=== PATIENT | female | born 1955 | race Caucasian/White ===

== ENCOUNTER 2016-11-17 13:25 | Observation (INO) | payer MEDICAID ==
--- NOTE | 2016-11-17 13:33 | EDPHY ---
H & P Time Seen by Provider: 11/17/16 13:35 HPI/ROS: CHIEF COMPLAINT: Chest pain HISTORY OF PRESENT ILLNESS: The patient presents to the emergency department with complaints of chest pain. Her symptoms initially began yesterday. She describes a sensation of a safe on my chest. The patient does have a history of colorectal cancer initially treated with chemo and radiation. She does report she has had some microscopic recurrence of disease. The patient has a remote history of a possible upper extremity DVT which she had been on Coumadin for a period of 4 months. She is currently not anticoagulated. The patient is a daily smoker. The patient denies risk factors for cardiac disease aside from smoking. The patient reports that she did contact 911. She was given nitroglycerin in route which resulted in improvement of her symptoms. REVIEW OF SYSTEMS: A comprehensive 10 point review of systems is otherwise negative aside from elements mentioned in the history of present illness. 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, migraines, right inguinal hernia repair, peptic ulcer disease, RUE DVT, hypertension - Social History Smoking Status: Former smoker - Physical Exam Exam: General Appearance: Alert, no distress Eyes: Pupils equal and round no pallor or injection ENT, Mouth: Mucous membranes moist Respiratory: There are no retractions, lungs are clear to auscultation Cardiovascular: Regular rate and rhythm Gastrointestinal: Abdomen is soft and nontender, no masses, bowel sounds normal Neurological: A&O, normal motor function, normal sensory exam, normal cranial nerves Skin: Warm and dry, no rashes Musculoskeletal: Neck is supple nontender Extremities: symmetrical, full range of motion Constitutional: Initial Vital Signs Temperature (C) 36.7 C 11/17/16 13:25 Heart Rate 100 11/17/16 13:25 Respiratory Rate 12 11/17/16 13:25 Blood Pressure 124/88 H 11/17/16 13:25 O2 Sat (%) 97 11/17/16 13:25 O2 Delivery Mode Room Air Allergies/Adverse Reactions: Penicillins Allergy (Severe, Verified 11/17/16 13:30) aspirin Allergy (Verified 11/17/16 13:30) codeine Allergy (Verified 11/17/16 13:30) Other-Enter Comments ibuprofen Allergy (Verified 11/17/16 13:30) Home Medications: Medication Instructions Recorded Gabapentin [Neurontin 300 MG (*)] 300 mg PO BID 01/26/16 Prochlorperazine Maleate 10 mg PO DAILY06 01/26/16 [Compazine 10mg (*)] morphINE SR [Ms Contin/Oramorph 15 15 mg PO BID 01/26/16 mg (*)] Medical Decision Making - Diagnostics EKG Interpretation: EKG: Complete interpretation has been separately recorded in the [facility] archive. Summary impression: Sinus rhythm, abnormal P-wave morphology Imaging: CT pulmonary angiogram: Negative for dissection, aneurysm or other explanation for chest pain. Study results reported to me by Dr. Black ED Course/Re-evaluation: The patient presents to the ED for evaluation of an episode of chest pain that occurred earlier today which the patient characterized as the sensation of a safe being on her chest. The patient has no evidence of ST segment elevation on her EKG. She has nonspecific P wave changes noted. Her initial troponin is normal. Patient's D-dimer was elevated prompting a CT pulmonary angiogram to evaluate for thromboembolic disease. Fortunately this study demonstrated no evidence of PE or dissection. The patient did not have recurrence of severe chest pain throughout her stay in the emergency department. Given the character of her pain and the fact that it was improved with nitroglycerin I do feel that she should be admitted to the hospital for observation and serial cardiac enzymes this evening. Consultation was made with Dr. Hernandez from the hospitalist service who has agreed to admit the patient this evening. Differential Diagnosis: Differential diagnosis considered includes acute coronary syndrome, myocardial infarction, pericarditis, esophagitis spasm, pulmonary embolism, pneumonia, pneumothorax - Data Points Laboratory Results: Laboratory Results 11/17/16 13:22 11/17/16 13:22 11/17/16 11/17/16 13: 13:20 WBC 5.81 10^3/uL (3.80-9.50) RBC 3.65 L 10^6/uL (4.18-5.33) Hgb 13.0 g/dL (12.6-16.3) Hct 39.1 % (38.0-47.0) MCV 107.1 H fL (81.5-99.8) MCH 35.6 H pg (27.9-34.1) MCHC 33.2 g/dL (32.4-36.7) RDW 15.7 H % (11.5-15.2) Plt Count 58 L 10^3/uL (150-400) MPV 9.9 fL (8.7-11.7) Neut % (Auto) 58.2 % (39.3-74.2) Lymph % (Auto) 26.2 % (15.0-45.0) [place] % (Auto) 14.3 H % (4.5-13.0) Eos % (Auto) 0.5 L % (0.6-7.6) Baso % (Auto) 0.3 % (0.3-1.7) Nucleat RBC Rel Count 0.0 % (0.0-0.2) Absolute Neuts (auto) 3.38 10^3/uL (1.70-6.50) Absolute Lymphs (auto) 1.52 10^3/uL (1.00-3.00) Absolute Monos (auto) 0.83 H 10^3/uL (0.30-0.80) Absolute Eos (auto) 0.03 10^3/uL (0.03-0.40) Absolute Basos (auto) 0.02 10^3/uL (0.02-0.10) Absolute Nucleated RBC 0.00 10^3/uL (0-0.01) Immature Gran % 0.5 % (0.0-1.1) Immature Gran # 0.03 10^3/uL (0.00-0.10) PT 12.1 SEC (12.0-15.0) INR 0.91 (0.83-1.16) D-Dimer 4.08 H ug/mLFEU (0.00-0.50) Sodium 139 mEq/L (134-144) Potassium 4.0 mEq/L (3.5-5.2) Chloride 103 mEq/L (97-110) Carbon Dioxide 26 mEq/l (22-31) Anion Gap 10 mEq/L (8-16) BUN 22 mg/dL (7-23) Creatinine 1.0 mg/dL (0.6-1.0) Estimated GFR 56 Glucose 100 mg/dL (70-100) Calcium 8.7 mg/dL (8.5-10.4) Troponin I < 0.012 ng/mL (0-0.034) Departure - Departure Disposition: [facility] [place] Acute Clinical Impression: Chest pain, Anal squamous cell carcinoma Condition: Good
--- NOTE | 2016-11-17 13:34 | CPEKG ---
Heart Rate: 92 RR Interval: 652 P-R Interval: 164 QRSD Interval: 68 QT Interval: 356 QTC Interval: 441 P [place]: -78 QRS [place]: -17 T Wave [place]: 6 EKG Severity - ABNORMAL ECG - EKG Impression: ECTOPIC ATRIAL RHYTHM EKG Impression: CONSIDER LEFT VENTRICULAR HYPERTROPHY EKG Impression: ANTERIOR Q WAVES, POSSIBLY DUE TO LVH Electronically Signed By: Rosette Cunningham 17-Nov-2016 15:09:31
[2016-11-17 13:35] LABS: % IMMATURE GRANULYOCYTES 0.5 % (0.0-1.1); ABSOLUTE IMMATURE GRANULOCYTES 0.03 10^3/uL (0.00-0.10); ADD DIFF? NO; HEMATOCRIT 39.1 % (38.0-47.0); MEAN CELL HEMOGLOBIN 35.6 pg (27.9-34.1); MEAN CELL HEMOGLOBIN CONCENTR. 33.2 g/dL (32.4-36.7); MEAN CELL VOLUME 107.1 fL (81.5-99.8); MEAN PLATELET VOLUME 9.9 fL (8.7-11.7); PLATELET COUNT 58 10^3/uL (150-400); RED BLOOD CELL COUNT 3.65 10^6/uL (4.18-5.33); RED CELL DISTRIBUTION WIDTH 15.7 % (11.5-15.2)
[2016-11-17 13:36] LABS: ADD MORPH? NO; ADD SCAN? YES; FRAGMENT RBC FLAG 0 (0-99); LEFT SHIFT FLG 0 (0-99); LIPEMIA HEMOLYSIS FLAG 80 (0-99); PLATELET CLUMPS FLAG 10 (0-99)
[2016-11-17 13:37] LABS: ATYPICAL LYMPHOCYTE FLAG 110 (0-99)
[2016-11-17 13:49] LABS: INR 0.91 (0.83-1.16); PROTIME(PATIENT) 12.1 SEC (12.0-15.0)
[2016-11-17 13:54] LABS: ANION GAP 10 mEq/L (8-16); CALCIUM 8.7 mg/dL (8.5-10.4); CARBON DIOXIDE 26 mEq/l (22-31); CHLORIDE 103 mEq/L (97-110); GLOMERULAR FILTRATION RATE 56; GLUCOSE 100 mg/dL (70-100); SODIUM 139 mEq/L (134-144)
[2016-11-17 14:16] LABS: SCAN NEGATIVE
[2016-11-17] MEDS ORDERED: IOPAMIDOL (ISOVUE 370) 75 ML BTL IV ONE (14:52)
--- NOTE | 2016-11-17 16:10 | CT ---
CT Pulmonary Angiography Clinical Indications: Chest pain and shortness breath. Comparison: December 10, 2014. Technique: Thinly collimated multidetector helical CT imaging was performed through the chest while 9 0 mL Isovue-370 were injected intravenously without complication. The images were then transferred t o an independent workstation where multiplanar and three-dimensional reconstructions were performed b y the interpreting physician and reviewed at multiple windows. Dose reduction techniques were utilize d. Findings: Chest: No pneumonia, pneumothorax, or pleural effusions are present. Heart size is normal and there is no pericardial effusion. No adenopathy and no pulmonary masses are found. There is 24 months sta bility in the posterior pleural-based nodule measuring 8 x 5 mm in the superior right lower lobe. Mil d airways disease is present and some patchy atelectatic change is present. CT Pulmonary Angiogram: No intraluminal filling defects are seen in the pulmonary arterial system to suggest pulmonary embolus. The thoracic aorta has a normal contour without evidence of aneurysm or d issection. No evidence of significant coronary artery calcification. Impression: 1. 24-month stability in the pleural-based nodule. This is benign and needs no further follow up. 2. Mild airways disease and patchy atelectatic or interstitial changes. 3. No radiographic evidence to explain the patient's chest pain. Critical results relayed by Dr. Black to Dr. Dyson on November 17, 2016, at 1538 hours.
[2016-11-17] MEDS ORDERED: ONDANSETRON DISINTEGRATING 4 MG TAB PO PRN (16:18)
[2016-11-17] MEDS ORDERED: ONDANSETRON 4 MG/2 ML VIAL IVP PRN (16:18)
[2016-11-17] MEDS ORDERED: ACETAMINOPHEN 325 MG TAB PO PRN (16:18)
--- NOTE | 2016-11-17 16:28 | PDEACUHP ---
History and Physical - Chief Complaint chest pain - History of Present Illness 61 yo female with h/o colorectal cancer followed by Dr. Morin presents to ED with chest pain. Her CP onset was at rest. There was no associated nausea, vomiting, diaphoresis or SOB. She denies radiation of the pain. The pain was sub-sternal and she describes it as a "disc-like" area of pressure. No burning. She called EMS, who gave her SL NTB. Upon arrival to the ED, her pain had resolved from a 06/14 prior to NTG. She smokes tobacco, 1/2 ppd. She is homeless. She denies a h/o hypertension, hyperlipidemia, DM or family h/o heart disease. In the ED, a CTA was performed and was negative for PE. She reports a " possible h/o RUE DVT", for which she took coumadin for 4 months. She is not currently anti-coagulated. She is admitted to the hospital for further evaluation and management of her chest pain. History Information - Allergies/Home Medication List Allergies/Adverse Reactions: Penicillins Allergy (Severe, Verified 11/17/16 13:30) aspirin Allergy (Verified 11/17/16 16:53) codeine Allergy (Verified 11/17/16 16:53) Other-Enter Comments ibuprofen Allergy (Verified 11/17/16 16:53) Home Medications: Gabapentin [Neurontin 300 MG (*)] 300 mg PO HS 01/26/16 [Last Taken 11/16/16] Prochlorperazine Maleate [Compazine 10mg (*)] 10 mg PO DAILY06 01/26/16 [Last Taken 11/17/16] morphINE SR [Ms Contin/Oramorph 15 mg (*)] 15 mg PO BID 01/26/16 [Last Taken ] Acetaminophen [Tylenol ES 500 mg (*)] 1,000 mg PO DAILY 11/17/16 [Last Taken ] Caffeine [Stay Awake] 65 mg PO DAILY 11/17/16 [Last Taken 11/17/16] I have personally reviewed and updated: family history, medical history, social history, surgical history - Past Medical History cancer Additional medical history: colorectal cancer, last chemo tx 1 week ago. PUD, migraines, htn (though pt denies any tx at this time). - Surgical History Reports: hernia repair - Family History Additional family history: No family h/o PHD. - Social History Smoking Status: Current every day smoker (Homeless) Review of Systems ROS: 10pt was reviewed & negative except for what was stated in HPI & below Physical Exam Temp Pulse Resp BP Pulse Ox 36.7 C 72 20 137/78 H 94 11/17/16 16:22 11/17/16 16:22 11/17/16 16:22 11/17/16 16:22 11/17/16 16:22 Constitutional: no apparent distress Eyes: PERRL Ears, Nose, Mouth, Throat: moist mucous membranes, other (poor dentition) Cardiovascular: regular rate and rhythym, no murmur, rub, or gallop Respiratory: no respiratory distress, clear to auscultation Gastrointestinal: normoactive bowel sounds, soft, non-tender abdomen Skin: warm Musculoskeletal: full muscle strength Neurologic: AAOx3 Psychiatric: interacting appropriately Lab Data & Imaging Review 11/17/16 13:22 11/17/16 13:22 WBC 5.81 10^3/uL (3.80-9.50) 11/17/16 13:22 RBC 3.65 10^6/uL (4.18-5.33) L 11/17/16 13:22 Hgb 13.0 g/dL (12.6-16.3) 11/17/16 13:22 Hct 39.1 % (38.0-47.0) 11/17/16 13:22 MCV 107.1 fL (81.5-99.8) H 11/17/16 13:22 MCH 35.6 pg (27.9-34.1) H 11/17/16 13:22 MCHC 33.2 g/dL (32.4-36.7) 11/17/16 13:22 RDW 15.7 % (11.5-15.2) H 11/17/16 13:22 Plt Count 58 10^3/uL (150-400) L 11/17/16 13:22 MPV 9.9 fL (8.7-11.7) 11/17/16 13:22 Neut % (Auto) 58.2 % (39.3-74.2) 11/17/16 13:22 Lymph % (Auto) 26.2 % (15.0-45.0) 11/17/16 13:22 [place] % (Auto) 14.3 % (4.5-13.0) H 11/17/16 13:22 Eos % (Auto) 0.5 % (0.6-7.6) L 11/17/16 13:22 Baso % (Auto) 0.3 % (0.3-1.7) 11/17/16 13: Nucleat RBC Rel Count 0.0 % (0.0-0.2) 11/17/16 13: Absolute Neuts (auto) 3.38 10^3/uL (1.70-6.50) 11/17/16 13: Absolute Lymphs (auto) 1.52 10^3/uL (1.00-3.00) 11/17/16 13: Absolute Monos (auto) 0.83 10^3/uL (0.30-0.80) H 11/17/16 13: Absolute Eos (auto) 0.03 10^3/uL (0.03-0.40) 11/17/16 13:22 Absolute Basos (auto) 0.02 10^3/uL (0.02-0.10) 11/17/16 13: Absolute Nucleated RBC 0.00 10^3/uL (0-0.01) 11/17/16 13: Immature Gran % 0.5 % (0.0-1.1) 11/17/16: Immature Gran # 0.03 10^3/uL (0.00-0.10) 11/17/16 13: PT 12.1 SEC (12.0-15.0) 11/17/16 13:22 INR 0.91 (0.83-1.16) 11/17/16 13: D-Dimer 4.08 ug/mLFEU (0.00-0.50) H 11/17/16 13:22 Sodium 139 mEq/L (134-144) 11/17/16 13:22 Potassium 4.0 mEq/L (3.5-5.2) 11/17/16 13:22 Chloride 103 mEq/L (97-110) 11/17/16 13: Carbon Dioxide 26 mEq/l (22-31) 11/17/16 13:22 Anion Gap 10 mEq/L (8-16) 11/17/16 13:22 BUN 22 mg/dL (7-23) 11/17/16 13:22 Creatinine 1.0 mg/dL (0.6-1.0) 11/17/16 13:22 Estimated GFR 56 11/17/16 13:22 Glucose 100 mg/dL (70-100) 11/17/16 13:22 Calcium 8.7 mg/dL (8.5-10.4) 11/17/16 13:22 Troponin I < 0.012 ng/mL (0-0.034) 11/17/16 13:20 Assessment & Plan Assessment: Chest pain - CV risk factors include tobacco use and past h/o hypertension, not currently on anti-hypertensives. She feels the CP is starting to return. Initial troponin negative. CTA neg for PE. EKG shows Q waves in V1,V2, but no evidence of acute ischemia. Overall, suspicion for ACS is relatively low. -admit to EACU -trend troponin -repeat EKG now -echo to evaluate for WMA given Q waves on EKG, ?LVH -cardiology consult if abnormal echo or positive troponin -daily ASA, nitro-paste, prn morphine for pain -check lipid status, consider addition of statin -consider beta poncho if BP can tolerate with ntg -EST in am if above w/u negative Colorectal cancer - followed by Dr. Morin. Last chemo tx one week ago. She understands her cancer is uncurable, but is responding well to palliative treatment. No mention of sternal mets on CT. Outpt oncology f/u planned. Hypertension - this is by chart hx. Pt not currently on anti-hypertensives and is relatively normotensive here. Homeless - CM consult Code status - full code Dispo - obs
--- NOTE | 2016-11-17 16:53 | CPEKG ---
Heart Rate: 72 RR Interval: 833 P-R Interval: 156 QRSD Interval: 74 QT Interval: 388 QTC Interval: 425 P [place]: 45 QRS [place]: -19 T Wave [place]: 63 EKG Severity - ABNORMAL ECG - EKG Impression: SINUS RHYTHM EKG Impression: VENTRICULAR PREMATURE COMPLEX EKG Impression: CONSIDER LEFT VENTRICULAR HYPERTROPHY EKG Impression: ANTERIOR Q WAVES, POSSIBLY DUE TO LVH Electronically Signed By: Tian Jacobsen 17-Nov-2016 17:40:46
[2016-11-17] MEDS ORDERED: PROCHLORPERAZINE MALEATE 10 MG TAB PO PRN (17:57)
[2016-11-17] MEDS ORDERED: NITROGLYCERIN 2% 1 GM PACKET TP SCH (18:00)
[2016-11-17] MEDS: ASPIRIN 325 MG TAB PO SCH ×2 (18:05→18:36)
[2016-11-17] MEDS: NITROGLYCERIN 2% 1 GM PACKET TP SCH (18:12)
[2016-11-17] MEDS: ATORVASTATIN CALCIUM 40 MG TAB PO SCH (18:19)
[2016-11-17] MEDS: METOPROLOL TARTRATE 25 MG TAB PO SCH ×2 (18:19→20:03)
[2016-11-17] MEDS: morphINE SR 15 MG TAB PO SCH (20:03)
[2016-11-17] MEDS ORDERED: GABAPENTIN 300 MG CAP PO SCH (21:00)
--- NOTE | 2016-11-17 22:59 | CPEKG ---
Heart Rate: 88 RR Interval: 682 P-R Interval: 168 QRSD Interval: 68 QT Interval: 352 QTC Interval: 426 P [place]: 58 QRS [place]: -33 T Wave [place]: 54 EKG Severity - OTHERWISE NORMAL ECG - EKG Impression: SINUS RHYTHM EKG Impression: LEFT AXIS DEVIATION Electronically Signed By: Tian Jacobsen 19-Nov-2016 08:33:07
[2016-11-18] MEDS: NITROGLYCERIN 2% 1 GM PACKET TP SCH ×3 (00:12→12:40)
[2016-11-18 05:52] LABS: CHOLESTEROL 146 mg/dL (140-220); CHOLESTEROL/HDL RATIO 4.87 RATIO (1.00-4.44); HIGH DENSITY LIPOPROTEIN 30 mg/dL (40-85); LDL/HDL RATIO 3.03 RATIO (1.00-3.22); LOW DENSITY LIPOPROTEIN 91 mg/dL (80-100); NON-HIGH DENSITY LIPOPROTEIN 116 mg/dL (90-129); TRIGLYCERIDE 127 mg/dL (35-135); VERY LOW DENSITY LIPOPROTEINS 25 mg/dL (8-25)
[2016-11-18] MEDS: morphINE SR 15 MG TAB PO SCH (08:06)
--- NOTE | 2016-11-18 09:17 | ECHO ---
[id number] + + [address] : : [place] [address] : : [phone] + + Adult Echocardiographic Report + --------+ :Name: Cecille CHAN Date: 11/17/2016 04:43 PM : : Hospital Admission Number: [id number] Locat ion: 141: :: 1955 Gender: Female Height: 64 in : :Age: 61 yrs Race: WH Weight: 120 l b : :Reason For Study: cp : : BSA: 1.6 mete rs2 : :History: cp : + --------+ MMode/2D Measurements & Calculations IVSd: 1.0 cm RVDd: 2.5 cm FS: 29.2 % Ao root diam: LVPWd: 1.0 cm LVIDd: 3.8 cm EDV(Teich): 3.1 cm LVIDs: 2.7 cm 62.0 ml ESV(Teich): 26.8 ml EF(Teich): 56.8 % LVLd ap4: 7.5 cm SV(MOD-sp4): EDV(MOD-sp4): 57.0 ml 90.0 ml LVLs ap4: 6.6 cm ESV(MOD-sp4): 33.0 ml EF(MOD-sp4): 63.3 % Normal Measurement Values: + + :LVIDd (3.5-5.7cm) IVSd (0.6-1.1cm) LVPWd (0.6-1.1cm) Aortic Root (2.0-3.7cm)Left Atrium (1.5-4.0cm): :LV Vol(d) (76-115ml) LV Vol(s) (29-48ml) Ejec Fraction (50-65%)PV Ede (0.6- 1.2m/s) TV Ede (0.4-1.0m/s) : :MV E Ede (0.8-1.0m/s)MV A Ede (0.3-1.0m/s)LVOT Ede (0.7-1.2m/s) Asc Ao Ede ( 0.9-1.8m/s) : + + Doppler Measurements & Calculations MV E max ede: Ao V2 max: LV V1 max: PA V2 max: 50.8 cm/sec 132.0 cm/sec 108.0 cm/sec 67.3 cm/sec MV A max ede: Ao max P.0 mmHgLV V1 max PG: PA max P.5 cm/sec 4.7 mmHg 1.8 mmHg MV E/A: 0.69 MV dec time: 0.22 sec Left Ventricle The left ventricle is normal in size and function. There is normal left ventricular wall thickness. Ejection Fraction = 55-60%. There is Doppler evidence for diastolic dysfunction. No regional wall motion abnormalities noted. Right Ventricle The right ventricle is normal in size and function. Atria The left atrial size is normal. Right atrial size is normal. Mitral Valve The mitral valve is normal in structure and function. There is no mitral valve stenosis. There is trace to mild mitral regurgitation. Tricuspid Valve The tricuspid valve is normal in structure and function. There is no tricuspid stenosis. There is trace tricuspid regurgitation. Aortic Valve The aortic valve is trileaflet. There is no aortic stenosis. There is no aortic insufficiency. Pulmonic Valve The pulmonic valve is normal in structure and function. Great Vessels The aortic root is normal size. Conclusion A two-dimensional transthoracic echocardiogram with M-mode and Doppler was performed. The left ventricle is normal in size and function. Ejection Fraction = 55-60%. There is Doppler evidence for diastolic dysfunction. There is trace to mild mitral regurgitation. There is trace tricuspid regurgitation. Final Reading Physician: Sulema Trotter signed on 11/18/2016 09:15 AM Ordering Physician: Tiera Hernandez Performed By: Juany Abreu
--- NOTE | 2016-11-18 09:41 | CPEKG ---
Heart Rate: 70 RR Interval: 857 P-R Interval: 156 QRSD Interval: 74 QT Interval: 396 QTC Interval: 428 P [place]: 57 QRS [place]: -31 T Wave [place]: 37 EKG Severity - ABNORMAL ECG - EKG Impression: SINUS RHYTHM EKG Impression: LEFT AXIS DEVIATION EKG Impression: CONSIDER ANTEROSEPTAL INFARCT Electronically Signed By: Tian Jacobsen 19-Nov-2016 08:32:57
--- NOTE | 2016-11-18 11:52 | CPR ---
[f rep st] NONINVASIVE CARDIAC PROCEDURE REPORT PROCEDURE: Treadmill EKG. INDICATION: Chest pain. DESCRIPTION OF PROCEDURE: The patient was prepared, worked on the treadmill for 5 minutes, with hear t rate going up to 171 beats per minute, which was 98% of target. No ST changes noted. Appropriate increase in blood pressure. No arrhythmias noted. CONCLUSION: Negative stress test EKG. Sharpe treadmill score of 5. /[id number]/MODL
[2016-11-18] MEDS: METOPROLOL TARTRATE 25 MG TAB PO SCH (12:39)
[2016-11-18] MEDS: ATORVASTATIN CALCIUM 40 MG TAB PO SCH (12:39)
[2016-11-18] MEDS: ASPIRIN 325 MG TAB PO SCH (12:40)
[2016-11-18 13:15] VITALS: BP 110/85; PULSE 90; RESP 14; TEMP 97.2; O2SAT 96
--- NOTE | 2016-11-18 13:32 | GDS ---
[f rep st] DISCHARGE SUMMARY KNOWN ACUTE DIAGNOSES ON THIS ADMISSION: 1. Chest pain, probable chest wall pain or musculoskeletal pain, noncardiac in origin. 2. Known colorectal cancer, under treatment by Dr. Morin. 3. Tobacco abuse of 1/2 pack of cigarettes a day. 4. Hypertension, currently under treatment. 5. Homeless status. 6. Chronic pain syndrome, on chronic opioids. CONSULTATIONS: None. PROCEDURES: 1. CTA of the chest showing a 24-month stability of a pleural-based nodule which appears benign and no further followup is necessary, mild airway disease and patchy atelectatic and interstitial changes but no radiographic evidence of a pulmonary embolus, pneumothorax or pneumonia. 2. An echocardiogram showing an EF of 50% to 60%, Doppler evidence of diastolic dysfunction, trace t o mild MR, trace mitral regurgitation. No regional wall motion abnormalities were noted. HOSPITAL COURSE: A 61-year-old female presented with chest pain. Initial vital signs showed very mi ld hypertension which then declined during the hospitalization. Her vital signs were otherwise kelley l. Troponin series was not elevated. Cholesterol panel showed an LDL of 91. CBC was normal. An ex ercise treadmill test under 5 minutes and Sharpe class 5 showed no evidence of cardiac ischemia or ST-s egment changes. Chest pain was deemed to be of noncardiac origin. DISCHARGE MEDICATIONS: Tylenol ES 1000 mg p.o. q.i.d. p.r.n., caffeine 100 mg tablets that she takes reportedly to stay awake, morphine SR 15 mg p.o. b.i.d., Compazine 10 mg p.o. q.6 hours, gabapentin 300 mg at bedtime, Lipitor 40 mg daily. PLAN: The patient is discharged to a assisted. She will follow up with Dr. Morin as her previous p geoff for her treatment of her colorectal cancer. Note her primary care followup will be with Dr. Danni Rodriguez in 2 weeks to reassess the state of her chest pain. Copy requested to: Dr. Morin /[id number]/MODL
== END 2016-11-18 13:35 | disposition home or self-care (01) ==
LOC: EDUNIT# → F1N 16:26
PROVIDERS: ADMIT Hospitalist; ATTEND Internal Medicine Pulmonary Disease
DX: R07.9 Chest pain, unspecified (principal); C19 Malignant neoplasm of rectosigmoid junction; C77.4 Secondary and unspecified malignant neoplasm of inguinal and lower limb lymph nodes; I10 Essential (primary) hypertension; G89.4 Chronic pain syndrome; F17.210 Nicotine dependence, cigarettes, uncomplicated; Z59.0 Homelessness; F11.20 Opioid dependence, uncomplicated; Z86.718 Personal history of other venous thrombosis and embolism; Z88.0 Allergy status to penicillin
CPT/HCPCS: 71275; 93005; 93017; 93306; 99285; G0378

== ENCOUNTER 2017-09-03 11:45 | Inpatient (IN) | payer MEDICAID ==
[2017-09-03 12:35] LABS: PLATELET COUNT 7 10^3/uL (150-400)
--- NOTE | 2017-09-03 12:44 | EDPHY ---
H & P Time Seen by Provider: 09/03/17 12:32 HPI/ROS: CHIEF COMPLAINT: Dizzy lightheaded on standing HISTORY OF PRESENT ILLNESS: Patient is a history of anal carcinoma with metastases and had an rectal pain which is painless. She last saw her oncologist in January. She has been feeling for the last 3 or 4 days dizzy on standing and feeling like she has to hold on to something she gets lightheaded. Today she had nausea and vomiting but no melena and no bright red blood in the vomit and no hematemesis or coffee-ground emesis. Symptoms of dizziness are moderate. She really can't stand up at all. Not associated with vertigo or headache or actual syncope. REVIEW OF SYSTEMS: Eye: no change in vision ENT: no sore throat Cardiac: no chest pain or syncope Pulmonary: no cough or SOB Abdomen: HPI Musculoskeletal: no back pain Skin: no rash Neuro: no headache Constitutional: no fever : no urinary symptoms A comprehensive 10 point review of systems is otherwise negative aside from elements mentioned in the history of present illness. PAST MEDICAL HISTORY: Includes anal cancer, thrombocytopenia, migraines, right arm DVT, hypertension Social history: Currently homeless General Appearance: Alert and conversant, cooperative. Eyes: No scleral icterus. ENT, Mouth: Normal mucous membranes. Respiratory: Normal respiratory effort, breath sounds equal, lungs are clear to auscultation. Cardiovascular: Regular rate and rhythm. Gastrointestinal: Abdomen is soft and non tender. Neurological: Alert and oriented x3. Normally conversant. Face symmetric, normal movement and sensation in all extremities. Skin: Warm and dry, no rashes. Musculoskeletal: No peripheral edema and no joint swelling. Psychiatric: Not agitated. Emergency Department course/MDM: Hematocrit 15 and platelet count 7000. Admission for transfusion of packed red blood cells and platelets. Seen by admitting hospitalist Dr. Mayes in the ED. 1514: PRBC arrival in ED, started in ED. Smoking Status: Current every day smoker Constitutional: Initial Vital Signs Temperature (C) 37 C 09/03/17 11:53 Heart Rate 107 H 09/03/17 11:53 Respiratory Rate 16 09/03/17 11:53 Blood Pressure 109/87 H 09/03/17 11:53 O2 Sat (%) 100 09/03/17 11:53 O2 Delivery Mode Room Air Allergies/Adverse Reactions: Penicillins Allergy (Severe, Verified 09/03/17 13:31) Hives aspirin Allergy (Verified 11/17/16 16:53) codeine Allergy (Verified 11/17/16 16:53) Other-Enter Comments ibuprofen Allergy (Verified 11/17/16 16:53) Home Medications: Medication Instructions Recorded Acetaminophen [Tylenol ES 500 mg 1,000 mg PO TID PRN 11/17/16 (*)] Herbals/Supplements -Info Only 1 ea PO DAILY 09/03/17 Medical Decision Making Consult/Admit Bed Type: [facility] for Dr. Hernandez, [place] [id number] Critical Care Time: Critical care time spent by me, Dr. Zamarripa, exclusively with the care of this patient was 30 minutes, exclusive of PA or SCHOOL ATTENDANCE SECRETARY time and exclusive of separate procedures. The organ system at risk was hematologic and I ordered platelets and packed red blood cells, discussion with hospitalist and sales development executive to stabilize the patient and prevent worsening of the patient's condition. Transfusion started in ED. - Data Points Laboratory Results: Laboratory Results 09/03/17 11:48 09/03/17 11:48 09/03/17 09/03/17 11:48 11:48 WBC 7.73 10^3/uL 10^3/uL (3.80-9.50) RBC 1.30 10^6/uL L 10^6/uL (4.18-5.33) Hgb 5.0 g/dL L* g/dL (12.6-16.3) Hct 14.7 % L* % (38.0-47.0) MCV 113.1 fL H fL (81.5-99.8) MCH 38.5 pg H pg (27.9-34.1) MCHC 34.0 g/dL g/dL (32.4-36.7) RDW 19.0 % H % (11.5-15.2) Plt Count 7 10^3/uL L* 10^3/uL (150-400) MPV TNP Neut % (Auto) 68.0 % % (39.3-74.2) Lymph % (Auto) 25.1 % % (15.0-45.0) Carson % (Auto) 6.0 % % (4.5-13.0) Eos % (Auto) 0.3 % L % (0.6-7.6) Baso % (Auto) 0.0 % L % (0.3-1.7) Nucleat RBC Rel Count 0.4 % H % (0.0-0.2) Absolute Neuts (auto) 5.26 10^3/uL 10^3/uL (1.70-6.50) Absolute Lymphs (auto) 1.94 10^3/uL 10^3/uL (1.00-3.00) Absolute Monos (auto) 0.46 10^3/uL 10^3/uL (0.30-0.80) Absolute Eos (auto) 0.02 10^3/uL L 10^3/uL (0.03-0.40) Absolute Basos (auto) 0.00 10^3/uL L 10^3/uL (0.02-0.10) Absolute Nucleated RBC 0.03 10^3/uL H 10^3/uL (0-0.01) Immature Gran % 0.6 % % (0.0-1.1) Immature Gran # 0.05 10^3/uL 10^3/uL (0.00-0.10) Platelet Estimate DECREASED L (ADEQ) Polychromasia 1+ H Oval Macrocytes 2+ H Smear Review By Laure TAI MD Sodium 140 mEq/L mEq/L (134-144) Potassium 4.0 mEq/L mEq/L (3.5-5.2) Chloride 110 mEq/L mEq/L (97-110) Carbon Dioxide 18 mEq/l L mEq/l (22-31) Anion Gap 12 mEq/L mEq/L (8-16) BUN 52 mg/dL H mg/dL (7-23) Creatinine 1.0 mg/dL mg/dL (0.6-1.0) Estimated GFR 56 Glucose 117 mg/dL H mg/dL (70-100) Calcium 8.9 mg/dL mg/dL (8.5-10.4) Departure - Departure Disposition: [facility] Inpatient Acute Clinical Impression: Thrombocytopenia Anemia Qualifiers: Anemia type: unspecified type Qualified Code(s): D64.9 - Anemia, unspecified Condition: Fair
[2017-09-03] MEDS ORDERED: ACETAMINOPHEN 325 MG TAB PO PRN (14:54)
[2017-09-03] MEDS ORDERED: ONDANSETRON 4 MG/2 ML VIAL IVP PRN (14:54)
[2017-09-03] MEDS ORDERED: NS 1,000 ML IV SCH (15:00)
[2017-09-03] MEDS ORDERED: IOPAMIDOL (ISOVUE-300) 100 ML BTL ONE (15:02)
--- NOTE | 2017-09-03 16:01 | GHP ---
[f rep st] HISTORY AND PHYSICAL DATE OF ADMISSION: 09/03/2017 CHIEF COMPLAINT: Dizziness. HISTORY: The patient is a 62-year-old female with a history of squamous cell carcinoma of the anus. She initially presented with a right groin mass and had known extension into her right labia. She w as initially treated with chemo and radiation and went into remission, but subsequently had recurrenc e and was started on immunotherapy with Dr. Morin. Logistically, due to her homeless status, she w as having too hard time following up at the cancer center, so eventually just stopped therapy, and macdonald s not followed up since January. She now presents with 3 to 4 days of dizziness. She says this gets much worse when she is up. She i s not really lightheaded, she is feels tingly and numb all over. She has occasional rectal bleeding, but not a large quantity. She does wear a pad every day due to chronic small amounts of leakage fro m her anus. She does not have any pain. She occasionally gets chest pain and shortness of breath, b ut very minimal. PAST MEDICAL HISTORY: 1. 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 2. Hypertension. 3. Right upper extremity DVT. MEDICATIONS: Please see computer record for full detailed list. ALLERGY: Penicillin, aspirin, codeine, ibuprofen. SOCIAL HISTORY: She is homeless. Currently staying at a longterm. Smokes half a pack per day. No a lcohol or drugs. REVIEW OF SYSTEMS: Complete review of systems obtained. Review of systems negative regarding consti tutional, HEENT, GI, pulmonary, cardiovascular, , hematology, skin, muscular, endocrine, psych, exc ept for positives and negatives as in HPI. FAMILY HISTORY: Reviewed, noncontributory to presenting complaint. PHYSICAL EXAMINATION: GENERAL: Well-developed, well-nourished female, in no acute distress. VITAL SIGNS: Temperature 37.0, pulse 107, blood pressure 109/87, saturating 100% on room air. EYES: Norm al conjunctivae. Pupils react light. ENT: Normal ears and nose. Hearing intact. Normal teeth. O ropharynx moist. NECK: Trachea midline. No thyromegaly. CHEST: Normal respiratory effort. LUNGS : Clear to auscultation bilaterally. CARDIOVASCULAR: Regular rhythm. No murmur. No lower extremi ty edema. ABDOMEN: Soft, nontender. No hepatosplenomegaly. SKIN: Warm, dry, intact without rash. She does have a malignant ulceration on her right labia. No obvious other rectal mass. She does h ave some dried blood around her anus. MUSCULOSKELETAL: No cyanosis or clubbing. Strength 5/5, uppe r and lower extremities. NEUROLOGIC: Cranial nerves intact. Normal sensation to light touch. PSYC HIATRIC: Alert and oriented x3. Normal affect. Normal judgment. Normal memory. LABS: White count 7.73, hemoglobin is 5, hematocrit 14.7, platelets are 7. Sodium 140, potassium 4. 0, chloride 110, bicarb 18, BUN 52, creatinine 1.0, glucose 117. MEDICAL RECORD REVIEW: I reviewed her medical records. She has really had minimal hospitalizations recently. Last time she was admitted was in November for chest pain, with a negative workup. ASSESSMENT AND PLAN: 1. Severe anemia and thrombocytopenia. I think this is clearly related to her metastatic squamous c ell carcinoma of the anus, for which she was lost to followup due to her homeless status. Will trans fuse 3 units of red cells and 1 unit of platelet, and will check a CT scan of the abdomen and pelvis to evaluate status of her malignancy and evaluate whether there may be a source of blood loss, althou gh my suspicion is it is a slow chronic ooze from her rectal cancer. Will consult Oncology. I left a message for Dr. Bansal. Will also consult Palliative Care. The patient really does not seem all t hat interested in resuming treatment. She has spoken with hospice in the past and may be interested in resuming. She seems somewhat depressed regarding her social situation. 2. Metastatic squamous cell carcinoma of the anus. Most recently on immunotherapy, which she ceased in January. She complains of expenses regarding getting a bus pass, etc., as her reason for lack of t herapy. 3. Tobacco dependence. Will provide a nicotine patch. 4. Code status: She requests do not resuscitate. Will also consult Palliative Care, as she does no t seem to be interested in further aggressive therapies. ADMISSION STATUS: 1. Will admit to inpatient, as I anticipate greater than 2 midnights given complexity of presentatio n. 2. DVT prophylaxis. Will do SCDs only given concerns for acute bleeding. /[id number]/MODL
--- NOTE | 2017-09-03 16:13 | PDMN ---
Medical Necessity Medical necessity: Pt meets IP criteria per MD; est los >2 mn for eval/tx of severe anemia & thrombocytopenia r/t metastatic squamous cell carcinoma of the anus; hx htn & RUE DVT; per H&P 09/03/17
[2017-09-03 16:43] LABS: INR 1.03 (0.83-1.16); PROTIME(PATIENT) 13.4 SEC (12.0-15.0)
[2017-09-03] MEDS ORDERED: MELATONIN 3 MG TAB PO PRN (21:54)
--- NOTE | 2017-09-04 03:17 | GCON ---
[f rep st] CONSULTATION ONCOLOGY CONSULTATION REASON FOR CONSULTATION: History of locally advanced and recurrent anal carcinoma, admitted with hemoglobin of 5. HISTORY OF PRESENT ILLNESS: The patient is a 62-year-old female with a history of squamous cell carcinoma of the anus diagnosed in December 2014. The patient presented at that time, with a mass in her right groin. The biopsy was consistent with squamous cell carcinoma. She was initially staged as a T2 N3 M? . Initial imaging showed a RLL lung nodule and an adrenal lesion, both were felt to be indeterminate. She was treated with 4 cycles cisplatin and 5-FU with follow up CT scan in february 2015 showing a partial response with a decrease in the size of the right inguinal mass and left inguinal nodes. The lung nodule was unchanged. She then receiving a 6 week course of radiation to the inguinal and pelvic lymph nodes, as well as the anal primary. She received a dose of 5400 cGy which was completed in May 2015. She did well until she was diagnosed with a recurrence in her right labial area in September 2015. That was treated with radiation and weekly bolus 5-FU. The last imaging the patient had at [facility] was in December 2015. At that time, she continued to have an ulcerated right inguinal soft tissue mass that had not changed compared to her previous CT scan in August 2015. It measured 4 x 3.5 x 7 cm. There was no new intraabdominal mass. The patient presented with increasing left inguinal adenopathy in June 2016 along with a new superficial right labial lesion. and Dr. Rubi Egan excised an anal mass, right labial mass, and 2 left inguinal lymph nodes, all of which contain malignancy. The patient then received a trial of immunotherapy (nivolumab) from September 2016-January 2017. She quit treatment in the spring due to her homeless state and inability to come to the clinic. More recently, she has noted 3-4 days of dizziness. She feels like it is much worse when she stands up. She notes that she has had some rectal bleeding, but nothing that has been in large quantities. She does wear a pad every day. She denies any new pain. PAST MEDICAL HISTORY: Squamous cell carcinoma of the anus, locally advanced, possibly metastatic, hypertension, history of right upper extremity DVT. SOCIAL HISTORY: She is homeless. She is currently staying at a senior care. She does smoke cigarettes and does not do alcohol or drugs. REVIEW OF SYSTEMS: CONSTITUTIONAL: She denies any fever. RESPIRATORY: No shortness of breath or cough. ABDOMEN: No abdominal pain. EXTREMITIES: She has diffuse ecchymoses over her shins, which she attributes to climbing in and out of the bunk bed at the senior care. PHYSICAL EXAM: GENERAL: She is comfortable appearing. VITAL SIGNS: Stable. She is afebrile. HEENT: Pupils are equal. Sclerae anicteric. Oropharynx with extremely poor dentition. NECK: Supple. LUNGS: Clear to auscultation. HEART: Regular rate. No murmur. ABDOMEN: Soft, nontender. No hepatosplenomegaly. Inguinal and pelvic area is not examined as patient is currently having her blood drawn. LABORATORY DATA: White blood cell count 7.7, hemoglobin 5, hematocrit 14.7, platelets are 7, creatinine of 1.0. IMPRESSION: This is an unfortunate 62-year-old female, with no resources, who is homeless with locally advanced and recurrent squamous cell carcinoma of the anus. She does not have obvious distant metastasis. The patient has previously been treated with chemotherapy, radiation therapy, and had surgical resection of a local recurrence in June 2016. She received a course of immunotherapy but was lost to followup, due to not being able to come into the clinic. She is admitted with severe anemia and thrombocytopenia. She appears well compensated, suggesting that this was not an acute blood loss. Her smear was reviewed, and there is not extensive schistocytes, therefore, not suggestive of a microangiopathic hemolytic process. I suspect this is multifactorial with chronic blood oozing. She has a history of B12 deficiency and quit taking B12 at least 6 months ago. She has persistently had low platelet count for unclear reasons. This could be autoimmune in nature. PLAN: 1. Agree with red blood cell transfusion. 2. We will check LDH reticulocyte count, bilirubin, B12, and ferritin. 3. At this time, we do not have strong evidence for microangiopathic process, and I suspect this is more related to chronic blood loss, decreased marrow reserve, possibly a component of B12 deficiency. 4. The patient has voiced a desire to not receive any further treatment during this admission. Will likely need to address palliative care and how best to administer that given her homeless state. We will continue to follow along with you. /[id number]/MODL MTDD
[2017-09-04 04:49] LABS: PLATELET COUNT 23 10^3/uL (150-400)
[2017-09-04 04:59] LABS: INR 0.99 (0.83-1.16)
[2017-09-04] MEDS: NICOTINE 14 MG/24 HR PATCH TD SCH (07:45)
--- NOTE | 2017-09-04 09:58 | WOCRNPDOC ---
WOCRN Advanced Assessment Note - Skin Integrity Problem, Advanced Assess Right Lateral Labia Dressing Type: Open to Air Exudate Amount: Scant Exudate Color: Red Exudate Characteristic(s): Bloody Isidro Wound Tissue: Swollen, Scarred Isidro Wound Swelling: Mild Wound Bed Color: Red Wound Bed Constitution: Smooth Tissue (red, non-granular) Wound Edges: Well Defined Site Odor: None Site Measurement - Head-to-Toe Length X Width X Depth (cm): 0.9cmx0.2cmx0.1cm Skin Integrity Problem Comment: Small, linear wound on the very lateral, right edge of patient's labia, w/ scant bloody exudate. Extensive scar tissue isidro- wound r/t prior radiation to this site; skin overal is dry and friable. Patient reports that briefs and underwear rub against this spot, so etiology could be r/ t friction. Will have nursing apply a hydrocolloid dressing over this site, extending onto her groin, to see if this will help mitigate friction. No need for wound care to follow going forward; please reconsult PRN.
[2017-09-04] MEDS ORDERED: IOPAMIDOL (ISOVUE 370) 100 ML BTL IV ONE (10:10)
[2017-09-04] MEDS ORDERED: CYANO/VITAMIN B12 1000 MCG/ML VIAL IM ONE (11:29)
--- NOTE | 2017-09-04 11:36 | HOSPPROG ---
Hospitalist Progress Note Assessment/Plan: DIAGNOSES: -severe symptomatic anemia, macrocytic, uncertain etiology -she does have a past history of B12 deficiency for which she was receiving shots but has not had any for some time; will need to recheck B12 level at this time will give her some B12 supplements while waiting for that result- -metastatic squamous cell carcinoma -she had a recurrence couple years ago and has now not been on any therapy for a year to and wishes no further therapy at this time but would like palliative consult -severe thrombocytopenia with bruising -etiology of this is uncertain; she did have a modest response to transfusion yesterday -this will pose an ongoing problem for her in terms of bleeding risk; she is aware to avoid nonsteroidal anti-inflammatories PLANS: -B12 levels are ordered -B12 supplements were ordered; will prescribe high-dose oral supplements so that she can at least have that available to continue taking it since she has been having trouble getting shots for social reasons -repeat blood counts and platelet counts in the morning -palliative care evaluation SUBJECTIVE: She feels notably better after 3 units red blood cell transfusion, her presenting symptoms are currently resolved No aches or pains OBJECTIVE Vitals reviewed: Stable without fever Customer Specialist, my review: Sign Exam: alert oriented skin warm dry color ok resps not labored lungs clear BSs heart regular abd soft nondistended nontender, bowel sounds present limbs warm, no edema iv site ok Laboratory data: Hemoglobin 8.8 up from 5 yesterday Iron levels are high, but these were done after 3 units of red blood cell transfusion and there actual diagnostic value was unclear to me, Will review with Dr. Bansal Objective: Vital Signs Temp Pulse Resp BP Pulse Ox 36.8 C 61 18 112/70 94 09/04/17 07:32 09/04/17 07:32 09/04/17 07:32 09/04/17 07:32 09/04/17 07:32 Laboratory Results 09/04/17 04:12 09/04/17 04:12 09/03/17 09/04/17 09/05/17 06:59 06:59 06:59 Intake Total 2069 Balance 2069 PT 13.0 SEC (12.0-15.0) 09/04/17 04:12 INR 0.99 (0.83-1.16) 09/04/17 04:12 ICD10 Worksheet Patient Problems: Problems Problem Status Onset Anemia Acute Thrombocytopenia Acute Chest pain Acute Fever Acute Anal squamous cell carcinoma Chronic 12/10/14 Poor dentition Chronic
[2017-09-04] MEDS ORDERED: MULTIVITAMINS W-IRON (PEDS) 1 ML UDSYR PO SCH (11:45)
[2017-09-04] MEDS: MULTIVITAMINS W-MINERALS 1 EACH TAB PO SCH (12:56)
--- NOTE | 2017-09-04 14:32 | PDPCPN ---
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 Foudn to have HGb 5 s/p PRBC thought to be due to chronic anemia from her cancer. Palliative care consulted for complex medical decision making. Met with Judi at the bedside this morning. She shared her medical status. She understands she has a terminal illness but is unsure of her exact prognosis. She states she has met with [facility] hospice last year and was told when she needed hospice just to call. She does not feel she needs hospice care yet but is also unsure of her prognosis. She would like to speak with oncology about their thoughts. She does feel she will not be alive to see her 64th birthday. She feels if she had a better understand of her prognosis it would help with making plans (ie hospice care, housing, etc). We spoke about the role of hospice care and benefits. Right now her major concern is housing and transportation issues. She is living at the detention and tao handles for money. Therefore she does not have enough of an income to afford a bus pass to come to/ from her appointments. She states she "didn't divorce [facility]" she just could not afford the bus pass to come in for appointments. If she had, she would continue with treatment as long as it is working. She is clear she does not want CPR or intubation as "I don't want to awaken with broken ribs and still have cancer". She is independent again after her blood transfusion and feels pretty much at her baseline. Assessment: Physical: - Pain: some peripheral neuropathy -tylenol PRN - was on gabapentin in the past - weakness - improved after blood transfusions - support as needed Emotional/psychological: She has support from friends. Advanced Care Planning: Is patient decisional?: Yes Code Status: DNR POA: does NOT want Selena to be her MDPOA. She has 5 friends who she would want to act as decision makers but all are homeless and do not have a way to contact them. Plan: CM working on housing issues. She would like to speak with oncology regarding her prognosis. Subjective: I'm feeling ok Objective: Social History: Estranged from her sister in [place]. [place] and [place]. Grew up in [place] and moved to the [facility]. , no children. Medication list reviewed ROS: General: fatigue ENT: negative Resp: negative GI: negative : negative MS: negative Skin: bruises on legs Neuro: negative Psych: negative Functional assessment: PPS: 70% Functional status: independent ADLs, IADLs Vital Signs Temp Pulse Resp BP Pulse Ox 36.7 C 66 17 119/75 95 09/04/17 12:30 09/04/17 12:30 09/04/17 12:30 09/04/17 12:30 09/04/17 12:30 Laboratory Results 09/04/17 04:12 09/04/17 04:12 09/03/17 09/04/17 09/05/17 05:59 05:59 05:59 Intake Total 2069 Balance 2069 PT 13.0 SEC (12.0-15.0) 09/04/17 04:12 INR 0.99 (0.83-1.16) 09/04/17 04:12 Physical Exam - Physical Exam General Appearance: alert, no apparent distress Respiratory: No respiratory distress, No accessory muscle use Skin: normal color, warm/dry Extremities: No pedal edema Neuro/Psych: alert, oriented x 3 ICD10 Worksheet Patient Problems: Problems Problem Status Onset Anemia Acute Palliative care encounter Acute Thrombocytopenia Acute Chest pain Acute Fever Acute Anal squamous cell carcinoma Chronic 12/10/14 Poor dentition Chronic - ICD10 Problem Qualifiers (1) Palliative care encounter
--- NOTE | 2017-09-04 14:32 | PDPCPN ---
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 Foudn to have HGb 5 s/p PRBC thought to be due to chronic anemia from her cancer. Palliative care consulted for complex medical decision making. Met with Judi at the bedside this morning. She shared her medical status. She understands she has a terminal illness but is unsure of her exact prognosis. She states she has met with [facility] hospice last year and was told when she needed hospice just to call. She does not feel she needs hospice care yet but is also unsure of her prognosis. She would like to speak with oncology about their thoughts. She does feel she will not be alive to see her 64th birthday. She feels if she had a better understand of her prognosis it would help with making plans (ie hospice care, housing, etc). We spoke about the role of hospice care and benefits. Right now her major concern is housing and transportation issues. She is living at the custodial and [facility]ao handles for money. Therefore she does not have enough of an income to afford a bus pass to come to/ from her appointments. She states she "didn't divorce [facility]" she just could not afford the bus pass to come in for appointments. If she had, she would continue with treatment as long as it is working. She is clear she does not want CPR or intubation as "I don't want to awaken with broken ribs and still have cancer". She is independent again after her blood transfusion and feels pretty much at her baseline. Assessment: Physical: - Pain: some peripheral neuropathy -tylenol PRN - was on gabapentin in the past - weakness - improved after blood transfusions - support as needed Emotional/psychological: She has support from friends. Advanced Care Planning: Is patient decisional?: Yes Code Status: DNR POA: does NOT want Selena to be her MDPOA. She has 5 friends who she would want to act as decision makers but all are homeless and do not have a way to contact them. Plan: CM working on housing issues. She would like to speak with oncology regarding her prognosis. Subjective: I'm feeling ok Objective: Social History: Estranged from her sister in [place]. [place] and animals. Grew up in [place] and moved to the [facility] [place]. , no children. Medication list reviewed ROS: General: fatigue ENT: negative Resp: negative GI: negative : negative MS: negative Skin: bruises on legs Neuro: negative Psych: negative Functional assessment: PPS: 70% Functional status: independent ADLs, IADLs Vital Signs Temp Pulse Resp BP Pulse Ox 36.7 C 66 17 119/75 95 09/04/17 12:30 09/04/17 12:30 09/04/17 12:30 09/04/17 12:30 09/04/17 12:30 Laboratory Results 09/04/17 04:12 09/04/17 04:12 09/03/17 09/04/17 09/05/17 05:59 05:59 05:59 Intake Total 2069 Balance 2069 PT 13.0 SEC (12.0-15.0) 09/04/17 04:12 INR 0.99 (0.83-1.16) 09/04/17 04:12 Physical Exam - Physical Exam General Appearance: alert, no apparent distress Respiratory: No respiratory distress, No accessory muscle use Skin: normal color, warm/dry Extremities: No pedal edema Neuro/Psych: alert, oriented x 3 ICD10 Worksheet Patient Problems: Problems Problem Status Onset Anemia Acute Palliative care encounter Acute Thrombocytopenia Acute Chest pain Acute Fever Acute Anal squamous cell carcinoma Chronic 12/10/14 Poor dentition Chronic - ICD10 Problem Qualifiers (1) Palliative care encounter
--- NOTE | 2017-09-04 14:32 | PDPCPN ---
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 Foudn to have HGb 5 s/p PRBC thought to be due to chronic anemia from her cancer. Palliative care consulted for complex medical decision making. Met with Judi at the bedside this morning. She shared her medical status. She understands she has a terminal illness but is unsure of her exact prognosis. She states she has met with [facility] hospice last year and was told when she needed hospice just to call. She does not feel she needs hospice care yet but is also unsure of her prognosis. She would like to speak with oncology about their thoughts. She does feel she will not be alive to see her 64th birthday. She feels if she had a better understand of her prognosis it would help with making plans (ie hospice care, housing, etc). We spoke about the role of hospice care and benefits. Right now her major concern is housing and transportation issues. She is living at the [facility] and [facility] for money. Therefore she does not have enough of an income to afford a bus pass to come to/ from her appointments. She states she "didn't divorce [facility]" she just could not afford the bus pass to come in for appointments. If she had, she would continue with treatment as long as it is working. She is clear she does not want CPR or intubation as "I don't want to awaken with broken ribs and still have cancer". She is independent again after her blood transfusion and feels pretty much at her baseline. Assessment: Physical: - Pain: some peripheral neuropathy -tylenol PRN - was on gabapentin in the past - weakness - improved after blood transfusions - support as needed Emotional/psychological: She has support from friends. Advanced Care Planning: Is patient decisional?: Yes Code Status: DNR POA: does NOT want Selena to be her MDPOA. She has 5 friends who she would want to act as decision makers but all are homeless and do not have a way to contact them. Plan: CM working on housing issues. She would like to speak with oncology regarding her prognosis. Subjective: I'm feeling ok Objective: Social History: Estranged from her sister in [place]. [place] and animals. Grew up in [place] and moved to the [facility] in [place]. , no children. Medication list reviewed ROS: General: fatigue ENT: negative Resp: negative GI: negative : negative MS: negative Skin: bruises on legs Neuro: negative Psych: negative Functional assessment: PPS: 70% Functional status: independent ADLs, IADLs Vital Signs Temp Pulse Resp BP Pulse Ox 36.7 C 66 17 119/75 95 09/04/17 12:30 09/04/17 12:30 09/04/17 12:30 09/04/17 12:30 09/04/17 12:30 Laboratory Results 09/04/17 04:12 09/04/17 04:12 09/03/17 09/04/17 09/05/17 05:59 05:59 05:59 Intake Total 2069 Balance 2069 PT 13.0 SEC (12.0-15.0) 09/04/17 04:12 INR 0.99 (0.83-1.16) 09/04/17 04:12 Physical Exam - Physical Exam General Appearance: alert, no apparent distress Respiratory: No respiratory distress, No accessory muscle use Skin: normal color, warm/dry Extremities: No pedal edema Neuro/Psych: alert, oriented x 3 ICD10 Worksheet Patient Problems: Problems Problem Status Onset Anemia Acute Palliative care encounter Acute Thrombocytopenia Acute Chest pain Acute Fever Acute Anal squamous cell carcinoma Chronic 12/10/14 Poor dentition Chronic - ICD10 Problem Qualifiers (1) Palliative care encounter
--- NOTE | 2017-09-04 15:10 | ASMTCMCOM ---
CM Note CM Note Notes: 09/04/2017 Case Management Note At requested of Palliative team, met w/pt to discuss transportation options if pt wishes to pursue further immunotherapy treatments at [facility]. Gave pt info on [place] transport. Pt had prior knowledge of [place] transport program. Pt reports [facility] closes at 8 am and that she [facility] most of her days near the [facility]. Pt unwilling to commit to pickup location for transportation to [facility] for treatments. Called [facility] and spoke w/Divina Andujar, case management social worker. Divina is familiar w/pt and has in the past arranged transportation and financial assistance in order for pt to pursue cancer treatement. Attempted to leave VM at the [facility] with Chace. Pt reports "reserved" bed status at the [facility] and that she has gone through the new coordinated entry system. Pt is unable to identify her case fitter at the [facility]. Left for Enrike the case fitter for the transitions program at the [facility] requesting a return phone call. At Divina Andujar's suggestion, case management gave pt phone numbers for [facility] scheduling and [place] transport. In addition provided print out of [place] services and contact info and encouraged pt to make necessary appointments at [facility] and [place]. Case Management d/c poc: return to [facility] with follow up at [facility]. If pt chooses, [facility] will take pt to appointments at [facility] free of charge. Case management to follow. Date Signed: 09/04/2017 03:09 PM Electronically Signed By:Otilia Ruelas RN
--- NOTE | 2017-09-04 15:10 | ASMTCMCOM ---
CM Note CM Note Notes: 09/04/2017 Case Management Note At requested of Palliative team, met w/pt to discuss transportation options if pt wishes to pursue further immunotherapy treatments at [facility]. Gave pt info on [place] transport. Pt had prior knowledge of [place] [facility] program. Pt reports [facility] closes at 8 am and that she spends most of her days near the [facility]. Pt unwilling to commit to pickup location for transportation to [facility] for treatments. Called [facility] and spoke w/Divina Andujar, social sciences instructor. Divina is familiar w/pt and has in the past arranged transportation and financial assistance in order for pt to pursue cancer treatement. Attempted to leave VM at the [facility] with Chace. Pt reports "reserved" bed status at the [facility] and that she has gone through the new coordinated entry system. Pt is unable to identify her adult protective caseworker at the [facility]. Left for Enrike the adult protective caseworker for the transitions program at the [facility] requesting a return phone call. At Divina Andujar's suggestion, case management gave pt phone numbers for [facility] scheduling and [place] transport. In addition provided print out of [place] services and contact info and encouraged pt to make necessary appointments at [facility] and [place]. Case Management d/c poc: return to [facility] with follow up at [facility]. If pt chooses, [facility] [facility] will take pt to appointments at [facility] free of charge. Case management to follow. Date Signed: 09/04/2017 03:09 PM Electronically Signed By:Otilia Ruelas RN
--- NOTE | 2017-09-04 15:10 | ASMTCMCOM ---
CM Note CM Note Notes: 09/04/2017 Case Management Note At requested of Palliative team, met w/pt to discuss transportation options if pt wishes to pursue further immunotherapy treatments at [facility]. Gave pt info on [place] transport. Pt had prior knowledge of [place] program. Pt reports [facility] closes at 8 am and that she spends most of her days near the [facility]. Pt unwilling to commit to pickup location for transportation to [facility] for treatments. Called [facility] and spoke w/Divina Andujar, high school social science teacher. Divina is familiar w/pt and has in the past arranged transportation and financial assistance in order for pt to pursue cancer treatement. Attempted to leave VM at the [facility] with Chace. Pt reports "reserved" bed status at the [facility] and that she has gone through the new coordinated entry system. Pt is unable to identify her hospice case manager at the [facility]. Left for Enrike the hospice case manager for the transitions program at the [facility] requesting a return phone call. At Divina Andujar's suggestion, case management gave pt phone numbers for [facility] scheduling and [place] [facility]. In addition provided print out of [facility] services and contact info and encouraged pt to make necessary appointments at [facility] and [place]. Case Management d/c poc: return to [facility] with follow up at [facility]. If pt chooses, [facility] [facility] will take pt to appointments at [facility] free of charge. Case management to follow. Date Signed: 09/04/2017 03:09 PM Electronically Signed By:Otilia Ruelas RN
--- NOTE | 2017-09-04 18:36 | SOAPPROG ---
[facility] Progress Note Assessment/Plan: Assessment 1. 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 2. Anemia-likely multifactorial with chronic blood loss, low normal B12, possible component of marrow dysfunction secondary to prior treatment. No evidence of peripheral consumption. 3. Thrombocytopenia-chronically at a baseline level of 60K. ? autoimmune, possible component of underproduction given prior therapy. Plan: 1. Follow CBC 2. Palliative care eval-in the absence of known distant metastasis, may not be a candidate for hospice. 3. B12 supplementation. 4. wound care 09/04/17 18:31 Subjective: feels much better today Objective: Vital Signs Temp Pulse Resp BP Pulse Ox 37.1 C 76 13 109/68 96 09/04/17 15:36 09/04/17 15:36 09/04/17 15:36 09/04/17 15:36 09/04/17 15:36 Laboratory Results 09/04/17 04:12 09/04/17 04:12 09/03/17 09/04/17 09/05/17 05:59 05:59 05:59 Intake Total 2069 1939 Balance 2069 1939 PT 13.0 SEC (12.0-15.0) 09/04/17 04:12 INR 0.99 (0.83-1.16) 09/04/17 04:12 Physical Exam - Physical Exam General Appearance: alert, no apparent distress EENT: other (poor dentition) Respiratory: lungs clear Abdomen: non-tender, soft Pelvic Exam: other (extensive induration over both inguinal areas with an open lesion in the right inguinal fold) Rectal: other (no mass noted on rectal exam) Skin: other (ecchymosis over lower extremities) Neuro/Psych: alert, oriented x 3 ICD10 Worksheet Patient Problems: Problems Problem Status Onset Anemia Acute Palliative care encounter Acute Thrombocytopenia Acute Chest pain Acute Fever Acute Anal squamous cell carcinoma Chronic 12/10/14 Poor dentition Chronic
[2017-09-05 04:06] LABS: PLATELET COUNT 18 10^3/uL (150-400)
[2017-09-05] MEDS: MULTIVITAMINS W-MINERALS 1 EACH TAB PO SCH (09:48)
[2017-09-05] MEDS: CYANO/VITAMIN B12 1000 MCG TAB PO SCH (09:48)
[2017-09-05] MEDS: NICOTINE 14 MG/24 HR PATCH TD SCH (09:48)
--- NOTE | 2017-09-05 15:08 | SOAPPROG ---
SO[facility] Progress Note Assessment/Plan: A/P: * Anemia: likely multifactorial with chronic blood loss, low-normal B12 with h/ o B12 def, possible component of marrow dysfunction secondary to prior treatment (chemoRT). No evidence of hemolysis (normal LDH, bili). * Thrombocytopenia: chronically at a baseline level of 60K. Possible component of underproduction given prior therapy. Her prior chemo regimen would not be expected to cause MDS, secondary marrow disorders. * Locally advanced/recurrent squamous cell carcinoma of the anus: studies without convincing evidence of distant metastases or progressive disease. Preserved WBC argues against underling bone marrow disorder, but this remains on the differential. Added labs for further evaluation. Discussed with her that bmbx may be needed to r/o underlying pathology. No indication for further transfusions today. 09/05/17 15:04 Subjective: Feeling much better than on admission. O: VS reviewed. Gen: NAD, A&O. HEENT: poor dentition. Lungs: breathing comfortably. Abd: soft, NT. Lymph: thickening right groin with post-radiation skin changes. Perineum: Dressing applied to right labia. Laboratory Tests 09/05/17 03:19 WBC 5.90 Hgb 9.1 L Hct 25.5 L MCV 94.4 Plt Count 18 L* Neut % (Auto) 64.9 Lymph % (Auto) 23.6 Colbert % (Auto) 10.3 Eos % (Auto) 0.3 L Baso % (Auto) 0.2 L Objective: Vital Signs Temp Pulse Resp BP Pulse Ox 36.7 C 97 20 141/79 H 98 09/05/17 12:00 09/05/17 12:00 09/05/17 12:00 09/05/17 12:00 09/05/17 12:00 Laboratory Results 09/05/17 03:19 09/05/17 03:19 09/04/17 09/05/17 09/06/17 05:59 05:59 05:59 Intake Total 2069 2440 Balance 207 2440 PT 13.0 SEC (12.0-15.0) 09/04/17 04:12 INR 0.99 (0.83-1.16) 09/04/17 04:12 ICD10 Worksheet Patient Problems: Problems Problem Status Onset Anemia Acute Palliative care encounter Acute Thrombocytopenia Acute Chest pain Acute Fever Acute Anal squamous cell carcinoma Chronic 12/10/14 Poor dentition Chronic
--- NOTE | 2017-09-05 15:54 | ASMTCMCOM ---
CM Note CM Note Notes: Pt well known to this family caseworker from previous admissions to . Met with pt to talk about how social work can help. Pt's main concerns were her loss of OAP monthly check because it is only good for 2 years. Pt has been trying to get SSI but has had problems due to discrepancy betwen her maiden and name. Plan to help pt reach out to [facility] tomorrow. Pt is without a bus pass due to no income. [facility] will arrange for [employer] funds to pay for bus pass and also give pt some gift cards to use as needed. Padma Bass also met with pt to discuss moving forward with treatment. Pt knows she needs to call her oncologist, Dr Morin, to start the process. C/M will f/u with pt on this tomorrow. [facility]. C/M to follow. Date Signed: 09/05/2017 03:53 PM Electronically Signed By:Deann Mon LCSW
--- NOTE | 2017-09-05 15:54 | ASMTCMCOM ---
CM Note CM Note Notes: Pt well known to this community case manager from previous admissions to . Met with pt to talk about how social work can help. Pt's main concerns were her loss of OAP monthly check because it is only good for 2 years. Pt has been trying to get SSI but has had problems due to discrepancy betwen her maiden and name. Plan to help pt reach out to [facility] tomorrow. Pt is without a bus pass due to no income. Padma Bass Onc [facility] will arrange for [employer] funds to pay for bus pass and also give pt some gift cards to use as needed. Padma Bass also met with pt to discuss moving forward with treatment. Pt knows she needs to call her oncologist, Dr Morin, to start the process. C/M will f/u with pt on this tomorrow. [facility] and will DC there. C/M to follow. Date Signed: 09/05/2017 03:53 PM Electronically Signed By:Deann Mon LCSW
--- NOTE | 2017-09-05 15:54 | ASMTCMCOM ---
CM Note CM Note Notes: Pt well known to this community case manager from previous admissions to . Met with pt to talk about how social work can help. Pt's main concerns were her loss of OAP monthly check because it is only good for 2 years. Pt has been trying to get SSI but has had problems due to discrepancy betwen her maiden and name. Plan to help pt reach out to [facility] tomorrow. Pt is without a bus pass due to no income. Padma Bass On[facility] will arrange for [employer] funds to pay for bus pass and also give pt some gift cards to use as needed. Padma Bass also met with pt to discuss moving forward with treatment. Pt knows she needs to call her oncologist, Dr Morin, to start the process. C/M will f/u with pt on this tomorrow. [facility] C/M to follow. Date Signed: 09/05/2017 03:53 PM Electronically Signed By:Deann Mon LCSW
[2017-09-05 16:30] LABS: HEPATITIS B SURFACE ANTIGEN NEGATIVE (NEGATIVE)
[2017-09-05 16:47] LABS: HEPATITIS B CORE AB TOTAL NEGATIVE (NEGATIVE); HEPATITIS C ANTIBODY TOTAL NEGATIVE (NEGATIVE); HIV TYPE 1 AND 2 NEGATIVE (NEGATIVE)
[2017-09-05] MEDS: diphenhydrAMINE 25 MG CAP PO PRN (17:30)
--- NOTE | 2017-09-05 19:08 | HOSPPROG ---
Hospitalist Progress Note Assessment/Plan: DIAGNOSES: -severe symptomatic anemia, macrocytic, uncertain etiology -she does have a past history of B12 deficiency for which she was receiving shots but has not had any for some time; will need to recheck B12 level at this time will give her some B12 supplements while waiting for that result -agree with Dr. Winter that she may need at some point a bone marrow biopsy -metastatic squamous cell carcinoma -she had a recurrence couple years ago and has now not been on any therapy for a year to and wishes no further therapy at this time but would like palliative consult -severe thrombocytopenia with bruising -etiology of this is uncertain; she did have a modest response in platelet count to transfusion 09/02, platelet count already drifting down today -this will pose an ongoing problem for her in terms of bleeding risk; she is aware to avoid nonsteroidal anti-inflammatories -homelessness and lack of funds to get transferred to the hospital with the [facility] PLANS: -methylmalonic acid levels are ordered and pending -B12 supplements were ordered; will prescribe high-dose oral supplements so that she can at least have that available to continue taking it since she has been having trouble getting shots for social reasons -repeat platelet counts in the morning -continue social work efforts to try and make it easier for her to get to oncology visits, and hospital and clinic evaluations otherwise -palliative care evaluation -? Possible discharge September 06, there was some discussion as to whether a bone marrow biopsy may possibly be done September 06 but not clarified in the record at this time SUBJECTIVE: Still tired but better energy than before transfusion Some blood in her stool today which has chronically been the case for her OBJECTIVE Vitals reviewed: Stable without fever Business Systems Advisor, my review: Sign Exam: alert oriented skin warm dry color ok resps not labored lungs clear BSs heart regular abd soft nondistended nontender, bowel sounds present limbs warm, no edema iv site ok Objective: Vital Signs Temp Pulse Resp BP Pulse Ox 36.6 C 93 18 122/72 H 94 09/05/17 16:00 09/05/17 16:00 09/05/17 16:00 09/05/17 16:00 09/05/17 16:00 Laboratory Results 09/05/17 03:19 09/05/17 03:19 09/04/17 09/05/17 09/06/17 06:59 06:59 06:59 Intake Total 2069 2439 Balance 2069 2439 PT 13.0 SEC (12.0-15.0) 09/04/17 04:12 INR 0.99 (0.83-1.16) 09/04/17 04:12 ICD10 Worksheet Patient Problems: Problems Problem Status Onset Anemia Acute Palliative care encounter Acute Thrombocytopenia Acute Chest pain Acute Fever Acute Anal squamous cell carcinoma Chronic 12/10/14 Poor dentition Chronic
[2017-09-06 05:42] LABS: INR 0.93 (0.83-1.16); PROTIME(PATIENT) 12.4 SEC (12.0-15.0)
[2017-09-06 05:54] LABS: PLATELET COUNT 12 10^3/uL (150-400)
[2017-09-06 05:55] LABS: PLATELET COUNT 12 10^3/uL (150-400)
[2017-09-06] MEDS: CYANO/VITAMIN B12 1000 MCG TAB PO SCH (08:22)
[2017-09-06] MEDS: MULTIVITAMINS W-MINERALS 1 EACH TAB PO SCH (08:22)
[2017-09-06] MEDS: NICOTINE 14 MG/24 HR PATCH TD SCH (08:26)
[2017-09-06] MEDS: diphenhydrAMINE 25 MG CAP PO PRN (09:35)
--- NOTE | 2017-09-06 09:45 | SOAPPROG ---
SOP[facility] Progress Note Assessment/Plan: Assessment 1. 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 2. Anemia-likely multifactorial with chronic blood loss, low normal B12, possible component of marrow dysfunction secondary to prior treatment. May have component of iron deficiency. No evidence of peripheral consumption. 3. Thrombocytopenia-chronically at a baseline level of 60K. ? autoimmune, possible component of underproduction given prior therapy. 4. B12 deficiency-continue on oral B12 indefinitely. Discussed need for Bone marrow biopsy with patient. She is agreeable, but prefers to not do today due to concerns about getting back to retirement, etc. We agreed to arrange for tomorrow in the office. She has bone marrow biopsy appointment at [facility] tomorrow at 9:[address] Morin. I will discuss with him today. Will transfuse platelets today. 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 If marrow shows adequate megakaryocytes, then she will likely receive a course of steroids. Subjective: no new complaints, eager for discharge. Agreeable to biopsy Objective: Vital Signs Temp Pulse Resp BP Pulse Ox 36.8 C 79 13 99/65 L 98 09/06/17 08:00 09/06/17 08:00 09/06/17 08:00 09/06/17 08:00 09/06/17 08:00 Laboratory Results 09/06/17 03:46 09/05/17 03:19 09/05/17 09/06/17 09/07/17 05:59 05:59 05:59 Intake Total 2440 990 Balance 2440 990 PT 12.4 SEC (12.0-15.0) 09/06/17 03:46 INR 0.93 (0.83-1.16) 09/06/17 03:46 Physical Exam - Physical Exam General Appearance: alert, no apparent distress Neck: supple Respiratory: lungs clear Abdomen: non-tender, soft ICD10 Worksheet Patient Problems: Problems Problem Status Onset Anemia Acute Palliative care encounter Acute Thrombocytopenia Acute Chest pain Acute Fever Acute Anal squamous cell carcinoma Chronic 12/10/14 Poor dentition Chronic
--- NOTE | 2017-09-06 09:45 | SOAPPROG ---
SOP[facility] Progress Note Assessment/Plan: Assessment 1. 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 2. Anemia-likely multifactorial with chronic blood loss, low normal B12, possible component of marrow dysfunction secondary to prior treatment. May have component of iron deficiency. No evidence of peripheral consumption. 3. Thrombocytopenia-chronically at a baseline level of 60K. ? autoimmune, possible component of underproduction given prior therapy. 4. B12 deficiency-continue on oral B12 indefinitely. Discussed need for Bone marrow biopsy with patient. She is agreeable, but prefers to not do today due to concerns about getting back to long-term, etc. We agreed to arrange for tomorrow in the office. She has bone marrow biopsy appointment at [facility] tomorrow at 9:[address] Morin. I will discuss with him today. Will transfuse platelets today. 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 If marrow shows adequate megakaryocytes, then she will likely receive a course of steroids. Subjective: no new complaints, eager for discharge. Agreeable to biopsy Objective: Vital Signs Temp Pulse Resp BP Pulse Ox 36.8 C 79 13 99/65 L 98 09/06/17 08:00 09/06/17 08:00 09/06/17 08:00 09/06/17 08:00 09/06/17 08:00 Laboratory Results 09/06/17 03:46 09/05/17 03:19 09/05/17 09/06/17 09/07/17 05:59 05:59 05:59 Intake Total 2440 990 Balance 2440 990 PT 12.4 SEC (12.0-15.0) 09/06/17 03:46 INR 0.93 (0.83-1.16) 09/06/17 03:46 Physical Exam - Physical Exam General Appearance: alert, no apparent distress Neck: supple Respiratory: lungs clear Abdomen: non-tender, soft ICD10 Worksheet Patient Problems: Problems Problem Status Onset Anemia Acute Palliative care encounter Acute Thrombocytopenia Acute Chest pain Acute Fever Acute Anal squamous cell carcinoma Chronic 12/10/14 Poor dentition Chronic
--- NOTE | 2017-09-06 09:45 | SOAPPROG ---
SOP[facility] Progress Note Assessment/Plan: Assessment 1. 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 2. Anemia-likely multifactorial with chronic blood loss, low normal B12, possible component of marrow dysfunction secondary to prior treatment. May have component of iron deficiency. No evidence of peripheral consumption. 3. Thrombocytopenia-chronically at a baseline level of 60K. ? autoimmune, possible component of underproduction given prior therapy. 4. B12 deficiency-continue on oral B12 indefinitely. Discussed need for Bone marrow biopsy with patient. She is agreeable, but prefers to not do today due to concerns about getting back to [facility], etc. We agreed to arrange for tomorrow in the office. She has bone marrow biopsy appointment at [facility] tomorrow at 9:[address] Morin. I will discuss with him today. Will transfuse platelets today. 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 If marrow shows adequate megakaryocytes, then she will likely receive a course of steroids. Subjective: no new complaints, eager for discharge. Agreeable to biopsy Objective: Vital Signs Temp Pulse Resp BP Pulse Ox 36.8 C 79 13 99/65 L 98 09/06/17 08:00 09/06/17 08:00 09/06/17 08:00 09/06/17 08:00 09/06/17 08:00 Laboratory Results 09/06/17 03:46 09/05/17 03:19 09/05/17 09/06/17 09/07/17 05:59 05:59 05:59 Intake Total 2440 990 Balance 2440 990 PT 12.4 SEC (12.0-15.0) 09/06/17 03:46 INR 0.93 (0.83-1.16) 09/06/17 03:46 Physical Exam - Physical Exam General Appearance: alert, no apparent distress Neck: supple Respiratory: lungs clear Abdomen: non-tender, soft ICD10 Worksheet Patient Problems: Problems Problem Status Onset Anemia Acute Palliative care encounter Acute Thrombocytopenia Acute Chest pain Acute Fever Acute Anal squamous cell carcinoma Chronic 12/10/14 Poor dentition Chronic
[2017-09-06 16:20] VITALS: BP 131/77; PULSE 85; RESP 14; TEMP 98.1; O2SAT 93
--- NOTE | 2017-09-06 16:59 | ASMTCMCOM ---
CM Note CM Note Notes: Pt to DC today. She has no DC needs. Pt made an appt for biopsy tomorrow at [facility]. She was given bus passes to get there and back and plans to get a monthly bus pass to make transport easier. C/M called [facility] to try to find a copy of her name change from 1996. Septic Cleaner is requiring this for pt to move forward applying for SSI. Mickie at [facility] was able to find the document on an old hard drive. She is mailing this to Padma Bass at [facility]. Pt is hoping to find an advocate at homeless assisted to help her move forward with this. Date Signed: 09/06/2017 04:58 PM Electronically Signed By:Deann Mon LCSW
--- NOTE | 2017-09-06 16:59 | ASMTCMCOM ---
CM Note CM Note Notes: Pt to DC today. She has no DC needs. Pt made an appt for biopsy tomorrow at [facility]. She was given bus passes to get there and back and plans to get a monthly bus pass to make transport easier. C/M called [facility] to try to find a copy of her name change from 1996. Clothing Trades Workers is requiring this for pt to move forward applying for SSI. Mickie at [facility] was able to find the document on an old hard drive. She is mailing this to Padma Bass at [facility]. Pt is hoping to find an advocate at homeless [facility] to help her move forward with this. Date Signed: 09/06/2017 04:58 PM Electronically Signed By:Deann Mon LCSW
--- NOTE | 2017-09-06 16:59 | ASMTCMCOM ---
CM Note CM Note Notes: Pt to DC today. She has no DC needs. Pt made an appt for biopsy tomorrow at [facility]. She was given bus passes to get there and back and plans to get a monthly bus pass to make transport easier. C/M called [facility] to try to find a copy of her name change from 1996. Creative Services Producer is requiring this for pt to move forward applying for SSI. Mickie at [facility] was able to find the document on an old hard drive. She is mailing this to Padma Bass at [facility]. Pt is hoping to find an advocate at homeless senior living to help her move forward with this. Date Signed: 09/06/2017 04:58 PM Electronically Signed By:Deann Mon LCSW
--- NOTE | 2017-09-06 17:17 | ASDISCHSUM ---
Discharge Information Plan Status:Homeless/Prison Medically Cleared to Leave:09/06/2017 Discharge Date:09/06/2017 04:55 PM CM D/C Disposition:Home, Routine, Self-Care ADT D/C Disposition:Home, Routine, Self-Care Projected Discharge Date:09/06/2017 04:55 PM Transportation at D/C:Bus Ticket Discharge Delay Reason: Follow-Up Date:09/06/2017 04:55 PM Discharge Slot: Final Diagnosis: Placement Information Patient Contact Information Contact Name:ROLAJOSELYN Relationship:Friend Address: Work Phone: City: [facility] Phone: State/Zip Code: Email: Financial Information Financial Class: Primary Plan Desc:MEDICAID [place] IP Primary Plan Number:[id number] Secondary Plan Desc: Secondary Plan Number: Assessment Information [facility] CM Progress Note CM Note CM Note Notes: 09/04/2017 Case Management Note At requested of Palliative team, met w/pt to discuss transportation options if pt wishes to pursue further immunotherapy treatments at [facility]. Gave pt info on [place] transport. Pt [place] prior knowledge of [place] transport program. Pt reports correction closes at 8 am and that she [facility]. Pt unwilling to commit to pickup location for transportation to [facility] for treatments. Called [facility] and spoke w/Divina Andujar, social media developer. Divina is familiar w/pt and has in the past arranged transportation and financial assistance in order for pt to pursue cancer treatement. Attempted to leave at the [facility] with Chace. Pt reports "reserved" bed status at the correction and that she has gone through the new coordinated entry system. Pt is unable to identify her pillowcase cleaner at the correction. Left for Enrike the pillowcase cleaner for the transitions program at the correction requesting a return phone call. At Divina Andujar's suggestion, case management gave pt phone numbers for [facility] scheduling and [place] transport. In addition provided print out of [place] services and contact info and encouraged pt to make necessary appointments at [facility] and [place]. Case Management d/c poc: return to correction with follow up at [facility]. If pt chooses, [place] transport will take pt to appointments at [facility] free of charge. Case management to follow. Date Signed: 09/04/2017 03:09 PM Electronically Signed By:Otilia Ruelas RN [facility] CM Progress Note CM Note CM Note Notes: Pt well known to this lining caser from previous admissions to . Met with pt to talk about how social work can help. Pt's main concerns were her loss of OAP monthly check because it is only good for 2 years. Pt has been trying to get SSI but has had problems due to discrepancy betwen her maiden and name. Plan to help pt reach out to [place] Quarter Inspector tomorrow. Pt is without a bus pass due to no income. Padma Bass Onc Hans will arrange for [employer] funds to pay for bus pass and also give pt some gift cards to use as needed. Padma Bass also met with pt to discuss moving forward with treatment. Pt knows she needs to call her oncologist, Dr Morin, to start the process. C/M will f/u with pt on this tomorrow. Pt has a bed at the correction and will DC there. C/M to follow. Date Signed: 09/05/2017 03:53 PM Electronically Signed By:Deann Mon LCSW [facility] [place] Progress Note CM Note CM Note Notes: Pt to DC today. She has no DC needs. Pt made an appt for biopsy tomorrow at [facility]. She was given bus passes to get there and back and plans to get a monthly bus pass to make transport easier. C/M called [facility] to try to find a copy of her name change from 1996. Quarter Inspector is requiring this for pt to move forward applying for SSI. Mickie at [facility] was able to find the document on an old hard drive. She is mailing this to Padma Bass at [facility]. Pt is hoping to find an advocate at homeless correction to help her move forward with this. Date Signed: 09/06/2017 04:58 PM Electronically Signed By:Deann Mon LCSW Intervention Information
--- NOTE | 2017-09-06 17:17 | ASDISCHSUM ---
Discharge Information Plan Status:Homeless/Correction Medically Cleared to Leave:09/06/2017 Discharge Date:09/06/2017 04:55 PM CM D/C Disposition:Home, Routine, Self-Care ADT D/C Disposition:Home, Routine, Self-Care Projected Discharge Date:09/06/2017 04:55 PM Transportation at D/C:Bus Ticket Discharge Delay Reason: Follow-Up Date:09/06/2017 04:55 PM Discharge Slot: Final Diagnosis: Placement Information Patient Contact Information Contact Name:ROLAJOSELYN Relationship:Friend Address: Work Phone: City: [facility] Phone: State/Zip Code: Email: Financial Information Financial Class: Primary Plan Desc:MEDICAID [place] IP Primary Plan Number:[id number] Secondary Plan Desc: Secondary Plan Number: Assessment Information [facility] CM Progress Note CM Note CM Note Notes: 09/04/2017 Case Management Note At requested of Palliative team, met w/pt to discuss transportation options if pt wishes to pursue further immunotherapy treatments at [facility]. Gave pt info on [place] transport. Pt had prior knowledge of [place] program. Pt reports skilled nursing closes at 8 am and that she [place] [facility] [place] [facility] [place] [facility]. Pt unwilling to commit to pickup location for transportation to [facility] for treatments. Called [facility] and spoke w/Divina Andujar, social security benefits interviewer. Divina is familiar w/pt and has in the past arranged transportation and financial assistance in order for pt to pursue cancer treatement. Attempted to leave at the [facility] with Chace. Pt reports "reserved" bed status at the skilled nursing and that she has gone through the new coordinated entry system. Pt is unable to identify her rn case manager at the skilled nursing. Left for Enrike the rn case manager for the transitions program at the skilled nursing requesting a return phone call. At Divina Andujar's suggestion, case management gave pt phone numbers for [facility] scheduling and [place] transport. In addition provided print out of [place] services and contact info and encouraged pt to make necessary appointments at [facility] and [place]. Case Management d/c poc: return to skilled nursing with follow up at [facility]. If pt chooses, [place] take [place] to appointments at [facility] free of charge. Case management to follow. Date Signed: 09/04/2017 03:09 PM Electronically Signed By:Otilia Ruelas RN [facility] CM Progress Note CM Note CM Note Notes: Pt well known to this patient case manager from previous admissions to . Met with pt to talk about how social work can help. Pt's main concerns were her loss of OAP monthly check because it is only good for 2 years. Pt has been trying to get SSI but has had problems due to discrepancy betwen her maiden and name. Plan to help pt reach out to [place] Clinical Pharmacy Specialist tomorrow. Pt is without a bus pass due to no income. Padma Bass Onc Hans will arrange for [employer] funds to pay for bus pass and also give pt some gift cards to use as needed. Padma Bass also met with pt to discuss moving forward with treatment. Pt knows she needs to call her oncologist, Dr Morin, to start the process. C/M will f/u with pt on this tomorrow. Pt has a bed at the skilled nursing and will DC there. C/M to follow. Date Signed: 09/05/2017 03:53 PM Electronically Signed By:Deann Mon LCSW [facility] [place] Progress Note CM Note CM Note Notes: Pt to DC today. She has no DC needs. Pt made an appt for biopsy tomorrow at [facility]. She was given bus passes to get there and back and plans to get a monthly bus pass to make transport easier. C/M called [facility] to try to find a copy of her name change from 1996. Clinical Pharmacy Specialist is requiring this for pt to move forward applying for SSI. Mickie at [facility] was able to find the document on an old hard drive. She is mailing this to Padma Bass at [facility]. Pt is hoping to find an advocate at homeless skilled nursing to help her move forward with this. Date Signed: 09/06/2017 04:58 PM Electronically Signed By:Deann Mon LCSW Intervention Information
--- NOTE | 2017-09-06 17:17 | ASDISCHSUM ---
Discharge Information Plan Status:Homeless/Long Term Medically Cleared to Leave:09/06/2017 Discharge Date:09/06/2017 04:55 PM CM D/C Disposition:Home, Routine, Self-Care ADT D/C Disposition:Home, Routine, Self-Care Projected Discharge Date:09/06/2017 04:55 PM Transportation at D/C:Bus Ticket Discharge Delay Reason: Follow-Up Date:09/06/2017 04:55 PM Discharge Slot: Final Diagnosis: Placement Information Patient Contact Information Contact Name:ROLAJOSELYN Relationship:Friend Address: Work Phone: City: [facility] Phone: State/Zip Code: Email: Financial Information Financial Class: Primary Plan Desc:MEDICAID [place] IP Primary Plan Number:[id number] Secondary Plan Desc: Secondary Plan Number: Assessment Information [facility] CM Progress Note CM Note CM Note Notes: 09/04/2017 Case Management Note At requested of Palliative team, met w/pt to discuss transportation options if pt wishes to pursue further immunotherapy treatments at [facility]. Gave pt info on [place] transport. Pt had prior knowledge of [place] program. Pt reports fpc closes at 8 am and that she [place] [facility] [place] [facility]. Pt unwilling to commit to pickup location for transportation to [facility] for treatments. Called [facility] and spoke w/Divina Andujar, social insurance adviser. Divina is familiar w/pt and has in the past arranged transportation and financial assistance in order for pt to pursue cancer treatement. Attempted to leave at the [facility] with Chace. Pt reports "reserved" bed status at the fpc and that she has gone through the new coordinated entry system. Pt is unable to identify her corrections caseworker at the fpc. Left for Enrike the corrections caseworker for the transitions program at the fpc requesting a return phone call. At Divina Andujar's suggestion, case management gave pt phone numbers for [facility] scheduling and [place] transport. In addition provided print out of [place] services and contact info and encouraged pt to make necessary appointments at [facility] and [place]. Case Management d/c poc: return to fpc with follow up at [facility]. If pt chooses, [place] transport will take pt to appointments at [facility] free of charge. Case management to follow. Date Signed: 09/04/2017 03:09 PM Electronically Signed By:Otilia Ruelas RN [facility] CM Progress Note CM Note CM Note Notes: Pt well known to this case preparer and liner from previous admissions to . Met with pt to talk about how social work can help. Pt's main concerns were her loss of OAP monthly check because it is only good for 2 years. Pt has been trying to get SSI but has had problems due to discrepancy betwen her maiden and name. Plan to help pt reach out to [place] Manufacturing Mechanic tomorrow. Pt is without a bus pass due to no income. Padma Bass Onc Hans will arrange for [employer] funds to pay for bus pass and also give pt some gift cards to use as needed. Padma Bass also met with pt to discuss moving forward with treatment. Pt knows she needs to call her oncologist, Dr Morin, to start the process. C/M will f/u with pt on this tomorrow. Pt has a bed at the fpc and will DC there. C/M to follow. Date Signed: 09/05/2017 03:53 PM Electronically Signed By:Deann Mon LCSW [facility] [place] Progress Note CM Note CM Note Notes: Pt to DC today. She has no DC needs. Pt made an appt for biopsy tomorrow at [facility]. She was given bus passes to get there and back and plans to get a monthly bus pass to make transport easier. C/M called [facility] to try to find a copy of her name change from 1996. Manufacturing Mechanic is requiring this for pt to move forward applying for SSI. Mickie at [facility] was able to find the document on an old hard drive. She is mailing this to Padma Bass at [facility]. Pt is hoping to find an advocate at homeless fpc to help her move forward with this. Date Signed: 09/06/2017 04:58 PM Electronically Signed By:Deann Mon LCSW Intervention Information
--- NOTE | 2017-09-06 19:16 | GDS ---
[f rep st] DISCHARGE SUMMARY HOSPITAL CONSULTANTS: Include: Hematology/Oncology. DISCHARGE DIAGNOSIS: Thrombocytopenia. HISTORY OF PRESENT ILLNESS: The patient is a 62-year-old female with a past medical history of metas tatic squamous cell carcinoma of the anus who presented to the [facility] on 09/03/2017 with a complaint of feeling lightheaded. Her blood work was notable for a hemoglob in of 5 and platelets of 7000. She was transfused 3 units of red blood cells and 1 unit of platelets . Hematology made arrangements for her to have a bone marrow biopsy and this is scheduled for tomorr ow at 9:30 am. She will see Dr. Morin, who also has followed her for her squamous cell carcinoma. She was quite eager to be discharged today. She is homeless and [facility] 7 p.m[facility] We did discuss as well continuing with vitamin B12 supplementation at 1000 mcg daily. HOSPITAL COURSE BY PROBLEM: 1. Anemia, pending bone marrow biopsy for further evaluation. Her hemoglobin at presentation was at 5. This did improve appropriately to 9.0 with 3 units of packed red blood cells. 2. Thrombocytopenia of uncertain etiology, but clinical suspicion for idiopathic thrombocytopenic pu rpura. She did transiently get better with transfusion from 7,000 to 23,000, but this has subsequent ly fallen down to 12,000 on the day of discharge. She was given more platelets prior to discharge in anticipation of bone marrow biopsy tomorrow. 3. Vitamin B12 deficiency. Vitamin B12 level was checked during this hospitalization and measured a t 327. Methylmalonic acid level was sent and is currently pending. 4. Metastatic squamous cell carcinoma of the anus. The patient is not currently receiving treatment secondary to financial issues. She will be re-establishing with Dr. Morin tomorrow. PHYSICAL EXAMINATION: On day of discharge: VITAL SIGNS: Temperature 36.8, blood pressure 119/77, h eart rate is 73, respirations 16, saturating 98% on room air. GENERAL: Patient is resting comfortab ly, ambulating around the room without difficulty. No acute distress. LUNGS: Normal respiratory ef fort. ABDOMEN: Does not appear distended. GENITOURINARY: No Peña catheter in place. EXTREMITIES : No significant pitting edema. SKIN: She does have some ecchymoses of the lower extremities below the knee. NEUROLOGICALLY: She is intact. Alert and oriented. NOTABLE STUDIES: Abdominal CT: Moderately thickened in inguinal region bilaterally compatible with scarring versus residual or recurrent tumor or lymphadenopathy, hypodense irregular possible mass med ial to the right common femoral vessels relatively similar to prior study. Small liver cyst. Stable cyst of right kidney. Chest x-ray: Clear lungs. No evidence of metastatic disease. Chest CT: Stable lungs without evidence of metastatic carcinoma, suspect early resolving right basil ar pneumonia with tiny pleural effusion. White blood cell count 5.4. Hemoglobin on the day of discharge, 9.0, platelets 12,000. Fibrinogen 3 69. D-dimer 3.08. INR 0.9. PTT 28. Vitamin B12 327. Methylmalonic acid currently pending. Folat e was greater than 20. TSH 3.5. SHILPA screen was 11. Rheumatoid factor 74. HIV antibody negative. Hepatitis C antibody negative. DISCHARGE MEDICATIONS: Vitamin B12 1000 mcg daily. DISCHARGE INSTRUCTIONS: Patient will be seen at [facility] tomorrow at 9:30 am in the morning for bone marrow biopsy and follow up with Dr. Morin. The patient will be returning [facility] the [facility] in [place] where she currently resides. /[id number]/MODL
== END 2017-09-06 16:55 | disposition home or self-care (01) | DRG 813 ==
LOC: EDUNIT# → F2W 15:45
PROVIDERS: ADMIT Hospitalist; ATTEND Hospitalist
DX: D69.6 Thrombocytopenia, unspecified (principal); D64.9 Anemia, unspecified; C44.520 Squamous cell carcinoma of anal skin; Z59.0 Homelessness; E53.8 Deficiency of other specified B group vitamins; Z91.120 Patient's intentional underdosing of medication regimen due to financial hardship; I10 Essential (primary) hypertension; Z86.718 Personal history of other venous thrombosis and embolism; F17.200 Nicotine dependence, unspecified, uncomplicated; Z66 Do not resuscitate
CPT/HCPCS: 82607-90; 83921-90; 86334-90; 86704-90; G0472; P9016; P9035; Q9967; Q9988

== ENCOUNTER 2017-09-13 09:03 | Inpatient (IN) | payer MEDICAID ==
[2017-09-13] MEDS ORDERED: ONDANSETRON 4 MG/2 ML VIAL IVP ONE ×2 (09:10→11:09)
[2017-09-13] MEDS ORDERED: NS 1,000 ML IV ONE ×2 (09:10→11:24)
--- NOTE | 2017-09-13 09:13 | EDPHY ---
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 Morin. During her last admission she required platelet and blood transfusion and had a bone marrow biopsy which she reports was negative for metastasis into the bone marrow. She states that she had chemotherapy in the past but has not for the last couple of years and is planning to restart. She states that she is extremely fatigued in that she has had blood mixed in her stool for the last few days as well as vomiting that began last night. No abdominal pain. REVIEW OF SYSTEMS: Constitutional: denies: chills, fever, recent illness, recent injury EENTM: denies: blurred vision, double vision, nose congestion Respiratory: denies: cough, shortness of breath Cardiac: denies: chest pain, irregular heart rate, lightheadedness, palpitations Gastrointestinal/Abdominal: See HPI Genitourinary: denies: dysuria, frequency, hematuria, pain Musculoskeletal: denies: joint pain, muscle pain Skin: denies: lesions, rash, jaundice, bruising Neurological: denies: headache, numbness, paresthesia, tingling, dizziness, weakness Hematologic/Lymphatic: denies: blood clots, easy bleeding, easy bruising Immunologic/allergic: denies: HIV/AIDS, transplant EXAM: GENERAL: Well-appearing, thin, in no acute distress. HEAD: Atraumatic, normocephalic. EYES: Pupils equal round and reactive to light, extraocular movements intact, sclera anicteric, conjunctiva are normal. ENT: TMs normal, nares patent, oropharynx clear without exudates. Moist mucous membranes. NECK: Normal range of motion, supple without lymphadenopathy or JVD. LUNGS: Breath sounds clear to auscultation bilaterally and equal. No wheezes rales or rhonchi. HEART: Regular rate and rhythm without murmurs, rubs or gallops. ABDOMEN: Soft, nontender, normoactive bowel sounds. No guarding, no rebound. No masses appreciated. BACK: No CVA tenderness, no spinal tenderness, step-offs or deformities EXTREMITIES: Normal range of motion, no pitting or edema. No clubbing or cyanosis. NEUROLOGICAL: Cranial nerves II through XII grossly intact. Normal speech, normal gait. 5/5 strength, normal movement in all extremities, normal sensation PSYCH: Normal mood, normal affect. SKIN: Warm, dry, normal turgor, no visible rashes or lesions. 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, migraines, right inguinal hernia repair, peptic ulcer disease, RUE DVT, hypertension - Family History Significant Family History: No pertinent family hx - Social History Smoking Status: Current every day smoker Alcohol Use: Occasionally Drug Use: Marijuana Constitutional: Initial Vital Signs Temperature (C) 38.1 C 09/13/17 09:11 Heart Rate 98 09/13/17 09:11 Respiratory Rate 18 09/13/17 09:11 Blood Pressure 111/79 09/13/17 09:11 O2 Sat (%) 92 09/13/17 09:11 O2 Delivery Mode Room Air Allergies/Adverse Reactions: Penicillins Allergy (Severe, Verified 09/03/17 13:31) Hives aspirin Allergy (Verified 11/17/16 16:53) codeine Allergy (Verified 11/17/16 16:53) Other-Enter Comments ibuprofen Allergy (Verified 11/17/16 16:53) Home Medications: Medication Instructions Recorded Acetaminophen [Tylenol ES 500 mg 1,000 mg PO TID PRN 11/17/16 (*)] Herbals/Supplements -Info Only 1 ea PO DAILY 09/03/17 Cyanocobalamin [Vitamin B12 (*)] 1,000 mcg PO DAILY tab 09/06/17 Medical Decision Making ED Course/Re-evaluation: The patient is not yet provided a stool sample. I am hesitant to do a rectal exam because of her low platelets. I discussed her case with the hospitalist service who will admit. Her vital signs are stable. Differential Diagnosis: Partial list of the Differential diagnosis considered include but were not limited to; thrombocytopenia, anemia, GI bleed, obstruction and although unlikely based on the history and physical exam, I also considered ischemia, volvulus. - Data Points Laboratory Results: Laboratory Results 09/13/17 09:15 09/13/17 09:15 09/13/17 09:15 Patient ABO/Rh O NEGATIVE Antibody Screen NEGATIVE Crossmatch IS Only See Detail Medications Given: Acetaminophen (Tylenol) 1,000 mg PO TID PRN PRN Reason: Pain, Mild Stop: 03/12/18 12:07 Last Admin: 09/13/17 12:16 Dose: 1,000 mg Cefepime HCl 1 gm/ Dextrose 50 mls @ 100 mls/hr IV Q12HRS LAURO PRN Reason: Protocol Stop: 10/13/17 11:29 Last Admin: 09/14/17 10:11 Dose: 50 mls Sodium Chloride (Ns) 1,000 mls @ 200 mls/hr IV CONT LAURO Stop: 03/12/18 12:14 Last Admin: 09/14/17 10:11 Dose: 1,000 mls Vancomycin/Sodium Chloride (Vancomycin 1 Gm (Premix)) 250 mls @ 250 mls/hr IV Q12H LAURO PRN Reason: Protocol Stop: 10/14/17 00:29 Last Admin: 09/14/17 12:33 Dose: 250 mls Vitamin B Complex (Vitamin B12) 1,000 mcg PO DAILY LAURO Stop: 03/13/18 08:59 Last Admin: 09/14/17 09:46 Dose: 1,000 mcg Discontinued Medications Sodium Chloride (Ns) 1,000 mls @ 0 mls/hr IV EDNOW ONE; Wide Open PRN Reason: Protocol Stop: 09/13/17 09:11 Last Admin: 09/13/17 10:10 Dose: 1,000 mls Sodium Chloride (Ns) 1,000 mls @ 3,000 mls/hr IV ONCE ONE Stop: 09/13/17 11:43 Last Admin: 09/13/17 11:38 Dose: 1,000 mls Vancomycin/Sodium Chloride (Vancomycin 1 Gm (Premix)) 250 mls @ 250 mls/hr IV Q12H LAURO PRN Reason: Protocol Stop: 10/13/17 12:29 Last Admin: 09/13/17 12:39 Dose: 250 mls Ondansetron HCl (Zofran) 4 mg IVP EDNOW ONE Stop: 09/13/17 09:11 Last Admin: 09/13/17 10:10 Dose: 4 mg Ondansetron HCl (Zofran) 4 mg IVP EDNOW ONE Stop: 09/13/17 11:10 Last Admin: 09/13/17 11:11 Dose: 4 mg Departure - Departure Disposition: [facility] Acute Clinical Impression: Anal squamous cell carcinoma, Thrombocytopenia Vomiting Qualifiers: Vomiting type: unspecified Vomiting Intractability: non-intractable Nausea presence: with nausea Qualified Code(s): R11.2 - Nausea with vomiting, unspecified Condition: Fair
[2017-09-13 09:26] LABS: % IMMATURE GRANULYOCYTES 0.6 % (0.0-1.1); ABSOLUTE IMMATURE GRANULOCYTES 0.07 10^3/uL (0.00-0.10); ADD DIFF? NO; ADD MORPH? NO; ATYPICAL LYMPHOCYTE FLAG 10 (0-99); FRAGMENT RBC FLAG 0 (0-99); HEMATOCRIT 27.1 % (38.0-47.0); HEMOGLOBIN 8.9 g/dL (12.6-16.3); LEFT SHIFT FLG 10 (0-99); LIPEMIA HEMOLYSIS FLAG 80 (0-99); MEAN CELL HEMOGLOBIN 33.1 pg (27.9-34.1); MEAN CELL HEMOGLOBIN CONCENTR. 32.8 g/dL (32.4-36.7); MEAN CELL VOLUME 100.7 fL (81.5-99.8); MEAN PLATELET VOLUME 12.3 fL (8.7-11.7); PLATELET CLUMPS FLAG 0 (0-99); RED BLOOD CELL COUNT 2.69 10^6/uL (4.18-5.33); RED CELL DISTRIBUTION WIDTH 19.4 % (11.5-15.2)
[2017-09-13 09:30] LABS: PLATELET COUNT 9 10^3/uL (150-400)
[2017-09-13 09:31] LABS: ADD SCAN? YES
[2017-09-13 09:35] LABS: PROTIME(PATIENT) 13.1 SEC (12.0-15.0)
[2017-09-13 09:36] LABS: APTT 25.8 SEC (23.0-38.0)
[2017-09-13 09:47] LABS: ALANINE AMINOTRANSFERASE 25 IU/L (9-52); ALBUMIN 3.5 g/dL (3.5-5.0); ALKALINE PHOSPHATASE 74 IU/L (38-126); ANION GAP 9 mEq/L (8-16); ASPARTATE AMINOTRANSFERASE 20 IU/L (14-46); BILIRUBIN,TOTAL 0.3 mg/dL (0.1-1.4); BILIRUBIN-UNCONJUGATED 0.3 mg/dL (0.0-1.1); CALCIUM 8.6 mg/dL (8.5-10.4); CARBON DIOXIDE 24 mEq/l (22-31); CHLORIDE 104 mEq/L (97-110); GLOMERULAR FILTRATION RATE 56; GLUCOSE 107 mg/dL (70-100); POTASSIUM 3.9 mEq/L (3.5-5.2); SODIUM 137 mEq/L (134-144); TOTAL PROTEIN 6.4 g/dL (6.3-8.2)
[2017-09-13 09:59] LABS: PLATELET ESTIMATE DECREASED (ADEQ)
[2017-09-13 11:17] LABS: SCAN POSITIVE
[2017-09-13 11:23] LABS: MACROCYTES 1+; ROULEAUX PRESENT
[2017-09-13] MEDS ORDERED: PROMETHAZINE HCL 25 MG/ML INJ IVP PRN (12:06)
[2017-09-13] MEDS ORDERED: ONDANSETRON 4 MG/2 ML VIAL IVP PRN (12:06)
[2017-09-13] MEDS ORDERED: ACETAMINOPHEN 325 MG TAB PO PRN (12:06)
[2017-09-13] MEDS ORDERED: ONDANSETRON DISINTEGRATING 4 MG TAB PO PRN (12:06)
[2017-09-13] MEDS ORDERED: ACETAMINOPHEN 500 MG TAB PO PRN (12:08)
[2017-09-13] MEDS: CEFEPIME HCL 1 GM in D5W 50 ML IV SCH ×3 (12:10→21:40)
[2017-09-13] MEDS ORDERED: ACETAMINOPHEN 500 MG TAB ONE (12:15)
[2017-09-13] MEDS ORDERED: VANCOMYCIN HCL/NORMAL SALINE 250 ML IV SCH (12:30)
[2017-09-13] MEDS ORDERED: VANCOMYCIN 1 GM/NS 250 ML BAG IV ONE (12:34)
--- NOTE | 2017-09-13 13:35 | GHP ---
[f rep st] HISTORY AND PHYSICAL DATE OF ADMISSION: 09/13/2017 HISTORY OF PRESENT ILLNESS: The patient is a 62-year-old female with long-standing anal carcinoma. Was admitted about a week ago with rectal bleeding. At that point, she had been lost to followup sin january. Please see admission history and physical by Dr. Angelique Mayes for further details. Abou t a week ago with 3-4 days of dizziness with occasional rectal bleeding. At that time, she was found to have a hemoglobin of 5, hematocrit 14, as well as thrombocytopenia at 7. She was transfused plat elets and red cells. She was discharged a couple of days later with plans for outpatient followup. She underwent an outpatient bone marrow biopsy to evaluate for the thrombocytopenia, and as I underst and, the bone marrow biopsy was negative for cause of thrombocytopenia; however, I do not have the re sults in front of me. [facility] She is homel ess, and she reports today with ongoing rectal bleeding, as well as cough and vomiting. She says she has been eating and drinking okay. She has not been short of breath. She did not get a flu shot th is year. She denies sick contacts but is living [facility] the homeless [facility]. She is also fatigued. In the emergency department, she looked well initially but then became tachycardic and spiked a fever to 38.9. She denies blood in her vomit and rash on her skin. REVIEW OF SYSTEMS: Complete 10-point review of systems conducted and negative, except as noted in th e HPI. PAST MEDICAL HISTORY: 1. Squamous cell cancer of the anus. 2. Thrombocytopenia. 3. Hypertension. 4. History of right upper extremity DVT. 5. B12 deficiency. ALLERGIES: Penicillin, aspirin, codeine, and ibuprofen. HOME MEDICATIONS: B12 and Tylenol. SOCIAL HISTORY: Homeless, staying in a prison. Smokes a half pack per day. No alcohol. No drugs. FAMILY HISTORY: Reviewed and unremarkable. PHYSICAL EXAM: VITAL SIGNS: Presenting vitals today, temp 38.1, blood pressure 111/79, pulse 98, br eathing 18 times a minute, 92% on room air, pulse in the 130s when I see her. GENERAL: Uncomfortabl e, vomiting, cough productive of yellow sputum. Oropharynx is clear. Mucous membranes are dry. NEC K: Supple, without lymphadenopathy or JVD. LUNGS: Clear to auscultation bilaterally. HEART: S1, S2 and tachycardic. ABDOMEN: Soft, nontender, nondistended. LOWER EXTREMITIES: Without edema. Ca lves nontender. SKIN: Without rash. NEUROLOGIC: Nonfocal. LABS: White count 12.5. Hemoglobin and hematocrit were 8.9 and 27.1, which is about where they were previously. Platelets are low at 9. She does have a bandemia. Coags are normal. Venous lactate i nitially 2.3, now 1.1. Sodium 137, potassium 3.9, chloride 104, bicarb 24, BUN 22, creatinine 1.0, g lucose 107, LFTs normal. Lipase is 48. Influenza is pending. Chest x-ray interpreted by me, shows no acute cardiopulmonary disease. I have discussed the case with Dr. Malvin Phelan. ASSESSMENT/PLAN: A 62-year-old female with a recent admission, presents with nausea, vomiting, throm bocytopenia, and sepsis. 1. Sepsis. Source is unclear. I have drawn blood cultures, checked influenza. Chest x-ray does no t show evidence of pneumonia. She has a soft belly. I have ordered urine cultures. I will start he r on antibiotics for nosocomial infection with vancomycin and cefepime. Will admit her to step-down. Her lactate has normalized. 2. Rectal bleeding. I suspect this is secondary to her squamous cell carcinoma. Her hemoglobin and hematocrit are relatively stable. I think a GI evaluation is not indicated at this point in time. 3. Vomiting. It sounds from the history this may be post-tussive vomiting. She may just have a bro nchitis. Will follow. I have written her for some IV Phenergan. 4. Thrombocytopenia. Platelets have been ordered. I will have Oncology follow her while she is her e. 5. Squamous cell cancer of the anus. She is being arranged for outpatient chemotherapy. 6. Prophylaxis. Pharmacologic prophylaxis contraindicated. 7. Code status. Do not resuscitate. Disposition: Step-down inpatient status. /[id number]/MODL
[2017-09-13] MEDS: NS 1,000 ML IV SCH (13:56)
--- NOTE | 2017-09-13 15:40 | PDMN ---
Medical Necessity Medical necessity: Pt meets IP criteria per MD; est los >2 mn for eval/tx of sepsis, rectal bleeding secondary to squamous cell carcinoma of the anus, thrombocytopenia & N/V; hx htn & DVT; per H&P 09/13/17
[2017-09-14] MEDS: VANCOMYCIN HCL/NORMAL SALINE 250 ML IV SCH ×2 (00:30→12:33)
[2017-09-14] MEDS: NS 1,000 ML IV SCH ×2 (03:00→10:11)
[2017-09-14 05:20] LABS: % IMMATURE GRANULYOCYTES 1.6 % (0.0-1.1); ABSOLUTE IMMATURE GRANULOCYTES 0.18 10^3/uL (0.00-0.10); ADD DIFF? NO; ADD MORPH? YES; ADD SCAN? NO; ATYPICAL LYMPHOCYTE FLAG 0 (0-99); FRAGMENT RBC FLAG 0 (0-99); HEMATOCRIT 18.5 % (38.0-47.0); LEFT SHIFT FLG 60 (0-99); LIPEMIA HEMOLYSIS FLAG 80 (0-99); MEAN CELL HEMOGLOBIN 34.4 pg (27.9-34.1); MEAN CELL HEMOGLOBIN CONCENTR. 33.5 g/dL (32.4-36.7); MEAN CELL VOLUME 102.8 fL (81.5-99.8); MEAN PLATELET VOLUME 9.8 fL (8.7-11.7); PLATELET CLUMPS FLAG 10 (0-99); RED CELL DISTRIBUTION WIDTH 19.9 % (11.5-15.2)
[2017-09-14 05:24] LABS: HEMOGLOBIN 6.2 g/dL (12.6-16.3); PLATELET COUNT 39 10^3/uL (150-400)
[2017-09-14 06:06] LABS: MACROCYTES 1+; PLATELET ESTIMATE DECREASED (ADEQ)
[2017-09-14 06:37] LABS: ANION GAP 8 mEq/L (8-16); CALCIUM 7.6 mg/dL (8.5-10.4); CARBON DIOXIDE 20 mEq/l (22-31); CHLORIDE 108 mEq/L (97-110); CREATININE 0.9 mg/dL (0.6-1.0); GLOMERULAR FILTRATION RATE > 60; GLUCOSE 93 mg/dL (70-100); POTASSIUM 3.9 mEq/L (3.5-5.2); SODIUM 136 mEq/L (134-144)
--- NOTE | 2017-09-14 09:12 | HOSPPROG ---
Hospitalist Progress Note Assessment/Plan: 62 yo F w SCC of anus and thrombocytopenia a/w sepsis and thrombocytopenia, rectal bleeding thrombocytopenia: uncertain cause has had BM bx, results supposedly neg but not available to me good response to transfusion heme to see rectal bleeding: SCC + thrombocytopenia has resolved w increased latelets sepsis: lactate normalized septic physiology has resolved ID: elevated pct no clear source- cxr xclear (interp by me) has poor dentition but no pain on vanc cefepime ID to see SCC: needs to restart therapy once ID situation clarified proph: low platelets are a contraindication to VTE Proph dispo: inpatient Subjective: case d/w Drs. Vilchis and Maru. feels better. afebrile Objective: Vital Signs Temp Pulse Resp BP Pulse Ox 36.9 C 71 20 88/58 L 99 09/14/17 07:46 09/14/17 07:46 09/14/17 07:46 09/14/17 07:46 09/14/17 07:46 Laboratory Results 09/14/17 05:08 09/14/17 05:08 09/13/17 09/14/17 09/15/17 05:59 05:59 05:59 Intake Total 4600 Balance 4600 PT 13.1 SEC (12.0-15.0) 09/13/17 09:15 INR 1.00 (0.83-1.16) 09/13/17 09:15 - Physical Exam Constitutional: no apparent distress, appears nourished Eyes: PERRL, anicteric sclera Ears, Nose, Mouth, Throat: moist mucous membranes, hearing normal, other (poor dentition) Cardiovascular: regular rate and rhythym, no murmur, rub, or gallop, No tachycardia Respiratory: no respiratory distress, no rales or rhonchi, No inspiratory crackles Gastrointestinal: normoactive bowel sounds, soft, non-tender abdomen, No guarding, No rebound Genitourinary: no bladder fullness, No bran in urethra Skin: warm, normal color, No fluctuance, No rash Musculoskeletal: full muscle strength Neurologic: AAOx3, sensation intact bilaterally Psychiatric: interacting appropriately, not anxious ICD10 Worksheet Patient Problems: Problems Problem Status Onset Thrombocytopenia Acute Vomiting Acute 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
[2017-09-14] MEDS: CYANO/VITAMIN B12 1000 MCG TAB PO SCH (09:46)
[2017-09-14] MEDS: CEFEPIME HCL 1 GM in D5W 50 ML IV SCH ×3 (10:11→22:51)
[2017-09-14 10:43] LABS: COLOR YELLOW; LEUKOCYTE ESTERASE,URINE NEGATIVE (NEGATIVE); NITRITE,URINE NEGATIVE (NEGATIVE)
[2017-09-14 11:18] LABS: BACTERIA TRACE /hpf (NONE SEEN); MUCUS TRACE /lpf (NONE-1+)
--- NOTE | 2017-09-14 15:22 | GCON ---
[f rep st] CONSULTATION INPATIENT ONCOLOGY CONSULTATION DATE OF CONSULTATION: 09/14/2017 REFERRING PHYSICIAN: Sai Yeboah MD OUTPATIENT ONCOLOGIST: Dr. Nito Morin. REASON FOR CONSULTATION: History of anal canal cancer, severe anemia and thrombocytopenia. HISTORY OF PRESENT ILLNESS: The patient is a 62-year-old woman, well known to our clinic. She prese nted in December 2014 with anal canal cancer with regional adenopathy and also what appeared to be me tastasis to the lung. She received systemic chemotherapy with cisplatin and 5-FU and then pelvic nod al radiation with a good response. In June 2016, she unfortunately had a recurrence and she had an excision of an anal lesion, a right labial lesion, and 2 left inguinal nodes. She then received niv olumab immunotherapy for about 6 months, but had to discontinue it in November due to homelessness. S he was then lost to followup. She returned several weeks ago with severe anemia and thrombocytopenia . On presentation, her hemoglobin was 5 and her platelet count was 7 with normal white count and dif ferential. She received transfusions. Notable blood work showed a ferritin that was normal at 51, n ormal B12 and methylmalonic acid. She had an elevated SHILPA at 1:320 and a positive rheumatoid factor. Serum protein electrophoresis was negative. She had a bone marrow biopsy in our office last week. The specimen was suboptimal and therefore nondiagnostic, but no overt abnormalities were seen. She returned to the hospital last night complaining of some vomiting and fever. She was again severely t hrombocytopenic with a platelet count of 9, and hemoglobin 8.9. White count was elevated at 12.5, pr edominantly neutrophils. She received platelets and also broad-spectrum antibiotics based on the shonna picion that she had an infection. Her chest x-ray was normal. She is feeling better this morning. I should note that a CT chest, abdomen, and pelvis on her last admission did not reveal any evidence of recurrent cancer. PAST MEDICAL HISTORY: Otherwise unremarkable. CURRENT MEDICATIONS: Cefepime, vancomycin, B12. ALLERGIES: Penicillins. FAMILY HISTORY: Noncontributory. SOCIAL HISTORY: She is homeless. She smokes. REVIEW OF SYSTEMS: Aside from pertinent positives in the HPI, a 14-point review of systems is negati ve. PHYSICAL EXAMINATION: VITALS: T max is 38.3, T current 36.3, blood pressure 116/67, heart rate 71, oxygen saturation 97% on room air. GENERAL: She is chronically ill, though no acute distress, breat danita comfortably. Sclerae are anicteric. Oropharynx is clear. She has poor dentition. NECK: Supp le without lymphadenopathy. LUNGS: Clear to auscultation bilaterally. CARDIAC: Regular rate and r hythm. No murmurs, gallops, rubs. ABDOMEN: Normoactive bowel sounds. Nontender, nondistended. EX TREMITIES: Without edema. SKIN: There were some ecchymoses on her feet. NEUROLOGIC: She is alert and oriented x3. LABORATORY DATA: Obtained this morning: White cells 11.1, hemoglobin 6.2, platelets of 39. Compreh ensive metabolic panel was normal. IMPRESSION: This is a 62-year-old woman with a history of metastatic anal canal cancer. Remarkably, this disease appears to be in remission after having not received any type of therapy for the past 1 0 months. Her most recent therapy was nivolumab, which is an immunotherapy. Now she is dealing with severe anemia and thrombocytopenia. Bone marrow biopsy was essentially nondiagnostic. There are a variety of possibilities here. One is that she could have bone marrow insufficiency due to pelvic radiation, though it is interesting that her white count is well preserved. The 2nd is carlee t she could have underlying therapy-related myelodysplasia, though the onset of this problem is a bit earlier than one would tend to see for that problem based on the date of her chemotherapy. Another possibility is that she has an autoimmune disorder, either idiopathic thrombocytopenic purpura or idi opathic thrombocytopenic purpura and hemolytic anemia. It is also not clear to me if her anemia is d ue to lack of production of red cells or possibly due to chronic gastrointestinal losses due to ongoi ng bleeding, as she has complained of rectal bleeding. In that case, idiopathic thrombocytopenic pur ishmael would be the sole hematological abnormality which would result in recurrent bleeding. RECOMMENDATIONS: 1. I will send some additional blood work today including a flow cytometry to look for large granula r lymphocytic leukemia, an anti-CCP antibody which can go along with that, as well as iron stores and erythropoietin level. 2. I would consider GI evaluation on this admission to see if there is a source of bleeding. 3. Would transfuse red cells today as has been previously ordered. If her ferritin is below 100, we could also consider giving her intravenous iron while she is here as that may be part of the problem . 4. She may require repeating her bone marrow biopsy at some point if she continues to have these iss ues. Thank you for this consultation. It was pleasure to see the patient again, and I appreciate the oppo rtunity to be involved in her care. We will continue to follow patient with you while she is in the hospital. /[id number]/MODL
--- NOTE | 2017-09-14 16:14 | ASMTCASEMG ---
Living Arrangements What is your living Answers: Alone arrangement? Who do you live with? Type Of Residence What kind of residence do Answers: Homeless you live in? Discharge Plan Comments Coordination Status Comments Notes: Pt is a 62 y/o female admitted for nausea vomiting thrombocytopenia, and sepsis. Pt is homeless and recently here at [facility] on 09/03 for amenia. Anticipates that pt will d/c independent when medically stable. No therapies ordered at this time. CM available for d/c needs. Date Signed: 09/14/2017 04:13 PM Electronically Signed By:DAVID Velazco
[2017-09-14 18:12] LABS: HEMATOCRIT 27.4 % (38.0-47.0)
[2017-09-14 18:16] LABS: LACTATE DEHYDROGENASE 441 IU/L (313-618)
[2017-09-14 18:25] LABS: % SATURATION 8 % (20-55); TOTAL IRON BINDING CAPACITY 250 ug/dL (260-490)
[2017-09-14 18:43] LABS: FERRITIN - BCH 83.3 ng/mL (6.2-264.0)
--- NOTE | 2017-09-14 20:13 | GCON ---
[f rep st] CONSULTATION INFECTIOUS DISEASE CONSULTATION. DATE OF CONSULTATION: 09/14/2017 REASON FOR CONSULTATION: Sepsis of unclear etiology. HPI: 62-year-old woman with a past medical history of squamous cell carcinoma of the anus, who last received immunotherapy in November of 2016, who was recently admitted to the hospital from September 03 to September 06 for severe anemia with a hemoglobin of 5, and thrombocytopenia of 7000. She underwent a bone marrow biopsy after discharge, which was nondiagnostic for etiology of these findings. In [facility], patient underwent HIV and hep C testing, which were negative. Patient returned to the hospital on 09/13/2017 due to diffuse tingling and numbness and an episode of vomiting and feeling lightheaded. She still had some mild rectal bleeding, but not to the degree of prior hospitalization. She specifically denied any changes in her cough, dizziness, or syncope, abd ominal pain, shortness of breath, rash, joint pain, headaches outside of her baseline headaches. Her appetite is good. She has some limited availability of food, but has been doing fairly well with fo [employer] stamps and staying at the [facility]. When she came to the emergency room via ambulance, she subsequently was identified to have tachycardi a and a temperature to 38.9. Blood cultures were collected and patient was started on cefepime and v ancomycin empirically for sepsis physiology. ID is asked to see patient today to consult on potentia l source of fever. Today, patient's vital signs have normalized. She has normal O2 sats on room air and denies any foca l symptoms, generally feels better than admission. She does endorse having black diarrhea during her last hospitalization, but this has not recurred. PAST MEDICAL HISTORY: 1. Squamous cell carcinoma of the anus that is known to be metastatic. 2. Hypertension. 3. History of right upper extremity DVT. MEDICATIONS: Cefepime 1 g IV q.12, vancomycin 1 g IV q.12, Phenergan, Zofran, Tylenol and vitamin B1 2. ALLERGIES: Penicillin causes anaphylaxis. She also carries allergies to aspirin, codeine, ibuprofen . SOCIAL HISTORY: Patient immigrated from [facility] in [place] and has traveled all across the [facility]. She is currently homeless and uses tobacco. FAMILY HISTORY: Positive for arthritis. She denies history of cancer. REVIEW OF SYSTEMS: A complete 10-point review of systems was performed and is negative except as men tioned in the HPI. PHYSICAL EXAM: VITAL SIGNS: Blood pressure 116/67, HR 71, RR 15, saturation 99% on room air, T 36.3 , T-max since admission is 38.9. GENERAL: This is a very pleasant, conversational woman lying in bed, alert, oriented x4. HEENT: Poor dentition with multiple fractured teeth. No thrush or oral ulcerations. NECK: Supple. No lymphadenopathy. CARDIOVASCULAR: Regular rate, no murmurs. CHEST: Clear to auscultation bilaterally. ABDOMEN: Soft, nontender. Bowel sounds are present. EXTREMITIES: No clubbing, cyanosis, or edema. Patient had some scattered ecchymotic lesions. No evidence of erythema. SKIN: She had no rashes, erythema, or peripheral stigmata of endocarditis. NEUROLOGIC: She is alert and oriented x4. Moving all 4 extremities equally. LABORATORY: White count 11, hematocrit 18.5, platelets of 39, 86% neutrophils. Urinalysis was unrem arkable. Creatinine 0.9. LFTs were normal and her initial lactate was 2.3, is now normalized. She had a heme-positive stool. Blood and urine cultures were collected on admission. Chest x-ray was personally reviewed by me and showed no focal infiltrate. A 62-year-old woman with a history of metastatic squamous cell carcinoma, who presents to the emergen cy room for tingling and fatigue, but subsequently was found to be febrile and tachycardic. Current diagnostics do not show a clear source of infection nor does physical exam or history point to a pert inent area. CT scans of the chest, abdomen and pelvis were reviewed from last hospitalization and CT was unremark able. The inguinal region bilaterally showed some residual irregular masses likely consistent with c ancer and constipation, otherwise was unremarkable. Also noted influenza. PCR was negative on admiss ion. Patient had a pneumococcal vaccination 2 years ago and refuses influenza vaccination during thi s hospitalization. RECOMMENDATIONS: 1. Agree with empiric antibiotics while await blood cultures. No other focal symptoms suggest furth er workup at this point. 2. Would adjust cefepime to 1 g IV q.8. Would continue to monitor daily creatinine in light of vanc omycin therapy. I will continue to see patient on a daily basis. /[id number]/MODL
[2017-09-14] MEDS: MELATONIN 3 MG TAB PO PRN (22:51)
[2017-09-15] MEDS: VANCOMYCIN HCL/NORMAL SALINE 250 ML IV SCH ×2 (01:30→11:38)
[2017-09-15 05:24] LABS: % IMMATURE GRANULYOCYTES 0.9 % (0.0-1.1); ABSOLUTE IMMATURE GRANULOCYTES 0.09 10^3/uL (0.00-0.10); ADD DIFF? NO; ADD MORPH? NO; ADD SCAN? NO; ATYPICAL LYMPHOCYTE FLAG 0 (0-99); FRAGMENT RBC FLAG 0 (0-99); HEMATOCRIT 27.6 % (38.0-47.0); HEMOGLOBIN 9.3 g/dL (12.6-16.3); LEFT SHIFT FLG 10 (0-99); LIPEMIA HEMOLYSIS FLAG 80 (0-99); MEAN CELL HEMOGLOBIN 32.1 pg (27.9-34.1); MEAN CELL HEMOGLOBIN CONCENTR. 33.7 g/dL (32.4-36.7); MEAN CELL VOLUME 95.2 fL (81.5-99.8); MEAN PLATELET VOLUME 9.6 fL (8.7-11.7); PLATELET CLUMPS FLAG 20 (0-99)
[2017-09-15 05:35] LABS: PLATELET COUNT 23 10^3/uL (150-400)
[2017-09-15 05:40] LABS: ANION GAP 9 mEq/L (8-16); CARBON DIOXIDE 18 mEq/l (22-31); CHLORIDE 109 mEq/L (97-110); CREATININE 0.9 mg/dL (0.6-1.0); GLOMERULAR FILTRATION RATE > 60; GLUCOSE 88 mg/dL (70-100); SODIUM 136 mEq/L (134-144)
[2017-09-15 06:36] LABS: PLATELET ESTIMATE DECREASED (ADEQ)
[2017-09-15] MEDS: CEFEPIME HCL 1 GM in D5W 50 ML IV SCH (07:15)
[2017-09-15] MEDS: CYANO/VITAMIN B12 1000 MCG TAB PO SCH (08:08)
--- NOTE | 2017-09-15 09:32 | HOSPPROG ---
Hospitalist Progress Note Assessment/Plan: 62 yo F w SCC of anus and thrombocytopenia a/w sepsis and thrombocytopenia, rectal bleeding thrombocytopenia: uncertain cause has had BM bx, results neg d/w dieter, labs pending trending down, follow rectal bleeding: SCC + thrombocytopenia has resolved w increased latelets sepsis: lactate normalized septic physiology has resolved iron deficiency anemia: start IV iron will pursue inpatient GI eval given homelessness ID: elevated pct no clear source- cxr xclear (interp by me) has poor dentition but no pain- ? role of imaging of teeth on vanc cefepime ID to see SCC: needs to restart therapy once ID situation clarified proph: low platelets are a contraindication to VTE Proph dispo: inpatient Subjective: case d/w dr garcias. afebrile X 30 hours Objective: Vital Signs Temp Pulse Resp BP Pulse Ox 37.0 C 75 15 122/76 H 97 09/15/17 07:40 09/15/17 07:40 09/15/17 07:40 09/15/17 07:40 09/15/17 07:40 Laboratory Results 09/15/17 05:00 09/15/17 05:00 09/14/17 09/15/17 09/16/17 05:59 05:59 05:59 Intake Total 4600 633 Output Total 1 Balance 4600 632 PT 13.1 SEC (12.0-15.0) 09/13/17 09:15 INR 1.00 (0.83-1.16) 09/13/17 09:15 - Physical Exam Constitutional: no apparent distress, appears nourished Eyes: PERRL, anicteric sclera Ears, Nose, Mouth, Throat: moist mucous membranes, hearing normal, other (poor dentition) Cardiovascular: regular rate and rhythym, no murmur, rub, or gallop, No tachycardia Respiratory: no respiratory distress, no rales or rhonchi Gastrointestinal: normoactive bowel sounds, soft, non-tender abdomen Genitourinary: no bladder fullness, No bran in urethra Skin: warm, normal color Musculoskeletal: full muscle strength, no muscle tenderness Neurologic: AAOx3, sensation intact bilaterally Psychiatric: interacting appropriately, not anxious Lymph, Heme, Immunologic: no cervical LAD ICD10 Worksheet Patient Problems: Problems Problem Status Onset Thrombocytopenia Acute Vomiting Acute 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
[2017-09-15] MEDS: SODIUM FERRIC GLUCONAT/SUCROSE 125 MG in NS 100 ML IV SCH (09:51)
--- NOTE | 2017-09-15 09:53 | SOAPPROG ---
SOAP Progress Note Assessment/Plan: Assessment: 1. Recurrent anal cancer lost to f/u after having had nivo.She initally was treated with 5FU and Mitomycin. She is presents with anemia and low platelets. She has had a BM which was inadequate. She may have a radiated BM in the iliac crest rendering interpretation inadequate. Due to the hx of MMC i will check for TTP with PT/PTT, MENDEZ 13, and LDH. The peripheral smear doesn't reflect a MAHA. I ordered a PI ag. 2. Some Gi bleeding. eval for local recurrence. Plan: 09/15/17 09:53 09/15/17 10:07 09/15/17 10:08 09/15/17 10:10 Subjective: Judi is a 62 y woman [facility]. She has had recurrent anal cancer but is apparently in remission. She came in with low plts and anemia. Objective: Vital Signs Temp Pulse Resp BP Pulse Ox 37.0 C 75 15 122/76 H 97 09/15/17 07:40 09/15/17 07:40 09/15/17 07:40 09/15/17 07:40 09/15/17 07:40 Laboratory Results 09/15/17 05:00 09/15/17 05:00 09/14/17 09/15/17 09/16/17 05:59 05:59 05:59 Intake Total 4600 633 240 Output Total 1 Balance 4600 632 240 PT 13.1 SEC (12.0-15.0) 09/13/17 09:15 INR 1.00 (0.83-1.16) 09/13/17 09:15 ICD10 Worksheet Patient Problems: Problems Problem Status Onset Thrombocytopenia Acute Vomiting Acute 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
[2017-09-15] MEDS ORDERED: PEG 3350/NA SULF,BICARB,CL/KCL (GAVILYTE-G) 4000 ML BTL PO ONE ×2 (10:04→20:00)
[2017-09-15] MEDS ORDERED: IOPAMIDOL (ISOVUE-300) 100 ML BTL ONE (13:28)
--- NOTE | 2017-09-15 14:15 | PCMIDPN ---
Assessment/Plan: # Fever and sepsis physiology without focal signs or symptoms of infection, mild leukocytosis: CT scan of face today was negative for source. Blood cultures are negative at 48 hours. Last fever Low-grade fever early a.m. 09/14 --discontinue vancomycin and cefepime and monitor # Penicillin allergy: True penicillin allergy will avoid this class of antibiotics. Tolerates cephalosporins Medication Cefepime 1 g IV Q 8 Vancomycin 1 g IV q.12 Microbiology 09/13 blood cultures (2) NGTD 09/14 urine culture NGTD Subjective: Patient is feeling well other than lack of sleep due to nocturia from IV fluids General lightheadedness and paresthesias described on admission have resolved Had a normal bowel movement today coated in blood Objective: Vital Signs Temp Pulse Resp BP Pulse Ox 37.0 C 75 15 122/76 H 97 09/15/17 07:40 09/15/17 07:40 09/15/17 07:40 09/15/17 07:40 09/15/17 07:40 Laboratory Results 09/15/17 05:00 09/15/17 05:00 09/14/17 09/15/17 09/16/17 05:59 05:59 05:59 Intake Total 4600 633 240 Output Total 1 Balance 4600 632 240 - Physical Exam General Appearance: alert EENT: poor dentition, other (Moist mucous membranes) Respiratory: coarse breath sounds, No accessory muscle use Neck: supple Cardiac/Chest: regular rate, rhythm Extremities: No pedal edema Abdomen: normal bowel sounds, non-tender, soft Skin: No rash Neuro/Psych: alert, normal mood/affect, oriented x 3 ICD10 Worksheet Patient Problems: Problems Problem Status Onset Thrombocytopenia Acute Vomiting Acute 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
--- NOTE | 2017-09-15 14:34 | ASMTCMCOM ---
CM Note CM Note Notes: 09/15/2017 Case Management Note Met w/pt. Called [facility] the [facility] and left a vm requesting that pt belongings in locker 20 be left in the locker. Pt was concerned her belongings would be discarded at the intermediate. At pt request, case management inquire if reserved bed was saved for pt after d/c. Requested call back from [facility]. Case management d/c poc: To be determined after serveral test results return. Case management to follow. Date Signed: 09/15/2017 02:33 PM Electronically Signed By:Otilia Ruelas RN
[2017-09-16 05:12] LABS: % IMMATURE GRANULYOCYTES 0.5 % (0.0-1.1); ABSOLUTE IMMATURE GRANULOCYTES 0.03 10^3/uL (0.00-0.10); ADD DIFF? NO; ADD MORPH? NO; ADD SCAN? NO; ATYPICAL LYMPHOCYTE FLAG 0 (0-99); FRAGMENT RBC FLAG 0 (0-99); HEMOGLOBIN 10.1 g/dL (12.6-16.3); LEFT SHIFT FLG 0 (0-99); LIPEMIA HEMOLYSIS FLAG 90 (0-99); MEAN CELL HEMOGLOBIN 32.6 pg (27.9-34.1); MEAN CELL HEMOGLOBIN CONCENTR. 34.8 g/dL (32.4-36.7); MEAN CELL VOLUME 93.5 fL (81.5-99.8); MEAN PLATELET VOLUME 10.2 fL (8.7-11.7); PLATELET CLUMPS FLAG 10 (0-99); RED CELL DISTRIBUTION WIDTH 19.3 % (11.5-15.2)
[2017-09-16 05:19] LABS: PLATELET COUNT 20 10^3/uL (150-400)
[2017-09-16 05:35] LABS: ANION GAP 10 mEq/L (8-16); CALCIUM 8.4 mg/dL (8.5-10.4); CARBON DIOXIDE 22 mEq/l (22-31); CHLORIDE 107 mEq/L (97-110); CREATININE 0.9 mg/dL (0.6-1.0); GLOMERULAR FILTRATION RATE > 60; GLUCOSE 76 mg/dL (70-100); POTASSIUM 3.4 mEq/L (3.5-5.2); SODIUM 139 mEq/L (134-144)
[2017-09-16 05:56] LABS: PLATELET ESTIMATE DECREASED (ADEQ)
--- NOTE | 2017-09-16 08:39 | SOAPPROG ---
SOAP Progress Note Assessment/Plan: Assessment: 1. Recurrent anal cancer lost to f/u after having had nivo. She initally was treated with 5FU and Mitomycin. She is presents with anemia and low platelets. She has had a BM which was inadequate. She may have a radiated BM in the iliac crest rendering interpretation inadequate even if the bx was adequate sampling. Due to the hx of MMC I will check for TTP with PT/PTT (WNL), MENDEZ 13, and LDH ( WNL). The peripheral smear doesn't reflect a MAHA. I ordered a PI ag pending. 2. Some Gi bleeding. eval for local recurrence. Plan: 09/15/17 09:53 09/15/17 10:07 09/15/17 10:08 09/15/17 10:10 09/16/17 08:37 Subjective: Judi is a 62 y woman living [facility]. She has had recurrent anal cancer but is apparently in remission. She came in with low plts and anemia. Objective: Vital Signs Temp Pulse Resp BP Pulse Ox 37.0 C 77 16 160/100 H 97 09/16/17 07:30 09/16/17 07:30 09/16/17 07:30 09/16/17 07:30 09/16/17 07:30 Laboratory Results 09/16/17 04:56 09/16/17 04:50 09/15/17 09/16/17 09/17/17 05:59 05:59 05:59 Intake Total 633 3440 Output Total 1 Balance 632 3440 PT 13.1 SEC (12.0-15.0) 09/13/17 09:15 INR 1.00 (0.83-1.16) 09/13/17 09:15 ICD10 Worksheet Patient Problems: Problems Problem Status Onset Thrombocytopenia Acute Vomiting Acute 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
[2017-09-16] MEDS ORDERED: LIDOCAINE 2% 5 ML SDV ONE (09:12)
[2017-09-16] MEDS ORDERED: PROPOFOL/EMULSION 500 MG/50 ML BOTTLE IV ONE (09:12)
[2017-09-16] MEDS ORDERED: MIDAZOLAM 2 MG/2 ML VIAL IVP ONE ×2 (09:27→09:30)
--- NOTE | 2017-09-16 09:27 | PDANEPAE ---
ANE Past Medical History - Cardiovascular History Hx Hypertension: No Hx Arrhythmias: No Hx Chest Pain: No Hx Coronary Artery / Peripheral Vascular Disease: No Hx CHF / Valvular Disease: No Hx Palpitations: No Cardiovascular History Comment: IRREGULAR HEARTBEAT DOES NOT SEE ANYONE HAS HAD ALL HER LIFE. INTERMITTENT HTN PREV RX WHICH JUST CAUSED IT TO BE ELEVATED SO QUIT TAKING - Pulmonary History Hx COPD: No Hx Asthma/Reactive Airway Disease: No Hx Recent Upper Respiratory Infection: No Hx Oxygen in Use at Home: No Hx Sleep Apnea: No - Neurologic History Hx Cerebrovascular Accident: No Hx Seizures: No Hx Dementia: No - Endocrine History Hx Diabetes: No Obesity: no - Renal History Hx Renal Disorders: Yes Renal History Comment: UTI 12/2015 - Liver History Hx Hepatic Disorders: No - Neurological & Psychiatric Hx Hx Neurological and Psychiatric Disorders: Yes Neurological / Psychiatric History Comment: INTERMITTENT MIGRAINES - Cancer History Hx Cancer: Yes Cancer History Comment: ANAL - Congenital Disorder History Hx Congenital Disorders: No - GI History GERD: no Gastrointestinal History Comment: HX PEPTIC ULCER - Other Health History Other Health History: ? RT ARMPIT DVT 04/2015. ANEMIA - Chronic Pain History Chronic Pain: Yes (BONES HURT ALOT RELATED TO ARTHRITIS) - Surgical History Prior Surgeries: RT ING HERNIA 11/2008. ORAL SURGERY. LT ING HERNIA AGE 1. TONSILLECTOMY. EGD ANE Review of Systems Review of systems is: negative Review of Systems: - Exercise capacity Exercise capacity: >=4 METS ANE Patient History - Allergies Allergies/Adverse Reactions: Penicillins Allergy (Severe, Verified 09/03/17 13:31) Hives aspirin Allergy (Verified 11/17/16 16:53) codeine Allergy (Verified 11/17/16 16:53) Other-Enter Comments ibuprofen Allergy (Verified 11/17/16 16:53) - Home Medications Home Medications: Acetaminophen [Tylenol ES 500 mg (*)] 1,000 mg PO TID PRN 11/17/16 [Last Taken 09/13/17] Herbals/Supplements -Info Only 1 ea PO DAILY 09/03/17 [Last Taken Unknown] - Anes Hx Anes Hx: no prior problems - Smoking Hx Smoking Status: Current every day smoker - Alcohol Use Alcohol Use: Occasionally ANE Labs/Vital Signs - Labs Result Diagrams: 09/16/17 04:56 09/16/17 04:50 - Vital Signs Blood Pressure: 160/100 Heart Rate: 77 Respiratory Rate: 16 O2 Sat (%): 97 Height: 162.56 cm Weight: 52.163 kg ANE Physical Exam - Airway Neck exam: FROM Mallampati Score: Class 2 Mouth exam: poor dentition - Pulmonary Pulmonary: no respiratory distress - Cardiovascular Cardiovascular: regular rate and rhythym - ASA Status ASA Status: III, E ANE Anesthesia Plan Anesthesia Plan: GA with mask
[2017-09-16] MEDS ORDERED: PROPOFOL 200 MG/20 ML VIAL ONE (09:30)
[2017-09-16] MEDS ORDERED: MIDAZOLAM 2 MG/2 ML VIAL ONE (09:31)
--- NOTE | 2017-09-16 10:18 | GIREPORT ---
[facility] Surgical Services - Endoscopy Department Patient Name: Judi Vela Procedure Date: 09/16/2017 9:19 AM Patient Type: Inpatient Attending MD/ ER Physician: Bogdan Mcknight MD Procedure: Upper GI endoscopy Indications: Suspected upper gastrointestinal bleeding in patient with unexplained i maritza deficiency anemia Providers: Bogdan Mcknight MD Medicines: Propofol per Anesthesia Complications: No immediate complications. Description of Procedure: After obtaining informed consent, the endoscope was passed under direct vision. Throughout the procedure, the patient's blood pressure, pulse, and oxygen saturations were monitored continuously. The Endoscope was intro duced through the mouth, and advanced to the second part of duodenum. The pat ient tolerated the procedure well. The upper GI endoscopy was accomplished without difficulty. Findings: The esophagus was normal. The stomach was normal. Patchy moderate inflammation characterized by erosions was found in the duodenal bulb and in the first portion of the duodenum. Biopsies were t aken with a cold forceps for histology. The second portion of the duodenum was normal. Estimated Blood Loss: Estimated blood loss: none. Post Op Diagnosis: - Normal esophagus. - Normal stomach. - Acute duodenitis. Biopsied. - Normal second portion of the duodenum. Recommendation: - Await pathology results. - Use Protonix (pantoprazole) 40 mg PO daily. - No aspirin, ibuprofen, naproxen, or other non-steroidal anti-inflamma tory drugs. - Perform a colonoscopy today. - [facility] care. Attending Participation: I personally performed the entire procedure without the assistance of a fellow, resident or surg ical assistant branch manager. Bogdan Mcknight MD Bogdan Mcknight MD 09/16/2017 10:17:29 AM This report has been signed electronicallyDavid MD Roxanna Number of Addenda: 0 Note Initiated On: 09/16/2017 9:19 AM [email or web address]
[2017-09-16] MEDS ORDERED: ONDANSETRON 4 MG/2 ML VIAL IVP PRN (10:20)
[2017-09-16] MEDS ORDERED: HYDROmorphONE/DILAUDID 1 MG/ML INJ IVP PRN (10:20)
[2017-09-16] MEDS ORDERED: NALOXONE HCL 0.4 MG/ML INJ IVP PRN (10:20)
[2017-09-16] MEDS ORDERED: LR 500 ML IV PRN (10:20)
[2017-09-16] MEDS ORDERED: fentaNYL 100 MCG/2 ML INJ IVP PRN (10:20)
[2017-09-16] MEDS ORDERED: ACETAMINOPHEN 500 MG TAB PO PRN (10:20)
[2017-09-16] MEDS ORDERED: ALBUTEROL 3 ML DEYVIAL IH PRN (10:20)
--- NOTE | 2017-09-16 10:20 | POSTANESTH ---
Post Anesthetic Evaluation Cardiovascular Status: Normal, Stable Respiratory Status: Normal, Stable Level of Consciousness/Mental Status: Can Participate in Eval Pain Control: Adequate, Prn Tx Ordered Nausea/Vomiting Control: Adequate, Prn Tx Ordered Complications Possibly Related to Anesthesia: None Noted
--- NOTE | 2017-09-16 10:24 | GIREPORT ---
[facility] Surgical Services - Endoscopy Department Patient Name: Judi Vela Procedure Date: 09/16/2017 9:15 AM Patient Type: Inpatient Attending MD/ ER Physician: Bogdan Mcknight MD Procedure: Colonoscopy Indications: Hematochezia, Iron deficiency anemia Providers: Bogdan Mcknight MD Medicines: Propofol per Anesthesia Complications: No immediate complications. Description of Procedure: After obtaining informed consent, the scope was passed under direct vis ion. Throughout the procedure, the patient's blood pressure, pulse, and oxyg en saturations were monitored continuously. The Colonoscope was introduced through the anus and advanced to the cecum, identified by appendiceal orifice and ileocecal valve. The colonoscopy was performed without difficulty. The patient tolerated the procedure well. The quality of th e bowel preparation was excellent. The ileocecal valve, appendiceal orifi ce, and rectum were photographed. Findings: The digital rectal exam findings include decreased sphincter tone and non-thrombosed external hemorrhoids. The digital rectal exam findings include surgical and radiation deformi ty to the anal canal. Multiple small-mouthed diverticula were found in the sigmoid colon. A localized area of moderately altered vascular, congested and erythema tous mucosa was found at the anus and in the rectum. Estimated Blood Loss: Estimated blood loss: none. Post Op Diagnosis: - Decreased sphincter tone and non-thrombosed external hemorrhoids foun d on digital rectal exam. - Surgical and radiation deformity to the anal canal found on digital r ectal exam. - Diverticulosis in the sigmoid colon. - Altered vascular, congested and erythematous mucosa at the anus and i n the rectum. This is the source of bleeding and seems most consistent with radiation proctitis and hemorrhoid illness. - No specimens collected due to her severe thrombocytopenia. - I can not completely exclude local anal cancer recurrence, but given her known metastatic disease and lack of serious anorectal symptoms I am comfortable not pursing tissue sampling of the local anorectal area at this time. - I feel her hematochezia is due to these findings in the setting of thrombocytopenia, and if chronic enough could explain some of her anemi a. Recommendation: - [facility] to [facility] care. - Repeat colonoscopy in 10 years for screening purposes. - Resume previous diet. - Continue present medications. - Patient has a contact number available for emergencies. The signs and symptoms of potential delayed complications were discussed with the pat ient. Return to normal activities tomorrow. Written discharge instructions we re provided to the patient. - Thank you for allowing me to be involved in the care of your patient. Attending Participation: I personally performed the entire procedure without the assistance of a fellow, resident or surg ical warehouse assistant. Bogdan Mcknight MD Bogdan Mcknight MD 09/16/2017 10:23:37 AM This report has been signed electronicallyDavid MD Roxanna Number of Addenda: 0 Note Initiated On: 09/16/2017 9:15 AM Total Procedure Duration Time 0 hours 16 minutes 6 seconds [email or web address]
[2017-09-16] MEDS: SODIUM FERRIC GLUCONAT/SUCROSE 125 MG in NS 100 ML IV SCH (11:21)
[2017-09-16] MEDS: CYANO/VITAMIN B12 1000 MCG TAB PO SCH (11:21)
--- NOTE | 2017-09-16 13:23 | HOSPPROG ---
Hospitalist Progress Note Assessment/Plan: 62 yo F w SCC of anus and thrombocytopenia a/w sepsis and thrombocytopenia, rectal bleeding thrombocytopenia: uncertain cause has had BM bx, results neg, per Loc, there were issues w sample trending down, follow daily this precludes discharge in this homeless patient rectal bleeding: SCC + thrombocytopenia has resolved w increased platelets endoscopy negative for source other than anal cancer sepsis: lactate normalized septic physiology has resolved abx dc'd face CT w no evidence of infection iron deficiency anemia: start IV iron will pursue inpatient GI eval given homelessness ID: elevated pct no clear source- cxr xclear (interp by me) has poor dentition but no pain- ? role of imaging of teeth abx stopped follow SCC: needs to restart therapy once ID situation clarified proph: low platelets are a contraindication to VTE Proph dispo: inpatient Subjective: case d/w dr nolasco. source of bleeding is anorectal region Objective: Vital Signs Temp Pulse Resp BP Pulse Ox 36.6 C 69 14 156/90 H 91 L 09/16/17 11:01 09/16/17 11:01 09/16/17 11:01 09/16/17 11:01 09/16/17 11:01 Microbiology 09/14/17 09:40 Urine Culture - Final Urine,Clean Catch Laboratory Results 09/16/17 04:56 09/16/17 04:50 09/15/17 09/16/17 09/17/17 05:59 05:59 05:59 Intake Total 633 3440 250 Output Total 1 Balance 632 3440 250 PT 13.1 SEC (12.0-15.0) 09/13/17 09:15 INR 1.00 (0.83-1.16) 09/13/17 09:15 - Physical Exam Constitutional: no apparent distress, appears nourished Eyes: PERRL, anicteric sclera Ears, Nose, Mouth, Throat: moist mucous membranes, hearing normal Cardiovascular: regular rate and rhythym, no murmur, rub, or gallop Respiratory: no respiratory distress, no rales or rhonchi Gastrointestinal: normoactive bowel sounds, soft, non-tender abdomen Genitourinary: no bladder fullness, No bran in urethra Skin: warm, normal color Musculoskeletal: full muscle strength, no muscle tenderness Neurologic: AAOx3 ICD10 Worksheet Patient Problems: Problems Problem Status Onset Thrombocytopenia Acute Vomiting Acute 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
[2017-09-16] MEDS: HYDROCORTISONE 1% CREAM TP SCH ×2 (15:59→20:54)
[2017-09-16] MEDS: MELATONIN 3 MG TAB PO PRN (20:53)
[2017-09-17] MEDS: CYANO/VITAMIN B12 1000 MCG TAB PO SCH (08:07)
[2017-09-17] MEDS: HYDROCORTISONE 1% CREAM TP SCH ×2 (08:08→22:04)
[2017-09-17] MEDS: SODIUM FERRIC GLUCONAT/SUCROSE 125 MG in NS 100 ML IV SCH (08:10)
--- NOTE | 2017-09-17 10:07 | HOSPPROG ---
Hospitalist Progress Note Assessment/Plan: 62 yo F w SCC of anus and thrombocytopenia a/w sepsis and thrombocytopenia, rectal bleeding.Today is my first encounter with the patient.Chart reviewed. Reviewed her care with Dr Morin *recurrent anal cancer initially treated with 5FU &Mitomycin *radiation proctitis steroid enemas *Vit B12 deficiency monthly injections *rectal bleeding endoscopy & colonsocopy negative *Sepsis resolved *Nicotine dependence patch ordered *Iron def anemia Iv iron *thrombocytopenia *Lesion in right groin Dr López to see/needs a biopsy *Homelessness discuss with CM *DVT prophylaxis: contraindicated due to low platelet count Subjective: Myllwhgustavo says she is feeling well after getting a shower today. Objective: Vital Signs Temp Pulse Resp BP Pulse Ox 36.6 C 63 18 128/82 H 91 L 09/17/17 07:21 09/17/17 07:21 09/17/17 07:21 09/17/17 07:21 09/17/17 07:21 Microbiology 09/14/17 09:40 Urine Culture - Final Urine,Clean Catch Laboratory Results 09/16/17 04:56 09/16/17 04:50 09/16/17 09/17/17 09/18/17 05:59 05:59 05:59 Intake Total 3440 700 Output Total 600 Balance 3440 100 PT 13.1 SEC (12.0-15.0) 09/13/17 09:15 INR 1.00 (0.83-1.16) 09/13/17 09:15 - Physical Exam Constitutional: no apparent distress, appears nourished, not in pain, chronically ill appearing Eyes: PERRL Ears, Nose, Mouth, Throat: hearing normal, poor dentition Cardiovascular: regular rate and rhythym Respiratory: no respiratory distress Gastrointestinal: normoactive bowel sounds Skin: warm Musculoskeletal: full muscle strength Neurologic: AAOx3 Psychiatric: interacting appropriately, not anxious, not encephalopathic ICD10 Worksheet Patient Problems: Problems Problem Status Onset Thrombocytopenia Acute Vomiting Acute 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
--- NOTE | 2017-09-17 10:13 | SOAPPROG ---
SOAP Progress Note Assessment/Plan: Assessment: 1. Recurrent anal cancer lost to f/u after having had nivo. She initally was treated with 5FU and Mitomycin. She is presents with anemia and low platelets. She has had a BM which was inadequate. She may have a radiated BM in the iliac crest rendering interpretation inadequate even if the bx was adequate sampling. Due to the hx of MMC I will check for TTP with PT/PTT (WNL), MENDEZ 13, and LDH ( WNL). The peripheral smear doesn't reflect a MAHA. PI ag pending. 2. B12 deficiency - continue monthly B12. 3. Iron deficiency - got IV iron 4. Radiation proctitis - will start steroid enemas 5. R groin lesion - I would like to request a biopsy. This was a previous site of disease. Need to r/o recurrence. 6. Homeless Plan: 1. Monitor counts and transfuse as needed 2. Continue B12 3. Start rectal steroids 4. Request biopsy - will need plts pre bx. Subjective: Feels better. Less dizzy. Less rectal bleeding. Objective: Vital Signs Temp Pulse Resp BP Pulse Ox 36.6 C 63 18 128/82 H 91 L 09/17/17 07:21 09/17/17 07:21 09/17/17 07:21 09/17/17 07:21 09/17/17 10:06 Microbiology 09/14/17 09:40 Urine Culture - Final Urine,Clean Catch Laboratory Results 09/16/17 04:56 09/16/17 04:50 09/15/17 09/16/17 09/17/17 23:59 23:59 23:59 Intake Total 1773 2450 450 Output Total 1 600 Balance 1772 1850 450 PT 13.1 SEC (12.0-15.0) 09/13/17 09:15 INR 1.00 (0.83-1.16) 09/13/17 09:15 Physical Exam - Physical Exam General Appearance: alert, no apparent distress Respiratory: lungs clear Cardiac/Chest: regular rate, rhythm Abdomen: normal bowel sounds, soft Skin: pallor, other (1.5 cm lesion junction of R thigh and R labia majora) Neuro/Psych: alert, normal mood/affect, oriented x 3 ICD10 Worksheet Patient Problems: Problems Problem Status Onset Thrombocytopenia Acute Vomiting Acute 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
[2017-09-17 11:28] LABS: ANTI CCP AB < 15.6 U
[2017-09-17] MEDS: HYDROCORTISONE 100 MG/60 ML ENEMA BOTTLE PR SCH ×2 (11:52→22:04)
[2017-09-17 13:10] LABS: FINAL DIAGNOSIS See Comments; MICROSCOPIC DESCRIPTION See Comments; SPECIAL STUDIES See Comments
--- NOTE | 2017-09-17 21:09 | CPEKG ---
Heart Rate: 69 RR Interval: 870 P-R Interval: 160 QRSD Interval: 78 QT Interval: 396 QTC Interval: 425 P Vera: 58 QRS Vera: -24 T Wave Vera: 41 EKG Severity - ABNORMAL ECG - EKG Impression: SINUS RHYTHM EKG Impression: VENTRICULAR PREMATURE COMPLEX EKG Impression: CONSIDER LEFT VENTRICULAR HYPERTROPHY EKG Impression: ANTERIOR Q WAVES, POSSIBLY DUE TO LVH Electronically Signed By: Fan Estrada 17-Sep-2017 22:07:03
[2017-09-17] MEDS ORDERED: NITROGLYCERIN 0.4 MG BTL SL ONE (21:33)
[2017-09-17] MEDS ORDERED: MBX SOLN 30 ML BOTTLE PO PRN (21:33)
--- NOTE | 2017-09-17 21:51 | HOSPPROG ---
Hospitalist Progress Note Assessment/Plan: c/o CP, worse lying down aND W deep inspiration not tachycardic nor dyspneic ekg non ischemic w no R heart strain nor signs pericarditis trial GI coctail and NTG for esopahgeal process Objective: Vital Signs Temp Pulse Resp BP Pulse Ox 36.9 C 80 16 132/64 H 90 L 09/17/17 19:19 09/17/17 19:19 09/17/17 19:19 09/17/17 19:19 09/17/17 19:19 Laboratory Results 09/16/17 04:56 09/16/17 04:50 09/16/17 09/17/17 09/18/17 05:59 05:59 05:59 Intake Total 3440 700 500 Output Total 600 Balance 3440 100 500 PT 13.1 SEC (12.0-15.0) 09/13/17 09:15 INR 1.00 (0.83-1.16) 09/13/17 09:15 ICD10 Worksheet Patient Problems: Problems Problem Status Onset Thrombocytopenia Acute Vomiting Acute 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
[2017-09-17] MEDS: MELATONIN 3 MG TAB PO PRN (22:08)
[2017-09-17] MEDS: HYDROmorphone HCL/NS/PF 0.4 MG/2 ML SYR IVP PRN (23:10)
[2017-09-18] MEDS: HYDROmorphone HCL/NS/PF 0.4 MG/2 ML SYR IVP PRN ×3 (04:22→08:25)
--- NOTE | 2017-09-18 05:14 | GCON ---
[f rep st] CONSULTATION DATE OF CONSULTATION: 09/17/2017 HISTORY OF PRESENT ILLNESS: The patient is a 62-year-old woman with a history of anal cancer which w as treated with chemotherapy and 2 courses of radiation. She was recently admitted for anemia and th en readmitted with recurrent symptoms. She is found to be pancytopenic. She continues to have recta l bleeding suspicious for recurrent anal cancer. She had an endoscopy and colonoscopy yesterday by Evangelina Mcknight. She complains of a lesion in her right groin which is extremely bothersome. This was prev iously biopsied by Dr. Rubi Egan 2 years ago which was found to be involvement of invasive-modera tely differentiated squamous-cell carcinoma. At this time, Dr. Morin is requesting a tissue biopsy to rule out recurrent. 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 ALLERGIES: Penicillin, aspirin, codeine, and ibuprofen. SOCIAL HISTORY: She immigrated from [place] in the 70s. She is currently homeless and stays in a [facility]. She uses tobacco. She denies alcohol or recreational drug use. FAMILY HISTORY: Significant for arthritis. No family history of cancer. REVIEW OF SYSTEMS: A 10-point review of systems negative aside from HPI. PHYSICAL EXAMINATION: GENERAL: Well-developed, well-nourished woman in no acute distress. Very ple asant. HEENT: Poor dentition. Normocephalic, atraumatic. No hearing deficits. Pupils equal and round. M ucous membranes moist. NECK: Trachea midline. RESPIRATORY: No increased work of breathing. CARDIOVASCULAR: No peripheral edema. SKIN: The lesion of her right groin appears ulcerated without evidence of infection. There is minim al slough in the base of the wound without purulence. She has significant radiation changes of the s kin of her labia. LYMPH: No palpable inguinal lymphadenopathy bilaterally. NEURO: Grossly intact. PSYCH: Mood and affect normal. IMPRESSION AND PLAN: A 62-year-old woman with a history of metastatic anal cancer now with pancytope darby and an ulcerative lesion of her right groin. She is scheduled to go to the operating room tomorr ow at 12:15 p.m. for an excisional biopsy of the area in order to obtain a definitive diagnosis and r ule out recurrence. We discussed risks of surgery including, but not limited to, heart attack, strok e, blood clots or . We discussed risk of infection, bleeding, inability to obtain a diagnosis, or delayed wound healing due to the location. She understands the risks and would like to proceed. She may require additional procedures. She will receive antibiotics on-call to the operating room. She will also require a platelet transfusion preoperatively as her platelets today are 20,000. She u nderstands the risks of surgery and would like to proceed. The patient will be seen by Dr. Padma hernandez preoperatively. She had her questions answered to her satisfaction. /[id number]/MODL
[2017-09-18] MEDS ORDERED: ceFAZolin 2 GM/SWFI 2 GM/20 ML SYR IVP ONE (06:00)
[2017-09-18 08:40] LABS: % IMMATURE GRANULYOCYTES 1.1 % (0.0-1.1); ABSOLUTE IMMATURE GRANULOCYTES 0.07 10^3/uL (0.00-0.10); ADD DIFF? NO; ADD MORPH? NO; ADD SCAN? NO; ATYPICAL LYMPHOCYTE FLAG 80 (0-99); FRAGMENT RBC FLAG 0 (0-99); HEMATOCRIT 29.4 % (38.0-47.0); HEMOGLOBIN 10.3 g/dL (12.6-16.3); LEFT SHIFT FLG 10 (0-99); LIPEMIA HEMOLYSIS FLAG 90 (0-99); MEAN CELL HEMOGLOBIN 33.2 pg (27.9-34.1); MEAN CELL VOLUME 94.8 fL (81.5-99.8); MEAN PLATELET VOLUME 9.2 fL (8.7-11.7); PLATELET CLUMPS FLAG 10 (0-99); PLATELET COUNT 73 10^3/uL (150-400); RED CELL DISTRIBUTION WIDTH 18.2 % (11.5-15.2)
[2017-09-18] MEDS: HYDROCORTISONE 1% CREAM TP SCH ×2 (08:41→20:28)
[2017-09-18] MEDS: CYANO/VITAMIN B12 1000 MCG TAB PO SCH (08:41)
[2017-09-18] MEDS: HYDROCORTISONE 100 MG/60 ML ENEMA BOTTLE PR SCH ×2 (08:48→20:28)
--- NOTE | 2017-09-18 08:49 | HOSPPROG ---
Hospitalist Progress Note Assessment/Plan: 62 yo F w SCC of anus and thrombocytopenia a/w sepsis and thrombocytopenia, rectal bleeding. Reviewed her care w Dr Morin and Dr López. *chest pain sounds pleuritic /increase pain with lying back/ better sitting forward will get a chest xray, cardiac enzymes she isn't hypoxic or tachycardic will get a CTA in the setting of cancer reviewed her 12 lead /no acute ischemia *recurrent anal cancer initially treated with 5FU &Mitomycin *radiation proctitis steroid enemas *Vit B12 deficiency monthly injections *rectal bleeding endoscopy & colonsocopy negative *Sepsis resolved *Nicotine dependence patch ordered *Iron def anemia Iv iron *thrombocytopenia *Lesion in right groin was to go to OR for a biopsy, but cancelled due to the CP *Homelessness discuss with CM *DVT prophylaxis: contraindicated due to low platelet count *Plan: CTA today, cardiac enzymes, trial of PPI bid, repeat labs in a.m. Subjective: Myllwhi is having persistent cp that is better w diluadid. Objective: Vital Signs Temp Pulse Resp BP Pulse Ox 36.6 C 86 16 136/98 H 96 09/18/17 08:05 09/18/17 08:05 09/18/17 08:05 09/18/17 08:05 09/18/17 08:05 Laboratory Results 09/18/17 08:32 09/16/17 04:50 09/17/17 09/18/17 09/19/17 05:59 05:59 05:59 Intake Total 700 950 Output Total 600 Balance 100 950 PT 13.1 SEC (12.0-15.0) 09/13/17 09:15 INR 1.00 (0.83-1.16) 09/13/17 09:15 - Physical Exam Constitutional: chronically ill appearing, uncomfortable, No not in pain ( generalized cp not radiating anywhere, increase w deep breaths) Ears, Nose, Mouth, Throat: poor dentition Cardiovascular: regular rate and rhythym, no murmur, rub, or gallop Respiratory: no respiratory distress Gastrointestinal: normoactive bowel sounds Skin: warm, No normal color (pale) Musculoskeletal: full muscle strength Neurologic: AAOx3 Psychiatric: interacting appropriately ICD10 Worksheet Patient Problems: Problems Problem Status Onset Thrombocytopenia Acute Vomiting Acute 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
--- NOTE | 2017-09-18 09:03 | SOAPPROG ---
SOAP Progress Note Assessment/Plan: Assessment: Having increasing chest pain since 8:30 last night. Very uncomfortable. Groin lesion has been present for 2 years. Will postpone surgery. Notified Ryanne Kapadia and Nito Morin Plan: 09/18/17 09:02 Objective: Vital Signs Temp Pulse Resp BP Pulse Ox 36.6 C 86 16 136/98 H 96 09/18/17 08:05 09/18/17 08:05 09/18/17 08:05 09/18/17 08:05 09/18/17 08:05 Laboratory Results 09/18/17 08:32 09/16/17 04:50 09/17/17 09/18/17 09/19/17 05:59 05:59 05:59 Intake Total 700 950 Output Total 600 Balance 100 950 PT 13.1 SEC (12.0-15.0) 09/13/17 09:15 INR 1.00 (0.83-1.16) 09/13/17 09:15 ICD10 Worksheet Patient Problems: Problems Problem Status Onset Thrombocytopenia Acute Vomiting Acute 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
[2017-09-18] MEDS: PANTOPRAZOLE SODIUM 40 MG TAB PO SCH (09:12)
[2017-09-18 09:56] LABS: CREATINE KINASE-MB FRACTION 0.41 ng/mL (0.00-3.19); TROPONIN I < 0.012 ng/mL (0.000-0.034)
[2017-09-18 10:07] LABS: PILINK INTERPRETATION See Comments; PILINK PNH RBC PARTIAL AG LOSS 0.01 % (0.00-0.99)
--- NOTE | 2017-09-18 10:51 | SOAPPROG ---
SOAP Progress Note Assessment/Plan: Assessment: 1. Recurrent anal cancer lost to f/u after having had nivo. She initally was treated with 5FU and Mitomycin. She is presents with anemia and low platelets. She has had a BM which was inadequate. She may have a radiated BM in the iliac crest rendering interpretation inadequate even if the bx was adequate sampling. Due to the hx of MMC I will check for TTP with PT/PTT (WNL), MENDEZ 13, and LDH ( WNL). The peripheral smear doesn't reflect a MAHA. PI ag pending. 2. B12 deficiency - continue monthly B12. 3. Iron deficiency - got IV iron 4. Radiation proctitis - will start steroid enemas 5. R groin lesion. Bx is on hold due to w/u for chest pain 6. Homeless 7. New substernal to R anterior Chest pain - started at about 8pm last night. Not cardiac based on labs/ekg. CXR shows possible infiltrate. Agree with plans for a CTA. Discussed with Ryanne. Plan: 1. Monitor counts and transfuse as needed 2. Continue B12 3. Start rectal steroids 4. Request biopsy - will need plts pre bx. 5. CTA Subjective: CP developed last night. Substernal/pleuritic. No change in cough. Objective: Vital Signs Temp Pulse Resp BP Pulse Ox 36.6 C 86 16 136/98 H 96 09/18/17 08:05 09/18/17 08:05 09/18/17 08:05 09/18/17 08:05 09/18/17 08:05 Laboratory Results 09/18/17 08:32 09/16/17 04:50 09/16/17 09/17/17 09/18/17 23:59 23:59 23:59 Intake Total 2450 950 450 Output Total 600 Balance 1850 950 450 PT 13.1 SEC (12.0-15.0) 09/13/17 09:15 INR 1.00 (0.83-1.16) 09/13/17 09:15 Physical Exam - Physical Exam General Appearance: alert, mild distress Respiratory: No crackles, No rales, No rhonchi Cardiac/Chest: regular rate, rhythm Abdomen: soft Skin: warm/dry Neuro/Psych: oriented x 3 ICD10 Worksheet Patient Problems: Problems Problem Status Onset Thrombocytopenia Acute Vomiting Acute 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
[2017-09-18 11:01] LABS: MACROCYTES 1+; MICROCYTES 1+; PLATELET ESTIMATE DECREASED (ADEQ); POLYCHROMASIA 1+
[2017-09-18] MEDS ORDERED: IOPAMIDOL (ISOVUE 370) 100 ML BTL IV ONE (11:12)
[2017-09-18] MEDS ORDERED: PROTOCOL POTASSIUM 1 DOSE MISC PRN (15:09)
--- NOTE | 2017-09-18 17:33 | ASMTCMCOM ---
CM Note CM Note Notes: Patient currently has a bed being held for her at [facility]. She also has her things being held in a locker at the care home. When it is time for her discharge Enrike at the care home is to be notified. Case management will follow. Date Signed: 09/18/2017 05:32 PM Electronically Signed By:MITCH Renee
[2017-09-18] MEDS ORDERED: POTASSIUM CL 10 MEQ TAB PO ONE (19:43)
[2017-09-19 05:34] LABS: ABSOLUTE IMMATURE GRANULOCYTES 0.05 10^3/uL (0.00-0.10); ADD DIFF? NO; ADD MORPH? NO; ADD SCAN? YES; FRAGMENT RBC FLAG 0 (0-99); HEMATOCRIT 29.8 % (38.0-47.0); HEMOGLOBIN 9.9 g/dL (12.6-16.3); LEFT SHIFT FLG 0 (0-99); LIPEMIA HEMOLYSIS FLAG 80 (0-99); MEAN CELL HEMOGLOBIN 31.6 pg (27.9-34.1); MEAN CELL HEMOGLOBIN CONCENTR. 33.2 g/dL (32.4-36.7); MEAN CELL VOLUME 95.2 fL (81.5-99.8); MEAN PLATELET VOLUME 9.2 fL (8.7-11.7); PLATELET CLUMPS FLAG 0 (0-99); PLATELET COUNT 62 10^3/uL (150-400); RED BLOOD CELL COUNT 3.13 10^6/uL (4.18-5.33); RED CELL DISTRIBUTION WIDTH 18.4 % (11.5-15.2)
[2017-09-19 05:44] LABS: ATYPICAL LYMPHOCYTE FLAG 140 (0-99)
[2017-09-19 06:03] LABS: ANION GAP 10 mEq/L (8-16); CALCIUM 8.9 mg/dL (8.5-10.4); CARBON DIOXIDE 25 mEq/l (22-31); CHLORIDE 103 mEq/L (97-110); CREATININE 0.9 mg/dL (0.6-1.0); GLOMERULAR FILTRATION RATE > 60; GLUCOSE 81 mg/dL (70-100); MAGNESIUM 1.9 mg/dL (1.6-2.3); POTASSIUM 4.1 mEq/L (3.5-5.2); SODIUM 138 mEq/L (134-144)
[2017-09-19 06:42] LABS: MICROCYTES 1+; SCAN NEGATIVE
[2017-09-19 06:43] LABS: PLATELET ESTIMATE DECREASED (ADEQ)
[2017-09-19] MEDS: HYDROCORTISONE 100 MG/60 ML ENEMA BOTTLE PR SCH ×2 (08:16→20:49)
--- NOTE | 2017-09-19 09:43 | HOSPPROG ---
Hospitalist Progress Note Assessment/Plan: 62 yo F w SCC of anus and thrombocytopenia a/w sepsis and thrombocytopenia, rectal bleeding. Reviewed her care w Dr Morin and Dr López. *chest pain (occurred 09/18)/none further sounds pleuritic /increase pain with lying back/ better sitting forward CTA negative for PE, trop neg 12 lead shows no ischemia pain resolved with PPI bid *recurrent anal cancer initially treated with 5FU &Mitomycin *radiation proctitis steroid enemas *Vit B12 deficiency monthly injections *rectal bleeding endoscopy & colonoscopy negative *Sepsis resolved *Nicotine dependence patch ordered added duonebs/ suspect she has ongoing COPD *Iron def anemia Iv iron *thrombocytopenia cont close monitoring *Lesion in right groin OR today to get a biopsy *Homelessness discuss with CM/[facility] *DVT prophylaxis: contraindicated due to low platelet count *Plan: OR today for biopsy Subjective: Myllwhri said chest pain is completely gone today. Objective: Vital Signs Temp Pulse Resp BP Pulse Ox 36.8 C 74 18 128/80 H 93 09/19/17 09:13 09/19/17 09:13 09/19/17 09:13 09/19/17 09:13 09/19/17 09:13 Microbiology 09/13/17 11:35 Blood Culture - Final Blood 09/13/17 11:43 Blood Culture - Final Blood Laboratory Results 09/19/17 05:11 09/19/17 05:11 09/18/17 09/19/17 09/20/17 05:59 05:59 05:59 Intake Total 950 1050 Balance 950 1050 PT 13.1 SEC (12.0-15.0) 09/13/17 09:15 INR 1.00 (0.83-1.16) 09/13/17 09:15 - Physical Exam Constitutional: chronically ill appearing, unkempt Eyes: PERRL Ears, Nose, Mouth, Throat: poor dentition Cardiovascular: regular rate and rhythym Respiratory: no respiratory distress, rhonchi (scattered) Gastrointestinal: normoactive bowel sounds Skin: warm Musculoskeletal: full muscle strength Neurologic: AAOx3 Psychiatric: interacting appropriately, not anxious ICD10 Worksheet Patient Problems: Problems Problem Status Onset Thrombocytopenia Acute Vomiting Acute 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
[2017-09-19] MEDS ORDERED: BUPIVACAINE 0.5% 30 ML SDV ONE (11:39)
[2017-09-19] MEDS: IPRATROPIUM/ALBUTEROL 3 ML DEYVIAL IH SCH ×3 (11:59→23:55)
[2017-09-19] MEDS ORDERED: MIDAZOLAM 2 MG/2 ML VIAL IVP ONE ×2 (12:24→12:30)
--- NOTE | 2017-09-19 12:24 | PDANEPAE ---
ANE Past Medical History - Cardiovascular History Hx Hypertension: No Hx Arrhythmias: No Hx Chest Pain: No Hx Coronary Artery / Peripheral Vascular Disease: No Hx CHF / Valvular Disease: No Hx Palpitations: No Cardiovascular History Comment: IRREGULAR HEARTBEAT DOES NOT SEE ANYONE HAS HAD ALL HER LIFE. INTERMITTENT HTN PREV RX WHICH JUST CAUSED IT TO BE ELEVATED SO QUIT TAKING - Pulmonary History Hx COPD: No Hx Asthma/Reactive Airway Disease: No Hx Recent Upper Respiratory Infection: No Hx Oxygen in Use at Home: No Hx Sleep Apnea: No Sleep Apnea Screening Result - Last Documented: Negative - Neurologic History Hx Cerebrovascular Accident: No Hx Seizures: No Hx Dementia: No - Endocrine History Hx Diabetes: No Obesity: no - Renal History Hx Renal Disorders: Yes Renal History Comment: UTI 12/2015 - Liver History Hx Hepatic Disorders: No - Neurological & Psychiatric Hx Hx Neurological and Psychiatric Disorders: Yes Neurological / Psychiatric History Comment: INTERMITTENT MIGRAINES - Cancer History Hx Cancer: Yes Cancer History Comment: ANAL - Congenital Disorder History Hx Congenital Disorders: No - GI History GERD: no Gastrointestinal History Comment: HX PEPTIC ULCER - Other Health History Other Health History: ? RT ARMPIT DVT 04/2015. ANEMIA - Chronic Pain History Chronic Pain: Yes (BONES HURT ALOT RELATED TO ARTHRITIS) - Surgical History Prior Surgeries: RT ING HERNIA 11/2008. ORAL SURGERY. LT ING HERNIA AGE 1. TONSILLECTOMY. EGD ANE Review of Systems Review of Systems: ANE Patient History - Allergies Allergies/Adverse Reactions: Penicillins Allergy (Severe, Verified 09/17/17 17:23) Hives aspirin Allergy (Verified 11/17/16 16:53) codeine Allergy (Verified 11/17/16 16:53) Other-Enter Comments ibuprofen Allergy (Verified 11/17/16 16:53) - Home Medications Home Medications: Acetaminophen [Tylenol ES 500 mg (*)] 1,000 mg PO TID PRN 11/17/16 [Last Taken 09/13/17] Herbals/Supplements -Info Only 1 ea PO DAILY 09/03/17 [Last Taken Unknown] - NPO status NPO Since - Liquids (Date): 09/19/17 NPO Since - Liquids (Time): 07:00 NPO Since - Solids (Date): 09/19/17 NPO Since - Solids (Time): 07:00 - Smoking Hx Smoking Status: Current every day smoker - Alcohol Use Alcohol Use: Occasionally ANE Labs/Vital Signs - Labs Result Diagrams: 09/19/17 05:11 09/19/17 05:11 - Vital Signs Blood Pressure: 128/80 Heart Rate: 74 Respiratory Rate: 18 O2 Sat (%): 93 Height: 162.56 cm Weight: 52.163 kg ANE Physical Exam - Airway Neck exam: FROM Mallampati Score: Class 1 Mouth exam: poor dentition - Pulmonary Pulmonary: no respiratory distress - Cardiovascular Cardiovascular: regular rate and rhythym - ASA Status ASA Status: III ANE Anesthesia Plan Anesthesia Plan: GA w LMA
[2017-09-19] MEDS ORDERED: ceFAZolin 2 GM in D5W 100 ML IV ONE (12:30)
[2017-09-19] MEDS ORDERED: fentaNYL 100 MCG/2 ML INJ ONE (12:59)
[2017-09-19] MEDS ORDERED: PROPOFOL 200 MG/20 ML VIAL ONE ×2 (13:00→13:32)
[2017-09-19] MEDS ORDERED: ceFAZolin 2 GM/SWFI 2 GM/20 ML SYR IVP ONE (13:00)
[2017-09-19] MEDS ORDERED: epHEDrine SULFATE 10 MG/ML SYR ONE (13:26)
[2017-09-19] MEDS ORDERED: LR 500 ML IV PRN (14:13)
[2017-09-19] MEDS ORDERED: fentaNYL 100 MCG/2 ML INJ IVP PRN (14:13)
[2017-09-19] MEDS ORDERED: PROMETHAZINE HCL 25 MG/ML INJ IVP PRN (14:13)
[2017-09-19] MEDS ORDERED: NALOXONE HCL 0.4 MG/ML INJ IVP PRN (14:13)
[2017-09-19] MEDS: PANTOPRAZOLE SODIUM 40 MG TAB PO SCH (14:52)
[2017-09-19] MEDS: CYANO/VITAMIN B12 1000 MCG TAB PO SCH (14:52)
[2017-09-19] MEDS: HYDROCORTISONE 1% CREAM TP SCH ×2 (14:54→20:48)
--- NOTE | 2017-09-19 15:16 | POSTOPPROG ---
Post Op Note Date of Operation: 09/19/17 Surgeon: Padma López Anesthesiologist: homero Anesthesia: GET(General Endotracheal) Pre-op Diagnosis: anal ca Post-op Diagnosis: same Indication: 62 yo with anal cancer and lesion in r groin Procedure: excision lesion right groin Inf/Abcess present in the surg proc area at time of surgery?: No
[2017-09-19 19:26] LABS: POTASSIUM 3.9 mEq/L (3.5-5.2)
[2017-09-19] MEDS ORDERED: POTASSIUM CL 10 MEQ TAB PO ONE (20:39)
[2017-09-20] MEDS: IPRATROPIUM/ALBUTEROL 3 ML DEYVIAL IH SCH ×2 (05:06→11:44)
[2017-09-20 05:11] VITALS: RESP 16
[2017-09-20 05:32] LABS: % IMMATURE GRANULYOCYTES 1.3 % (0.0-1.1); ABSOLUTE IMMATURE GRANULOCYTES 0.06 10^3/uL (0.00-0.10); ADD DIFF? NO; ADD MORPH? NO; ADD SCAN? NO; ATYPICAL LYMPHOCYTE FLAG 90 (0-99); FRAGMENT RBC FLAG 0 (0-99); HEMATOCRIT 27.1 % (38.0-47.0); HEMOGLOBIN 9.4 g/dL (12.6-16.3); LEFT SHIFT FLG 10 (0-99); LIPEMIA HEMOLYSIS FLAG 90 (0-99); MEAN CELL HEMOGLOBIN 33.5 pg (27.9-34.1); MEAN CELL HEMOGLOBIN CONCENTR. 34.7 g/dL (32.4-36.7); MEAN CELL VOLUME 96.4 fL (81.5-99.8); MEAN PLATELET VOLUME 9.2 fL (8.7-11.7); PLATELET CLUMPS FLAG 0 (0-99); RED BLOOD CELL COUNT 2.81 10^6/uL (4.18-5.33); RED CELL DISTRIBUTION WIDTH 18.1 % (11.5-15.2)
[2017-09-20 05:41] LABS: PLATELET COUNT 45 10^3/uL (150-400)
[2017-09-20 05:46] LABS: POTASSIUM 4.3 mEq/L (3.5-5.2)
[2017-09-20 06:15] LABS: MACROCYTES 1+; PLATELET ESTIMATE DECREASED (ADEQ)
[2017-09-20 07:57] VITALS: BP 118/68; TEMP 98.3
--- NOTE | 2017-09-20 07:58 | SOAPPROG ---
SOAP Progress Note Assessment/Plan: Assessment: POD # 1 s/p excision of right groin nodule Doing well Will remove sutures in 7-10 days Highly likely to dehisce due to wound being in radiated field S: No pain and no pruritus O: Sitting in bed, appears well Dressing CDI Plan: 09/18/17 09:02 09/20/17 07:57 Objective: Vital Signs Temp Pulse Resp BP Pulse Ox 36.8 C 81 16 118/68 94 09/20/17 07:56 09/20/17 07:56 09/20/17 07:56 09/20/17 07:56 09/20/17 07:56 Laboratory Results 09/20/17 05:20 09/20/17 05:20 09/19/17 09/20/17 09/21/17 05:59 05:59 05:59 Intake Total 1050 1095 Balance 1050 1095 PT 13.1 SEC (12.0-15.0) 09/13/17 09:15 INR 1.00 (0.83-1.16) 09/13/17 09:15 ICD10 Worksheet Patient Problems: Problems Problem Status Onset Thrombocytopenia Acute Vomiting Acute 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
[2017-09-20] MEDS: CYANO/VITAMIN B12 1000 MCG TAB PO SCH (10:25)
[2017-09-20] MEDS: PANTOPRAZOLE SODIUM 40 MG TAB PO SCH (10:25)
[2017-09-20 11:54] VITALS: PULSE 82; O2SAT 95
--- NOTE | 2017-09-20 12:02 | GOP ---
[f rep st] OPERATIVE REPORT DATE OF OPERATION: 09/19/2017 SURGEON: Padma López MD TICKET SORTER: CARLEEN Camargo student. ANESTHESIA: General. ANESTHESIOLOGIST: Deondre Dasilva MD PREOPERATIVE DIAGNOSIS: Anal cancer with groin lesion. POSTOPERATIVE DIAGNOSIS: Anal cancer with groin lesion. PROCEDURE PERFORMED: Excision of lesion on groin 3 x 1 cm. FINDINGS: Ulcerated lesion with rolled borders in a radiated field. SPECIMENS: Groin lesion. ESTIMATED BLOOD LOSS: 5 cc. INDICATIONS: The patient is a 62-year-old woman, who had anal cancer. She underwent treatment for t hat. She initially had a positive node in her right groin, if any where else is left, it is all righ t. This is been a nonhealing ulcer, it is in a radiated field. DESCRIPTION OF PROCEDURE: Patient was brought into the operating room, placed supine on the table, a nd general anesthesia was administered. Her right groin was prepped and draped in the usual sterile fashion. I infiltrated the area with 10 cc of 0.5% Marcaine. I made an ellipse around the groin les ion and dissected down through healthy subcutaneous fat. Hemostasis was achieved. I closed the deep layer with 3-0 Vicryl. I closed the skin with 3-0 nylon. Dressing applied. She was awakened in th e operating room, extubated, transferred to PACU in stable condition. /[id number]/MODL
--- NOTE | 2017-09-20 12:08 | ASMTCMCOM ---
CM Note CM Note Notes: Pt to DC today. Plan is to return to [facility]. Pt has a monthly bus pass she will use for transport. No DC needs identified. Date Signed: 09/20/2017 12:07 PM Electronically Signed By:Deann Mon LCSW
--- NOTE | 2017-09-20 12:08 | ASDISCHSUM ---
Discharge Information Plan Status:Home with No Needs Medically Cleared to Leave: Discharge Date: D/C Disposition: ADT D/C Disposition:Home, Routine, Self-Care Projected Discharge Date: Transportation at D/C: Discharge Delay Reason: Follow-Up Date: Discharge Slot: Final Diagnosis: Placement Information Patient Contact Information Contact Name:ROLAJOSELYN Relationship:Friend Address: Work Phone: City: [facility] Phone: State/Zip Code: Email: Financial Information Financial Class: Primary Plan Desc:[employer] [place] Primary Plan Number:[id number] Secondary Plan Desc: Secondary Plan Number: Assessment Information LACE LACE Length of stay for Answers: 1 day current admission Acuity / Level of Care Answers: Was the patient admitted to hospital via the emergency department? Yes: Comorbidities - select Answers: Any tumor (including all that apply lymphoma or leukemia) Emergency dept visits in Answers: 1 last 6 months Score: 7 Date Signed: 09/14/2017 01:27 PM Electronically Signed By:Maryanne Chaudhari RN [facility] Initial CM Assessment Living Arrangements What is your living Answers: Alone arrangement? Who do you live with? Type Of Residence What kind of residence do Answers: Homeless you live in? Discharge Plan Comments Coordination Status Comments Notes: Pt is a 62 y/o female admitted for nausea vomiting thrombocytopenia, and sepsis. Pt is homeless and recently here at [facility] on 09/03 for amenia. Anticipates that pt will d/c independent when medically stable. No therapies ordered at this time. CM available for d/c needs. Date Signed: 09/14/2017 04:13 PM Electronically Signed By:Keyanna Nimo, [employer] MANAGER [facility] CM Progress Note CM Note CM Note Notes: 09/15/2017 Case Management Note Met w/pt. Called Enrike at the [facility] custodial and left a vm requesting that pt belongings in locker 20 be left in the locker. Pt was concerned her belongings would be discarded at the custodial. At pt request, case management inquire if reserved bed was saved for pt after d/c. Requested call back from Enrike. Case management d/c poc: To be determined after serveral test results return. Case management to follow. Date Signed: 09/15/2017 02:33 PM Electronically Signed By:Otilia Ruelas RN [facility] CM Progress Note CM Note CM Note Notes: Patient currently has a bed being held for her at [facility]. She also has her things being held in a locker at the custodial. When it is time for her discharge Enrike at the custodial is to be notified. Case management will follow. Date Signed: 09/18/2017 05:32 PM Electronically Signed By:MITCH Renee [facility] CM Progress Note CM Note CM Note Notes: Pt to DC today. Plan is to return to custodial. Pt has a monthly bus pass she will use for transport. No DC needs identified. Date Signed: 09/20/2017 12:07 PM Electronically Signed By:Deann Mon LCSW Intervention Information
--- NOTE | 2017-09-20 13:26 | SOAPPROG ---
SOAP Progress Note Assessment/Plan: Assessment: 1. Recurrent anal cancer lost to f/u after having had nivo. She initally was treated with 5FU and Mitomycin. She is presents with anemia and low platelets. She has had a BM which was inadequate. She may have a radiated BM in the iliac crest rendering interpretation inadequate even if the bx was adequate sampling. Due to the hx of MMC I will check for TTP with PT/PTT (WNL), MENDEZ 13, and LDH ( WNL). The peripheral smear doesn't reflect a MAHA. 2. B12 deficiency - continue monthly B12. 3. Iron deficiency - got IV iron 4. Radiation proctitis - will start steroid enemas 5. R groin lesion. Bx was done yesterday. 6. Homeless 7. Chest pain - resolved. Non cardiac Plan: 1. F/U in our office early next week. 2. Continue B12 3. Rectal steroids 4. Check bx when available Subjective: Feels ready for discharge Objective: Vital Signs Temp Pulse Resp BP Pulse Ox 36.8 C 82 16 118/68 95 09/20/17 07:56 09/20/17 11:45 09/20/17 11:45 09/20/17 07:56 09/20/17 11:45 Laboratory Results 09/20/17 05:20 09/20/17 05:20 09/18/17 09/19/17 09/20/17 23:59 23:59 23:59 Intake Total 1050 1145 400 Balance 1050 1145 400 PT 13.1 SEC (12.0-15.0) 09/13/17 09:15 INR 1.00 (0.83-1.16) 09/13/17 09:15 Physical Exam - Physical Exam General Appearance: alert, no apparent distress Respiratory: lungs clear Cardiac/Chest: regular rate, rhythm Abdomen: normal bowel sounds Neuro/Psych: alert, normal mood/affect, oriented x 3 ICD10 Worksheet Patient Problems: Problems Problem Status Onset Thrombocytopenia Acute Vomiting Acute 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
--- NOTE | 2017-09-20 17:32 | GDS ---
[f rep st] DISCHARGE SUMMARY DISCHARGE DIAGNOSES: Include: 1. Chest pain. 2. Recurrent anal cancer. 3. Radiation proctitis. 4. Vitamin B12 deficiency. 5. Sepsis. 6. Nicotine dependence. 7. Iron deficiency anemia. 8. Thrombocytopenia. 9. Right groin lesion, status post biopsy. 10. Homelessness. HISTORY OF PRESENT ILLNESS: A 62-year-old female with a history of squamous cell carcinoma of the an us with thrombocytopenia, presented with sepsis and rectal bleeding. For details of patient's initia l presentation, please see the History and Physical dated 09/13/2017. CONSULTATIVE SERVICES: Include: 1. Hematology/Oncology. 2. General Surgery. 3. Gastroenterology. PROCEDURES: On 09/16/2017, patient underwent EGD and colonoscopy, found to have duodenitis, biopsies are pending. On 09/19/2017, patient had a groin mass biopsy, pathology is pending. HOSPITAL COURSE: By issue: 1. Recurrent anal cancer. Patient had previously been lost to followup, was initially treated with 5-FU and mitomycin, presented with low cell counts. The patient will follow in the outpatient [facility] with her oncologist for additional care plan. 2. Thrombocytopenia, acute on chronic. The patient had a workup initiated to rule out ITP, TTP. Ag ain, patient will follow in the outpatient setting with her Hematology/Oncology team. 3. B12 deficiency. Patient will receive daily B12 until she is re-initiated on monthly B12 injectio ns. 4. Iron deficiency. Patient received IV iron during this hospital stay. 5. Radiation proctitis. Patient received steroid enemas with some response, has opted not to contin ue this medication at disposition, prefers to follow with her oncology team. 6. Right groin lesion. The patient had a biopsy performed day before disposition. Wound is healing well. She will follow with Dr. López in 1 week's time for suture removal. Oncology will be followi ng biopsy results. 7. Chest pain. This was a presenting complaint. She did have a workup which was negative for pulmo nary embolism. She had resolution of her chest pain complaints during the hospital stay. On the day of disposition, she is symptom free. MEDICATIONS AT THE TIME OF DISPOSITION: Please reference medication reconciliation form printed on 11/20/2016. PENDING STUDIES: At the time of this dictation, include biopsies obtained by endoscopy, as well as g roin biopsy to be followed in the outpatient setting by GI, General Surgery and Oncology. FOLLOWUP APPOINTMENTS: 1. With her primary Hematology/Oncology team in the next 7 days for her first followup appointment r elated to her recurrent cancer and thrombocytopenia. 2. With Dr. López in 1 week's time for suture removal, followup of her groin wound. I spent greater than 30 minutes in the planning and coordination of this discharge. /[id number]/MODL
== END 2017-09-20 15:38 | disposition home or self-care (01) | DRG 872 ==
LOC: EDUNIT# → F2N 13:59 → F1N 09-14 13:07
PROVIDERS: ADMIT Internal Medicine; ATTEND Hospitalist
PROC: 30233R1 Transfusion of Nonautologous Platelets into Peripheral Vein, Percutaneous Approach (ICD-10-PCS; 2017-09-13)
PROC: 30233N1 Transfusion of Nonautologous Red Blood Cells into Peripheral Vein, Percutaneous Approach (ICD-10-PCS; 2017-09-14)
PROC: 0DJD8ZZ Inspection of Lower Intestinal Tract, Via Natural or Artificial Opening Endoscopic (ICD-10-PCS; 2017-09-16 09:30)
PROC: 0DB98ZX Excision of Duodenum, Via Natural or Artificial Opening Endoscopic, Diagnostic (ICD-10-PCS; 2017-09-16 09:30)
PROC: 0JBL0ZX Excision of Right Upper Leg Subcutaneous Tissue and Fascia, Open Approach, Diagnostic (ICD-10-PCS; principal; 2017-09-19 13:00)
DX: A41.9 Sepsis, unspecified organism (principal); C79.89 Secondary malignant neoplasm of other specified sites; C21.0 Malignant neoplasm of anus, unspecified; K62.7 Radiation proctitis; D69.6 Thrombocytopenia, unspecified; E53.8 Deficiency of other specified B group vitamins; E61.1 Iron deficiency; K29.80 Duodenitis without bleeding; R07.89 Other chest pain; Z86.718 Personal history of other venous thrombosis and embolism; Z88.0 Allergy status to penicillin; Z59.0 Homelessness; Z66 Do not resuscitate
CPT/HCPCS: 82668-90; 85060-90; 86334-90; 88184-90; 88185-91; 96374; J0171; J0690; J0692; J1170; J2250; J2405; J2704; J2916; J3010; J3370; P9016; P9035; Q9967

== ENCOUNTER 2017-10-02 08:57 | Inpatient (IN) | payer MEDICAID ==
[2017-10-02] MEDS ORDERED: NS 1,000 ML IV ONE (08:59)
--- NOTE | 2017-10-02 09:10 | EDPHY ---
H & P Time Seen by Provider: 10/02/17 09:02 HPI/ROS: CHIEF COMPLAINT: Weakness, "I need platelets and blood" HISTORY OF PRESENT ILLNESS: The patient presents to the ED via paramedics with complaints of generalized weakness. The patient has a history of a rectal cancer which has resulted in intermittent anemia. The patient also has a history of thrombocytopenia. The patient is currently under the care of [facility]. She was scheduled to get blood testing as an outpatient today however had generalized weakness and was unable to go to the outpatient lab. The patient has had several hospitalizations over the past 2 months. She had a right inguinal lymph node dissection. The patient reportedly has had some evaluation for thrombocytopenia which has not revealed an obvious etiology by her report. She reports that she has had increasing rectal bleeding over the past week. REVIEW OF SYSTEMS: A comprehensive 10 point review of systems is otherwise negative aside from elements mentioned in the history of present illness. 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, migraines, right inguinal hernia repair, peptic ulcer disease, RUE DVT, hypertension - Social History Smoking Status: Current every day smoker - Physical Exam Exam: General Appearance: Thin female, cachectic, no acute distress Eyes: Pupils equal and round no pallor or injection ENT, Mouth: Dry mucous membranes, poor dentition Respiratory: There are no retractions, lungs are clear to auscultation Cardiovascular: Regular rate and rhythm Gastrointestinal: Abdomen is soft and nontender, no masses, bowel sounds normal Neurological: A&O, normal motor function, normal sensory exam, normal cranial nerves Skin: Surgical incision and right groin clean dry and intact Musculoskeletal: Neck is supple nontender Extremities: symmetrical, full range of motion Constitutional: Initial Vital Signs Temperature (C) 36.8 C 10/02/17 09:09 Heart Rate 102 H 10/02/17 09:09 Respiratory Rate 16 10/02/17 09:09 Blood Pressure 124/70 H 10/02/17 09:09 O2 Sat (%) 96 10/02/17 09:09 O2 Delivery Mode Room Air Allergies/Adverse Reactions: Penicillins Allergy (Severe, Verified 10/02/17 09:08) Hives aspirin Allergy (Verified 10/02/17 09:08) codeine Allergy (Verified 10/02/17 09:08) Other-Enter Comments ibuprofen Allergy (Verified 10/02/17 09:08) Home Medications: Medication Instructions Recorded Acetaminophen [Tylenol ES 500 mg 1,000 mg PO TID PRN 11/17/16 (*)] Herbals/Supplements -Info Only 1 ea PO DAILY 09/03/17 Cyanocobalamin [Vitamin B12 (*)] 1,000 mcg PO DAILY tab 09/20/17 Medical Decision Making ED Course/Re-evaluation: I reviewed the patient's past medical records including her recent hospitalizations an outpatient laboratory studies from September 26 which demonstrated a hematocrit of 29. The patient's hematocrit today is 18.5 her platelet count is 6000. I have ordered a unit of platelets and 2 units of packed red blood cells. The patient is hemodynamically stable currently. She received 1 L of normal saline. Consultation was made with Dr. Nicole from the hospitalist service who will admit the patient. I reviewed the patient's laboratory studies with her at 9:40 a.m. in the morning and have answered her questions. Differential Diagnosis: Differential diagnosis considered includes thrombocytopenia, anemia, hypokalemia - Data Points Laboratory Results: Laboratory Results 10/02/17 09:12 10/02/17 09:12 10/02/17 10/02/17 10/02/17 09:13 09:12 09:12 WBC 3.84 10^3/uL 10^3/uL (3.80-9.50) RBC 1.80 10^6/uL L 10^6/uL (4.18-5.33) Hgb 6.1 g/dL L g/dL (12.6-16.3) Hct 18.1 % L % (38.0-47.0) MCV 100.6 fL H fL (81.5-99.8) MCH 33.9 pg pg (27.9-34.1) MCHC 33.7 g/dL g/dL (32.4-36.7) RDW 21.3 % H % (11.5-15.2) Plt Count 6 10^3/uL L* 10^3/uL (150-400) MPV TNP Neut % (Auto) 56.7 % % (39.3-74.2) Lymph % (Auto) 34.6 % % (15.0-45.0) Luce % (Auto) 7.6 % % (4.5-13.0) Eos % (Auto) 0.5 % L % (0.6-7.6) Baso % (Auto) 0.3 % % (0.3-1.7) Nucleat RBC Rel Count 0.0 % % (0.0-0.2) Absolute Neuts (auto) 2.18 10^3/uL 10^3/uL (1.70-6.50) Absolute Lymphs (auto) 1.33 10^3/uL 10^3/uL (1.00-3.00) Absolute Monos (auto) 0.29 10^3/uL L 10^3/uL (0.30-0.80) Absolute Eos (auto) 0.02 10^3/uL L 10^3/uL (0.03-0.40) Absolute Basos (auto) 0.01 10^3/uL L 10^3/uL (0.02-0.10) Absolute Nucleated RBC 0.00 10^3/uL 10^3/uL (0-0.01) Immature Gran % 0.3 % % (0.0-1.1) Immature Gran # 0.01 10^3/uL 10^3/uL (0.00-0.10) Platelet Estimate Pending Smear Review By Pending Sodium 139 mEq/L mEq/L (134-144) Potassium 3.9 mEq/L mEq/L (3.5-5.2) Chloride 105 mEq/L mEq/L (97-110) Carbon Dioxide 21 mEq/l L mEq/l (22-31) Anion Gap 13 mEq/L mEq/L (8-16) BUN 25 mg/dL H mg/dL (7-23) Creatinine 1.0 mg/dL mg/dL (0.6-1.0) Estimated GFR 56 Glucose 89 mg/dL mg/dL (70-100) Calcium 9.0 mg/dL mg/dL (8.5-10.4) Patient ABO/Rh Pending Antibody Screen Pending Crossmatch IS Only See Detail Medications Given: Discontinued Medications Sodium Chloride (Ns) 1,000 mls @ 0 mls/hr IV EDNOW ONE; Wide Open PRN Reason: Protocol Stop: 10/02/17 09:00 Last Admin: 10/02/17 09:12 Dose: 1,000 mls Departure - Departure Disposition: [facility] In[facility] Acute Clinical Impression: Thrombocytopenia, Anemia, Anal squamous cell carcinoma Condition: Fair Referrals: Yomaira Christy MD [Primary Care Provider] - As per Instructions
[2017-10-02 09:19] LABS: % IMMATURE GRANULYOCYTES 0.3 % (0.0-1.1); ABSOLUTE IMMATURE GRANULOCYTES 0.01 10^3/uL (0.00-0.10); ADD DIFF? NO; ADD MORPH? YES; ADD SCAN? NO; ATYPICAL LYMPHOCYTE FLAG 40 (0-99); FRAGMENT RBC FLAG 0 (0-99); HEMATOCRIT 18.1 % (38.0-47.0); LEFT SHIFT FLG 0 (0-99); LIPEMIA HEMOLYSIS FLAG 80 (0-99); MEAN CELL HEMOGLOBIN 33.9 pg (27.9-34.1); MEAN CELL HEMOGLOBIN CONCENTR. 33.7 g/dL (32.4-36.7); MEAN CELL VOLUME 100.6 fL (81.5-99.8); PLATELET CLUMPS FLAG 0 (0-99)
[2017-10-02 09:30] LABS: HEMOGLOBIN 6.1 g/dL (12.6-16.3); RED CELL DISTRIBUTION WIDTH 21.3 % (11.5-15.2)
[2017-10-02 09:31] LABS: PLATELET COUNT 6 10^3/uL (150-400)
[2017-10-02 09:38] LABS: ANION GAP 13 mEq/L (8-16); CARBON DIOXIDE 21 mEq/l (22-31); CHLORIDE 105 mEq/L (97-110); GLOMERULAR FILTRATION RATE 56; GLUCOSE 89 mg/dL (70-100); POTASSIUM 3.9 mEq/L (3.5-5.2); SODIUM 139 mEq/L (134-144)
[2017-10-02 10:28] LABS: PLATELET ESTIMATE DECREASED (ADEQ)
[2017-10-02 10:30] LABS: HYPOCHROMIA 1+; MACROCYTES 1+; MICROCYTES 1+
--- NOTE | 2017-10-02 12:25 | PDGENHP ---
History and Physical - Chief Complaint weakness - History of Present Illness 62 y/o female with history of metastatic anal canal cancer complicated by radiation proctitis and anemia was last hospitalized at [facility] earlier this month after being treated for sepsis, thrombocytopenia, and iron deficiency anemia. [place] weak over the weekend, but didn't want to go to the ED. She was scheduled at [facility] for a visit today, but ultimately called an ambulance who brought her to the ED instead. Reports constant profuse rectal bleeding described as clots. Denies chest pain or shortness of breath. Denies syncope. Poor appetite. History Information - Allergies/Home Medication List Allergies/Adverse Reactions: Penicillins Allergy (Severe, Verified 10/02/17 09:08) Hives aspirin Allergy (Verified 10/02/17 09:08) codeine Allergy (Verified 10/02/17 09:08) Other-Enter Comments ibuprofen Allergy (Verified 10/02/17 09:08) Home Medications: Acetaminophen [Tylenol ES 500 mg (*)] 1,000 mg PO TID PRN 11/17/16 [Last Taken 10/02/17 03:30] Herbals/Supplements -Info Only 1 ea PO DAILY 09/03/17 [Last Taken Unknown] I have personally reviewed and updated: family history, medical history, social history, surgical history - Past Medical History cancer Additional medical history: metastatic anal cancer, PUD, migraines, htn, ue dvt , thrombocytopenia, right groin lesion s/p biopsy - Surgical History Reports: hernia repair - Family History Additional family history: No family h/o PHD. - Social History Smoking Status: Current every day smoker Alcohol Use: None Drug Use: Marijuana Review of Systems Review of Systems: ROS: 10pt was reviewed & negative except for what was stated in HPI & below Physical Exam Physical Exam: Temp Pulse Resp BP Pulse Ox 36.9 C 82 18 100/67 97 10/02/17 10:16 10/02/17 10:16 10/02/17 10:16 10/02/17 10:16 10/02/17 10:16 Constitutional: chronically ill appearing, cachectic Eyes: pale conjunctiva Cardiovascular: regular rate and rhythym, no murmur, rub, or gallop, No edema Respiratory: no respiratory distress, no rales or rhonchi, clear to auscultation Gastrointestinal: normoactive bowel sounds, soft, non-tender abdomen, no palpable masses Genitourinary: no bladder fullness, no bladder tenderness Skin: warm, normal color, no rashes or abrasions, no fluctuance, no induration, No mottled Musculoskeletal: full muscle strength, no muscle tenderness, normal joint ROM, no joint effusions Neurologic: AAOx3, CN II-XII Intact, No facial droop Psychiatric: interacting appropriately Lymph, Heme, Immunologic: no cervical LAD, no supraclavicular LAD Lab Data & Imaging Review 10/02/17 09:12 10/02/17 09:12 WBC 3.84 10^3/uL (3.80-9.50) 10/02/17 09:12 RBC 1.80 10^6/uL (4.18-5.33) L 10/02/17 09:12 Hgb 6.1 g/dL (12.6-16.3) L 10/02/17 09:12 Hct 18.1 % (38.0-47.0) L 10/02/17 09:12 MCV 100.6 fL (81.5-99.8) H 10/02/17 09:12 MCH 33.9 pg (27.9-34.1) 10/02/17 09:12 MCHC 33.7 g/dL (32.4-36.7) 10/02/17 09:12 RDW 21.3 % (11.5-15.2) H 10/02/17 09:12 Plt Count 6 10^3/uL (150-400) L* 10/02/17 09:12 MPV TNP 10/02/17 09:12 Neut % (Auto) 56.7 % (39.3-74.2) 10/02/17 09:12 Lymph % (Auto) 34.6 % (15.0-45.0) 10/02/17 09:12 Bureau % (Auto) 7.6 % (4.5-13.0) 10/02/17 09:12 Eos % (Auto) 0.5 % (0.6-7.6) L 10/02/17 09:12 Baso % (Auto) 0.3 % (0.3-1.7) 10/02/17 09:12 Nucleat RBC Rel Count 0.0 % (0.0-0.2) 10/02/17 09:12 Absolute Neuts (auto) 2.18 10^3/uL (1.70-6.50) 10/02/17 09:12 Absolute Lymphs (auto) 1.33 10^3/uL (1.00-3.00) 10/02/17 09:12 Absolute Monos (auto) 0.29 10^3/uL (0.30-0.80) L 10/02/17 09:12 Absolute Eos (auto) 0.02 10^3/uL (0.03-0.40) L 10/02/17 09:12 Absolute Basos (auto) 0.01 10^3/uL (0.02-0.10) L 10/02/17 09:12 Absolute Nucleated RBC 0.00 10^3/uL (0-0.01) 10/02/17 09:12 Immature Gran % 0.3 % (0.0-1.1) 10/02/17 09:12 Immature Gran # 0.01 10^3/uL (0.00-0.10) 10/02/17 09:12 Platelet Estimate DECREASED (ADEQ) L 10/02/17 09:12 Hypochromasia 1+ H 10/02/17 09:12 Microcytic Cells 1+ H 10/02/17 09:12 Oval Macrocytes 1+ H 10/02/17 09:12 Sodium 139 mEq/L (134-144) 10/02/17 09:12 Potassium 3.9 mEq/L (3.5-5.2) 10/02/17 09:12 Chloride 105 mEq/L (97-110) 10/02/17 09:12 Carbon Dioxide 21 mEq/l (22-31) L 10/02/17 09:12 Anion Gap 13 mEq/L (8-16) 10/02/17 09:12 BUN 25 mg/dL (7-23) H 10/02/17 09:12 Creatinine 1.0 mg/dL (0.6-1.0) 10/02/17 09:12 Estimated GFR 56 10/02/17 09:12 Glucose 89 mg/dL (70-100) 10/02/17 09:12 Calcium 9.0 mg/dL (8.5-10.4) 10/02/17 09:12 Patient ABO/Rh O NEGATIVE 10/02/17 09:13 Antibody Screen NEGATIVE 10/02/17 09:13 Crossmatch IS Only See Detail 10/02/17 09:13 groin biopsy -- Invasive poorly differentiated squamous cell carcinoma, compatible with metastasis from known anal primary -- Carcinoma present at undesignated biopsy soft tissue margins Assessment & Plan Assessment: 62 y/o female with metastatic anal cancer presents with: #weakness due to symptomatic anemia in the setting of rectal bleeding complicated severe thrombocytopenia -transfuse prbcs and plt #Symptomatic Anemia (Acute) -plan as per above #Thrombocytopenia (Acute) -coags, dimer, dic panel -hematology consult #Anal squamous cell carcinoma (Chronic 12/10/14) -oncology to see Dispo: admit to inpatient status DVT-P with scds lmwh contraindicated in the setting of bleeding
[2017-10-02] MEDS ORDERED: ACETAMINOPHEN 500 MG TAB PO PRN (13:11)
[2017-10-02] MEDS ORDERED: oxyCODONE IR 5 MG TAB PO PRN (13:14)
[2017-10-02] MEDS ORDERED: ONDANSETRON 4 MG/2 ML VIAL IVP PRN (13:14)
[2017-10-02] MEDS ORDERED: ACETAMINOPHEN 325 MG TAB PO PRN (13:14)
[2017-10-02 13:47] LABS: INR 1.01 (0.83-1.16); PROTIME(PATIENT) 13.2 SEC (12.0-15.0)
[2017-10-02 13:48] LABS: APTT 26.3 SEC (23.0-38.0); FIBRINOGEN 280 mg/dL (214-456)
[2017-10-02 14:10] LABS: % SATURATION 65 % (20-55); TOTAL IRON BINDING CAPACITY 240 ug/dL (260-490)
[2017-10-02 14:53] LABS: PLATELET COUNT 35 10^3/uL (150-400)
--- NOTE | 2017-10-02 16:48 | PDMN ---
Medical Necessity Medical necessity: est los>2mn for weakness w/symptomatic anemia in setting of rectal bleeding, thrombocytopenia; admit for transfusion, heme/onc consult; comorbid metastatic anal squamous cell CA; per order and H&P 10/02/17
[2017-10-02] MEDS ORDERED: HYDROCORTISONE 1% CREAM TP PRN (18:43)
--- NOTE | 2017-10-03 01:37 | GCON ---
[f rep st] CONSULTATION NEW PATIENT CONSULT REASON FOR CONSULTATION: Patient known to Dr. Morin with metastatic squamous cell carcinoma of the anal canal. Admitted again with anemia, thrombocytopenia and rectal bleeding. HISTORY OF PRESENT ILLNESS: The patient is a 62-year-old woman well known to Dr. Morin for T2 N3 M 1 squamous cell carcinoma of the anal canal diagnosed in December 2014. She had metastases to inguin al lymph nodes. She was initially treated with 5FU and mitomycin, finishing at the end of 2014. She completed radiation at that time. She had nivolumab most recently in January of 2017. This is keepin g her disease stable. Last month, she was admitted due to dizziness. Found to have a hemoglobin of 5 and platelet count of 7,000. She received blood transfusion and platelet transfusion. Also had an EGD as well as a colonoscopy showing no evidence of recurrence but some radiation proctitis. As an outpatient, she had a bone marrow biopsy which was indeterminate due to lack of hematopoietic element s. It was suspected that her pancytopenia could be secondary to radiation to her pelvis. She was al so B12 deficient and received B12 injection when she was in the hospital but she has not continued or al B12 as an outpatient. She continues to be lost to followup and is noncompliant as she is homeless and has issues with transportation. The patient presents again today feeling weak. She was scheduled to see Dr. Morin at [facility] for a vi sit but was unable to make this appointment. She called an ambulance, who brought her to the emergen cy room. She continues to report constant profuse rectal bleeding described as clots. Denies chest pain or shortness of breath. Denies syncope. She has a poor appetite. I will note she had a right inguinal lymph node excised on her last admission. Final pathology showe d invasive poorly differentiated squamous cell carcinoma compatible with metastases from known anal p rimary. Labs today show hemoglobin of 6.1, hematocrit 18.1, MCV of 100, white blood cell count 3.8, platelet count of 6,000. On peripheral smear, she has decreased amount of platelets, 1+ microcytic cells. Pa thology smear review is pending but no schistocytes were mentioned. PT, INR and PTT within normal li mits. D-dimer is 1.8. Her CMP is largely unremarkable. Iron is 155. TIBC is low at 240. Iron ___ is 65. She did receive IV iron on her last hospitalization. She also received steroidal gunjan mas due to radiation proctitis. MEDICATIONS: Have been reviewed, ALLERGIES: Have been reviewed. PAST MEDICAL HISTORY: Anal cancer, peptic ulcer disease, migraines, hypertension, upper extremity DV T, thrombocytopenia, right groin lesion, status post biopsy with the above-mentioned results. PAST SURGICAL HISTORY: Hernia repair. FAMILY HISTORY: Not applicable. SOCIAL HISTORY: Current everyday smoker. No alcohol. She also uses marijuana. REVIEW OF SYSTEMS: As per HPI. Otherwise, 14-point review of systems are negative. PHYSICAL EXAMINATION: VITAL SIGNS: Blood pressure 100/67, heart rate 82, respiration rate 18, O2 sa turation 97% on room air. Temp is 36.9. GENERAL: Middle-aged woman. Looks older than her stated a ge. Not in acute distress. HEENT: Anicteric. Oropharynx shows somewhat poor dentition but no lesi ons. NECK: Supple. HEART: Regular rate and rhythm. LUNGS: Clear to auscultation bilaterally. A BDOMEN: Soft, nontender. LOWER EXTREMITIES: No significant edema. RECTAL: Not performed today. LYMPH NODES: I did inspect the right inguinal area which is clean, dry and intact. She has definite ly got some radiation changes over the vulva. LABORATORY: As mentioned above. I will mention that she had CT chest, abdomen and pelvis on her mos t recent admission within the last month which essentially shows no evidence of distant metastatic di sease. ASSESSMENT AND PLAN: A 62-year-old female with metastatic anal squamous cell carcinoma with recent r ight inguinal node recurrence. She has most recently been on nivolumab, although lost to followup. Her most acute issue on this admission is recurrent anemia as well as thrombocytopenia. Her most rec ent bone marrow was inadequate and diagnosis was undetermined. She had evaluation for thrombotic thr ombocytopenic purpura on her most recent hospital admission, which was within normal limits. Her iro n studies today suggest an element of both iron deficiency as well as chronic disease but she did rec eive intravenous iron and has also received blood, making these results a little bit difficult to int erpret. Her peripheral smear does not demonstrate any schistocytes. 1. Anemia and thrombocytopenia. I would suspect they are both related to the same process. I have planned to repeat her bone marrow tomorrow. She received B12 last month. We will make sure she does not require an additional dose and would probably recheck her B12 levels this hospitalization. We a re pending her ferritin. She is receiving both platelets and packed red blood cells today. We will continue to follow her CBCs daily. 2. Rectal bleeding. Up to date on both esophagogastroduodenoscopy as well as colonoscopy. Had prev ious radiation proctitis and was receiving steroidal enemas. Could consider restarting this. I do n ot think she needs a Gastroenterology evaluation as this was very recent. 3. Recurrent anal cancer. Lost to followup. Apparently, she has been having at least stable diseas e with every 2 week nivolumab. Discuss[address] with Dr. Morin. We will likely resume this once her cyto penias are resolved and etiology identified. 4. I will add that given nivolumab use in the past, she certainly has an increased risk of autoimmun e reactions. I think it is worth checking a TSH. It looks as though she may have had a positive SHILPA i n the past. We will have a more definitive idea about the etiology of cytopenias once bone marrow is done. The patient agrees with plan. Bone marrow tomorrow. We will continue to follow along. /[id number]/MODL
[2017-10-03 05:52] LABS: % IMMATURE GRANULYOCYTES 0.6 % (0.0-1.1); ABSOLUTE IMMATURE GRANULOCYTES 0.02 10^3/uL (0.00-0.10); ADD DIFF? NO; ADD MORPH? NO; ADD SCAN? NO; ATYPICAL LYMPHOCYTE FLAG 30 (0-99); FRAGMENT RBC FLAG 0 (0-99); HEMATOCRIT 23.2 % (38.0-47.0); HEMOGLOBIN 8.1 g/dL (12.6-16.3); LEFT SHIFT FLG 0 (0-99); LIPEMIA HEMOLYSIS FLAG 90 (0-99); MEAN CELL HEMOGLOBIN 33.5 pg (27.9-34.1); MEAN CELL HEMOGLOBIN CONCENTR. 34.9 g/dL (32.4-36.7); MEAN CELL VOLUME 95.9 fL (81.5-99.8); MEAN PLATELET VOLUME 10.7 fL (8.7-11.7); PLATELET CLUMPS FLAG 0 (0-99); RED BLOOD CELL COUNT 2.42 10^6/uL (4.18-5.33); RED CELL DISTRIBUTION WIDTH 17.9 % (11.5-15.2)
[2017-10-03 06:01] LABS: ANION GAP 8 mEq/L (8-16); CALCIUM 8.6 mg/dL (8.5-10.4); CARBON DIOXIDE 19 mEq/l (22-31); CHLORIDE 111 mEq/L (97-110); CREATININE 0.8 mg/dL (0.6-1.0); GLOMERULAR FILTRATION RATE > 60; GLUCOSE 85 mg/dL (70-100); POTASSIUM 4.3 mEq/L (3.5-5.2); SODIUM 138 mEq/L (134-144)
[2017-10-03 06:04] LABS: PLATELET COUNT 26 10^3/uL (150-400)
[2017-10-03 06:49] LABS: PLATELET ESTIMATE DECREASED (ADEQ)
[2017-10-03] MEDS: CYANO/VITAMIN B12 1000 MCG TAB PO SCH (08:15)
[2017-10-03] MEDS ORDERED: Herbals/Supplements -Info Only PO SCH (09:00)
[2017-10-03] MEDS ORDERED: LIDOCAINE 1% 5 ML SDV NB ONE (11:15)
[2017-10-03] MEDS ORDERED: LORazepam 2 MG/ML INJ IVP ONE (11:45)
[2017-10-03] MEDS ORDERED: HEPARIN 10,000 UNIT/10 ML MDV ONE (12:16)
[2017-10-03] MEDS ORDERED: HEPARIN 10,000 UNIT/10 ML MDV SC ONE (12:30)
--- NOTE | 2017-10-03 12:46 | SOAPPROG ---
SOAP Progress Note Assessment/Plan: Assessment/Plan: 62yo woman w metastatic anal SCC admitted w recurrent, severe anemia and thrombocytopenia in conjuction w rectal bleeding 1. Rectal bleeding - improved w transfusions Hgb and plts up appropriately up to date on endoscopies no lesions seen to explain bleeding 2. anemia, thrombocytopenia - unknown etiology assume anemia somewhat related to blood loss iron studies hard to interpret in setting of recent IV iron and PRBC Bone marrow biopsy done today and sent for comprehensive testing transfuse as needed watch rectal bleeding closely- may need more platelets today ITP is dx of exclusion no e/o MAHA at this time 2. Anal SCC - needs to restart Nivolumab; R inguinal node + for dz but scans shows no sig disease elsewhere 10/03/17 12:42 Subjective: No acute events still having some blooding stools but have improved Objective: Vital Signs Temp Pulse Resp BP Pulse Ox 36.6 C 74 18 118/66 96 10/03/17 12:10 10/03/17 12:09 10/03/17 12:09 10/03/17 12:09 10/03/17 12:09 Laboratory Results 10/03/17 05:10 10/03/17 05:10 10/02/17 10/03/17 10/04/17 05:59 05:59 05:59 Intake Total 1800 Balance 1800 PT 13.2 SEC (12.0-15.0) 10/02/17 13:30 INR 1.01 (0.83-1.16) 10/02/17 13:30 Gen - NAD CV - RRR Chest - RRR Ext - no edema Neuro - nonfocal ICD10 Worksheet Patient Problems: Problems Problem Status Onset Anemia Acute Thrombocytopenia Acute Anal squamous cell carcinoma Chronic 12/10/14 Chest pain Acute Fever Acute Palliative care encounter Acute Vomiting Acute Poor dentition Chronic
--- NOTE | 2017-10-03 13:44 | HOSPPROG ---
Hospitalist Progress Note Assessment/Plan: 62 y/o female with metastatic anal cancer presents with: #weakness due to symptomatic anemia in the setting of rectal bleeding complicated severe thrombocytopenia (improving) -agree with repeat plt transfusion -monitor h/h #Symptomatic Anemia improved s/p 2 units prbc 10/02/17 -plan as per above #Thrombocytopenia (Acute) -coags, dimer, dic panel -bm bx done today #Anal squamous cell carcinoma (Chronic 12/10/14) -oncology to see Dispo: continue inpatient care DVT-P with scds lmwh contraindicated in the setting of bleeding Subjective: decreased rectal bleeding. improving strength. no other acute complaints Objective: Vital Signs Temp Pulse Resp BP Pulse Ox 36.6 C 74 18 118/66 96 10/03/17 12:10 10/03/17 12:09 10/03/17 12:09 10/03/17 12:09 10/03/17 12:09 Laboratory Results 10/03/17 05:10 10/03/17 05:10 10/02/17 10/03/17 10/04/17 05:59 05:59 05:59 Intake Total 1800 Balance 1800 PT 13.2 SEC (12.0-15.0) 10/02/17 13:30 INR 1.01 (0.83-1.16) 10/02/17 13:30 - Physical Exam Constitutional: no apparent distress, appears nourished, not in pain Ears, Nose, Mouth, Throat: moist mucous membranes, hearing normal, ears appear normal, no oral mucosal ulcers Cardiovascular: regular rate and rhythym, no murmur, rub, or gallop Respiratory: no respiratory distress, no rales or rhonchi, clear to auscultation ICD10 Worksheet Patient Problems: Problems Problem Status Onset Anal squamous cell carcinoma Chronic 12/10/14 Fever Acute Poor dentition Chronic Chest pain Acute Anemia Acute Thrombocytopenia Acute Palliative care encounter Acute Vomiting Acute
[2017-10-04 04:35] LABS: HEMATOCRIT 25.4 % (38.0-47.0); HEMOGLOBIN 8.6 g/dL (12.6-16.3); LIPEMIA HEMOLYSIS FLAG 90 (0-99); MEAN CELL HEMOGLOBIN 33.9 pg (27.9-34.1); MEAN CELL HEMOGLOBIN CONCENTR. 33.9 g/dL (32.4-36.7); PLATELET CLUMPS FLAG 0 (0-99); RED BLOOD CELL COUNT 2.54 10^6/uL (4.18-5.33); RED CELL DISTRIBUTION WIDTH 18.8 % (11.5-15.2)
[2017-10-04 04:43] LABS: PLATELET COUNT 48 10^3/uL (150-400)
[2017-10-04 05:06] LABS: PLATELET ESTIMATE DECREASED (ADEQ)
[2017-10-04 05:43] VITALS: RESP 16
[2017-10-04] MEDS: CYANO/VITAMIN B12 1000 MCG TAB PO SCH (08:08)
[2017-10-04 08:12] VITALS: BP 100/62; PULSE 75; TEMP 98; O2SAT 94
--- NOTE | 2017-10-04 12:10 | GDS ---
[f rep st] DISCHARGE SUMMARY DISCHARGE DIAGNOSES: 1. Metastatic anal cancer. 2. Symptomatic anemia. 3. Rectal bleeding. 4. Thrombocytopenia. CONSULTANTS: Dr. Laila Ellington, Oncology. HOSPITAL COURSE BY PROBLEM: Symptomatic anemia in the setting of severe thrombocytopenia and rectal bleeding: The patient presented to the hospital with a hemoglobin of 6.1 and platelets of 6. She macdonald s subsequently received 2 units of packed red blood cells and 2 units of platelets. Her bleeding has since stopped. Her hemoglobin has increased to 8.6 with platelets of 48,000. She was seen in consu ltation by Dr. Ellington who performed a bone marrow biopsy on 10/03/2017, for which results are curre ntly pending. The concern is that she may have underlying myelodysplastic syndrome complicating her anemia and pancytopenia. PHYSICAL EXAM: VITAL SIGNS: On day of discharge, blood pressure 100/62, pulse 75, respiratory rate 16, O2 sat 94% on room air, temperature afebrile. GENERAL: No acute distress heart S1, S2. LUNGS: Clear. ABDOMEN: Soft. PERTINENT LABS AND STUDIES DONE THIS HOSPITAL STAY: Bone marrow biopsy done 10/03/2017, results are pending. DISCHARGE MEDICATIONS: Please refer to discharge medication reconciliation in [facility] for details. DISCHARGE INSTRUCTIONS: The patient will be discharged from the hospital, where she was instructed t o seek emergency medical care if she develops any bleeding, since this could be life threatening in t he setting of her known thrombocytopenia of unclear etiology. She will need to follow up with Dr. Elena cramer next week to review the bone marrow biopsy results. /[id number]/MODL
--- NOTE | 2017-10-04 12:11 | ASMTCMCOM ---
CM Note CM Note Notes: Pt admitted for anemai and rectal bleeding. She has improved and will DC today with plan to f/u with Dr Mart. Pt is homeless and stays at the residential. Pt has had transportation difficulties in the past which made it hard for her to be consistent with treatment. [facility] [employer] is hoping to get pt a bus pass for Oct. Pt Dc'd with two bus passes to get to f/u appt. Date Signed: 10/04/2017 12:11 PM Electronically Signed By:Deann Mon LCSW
--- NOTE | 2017-10-04 12:22 | SOAPPROG ---
SOAP Progress Note Assessment/Plan: Assessment/Plan: 62yo woman w metastatic anal SCC admitted w recurrent, severe anemia and thrombocytopenia in conjuction w rectal bleeding 1. Rectal bleeding - improved w transfusions Hgb and plts up appropriately up to date on endoscopies-no lesions seen to explain bleeding 2. anemia, thrombocytopenia - unknown etiology assume anemia somewhat related to blood loss; thrombocytopenia less clear iron studies hard to interpret in setting of recent IV iron and PRBC Bone marrow biopsy done 10/03 and sent for comprehensive testing Rectal bleeding has stopped ITP is dx of exclusion but a consideration no e/o MAHA at this time 2. Anal SCC - needs to restart Nivolumab; R inguinal node + for dz but scans shows no sig disease elsewhere f/u w Dr Morin early next week for CBC and review of BMBx 10/03/17 12:42 10/04/17 12:20 Subjective: Feeling well Bleeding has stopped Objective: Vital Signs Temp Pulse Resp BP Pulse Ox 36.6 C 75 16 100/62 94 10/04/17 08:09 10/04/17 08:09 10/04/17 08:09 10/04/17 08:09 10/04/17 08:09 Laboratory Results 10/04/17 04:22 10/03/17 05:10 10/03/17 10/04/17 10/05/17 05:59 05:59 05:59 Intake Total 1800 1875 Balance 1800 1875 PT 13.2 SEC (12.0-15.0) 10/02/17 13:30 INR 1.01 (0.83-1.16) 10/02/17 13:30 Gen - NAD HEENT - anicteric Neuro - A&O x 3 ICD10 Worksheet Patient Problems: Problems Problem Status Onset Anemia Acute Thrombocytopenia Acute Anal squamous cell carcinoma Chronic 12/10/14 Chest pain Acute Fever Acute Palliative care encounter Acute Vomiting Acute Poor dentition Chronic
--- NOTE | 2017-10-04 16:28 | ASDISCHSUM ---
Discharge Information Plan Status: Medically Cleared to Leave: Discharge Date:10/04/2017 02:18 PM CM D/C Disposition: ADT D/C Disposition:Home, Routine, Self-Care Projected Discharge Date:10/04/2017 02:18 PM Transportation at D/C: Discharge Delay Reason: Follow-Up Date:10/04/2017 02:18 PM Discharge Slot: Final Diagnosis: Placement Information Patient Contact Information Contact Name:ROLAJOSELYN Relationship:Friend Address: Work Phone: City: [facility] Phone: State/Zip Code: Email: Financial Information Financial Class: Primary Plan Desc:[employer] [place] Primary Plan Number:[id number] Secondary Plan Desc: Secondary Plan Number: Assessment Information BC CM Progress Note CM Note CM Note Notes: Pt admitted for anemai and rectal bleeding. She has improved and will DC today with plan to f/u with Dr Mart. Pt is homeless and stays at the long term. Pt has had transportation difficulties in the past which made it hard for her to be consistent with treatment. [facility] is hoping to get pt a bus pass for Oct. Pt Dc'd with two bus passes to get to f/u appt. Date Signed: 10/04/2017 12:11 PM Electronically Signed By:Deann Mon LCSW Intervention Information Intervention Type:*Incorrect Registration Date of Service:10/02/2017 04:43 PM Patient Type:Observation Staff Member:JANI Narvaez, Padma Hours: Discipline: Severity: Comment:
[2017-10-05 09:55] LABS: FINAL DIAGNOSIS See Comments; MICROSCOPIC DESCRIPTION See Comments; SPECIAL STUDIES See Comments
[2017-10-11 09:10] LABS: BANDING METHODS See Comments
== END 2017-10-04 14:18 | disposition home or self-care (01) | DRG 812 ==
LOC: EDUNIT# → F1N 10:10 → OBSVTOIN 13:13
PROVIDERS: ADMIT Family Medicine; ATTEND Family Medicine
PROC: 30233R1 Transfusion of Nonautologous Platelets into Peripheral Vein, Percutaneous Approach (ICD-10-PCS; principal; 2017-10-02)
PROC: 30233N1 Transfusion of Nonautologous Red Blood Cells into Peripheral Vein, Percutaneous Approach (ICD-10-PCS; principal; 2017-10-02)
PROC: 07DR3ZX Extraction of Iliac Bone Marrow, Percutaneous Approach, Diagnostic (ICD-10-PCS; 2017-10-03)
DX: D50.0 Iron deficiency anemia secondary to blood loss (chronic) (principal); C21.0 Malignant neoplasm of anus, unspecified; K62.5 Hemorrhage of anus and rectum; C77.4 Secondary and unspecified malignant neoplasm of inguinal and lower limb lymph nodes; D69.6 Thrombocytopenia, unspecified; Z72.0 Tobacco use; Z59.0 Homelessness; Z86.718 Personal history of other venous thrombosis and embolism
CPT/HCPCS: 85060-90; 88184-90; 88185-91; 88237-90; 88262-90; 97165-GO; 97535-GO; J1642; J1644; J2060; P9016; P9035

== ENCOUNTER 2017-10-11 10:54 | Outpatient (CLI) | payer MEDICAID | END 2017-10-11 13:50 | disposition home or self-care (01) | LOC: FOBOP 10:54 | PROVIDERS: ATTEND Internal Medicine Hematology & Oncology | PROC: 30233R1 Transfusion of Nonautologous Platelets into Peripheral Vein, Percutaneous Approach (ICD-10-PCS; principal; 2017-10-11) | DX: D64.9 Anemia, unspecified (principal); C21.0 Malignant neoplasm of anus, unspecified | CPT/HCPCS: 36430; Q9988 ==

== ENCOUNTER 2017-10-15 12:50 | Outpatient (CLI) | payer MEDICAID ==
[2017-10-15 13:24] VITALS: RESP 18; TEMP 98.8
[2017-10-15 13:56] VITALS: BP 110/74; PULSE 76; O2SAT 95
== END 2017-10-15 14:13 | disposition home or self-care (01) ==
LOC: FOBOP 12:50
PROVIDERS: ATTEND Internal Medicine Hematology & Oncology
PROC: 30233R1 Transfusion of Nonautologous Platelets into Peripheral Vein, Percutaneous Approach (ICD-10-PCS; principal; 2017-10-15)
DX: D61.9 Aplastic anemia, unspecified (principal)
CPT/HCPCS: P9035

== ENCOUNTER → 2017-10-18 | Outpatient (CLI) | payer MEDICAID | LOC: F3EOP 12:12 → FOBOP 12:12 → EDSTATUS 14:00 | PROVIDERS: ATTEND Internal Medicine Hematology & Oncology | PROC: 30233R1 Transfusion of Nonautologous Platelets into Peripheral Vein, Percutaneous Approach (ICD-10-PCS; principal; 2017-10-18) | DX: D61.9 Aplastic anemia, unspecified (principal) | CPT/HCPCS: P9035 ==

== ENCOUNTER 2017-10-22 11:47 | Inpatient (IN) | payer MEDICAID ==
[2017-10-22] MEDS ORDERED: ZOLPIDEM TARTRATE 5 MG TAB PO PRN (14:04)
[2017-10-22] MEDS ORDERED: ONDANSETRON 4 MG/2 ML VIAL IVP PRN (14:04)
[2017-10-22] MEDS ORDERED: ONDANSETRON DISINTEGRATING 4 MG TAB PO PRN (14:04)
[2017-10-22] MEDS ORDERED: CALCIUM CARBONATE 500 MG CHEWABLE TAB PO PRN (14:06)
[2017-10-22] MEDS ORDERED: [UNRECOGNIZED DRUG - OTHER] ID ONE ×2 (16:00→16:30)
[2017-10-22] MEDS ORDERED: [UNRECOGNIZED DRUG - OTHER] MISC ONE (16:15)
--- NOTE | 2017-10-22 17:43 | WOCRNPDOC ---
WOCRN Advanced Assessment Note - Skin Integrity Problem, Advanced Assess Right Groin Dressing Type: Open to Air Exudate Amount: Scant Exudate Characteristic(s): Serosanguinous Wound Bed Constitution: Granulation Tissue (80%), Loose Slough (20%) Site Measurement - Head-to-Toe Length X Width X Depth (cm): 0.5x0.2x0.3 Skin Integrity Problem Comment: Very small discrete wound at the fold of the inner thigh and labia. This is in an area of scar tissue where a larger previous wound had healed. No sign of infection. No concerns. Area appears to be healing. Keep area clean and dry. May apply gauze between briefs and skin to cover area. Wound care will sign off.
--- NOTE | 2017-10-22 19:09 | HOSPPROG ---
Hospitalist Progress Note Assessment/Plan: CC: Aplastic anemia HISTORY: This patient with longstanding metastatic cancer and longstanding and anemia was recently diagnosed with aplastic anemia. She has been transfusion dependent for the an ongoing appeared of time. She comes to the hospital at this point it electively admitted for antithymocyte globulin therapy. She states she has actually been feeling relatively well other than the need for transfusion and symptoms of anemia in between. She has some ongoing pain where she has a tumor at the labia and this is a chronic wound that has been under wound care for quite some time, has bled in the past currently draining some fluid but she does not feel has not affected and she has not had any recent fevers. No other acute symptomatology at this time. ROS: A comprehensive 10 system review revealed the pain of her wound as described above in this is a chronic stable wound, and intermittently symptoms of anemia between transfusions, but no other significant findings PAST MEDICAL HISTORY: Metastatic anal carcinoma Chronic wound at her left labia requiring ongoing wound care at this time Chronic anemia with past history of iron deficiency anemia from GI bleeding, now with aplastic anemia diagnosed on top of that Chronic thrombocytopenia Chronic hypertension Vitamin B12 deficiency DVT of arm FAMILY MEDICAL HISTORY: She is unaware of her family medical history SOCIAL HISTORY: Homeless, currently living at [facility] long-term Has government assistance for transportation here with bus passes MEDICATIONS: The patients list has been reconciled by our clinical pharmacist in the EMR. I have reviewed the list and ordered appropriate medicines. PHYSICAL EXAMINATION: Vital Signs: Stable without fever Examination: General: alert, oriented, good mentation, relaxed She is mildly cachectic with overall some evidence of moderate protein calorie malnutrition Skin: warm, dry, good color, no rash HEENT: normal Neck: no mass or jvd no adenopathy Resps: relaxed Lungs: clear breath sounds Heart: regular, no murmur Abdomen: soft, nondistended, nontender, +BS, no mass She was seen by our wound care nurse today and had genitalia exam and review of her wound there which is a chronic wound, I did not examine that wound at this time at patient's request Upper Extremities: normal Lower Extremities: no edema, warm No Bleeding or bruising noted Neurologic: normal speech/language, normal juvenile justice officer, no focal weakness LABORATORY DATA: Pending at this time ASSESSMENT: 1-recently diagnosed with aplastic anemia, with long-standing iron deficiency anemia and anemia of malignancy -she has been transfusion dependent now for some time -comes in now for 4 day infusion of antithymocyte globulin 2-ongoing wound at her labia from metastatic disease, currently with ongoing wound care and has been seen here at this time by wound care nurse -ongoing wound care here will need that as an outpatient as well 3-metastatic anal carcinoma 4-DVT of arm, high risk of DVT in hospital setting given her malignancy, however at high risk of complications from severe anemia of has any bleeding complications and has had ongoing bleeding at times from wounds so will only use mechanical prophylaxis and ambulation for DVT prophylaxis at this time 5-chronic m moderate protein calorie malnutrition; this is partly due to her cancer and partly her social issues -nutrition supplements here I have reviewed the patient's case in detail with Dr. Nito Morin I have reviewed the patient's past medical records as part of this assessment, including previous hospital admission records Objective: Vital Signs Temp Pulse Resp BP Pulse Ox 36.7 C 81 16 110/75 98 10/22/17 15:25 10/22/17 15:25 10/22/17 15:25 10/22/17 15:25 10/22/17 15:25 10/21/17 10/22/17 10/23/17 06:59 06:59 06:59 Intake Total 200 Balance 200 ICD10 Worksheet Patient Problems: Problems Problem Status Onset Anemia Acute Chest pain Acute Fever Acute Palliative care encounter Acute Thrombocytopenia Acute Vomiting Acute Anal squamous cell carcinoma Chronic 12/10/14 Poor dentition Chronic
[2017-10-22] MEDS: CAFFEINE 200 MG PO SCH (19:56)
[2017-10-22] MEDS: ACETAMINOPHEN 325 MG TAB PO PRN (19:56)
[2017-10-22] MEDS: cycloSPORINE 100 MG CAP PO SCH (20:58)
[2017-10-22] MEDS: cycloSPORINE 25 MG CAP PO SCH (20:58)
[2017-10-22] MEDS ORDERED: cycloSPORINE 100 MG CAP PO SCH (21:00)
--- NOTE | 2017-10-23 03:43 | GCON ---
[f rep st] CONSULTATION MEDICAL ONCOLOGY FOLLOWUP CONSULTATION DATE OF CONSULTATION: 10/22/2017 REFERRING PHYSICIAN: Mikey Thomas MD REASON FOR CONSULTATION: Ongoing management of aplastic anemia and metastatic anal squamous cell car cinoma. RECOMMENDATIONS: 1. The patient will need to be transfused as needed to maintain hemoglobin above 7 and platelets abo ve 10,000. 2. We will start ATG (ATGAM) 40 mg/kg daily for 4 days. This will be done per ATG protocol. The pa tient will need a test dose and then each subsequent dose will be given over 46 hours. 3. The patient will be started on cyclosporine at a dose approximately 10 mg/kg daily in 2 divided d oses. The patient will also be started on prednisone 60 mg per day followed by a taper starting appr oximately 2 weeks after the ATG. The plan will be to discontinue the prednisone by day 30 of ATG. T he patient will also be started on Promacta orally when it is available. ASSESSMENT: This 62-year-old white female was initially diagnosed with a metastatic squamous cell ca rcinoma of the anus in December of 2014. She was found to have metastatic disease in her groin at th e time of diagnosis, as well as a possible lung lesion. The patient was treated at various times wit h 5-FU cisplatin, 5-FU mitomycin-C, radiation, and most recently, nivolumab. She has actually had a fairly good response and was treated with nivolumab until spring when she was lost to follow up. Recently she has come to medical attention again because of pancytopenia. She did have B12 defi ciency or least a picture that looked that way, and had a partial response to B12 shots. This was ag ain before she was lost to follow up. She now has severe pancytopenia and is transfusion dependent. She has had a recent bone marrow biopsy which showed less than 1% cellularity and was consistent wit h aplastic anemia. It is unclear as to whether this aplastic anemia is related to treatment, which i t certainly could be radiation or both. Her cancer appears to be under actually fairly good control at this time with her only site of the kn own disease in her right groin. Therefore, we will attempt to treat her aplastic anemia. HISTORY OF PRESENT ILLNESS: Please see assessment. PAST MEDICAL HISTORY: In addition is remarkable for osteoarthritis, migraine headaches, and a histor y of tobacco dependence. PAST SURGICAL HISTORY: Remarkable for tonsillectomy and a remote right inguinal hernia repair. SOCIAL HISTORY: The patient is initially from [place]. She does not drink alcohol. Socially she is challenged by homelessness. FAMILY HISTORY: Remarkable for her mother and sister having had rheumatoid arthritis, and a grandmot her of diverticulitis. REVIEW OF SYSTEMS: Current review of systems includes blood in her stool, fatigue, and open wound in her right groin. She reports no nausea or vomiting. Her appetite is adequate. A 10 system review is otherwise unremarkable. PHYSICAL EXAMINATION: GENERAL: Reveals an alert woman in no acute distress. HEENT: Remarkable for poor dentition. She has no jaundice noted. LUNGS: Clear to auscultation. CARDIAC: Exam reveals a regular rhythm. ABDOMEN: Shows soft abdomen. Active bowel sounds. EXTREMITIES: Lower extremiti es show no edema. SKIN: Of her groin shows telangiectasias associated with her previous pelvic radi ation. She does have a narrow open area in her right groin where her recent recurrence was biopsied. There is currently no exophytic growth noted. LABORATORY: Exam from today shows a white count of 3.09 with a hemoglobin of 8.3, and a platelet cou nt of 8000. Her creatinine is 0.9. Her total bilirubin is undetectable at less than 0.1. Thank you very much for allowing us to continue to participate in this pleasant woman's care. We loo k forward to assisting with her management during this hospitalization and beyond. /[id number]/MODL
[2017-10-23 05:18] LABS: % IMMATURE GRANULYOCYTES 0.4 % (0.0-1.1); ABSOLUTE IMMATURE GRANULOCYTES 0.01 10^3/uL (0.00-0.10); ADD DIFF? NO; ADD MORPH? YES; ADD SCAN? NO; ATYPICAL LYMPHOCYTE FLAG 80 (0-99); FRAGMENT RBC FLAG 0 (0-99); HEMATOCRIT 21.9 % (38.0-47.0); HEMOGLOBIN 7.4 g/dL (12.6-16.3); LEFT SHIFT FLG 0 (0-99); LIPEMIA HEMOLYSIS FLAG 90 (0-99); MEAN CELL HEMOGLOBIN 35.7 pg (27.9-34.1); MEAN CELL HEMOGLOBIN CONCENTR. 33.8 g/dL (32.4-36.7); MEAN CELL VOLUME 105.8 fL (81.5-99.8); PLATELET CLUMPS FLAG 0 (0-99); RED BLOOD CELL COUNT 2.07 10^6/uL (4.18-5.33)
[2017-10-23 05:24] LABS: PLATELET COUNT 35 10^3/uL (150-400); RED CELL DISTRIBUTION WIDTH 22.9 % (11.5-15.2)
[2017-10-23] MEDS: ACETAMINOPHEN 325 MG TAB PO PRN (05:40)
[2017-10-23] MEDS: CAFFEINE 200 MG PO SCH ×2 (05:40→15:01)
[2017-10-23 06:16] LABS: ANION GAP 12 mEq/L (8-16); CALCIUM 9.2 mg/dL (8.5-10.4); CARBON DIOXIDE 20 mEq/l (22-31); CHLORIDE 109 mEq/L (97-110); CREATININE 0.8 mg/dL (0.6-1.0); GLOMERULAR FILTRATION RATE > 60; GLUCOSE 85 mg/dL (70-100); POTASSIUM 4.1 mEq/L (3.5-5.2); SODIUM 141 mEq/L (134-144)
[2017-10-23 07:11] LABS: MACROCYTES 1+; PLATELET ESTIMATE DECREASED (ADEQ)
[2017-10-23] MEDS ORDERED: [UNRECOGNIZED DRUG - OTHER] MISC ONE (09:00)
[2017-10-23] MEDS ORDERED: [UNRECOGNIZED DRUG - OTHER] ID ONE (09:15)
[2017-10-23] MEDS ORDERED: NS IV ONE (09:15)
--- NOTE | 2017-10-23 09:28 | PDMN ---
Medical Necessity Medical necessity: est los>2m for eval and rx of aplastic anemia, requiring 4 day infusion of antithymocyte globulin; comorbid metastatic anal carcinoma w/ chronic iron deficiency anemia & anemia of malignancy, transfusion dependent, ongoing labia wound, hx DVT RUE, and chronic moderate protein calorie malnutrition; per order and H&P 10/22/17
[2017-10-23] MEDS ORDERED: ACETAMINOPHEN 325 MG TAB PO SCH (09:30)
[2017-10-23] MEDS ORDERED: diphenhydrAMINE 25 MG CAP PO SCH ×2 (09:30→15:00)
[2017-10-23] MEDS ORDERED: HYDROCORTISONE 100 MG/2 ML VIAL IVP SCH (09:30)
[2017-10-23] MEDS ORDERED: ALTEPLASE 2 MG VIAL IVP PRN (09:43)
[2017-10-23] MEDS ORDERED: SODIUM CHLORIDE IV SCH (10:00)
[2017-10-23] MEDS ORDERED: [UNRECOGNIZED DRUG - OTHER] IV SCH (10:00)
--- NOTE | 2017-10-23 11:04 | SOAPPROG ---
SOAP Progress Note Assessment/Plan: Assessment: - Aplastic anemia - starting on ATG/cyclosporine/Prednisone/promacta. Doing OK with test dose of ATG. Getting central line. - Severe thrombocytopenia - responded to plts - Squamous cell CA anus - metastatic - under fairly good control at the moment. Treatment on hold with nivolumab for the moment Plan: - ATG test dose - Central line - ATG 40mg/kg/day x 4 days - Prednisone 60mg/day x 14 days then taper over 2 weeks - Promacta when available (outpatient) - Cyclosporine - start at 250mg PO BID. monitor levels 10/23/17 10:59 Subjective: No new complaints. Tolerated test dose ATG Objective: Vital Signs Temp Pulse Resp BP Pulse Ox 36.7 C 82 16 118/76 97 10/23/17 10:24 10/23/17 10:37 10/23/17 10:37 10/23/17 10:37 10/23/17 10:37 Laboratory Results 10/23/17 04:54 10/23/17 04:54 10/21/17 10/22/17 10/23/17 23:59 23:59 23:59 Intake Total 200 500 Output Total 500 Balance 200 0 Physical Exam - Physical Exam General Appearance: alert, no apparent distress Respiratory: lungs clear Cardiac/Chest: regular rate, rhythm Abdomen: normal bowel sounds, non-tender Skin: normal color, warm/dry Neuro/Psych: normal mood/affect, oriented x 3 ICD10 Worksheet Patient Problems: Problems Problem Status Onset Anemia Acute Chest pain Acute Fever Acute Palliative care encounter Acute Thrombocytopenia Acute Vomiting Acute Anal squamous cell carcinoma Chronic 12/10/14 Poor dentition Chronic
[2017-10-23] MEDS: predniSONE 20 MG TAB PO SCH ×3 (11:41→15:41)
[2017-10-23] MEDS: ACETAMINOPHEN 325 MG TAB PO SCH (15:05)
[2017-10-23] MEDS: HYDROCORTISONE 1% CREAM TP PRN ×2 (15:36→21:53)
[2017-10-23] MEDS: [UNRECOGNIZED DRUG - OTHER] IV SCH (15:39)
[2017-10-23] MEDS: SODIUM CHLORIDE IV SCH (15:39)
[2017-10-23] MEDS: cycloSPORINE 100 MG CAP PO SCH ×2 (15:51→22:11)
[2017-10-23] MEDS: cycloSPORINE 25 MG CAP PO SCH ×2 (15:51→22:11)
--- NOTE | 2017-10-23 16:45 | ASMTCMCOM ---
CM Note CM Note Notes: Pt admitted with severe thrombocytopenia. PICC placed. Hx met anal CA, homelessness, senior living stays, monthly bus pass. Followed by Dr Morin last visit. CM will follow for any d/c needs. Date Signed: 10/23/2017 04:45 PM Electronically Signed By:MITCH Ocampo
--- NOTE | 2017-10-23 19:41 | HOSPPROG ---
Hospitalist Progress Note Assessment/Plan: DIAGNOSES: 1-recently diagnosed with aplastic anemia, with long-standing iron deficiency anemia and anemia of malignancy -she has been transfusion dependent now for some time -comes in now for 4 day infusion of antithymocyte globulin 2-ongoing wound at her labia from metastatic disease, currently with ongoing wound care and has been seen here at this time by wound care nurse -ongoing wound care here will need that as an outpatient as well 3-metastatic anal carcinoma 4-DVT of arm, high risk of DVT in hospital setting given her malignancy, however at high risk of complications from severe anemia of has any bleeding complications and has had ongoing bleeding at times from wounds so will only use mechanical prophylaxis and ambulation for DVT prophylaxis at this time 5-chronic m moderate protein calorie malnutrition; this is partly due to her cancer and partly her social issues -nutrition supplements here The patient now has a PICC line in place without complication. She did receive some FFP transfusion so that she could have her PICC line placed. There were no complications related to her FFP transfusion. At this time she has had her test dose of antithymocyte globulin. She is without any noted reaction to that , and she has started receiving her infusion and this is going well without any symptoms of reaction. PLANS: -continue 4 day course of IV antithymocyte globulin -follow blood counts very closely -follow closely for any signs of reaction to the infusion -at this time does not have indication for any further transfusion of either red cells or platelets but will follow closely the counts and for any symptomatic problems related to the anemia or thrombocytopenia I reviewed her course in detail today with Dr. Morin I reviewed her case today with Dr. Blanchard of Radiology who placed her PICC catheter. Notably upon attempted placement of the catheter in her right arm the guidewire curled into a not and had to be carefully removed which was done without any complication and without breakage of the catheter. There was no apparent sign of injury to the left arm or the vein and she subsequently had easy placement in her left arm. The patient does have a previous history of DVT in the arm and I suspect that is why there was difficulty with the initial attempt at placement. No evidence of DVT clinically at this time. SUBJECTIVE: The patient feels well. 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, my review: Exam: alert oriented skin warm dry color ok resps not labored lungs clear BSs heart regular abd soft nondistended nontender, bowel sounds present limbs warm, no edema PICC catheter in place and showing no signs of any problems Objective: Vital Signs Temp Pulse Resp BP Pulse Ox 36.7 C 96 20 112/76 98 10/23/17 18:13 10/23/17 16:57 10/23/17 16:57 10/23/17 16:57 10/23/17 16:57 Laboratory Results 10/23/17 04:54 10/23/17 04:54 10/22/17 10/23/17 10/24/17 06:59 06:59 06:59 Intake Total 700 1100 Output Total 500 Balance 200 1100 ICD10 Worksheet Patient Problems: Problems Problem Status Onset Anemia Acute Chest pain Acute Fever Acute Palliative care encounter Acute Thrombocytopenia Acute Vomiting Acute Anal squamous cell carcinoma Chronic 12/10/14 Poor dentition Chronic
[2017-10-24] MEDS ORDERED: PROMETHAZINE HCL 25 MG/ML INJ IVP PRN (00:21)
[2017-10-24] MEDS: ACETAMINOPHEN 325 MG TAB PO PRN ×2 (05:54→18:35)
[2017-10-24] MEDS: CAFFEINE 200 MG PO SCH ×2 (05:55→18:36)
[2017-10-24] MEDS: cycloSPORINE 25 MG CAP PO SCH ×2 (08:25→22:13)
[2017-10-24] MEDS: cycloSPORINE 100 MG CAP PO SCH ×2 (08:25→22:13)
--- NOTE | 2017-10-24 10:50 | SOAPPROG ---
SOAP Progress Note Assessment/Plan: Assessment: - Aplastic anemia - starting on ATG/cyclosporine/Prednisone/promacta. Has PICC in LUE. Had vomiting and urticaria after ATG finished yesterday. - Severe thrombocytopenia - responded to plts. Counts pending this AM. - Squamous cell CA anus - metastatic - under fairly good control at the moment. Treatment on hold with nivolumab for the moment Plan: - ATG day 2 of 4 today. Will increase benadryl and add pepcid to premed regimen - Prednisone 60mg/day x 14 days then taper over 2 weeks. Day 2 of 14 is [id number] - Promacta when available (outpatient) - Cyclosporine - start at 250mg PO BID. monitor levels Subjective: Vomiting and urticaria after ATG yesterday. Objective: Vital Signs Temp Pulse Resp BP Pulse Ox 36.4 C 87 20 92/58 L 98 10/24/17 08:04 10/24/17 08:04 10/24/17 08:04 10/24/17 08:32 10/24/17 08:04 Laboratory Results 10/23/17 04:54 10/23/17 04:54 10/22/17 10/23/17 10/24/17 23:59 23:59 23:59 Intake Total 200 1600 200 Output Total 500 Balance 200 1100 200 Physical Exam - Physical Exam General Appearance: alert, no apparent distress Respiratory: lungs clear Cardiac/Chest: regular rate, rhythm Abdomen: normal bowel sounds Skin: pallor, other (scattered bruises. Red raised R antecubital rash (present x 3 weeks)) Neuro/Psych: no motor/sensory deficits, alert, normal mood/affect, oriented x 3 ICD10 Worksheet Patient Problems: Problems Problem Status Onset Anemia Acute Chest pain Acute Fever Acute Palliative care encounter Acute Thrombocytopenia Acute Vomiting Acute Anal squamous cell carcinoma Chronic 12/10/14 Poor dentition Chronic
[2017-10-24 12:25] LABS: % IMMATURE GRANULYOCYTES 0.6 % (0.0-1.1); ABSOLUTE IMMATURE GRANULOCYTES 0.01 10^3/uL (0.00-0.10); ADD DIFF? NO; ADD MORPH? YES; ATYPICAL LYMPHOCYTE FLAG 0 (0-99); FRAGMENT RBC FLAG 0 (0-99); HEMOGLOBIN 7.1 g/dL (12.6-16.3); LEFT SHIFT FLG 70 (0-99); LIPEMIA HEMOLYSIS FLAG 90 (0-99); MEAN CELL HEMOGLOBIN 35.1 pg (27.9-34.1); MEAN CELL HEMOGLOBIN CONCENTR. 33.8 g/dL (32.4-36.7); MEAN PLATELET VOLUME 9.6 fL (8.7-11.7); PLATELET CLUMPS FLAG 0 (0-99); RED BLOOD CELL COUNT 2.02 10^6/uL (4.18-5.33)
[2017-10-24] MEDS: ACETAMINOPHEN 325 MG TAB PO SCH (12:31)
[2017-10-24] MEDS: predniSONE 20 MG TAB PO SCH (12:32)
[2017-10-24] MEDS: diphenhydrAMINE 25 MG CAP PO SCH (12:32)
[2017-10-24 12:35] LABS: ADD SCAN? NO; RED CELL DISTRIBUTION WIDTH 23.1 % (11.5-15.2)
[2017-10-24 12:37] LABS: PLATELET COUNT 13 10^3/uL (150-400)
[2017-10-24] MEDS: FAMOTIDINE 20 MG/NACL 50 ML IV SCH (12:37)
[2017-10-24 12:48] LABS: ALANINE AMINOTRANSFERASE 29 IU/L (9-52); ALBUMIN 3.4 g/dL (3.5-5.0); ALKALINE PHOSPHATASE 59 IU/L (38-126); ANION GAP 11 mEq/L (8-16); ASPARTATE AMINOTRANSFERASE 23 IU/L (14-46); BILIRUBIN,TOTAL 0.3 mg/dL (0.1-1.4); CALCIUM 8.9 mg/dL (8.5-10.4); CARBON DIOXIDE 24 mEq/l (22-31); CHLORIDE 102 mEq/L (97-110); GLOMERULAR FILTRATION RATE 56; GLUCOSE 90 mg/dL (70-100); POTASSIUM 4.9 mEq/L (3.5-5.2); SODIUM 137 mEq/L (134-144); TOTAL PROTEIN 6.7 g/dL (6.3-8.2)
[2017-10-24] MEDS: [UNRECOGNIZED DRUG - OTHER] IV SCH (13:14)
[2017-10-24] MEDS: SODIUM CHLORIDE IV SCH (13:14)
[2017-10-24 13:26] LABS: MACROCYTES 1+; MICROCYTES 1+; PLATELET ESTIMATE DECREASED (ADEQ)
--- NOTE | 2017-10-24 18:34 | HOSPPROG ---
Hospitalist Progress Note Assessment/Plan: DIAGNOSES: 1-aplastic anemia, with prior long-standing iron deficiency anemia and anemia of malignancy -she has been transfusion dependent now for some time -status post day 1 or day infusion of antithymocyte globulin with cyclosporine 2- antithymocyte globulin reaction last night, with hypotension, hives, nausea vomiting -responded well to histamine blockers and steroid; now 3 hr into today's infusion and doing well so far, yesterday symptoms began a couple hours or so after completion of the 1st infusion 2-ongoing wound at her labia from metastatic disease, currently with ongoing wound care and has been seen here at this time by wound care nurse -ongoing wound care here will need that as an outpatient as well 3-metastatic anal carcinoma 4-prior history of DVT of arm, high risk of DVT in hospital setting given her malignancy, however has severe thrombocytopenia and is at high risk of complications from severe anemia if has any bleeding complications so will only use mechanical prophylaxis and ambulation for DVT prophylaxis at this time 5-chronic moderate protein calorie malnutrition; this is partly due to her cancer and partly her social issues -nutrition supplements here Reviewed in detail with Dr. Nito Morin today Will need ongoing very careful monitoring for recurrence of antithymocyte globulin reaction and she is being dosed with ongoing H1 and H2 blockers during her infusion. PLANS: -continue 4 day course of IV antithymocyte globulin -follow blood counts very closely -follow closely for any signs of reaction to the infusion -at this time does not have indication for any further transfusion of either red cells or platelets but will follow closely the counts and for any symptomatic problems related to the anemia or thrombocytopenia SUBJECTIVE: The patient feels well. 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, my review: Exam: alert oriented skin warm dry color ok currently no hives resps not labored lungs clear BSs heart regular abd soft nondistended nontender, bowel sounds present limbs warm, no edema PICC catheter in place and showing no signs of any problems Objective: Vital Signs Temp Pulse Resp BP Pulse Ox 36.6 C 89 14 124/74 H 96 10/24/17 16:06 10/24/17 16:06 10/24/17 16:06 10/24/17 16:06 10/24/17 16:06 Laboratory Results 10/24/17 11:58 10/24/17 11:58 10/23/17 10/24/17 10/25/17 06:59 06:59 06:59 Intake Total 700 1300 1116 Output Total 500 Balance 200 1300 1116 ICD10 Worksheet Patient Problems: Problems Problem Status Onset Anemia Acute Chest pain Acute Fever Acute Palliative care encounter Acute Thrombocytopenia Acute Vomiting Acute Anal squamous cell carcinoma Chronic 12/10/14 Poor dentition Chronic
--- NOTE | 2017-10-24 18:58 | PDGENHP ---
History and Physical History and Physical: CC: Aplastic anemia HISTORY: This patient with longstanding metastatic cancer and longstanding and anemia was recently diagnosed with aplastic anemia. She has been transfusion dependent for the an ongoing appeared of time. She comes to the hospital at this point it electively admitted for antithymocyte globulin therapy. She states she has actually been feeling relatively well other than the need for transfusion and symptoms of anemia in between. She has some ongoing pain where she has a tumor at the labia and this is a chronic wound that has been under wound care for quite some time, has bled in the past currently draining some fluid but she does not feel has not affected and she has not had any recent fevers. No other acute symptomatology at this time. 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 I have reviewed the list and ordered appropriate medicines. PHYSICAL EXAMINATION: Vital Signs: Stable without fever Examination: General: alert, oriented, good mentation, relaxed She is mildly cachectic with overall some evidence of moderate protein calorie malnutrition Skin: warm, dry, good color, no rash HEENT: normal Neck: no mass or jvd no adenopathy Resps: relaxed Lungs: clear breath sounds Heart: regular, no murmur Abdomen: soft, nondistended, nontender, +BS, no mass She was seen by our wound care nurse today and had genitalia exam and review of her wound there which is a chronic wound, I did not examine that wound at this time at patient's request Upper Extremities: normal Lower Extremities: no edema, warm No Bleeding or bruising noted Neurologic: normal speech/language, normal party supply specialist, no focal weakness LABORATORY DATA: Pending at this time ASSESSMENT: 1-recently diagnosed with aplastic anemia, with long-standing iron deficiency anemia and anemia of malignancy -she has been transfusion dependent now for some time -comes in now for 4 day infusion of antithymocyte globulin 2-ongoing wound at her labia from metastatic disease, currently with ongoing wound care and has been seen here at this time by wound care nurse -ongoing wound care here will need that as an outpatient as well 3-metastatic anal carcinoma 4-DVT of arm, high risk of DVT in hospital setting given her malignancy, however at high risk of complications from severe anemia of has any bleeding complications and has had ongoing bleeding at times from wounds so will only use mechanical prophylaxis and ambulation for DVT prophylaxis at this time 5-chronic m moderate protein calorie malnutrition; this is partly due to her cancer and partly her social issues -nutrition supplements here I have reviewed the patient's case in detail with Dr. Nito Morin I have reviewed the patient's past medical records as part of this assessment, including previous hospital admission records
[2017-10-24] MEDS: HYDROCORTISONE 2.5% 30 GM CRTUBE TP SCH (22:12)
[2017-10-25 04:39] LABS: % IMMATURE GRANULYOCYTES 0.4 % (0.0-1.1); ABSOLUTE IMMATURE GRANULOCYTES 0.01 10^3/uL (0.00-0.10); ADD DIFF? NO; ADD MORPH? YES; ADD SCAN? YES; ATYPICAL LYMPHOCYTE FLAG 0 (0-99); FRAGMENT RBC FLAG 0 (0-99); LIPEMIA HEMOLYSIS FLAG 90 (0-99); MEAN CELL HEMOGLOBIN 35.8 pg (27.9-34.1); MEAN CELL VOLUME 105.3 fL (81.5-99.8); MEAN PLATELET VOLUME 9.3 fL (8.7-11.7); PLATELET CLUMPS FLAG 0 (0-99)
[2017-10-25 04:40] LABS: HEMOGLOBIN 6.8 g/dL (12.6-16.3); RED CELL DISTRIBUTION WIDTH 23.3 % (11.5-15.2)
[2017-10-25 04:41] LABS: LEFT SHIFT FLG 120 (0-99)
[2017-10-25 04:42] LABS: PLATELET COUNT 7 10^3/uL (150-400)
[2017-10-25 04:49] LABS: ALANINE AMINOTRANSFERASE 37 IU/L (9-52); ALBUMIN 3.2 g/dL (3.5-5.0); ALKALINE PHOSPHATASE 70 IU/L (38-126); ANION GAP 11 mEq/L (8-16); ASPARTATE AMINOTRANSFERASE 26 IU/L (14-46); BILIRUBIN,TOTAL 0.2 mg/dL (0.1-1.4); CALCIUM 8.9 mg/dL (8.5-10.4); CARBON DIOXIDE 21 mEq/l (22-31); CHLORIDE 108 mEq/L (97-110); CREATININE 0.9 mg/dL (0.6-1.0); GLOMERULAR FILTRATION RATE > 60; GLUCOSE 109 mg/dL (70-100); SODIUM 140 mEq/L (134-144); TOTAL PROTEIN 6.5 g/dL (6.3-8.2)
[2017-10-25 05:07] LABS: SCAN NEGATIVE
[2017-10-25 05:17] LABS: MACROCYTES 1+; PLATELET ESTIMATE DECREASED (ADEQ); POLYCHROMASIA 1+
[2017-10-25] MEDS: ACETAMINOPHEN 325 MG TAB PO PRN (05:58)
[2017-10-25] MEDS: CAFFEINE 200 MG PO SCH ×2 (05:59→14:06)
[2017-10-25] MEDS: cycloSPORINE 25 MG CAP PO SCH ×2 (09:09→21:40)
[2017-10-25] MEDS: cycloSPORINE 100 MG CAP PO SCH ×2 (09:09→21:39)
[2017-10-25] MEDS: HYDROCORTISONE 2.5% 30 GM CRTUBE TP SCH ×3 (09:11→21:39)
[2017-10-25] MEDS ORDERED: ACETAMINOPHEN 325 MG TAB PO ONE (10:53)
--- NOTE | 2017-10-25 11:00 | SOAPPROG ---
SRIDHAR Progress Note Assessment/Plan: Assessment: - Aplastic anemia - starting on ATG/cyclosporine/Prednisone/promacta. Has PICC in LUE. No reaction to ATG yesterday. Will get day 3 today. - Severe thrombocytopenia - plts 7k. will get txn today - Anemia - Hgb 6.8. Txn 1 unit PRBC today - Squamous cell CA anus - metastatic - under fairly good control at the moment. Treatment on hold with nivolumab for the moment Plan: - ATG day 3 of 4 today. Will continue benadryl/pepcid to premed regimen - Prednisone 60mg/day x 14 days then taper over 2 weeks. Day 3 of 14 is [id number] - Promacta when available (outpatient) - Cyclosporine - start at 250mg PO BID. monitor levels Subjective: some rectal bleeding, but generally feels well. No N/V after ATG yesterday. No urticaria. Objective: Vital Signs Temp Pulse Resp BP Pulse Ox 36.6 C 84 15 120/62 98 10/25/17 09:29 10/25/17 09:29 10/25/17 09:29 10/25/17 09:29 10/25/17 09:29 Laboratory Results 10/25/17 04:30 10/25/17 04:30 10/23/17 10/24/17 10/25/17 23:59 23:59 23:59 Intake Total 1600 1316 350 Output Total 500 Balance 1100 1316 350 Physical Exam - Physical Exam General Appearance: alert, no apparent distress Respiratory: lungs clear Cardiac/Chest: regular rate, rhythm Abdomen: soft Skin: pallor, other (scattered ecchymoses) Neuro/Psych: alert, normal mood/affect, oriented x 3, No depressed affect ICD10 Worksheet Patient Problems: Problems Problem Status Onset Anemia Acute Chest pain Acute Fever Acute Palliative care encounter Acute Thrombocytopenia Acute Vomiting Acute Anal squamous cell carcinoma Chronic 12/10/14 Poor dentition Chronic
[2017-10-25] MEDS: FAMOTIDINE 20 MG/NACL 50 ML IV SCH (12:00)
[2017-10-25] MEDS: ACETAMINOPHEN 325 MG TAB PO SCH (12:01)
[2017-10-25] MEDS: diphenhydrAMINE 25 MG CAP PO SCH (12:01)
[2017-10-25] MEDS: predniSONE 20 MG TAB PO SCH (12:01)
[2017-10-25] MEDS: SODIUM CHLORIDE IV SCH (13:34)
[2017-10-25] MEDS: [UNRECOGNIZED DRUG - OTHER] IV SCH (13:34)
--- NOTE | 2017-10-25 15:34 | ASMTCMCOM ---
CM Note CM Note Notes: Today is day 3 of 4 for ATG. Met with pt who is under the impression she will need to be at [facility] a week longer. Asked pt's RN Ankush to clear up any confusion. [facility]. C/M to follow. Date Signed: 10/25/2017 03:34 PM Electronically Signed By:Deann Mon LCSW
--- NOTE | 2017-10-25 16:36 | SOAPPROG ---
SOAP Progress Note Assessment/Plan: 1-aplastic anemia, with prior long-standing iron deficiency anemia and anemia of malignancy -transfusion dependent, PRBC ordered today -infusions of antithymocyte globulin with cyclosporine -discussed care plan with Dr Morin 2- antithymocyte globulin reaction, with hypotension, hives, nausea vomiting -responded well to histamine blockers and steroid -no further reactions 3. chronic labia wound -ongoing wound care 4. metastatic anal carcinoma 5. prior history of DVT of arm, high risk of DVT - mechanical prophylaxis and ambulation for DVT prophylaxis as meds contraindicated with severe thrombocytopenia 6. chronic moderate protein calorie malnutrition -nutrition supplements/encourage PO 7. severe thrombocytopenia -plts ordered for today Reviewed in detail with Dr. Nito Morin DNR PCP DVT prophy- mechanical/ambulation DISPO- > 48 hrs because of severity of multiple issues. HOMELESS- has a med bed at [facility], ? other options for her- discussed with Deann ALVARENGA Subjective: Says feeling pretty well. Denies n/v/d, and says pain OK currently. Objective: Vital Signs Temp Pulse Resp BP Pulse Ox 97.5 F 81 17 130/80 H 96 10/25/17 15:50 10/25/17 15:50 10/25/17 15:50 10/25/17 15:50 10/25/17 15:50 Laboratory Results 10/25/17 04:30 10/25/17 04:30 10/24/17 10/25/17 10/26/17 11:59 11:59 11:59 Intake Total 1300 1466 Balance 1300 1466 - Time Spent With Patient Time Spent With Patient: 35 - Pending Discharge Pending Discharge Within 48 Hours: No Physical Exam - Physical Exam General Appearance: WD/WN, alert, no apparent distress Respiratory: lungs clear, normal breath sounds, No respiratory distress Cardiac/Chest: regular rate, rhythm, No systolic murmur Abdomen: normal bowel sounds, non-tender, soft Neuro/Psych: alert, normal mood/affect, No cognition abnormalities, No speech abnormalities ICD10 Worksheet Patient Problems: Problems Problem Status Onset Anemia Acute Chest pain Acute Fever Acute Palliative care encounter Acute Thrombocytopenia Acute Vomiting Acute Anal squamous cell carcinoma Chronic 12/10/14 Poor dentition Chronic
[2017-10-26] MEDS: ACETAMINOPHEN 325 MG TAB PO PRN ×2 (05:28→17:35)
[2017-10-26] MEDS: CAFFEINE 200 MG PO SCH ×2 (05:28→17:35)
[2017-10-26 05:41] LABS: FRAGMENT RBC FLAG 0 (0-99); HEMATOCRIT 23.7 % (38.0-47.0); HEMOGLOBIN 8.3 g/dL (12.6-16.3); LEFT SHIFT FLG 50 (0-99); LIPEMIA HEMOLYSIS FLAG 90 (0-99); MEAN CELL HEMOGLOBIN 34.9 pg (27.9-34.1); MEAN CELL VOLUME 99.6 fL (81.5-99.8); MEAN PLATELET VOLUME 11.3 fL (8.7-11.7); PLATELET CLUMPS FLAG 10 (0-99); RED BLOOD CELL COUNT 2.38 10^6/uL (4.18-5.33)
[2017-10-26 05:45] LABS: ATYPICAL LYMPHOCYTE FLAG 100 (0-99); RED CELL DISTRIBUTION WIDTH 23.2 % (11.5-15.2)
[2017-10-26 05:49] LABS: ADD DIFF? YES; ADD MORPH? NO; ADD SCAN? NO; PLATELET COUNT 11 10^3/uL (150-400)
[2017-10-26 06:06] LABS: ALANINE AMINOTRANSFERASE 38 IU/L (9-52); ALBUMIN 3.3 g/dL (3.5-5.0); ALKALINE PHOSPHATASE 74 IU/L (38-126); ANION GAP 10 mEq/L (8-16); ASPARTATE AMINOTRANSFERASE 23 IU/L (14-46); BILIRUBIN,TOTAL 0.6 mg/dL (0.1-1.4); CALCIUM 9.1 mg/dL (8.5-10.4); CARBON DIOXIDE 19 mEq/l (22-31); CHLORIDE 110 mEq/L (97-110); CREATININE 0.9 mg/dL (0.6-1.0); GLOMERULAR FILTRATION RATE > 60; GLUCOSE 103 mg/dL (70-100); SODIUM 139 mEq/L (134-144); TOTAL PROTEIN 6.5 g/dL (6.3-8.2)
[2017-10-26 06:38] LABS: PLATELET ESTIMATE DECREASED (ADEQ)
[2017-10-26] MEDS: cycloSPORINE 25 MG CAP PO SCH ×2 (10:10→21:23)
[2017-10-26] MEDS: cycloSPORINE 100 MG CAP PO SCH ×2 (10:10→21:23)
[2017-10-26] MEDS: HYDROCORTISONE 2.5% 30 GM CRTUBE TP SCH ×2 (10:12→22:06)
--- NOTE | 2017-10-26 12:10 | SOAPPROG ---
SRIDHAR Progress Note Assessment/Plan: Assessment: - Aplastic anemia - starting on ATG/cyclosporine/Prednisone/promacta. Has PICC in E. No reaction to ATG yesterday. Will get day 4 today. - Severe thrombocytopenia - plts 11k. will get txn tomorrow - Anemia - Hgb 8.3. - Squamous cell CA anus - metastatic - under fairly good control at the moment. Treatment on hold with nivolumab for the moment Plan: - ATG day 4 of 4 today. Will continue benadryl/pepcid to premed regimen - Prednisone 60mg/day x 14 days then taper over 2 weeks. Day 4 of 14 is [id number] - Promacta when available (outpatient) - Cyclosporine - start at 250mg PO BID. monitor levels. I sent prescriptions to Mikel from [facility]. Check level late next week. - She will need to follow up on Tuesdays and Fridays in the office. She should have appointments Subjective: No reactions. No complaints Objective: Vital Signs Temp Pulse Resp BP Pulse Ox 36.5 C 60 16 124/76 H 98 10/26/17 11:30 10/26/17 11:30 10/26/17 11:30 10/26/17 11:30 10/26/17 11:30 Laboratory Results 10/26/17 05:37 10/26/17 05:37 10/24/17 10/25/17 10/26/17 23:59 23:59 23:59 Intake Total 1316 2280 700 Balance 1316 2280 700 Physical Exam - Physical Exam General Appearance: alert, no apparent distress Respiratory: lungs clear, No crackles, No rales, No rhonchi, No wheezing Cardiac/Chest: regular rate, rhythm Abdomen: normal bowel sounds, non-tender, soft Skin: warm/dry, other (face slightly flushed) Extremities: No pedal edema Neuro/Psych: alert, normal mood/affect, oriented x 3, No depressed affect ICD10 Worksheet Patient Problems: Problems Problem Status Onset Anemia Acute Chest pain Acute Fever Acute Palliative care encounter Acute Thrombocytopenia Acute Vomiting Acute Anal squamous cell carcinoma Chronic 12/10/14 Poor dentition Chronic
[2017-10-26] MEDS: ACETAMINOPHEN 325 MG TAB PO SCH (13:09)
[2017-10-26] MEDS: diphenhydrAMINE 25 MG CAP PO SCH (13:10)
[2017-10-26] MEDS: predniSONE 20 MG TAB PO SCH (13:10)
[2017-10-26] MEDS: FAMOTIDINE 20 MG/NACL 50 ML IV SCH (13:11)
[2017-10-26] MEDS: SODIUM CHLORIDE IV SCH (13:56)
[2017-10-26] MEDS: [UNRECOGNIZED DRUG - OTHER] IV SCH (13:56)
--- NOTE | 2017-10-26 15:40 | SOAPPROG ---
SOAP Progress Note Assessment/Plan: 1-aplastic anemia, with prior long-standing iron deficiency anemia and anemia of malignancy -transfusion dependent, PRBC given yesterday -infusions of antithymocyte globulin with cyclosporine -discussed care plan with Dr Morin -cyclosporine Rx sent in by Dr Morin 2- antithymocyte globulin reaction, with hypotension, hives, nausea vomiting -responded well to histamine blockers and steroid -no further reactions since first 3. chronic labia wound -ongoing wound care 4. metastatic anal carcinoma 5. prior history of DVT of arm, high risk of DVT - mechanical prophylaxis and ambulation for DVT prophylaxis as meds contraindicated with severe thrombocytopenia 6. chronic moderate protein calorie malnutrition -nutrition supplements/encourage PO 7. severe thrombocytopenia -transfused plts yesterday Reviewed in detail with Dr. Nito Morin DNR PCP- People's DVT prophy- mechanical/ambulation DISPO- possible dc in AM, HOMELESS- has a med bed at [facility], ? other options for her- discussed with Deann ALVARENGA Subjective: Feels pretty well. No n/v/d/pain. Objective: Vital Signs Temp Pulse Resp BP Pulse Ox 97.7 F 60 16 124/76 H 98 10/26/17 11:30 10/26/17 11:30 10/26/17 11:30 10/26/17 11:30 10/26/17 11:30 Laboratory Results 10/26/17 05:37 10/26/17 05:37 10/25/17 10/26/17 10/27/17 11:59 11:59 11:59 Intake Total 1466 2630 Balance 1466 2630 - Time Spent With Patient Time Spent With Patient: 20 - Pending Discharge Pending Discharge Within 48 Hours: Yes Pending Discharge Date: 10/29/17 Pending Discharge Time: 11:00 Physical Exam - Physical Exam General Appearance: WD/WN, alert, no apparent distress Respiratory: chest non-tender, lungs clear, normal breath sounds Cardiac/Chest: normal peripheral pulses, regular rate, rhythm, No edema Abdomen: normal bowel sounds, non-tender, soft Skin: warm/dry Neuro/Psych: alert, normal mood/affect, oriented x 3, No cognition abnormalities ICD10 Worksheet Patient Problems: Problems Problem Status Onset Anemia Acute Chest pain Acute Fever Acute Palliative care encounter Acute Thrombocytopenia Acute Vomiting Acute Anal squamous cell carcinoma Chronic 12/10/14 Poor dentition Chronic
--- NOTE | 2017-10-26 16:38 | ASMTCMCOM ---
CM Note CM Note Notes: Pt will be ready for DC tomorrow. The cyclosporin she will need at DC is not available through [facility] or any in the entire [place]. Naomi Rider approved the $120 it would cost to be paid by the [employer] program. Date Signed: 10/26/2017 04:38 PM Electronically Signed By:Deann Mon LCSW
[2017-10-26] MEDS: diphenhydrAMINE 25 MG CAP PO PRN (21:23)
[2017-10-27 06:16] LABS: % IMMATURE GRANULYOCYTES 0.7 % (0.0-1.1); ABSOLUTE IMMATURE GRANULOCYTES 0.02 10^3/uL (0.00-0.10); ABSOLUTE NRBC COUNT 0.02 10^3/uL (0-0.01); ADD DIFF? NO; ADD MORPH? YES; ADD SCAN? NO; ATYPICAL LYMPHOCYTE FLAG 70 (0-99); FRAGMENT RBC FLAG 0 (0-99); HEMATOCRIT 23.3 % (38.0-47.0); HEMOGLOBIN 8.1 g/dL (12.6-16.3); LEFT SHIFT FLG 10 (0-99); LIPEMIA HEMOLYSIS FLAG 90 (0-99); MEAN CELL HEMOGLOBIN 34.8 pg (27.9-34.1); MEAN CELL HEMOGLOBIN CONCENTR. 34.8 g/dL (32.4-36.7); NRBC-AUTO% 0.7 % (0.0-0.2); PLATELET CLUMPS FLAG 10 (0-99); RED BLOOD CELL COUNT 2.33 10^6/uL (4.18-5.33)
[2017-10-27 06:17] LABS: RED CELL DISTRIBUTION WIDTH 23.2 % (11.5-15.2)
[2017-10-27 06:19] LABS: PLATELET COUNT 4 10^3/uL (150-400)
[2017-10-27 06:26] LABS: ALANINE AMINOTRANSFERASE 41 IU/L (9-52); ALBUMIN 3.1 g/dL (3.5-5.0); ALKALINE PHOSPHATASE 74 IU/L (38-126); ANION GAP 10 mEq/L (8-16); ASPARTATE AMINOTRANSFERASE 25 IU/L (14-46); BILIRUBIN,TOTAL 0.7 mg/dL (0.1-1.4); CALCIUM 8.9 mg/dL (8.5-10.4); CARBON DIOXIDE 22 mEq/l (22-31); CHLORIDE 108 mEq/L (97-110); CREATININE 0.9 mg/dL (0.6-1.0); GLOMERULAR FILTRATION RATE > 60; GLUCOSE 84 mg/dL (70-100); POTASSIUM 4.6 mEq/L (3.5-5.2); SODIUM 140 mEq/L (134-144); TOTAL PROTEIN 6.5 g/dL (6.3-8.2)
[2017-10-27 06:34] LABS: MICROCYTES 2+
[2017-10-27 06:35] LABS: HYPOCHROMIA 1+; MACROCYTES 1+; PLATELET ESTIMATE DECREASED (ADEQ); POLYCHROMASIA 1+; SCHISTOCYTES 1+
[2017-10-27] MEDS: ACETAMINOPHEN 325 MG TAB PO PRN (07:21)
[2017-10-27] MEDS: CAFFEINE 200 MG PO SCH ×2 (07:21→20:31)
[2017-10-27] MEDS: cycloSPORINE 100 MG CAP PO SCH ×2 (09:17→20:31)
[2017-10-27] MEDS: cycloSPORINE 25 MG CAP PO SCH ×2 (09:17→20:31)
[2017-10-27] MEDS: diphenhydrAMINE 25 MG CAP PO PRN ×2 (09:17→20:30)
[2017-10-27] MEDS: HYDROCORTISONE 2.5% 30 GM CRTUBE TP SCH ×2 (10:14→20:30)
--- NOTE | 2017-10-27 12:27 | SOAPPROG ---
SRIDHAR Progress Note Assessment/Plan: Assessment: 1. Anal carcinoma, metastatic, apparent CR after nivolumab 2. Aplastic anemic - possibly due to nivolumab. s/p ATG. Plan: - plt transfusion today - OK for d/c this evening with f/u at [facility] on 10/30. - will need to stay on steroids (x 2 weeks to prevent serum sickness) and cyclosporine 200 mg BID. Promacta will be added when we can obtain it. - pt understands to call for bleeding, fever 10/27/17 12:25 10/27/17 12:26 10/27/17 12:27 Subjective: feels well. Objective: exam: NAD no stigmata of bleeding Vital Signs Temp Pulse Resp BP Pulse Ox 36.6 C 78 16 124/80 H 100 10/27/17 09:15 10/27/17 09:15 10/27/17 09:15 10/27/17 09:15 10/27/17 09:15 Laboratory Results 10/27/17 06:00 10/27/17 06:00 10/26/17 10/27/17 10/28/17 05:59 05:59 05:59 Intake Total 2630 Balance 2630 ICD10 Worksheet Patient Problems: Problems Problem Status Onset Anemia Acute Chest pain Acute Fever Acute Palliative care encounter Acute Thrombocytopenia Acute Vomiting Acute Anal squamous cell carcinoma Chronic 12/10/14 Poor dentition Chronic
[2017-10-27] MEDS: predniSONE 20 MG TAB PO SCH (13:55)
[2017-10-27 14:32] LABS: PLATELET ESTIMATE DECREASED (ADEQ)
[2017-10-27 14:33] LABS: PLATELET COUNT 23 10^3/uL (150-400)
--- NOTE | 2017-10-27 17:43 | HOSPPROG ---
Hospitalist Progress Note Assessment/Plan: 62 yo F with hx of anal cancer and aplastic anemia admitted for management including antithymocyte globulin therapy # aplastic anemia: has been transfusion dependent, transfused plts and prbcs, thought to be 2/2 treatment for her anal cancer--nivolumab versus radiation. Plan is for continued ATG, cyclosporine, prednisone and promacta. # metastatic anal cancer: appears to have had a good response to treatment, has been intermittently lost to f/u as an OP, oncology will continue to follow # chronic labial wound: continue wound care # hx of DVT: high risk for recurrent DVT however given ongoing low plts/anemia, not safe for AC. Will continue SCDs/ambulation # moderate protein calorie malnutrition: dietary consultation # DNR # IP status, will likely be ready for dc in am if counts relatively stable and feeling ok Patient new to my care. Old records reviewed and summarized as above. Care plan reviewed with oncology/cm. Subjective: no significant overnight events, patient feeling a bit nauseous and tired today, worse than yesterday Objective: Vital Signs Temp Pulse Resp BP Pulse Ox 36.7 C 74 16 146/80 H 95 10/27/17 17:15 10/27/17 17:15 10/27/17 17:15 10/27/17 17:15 10/27/17 17:15 Laboratory Results 10/27/17 13:56 10/27/17 06:00 10/26/17 10/27/17 10/28/17 05:59 05:59 05:59 Intake Total 2630 100 Balance 2630 100 awake alert nad anicteric op clear rrr no mrg cta b soft nt nd no cce warm dry well perfused oriented appropriate ICD10 Worksheet Patient Problems: Problems Problem Status Onset Anal squamous cell carcinoma Chronic 12/10/14 Fever Acute Poor dentition Chronic Chest pain Acute Anemia Acute Thrombocytopenia Acute Palliative care encounter Acute Vomiting Acute
[2017-10-28 05:05] LABS: % IMMATURE GRANULYOCYTES 0.7 % (0.0-1.1); ABSOLUTE IMMATURE GRANULOCYTES 0.02 10^3/uL (0.00-0.10); ADD DIFF? NO; ADD MORPH? YES; ADD SCAN? NO; ATYPICAL LYMPHOCYTE FLAG 60 (0-99); FRAGMENT RBC FLAG 0 (0-99); HEMATOCRIT 24.6 % (38.0-47.0); HEMOGLOBIN 8.4 g/dL (12.6-16.3); LEFT SHIFT FLG 10 (0-99); LIPEMIA HEMOLYSIS FLAG 90 (0-99); MEAN CELL HEMOGLOBIN 34.4 pg (27.9-34.1); MEAN CELL HEMOGLOBIN CONCENTR. 34.1 g/dL (32.4-36.7); MEAN CELL VOLUME 100.8 fL (81.5-99.8); MEAN PLATELET VOLUME 9.1 fL (8.7-11.7); PLATELET CLUMPS FLAG 0 (0-99); RED BLOOD CELL COUNT 2.44 10^6/uL (4.18-5.33)
[2017-10-28 05:07] LABS: RED CELL DISTRIBUTION WIDTH 22.7 % (11.5-15.2)
[2017-10-28 05:09] LABS: PLATELET COUNT 17 10^3/uL (150-400)
[2017-10-28 05:25] LABS: ALANINE AMINOTRANSFERASE 110 IU/L (9-52); ALBUMIN 3.1 g/dL (3.5-5.0); ALKALINE PHOSPHATASE 70 IU/L (38-126); ANION GAP 9 mEq/L (8-16); ASPARTATE AMINOTRANSFERASE 55 IU/L (14-46); CALCIUM 9.2 mg/dL (8.5-10.4); CARBON DIOXIDE 25 mEq/l (22-31); CHLORIDE 106 mEq/L (97-110); CREATININE 0.9 mg/dL (0.6-1.0); GLOMERULAR FILTRATION RATE > 60; GLUCOSE 85 mg/dL (70-100); POTASSIUM 4.8 mEq/L (3.5-5.2); SODIUM 140 mEq/L (134-144); TOTAL PROTEIN 6.5 g/dL (6.3-8.2)
[2017-10-28 05:39] LABS: MACROCYTES 2+; MICROCYTES 1+; PLATELET ESTIMATE DECREASED (ADEQ)
[2017-10-28] MEDS: CAFFEINE 200 MG PO SCH ×2 (06:01→20:11)
[2017-10-28] MEDS: ACETAMINOPHEN 325 MG TAB PO PRN (06:01)
[2017-10-28] MEDS: cycloSPORINE 100 MG CAP PO SCH ×2 (08:15→20:09)
[2017-10-28] MEDS: cycloSPORINE 25 MG CAP PO SCH ×2 (08:15→20:08)
[2017-10-28] MEDS: HYDROCORTISONE 2.5% 30 GM CRTUBE TP SCH ×2 (08:22→20:11)
--- NOTE | 2017-10-28 11:57 | SOAPPROG ---
SOAP Progress Note Assessment/Plan: Assessment: 1.) Aplastic Anemia - ATG/Cyclosporine/Promacta- to start as outpt later this week. Suspect she will need transfusion in next 24-48 hours.2.) 2.) Anal Carcinoma, Tx with Nivolumab. Stable by sx. 3.) Pancytopenia- see above. Bleeding risk and sepsis risk recognized. 4.) Elevation of AST/ALT. To follow . This could be medication related changes. Plan: See above information. Monitor for bleeding/sepsis/infectious complications of condition/tx. 10/28/17 11:57 Subjective: Tolerated transfusion well, and reports no active bleeding No emesis, bleeding fever. Objective: VSS, afebrile, HEENT- anicteric, no oral lesions Neck- supple Chest- clear CVS- RSR, no extra HS ABD- soft, NT no mass or HSM EXT- skin intact, without petechiae, or ecchymoses Labs as noted here: Hgb 8.4, PLT 17, WBC 2.77 BUN/Cr 34/0.9, AST/ALT 55/ 110 Vital Signs Temp Pulse Resp BP Pulse Ox 36.4 C 81 16 142/90 H 98 10/28/17 08:55 10/28/17 08:55 10/28/17 08:55 10/28/17 08:55 10/28/17 08:55 Laboratory Results 10/28/17 04:50 10/28/17 04:50 10/27/17 10/28/17 10/29/17 05:59 05:59 05:59 Intake Total 100 Balance 100 ICD10 Worksheet Patient Problems: Problems Problem Status Onset Anemia Acute Chest pain Acute Fever Acute Palliative care encounter Acute Thrombocytopenia Acute Vomiting Acute Anal squamous cell carcinoma Chronic 12/10/14 Poor dentition Chronic
[2017-10-28] MEDS: predniSONE 20 MG TAB PO SCH (13:28)
--- NOTE | 2017-10-28 14:27 | HOSPPROG ---
Hospitalist Progress Note Assessment/Plan: 62 yo F with hx of anal cancer and aplastic anemia admitted for management including antithymocyte globulin therapy # aplastic anemia: has been transfusion dependent, transfused plts and prbcs, thought to be 2/2 treatment for her anal cancer--nivolumab versus radiation. Plan is for continued ATG, cyclosporine, prednisone and promacta. Counts have been stable overnight. # metastatic anal cancer: appears to have had a good response to treatment, has been intermittently lost to f/u as an OP, oncology will continue to follow # chronic labial wound: continue wound care, stable # hx of DVT: high risk for recurrent DVT however given ongoing low plts/anemia, not safe for AC. Will continue SCDs/ambulation # moderate protein calorie malnutrition: dietary consultation # DNR # IP status, ready for dc likely in am, will monitor cbc overnight Care plan reviewed with oncology/cm. Subjective: no significant overnight events, patient is having less abdominal pain today, no nauseous Objective: Vital Signs Temp Pulse Resp BP Pulse Ox 36.4 C 81 16 142/90 H 98 10/28/17 08:55 10/28/17 08:55 10/28/17 08:55 10/28/17 08:55 10/28/17 08:55 Laboratory Results 10/28/17 04:50 10/28/17 04:50 10/27/17 10/28/17 10/29/17 05:59 05:59 05:59 Intake Total 100 Balance 100 awake alert nad anicteric op clear rrr no mrg cta b soft nt nd no cce warm dry well perfused oriented appropriate ICD10 Worksheet Patient Problems: Problems Problem Status Onset Anemia Acute Chest pain Acute Fever Acute Palliative care encounter Acute Thrombocytopenia Acute Vomiting Acute Anal squamous cell carcinoma Chronic 12/10/14 Poor dentition Chronic
--- NOTE | 2017-10-28 15:38 | ASMTCMCOM ---
CM Note CM Note Notes: Chart reviewed. Patient likely to discharge tomorrow. Med to be mapped tomorrow. Authorized by Naomi Rider. She will discharge to the senior care where she has a reserved bed. She will need a bus token at discharge. CM to follow. Date Signed: 10/28/2017 03:38 PM Electronically Signed By:Maryanne Chaudhari RN
[2017-10-29] MEDS ORDERED: cycloSPORINE 100 MG CAP PO SCH
[2017-10-29] MEDS ORDERED: cycloSPORINE 25 MG CAP PO SCH
[2017-10-29] MEDS: ACETAMINOPHEN 325 MG TAB PO PRN ×2 (06:01→10:45)
[2017-10-29] MEDS: CAFFEINE 200 MG PO SCH (06:02)
[2017-10-29 06:08] LABS: % IMMATURE GRANULYOCYTES 0.8 % (0.0-1.1); ABSOLUTE IMMATURE GRANULOCYTES 0.02 10^3/uL (0.00-0.10); ADD DIFF? NO; ADD MORPH? YES; ADD SCAN? NO; ATYPICAL LYMPHOCYTE FLAG 60 (0-99); FRAGMENT RBC FLAG 0 (0-99); HEMATOCRIT 24.6 % (38.0-47.0); HEMOGLOBIN 8.5 g/dL (12.6-16.3); LEFT SHIFT FLG 10 (0-99); LIPEMIA HEMOLYSIS FLAG 90 (0-99); MEAN CELL HEMOGLOBIN 34.3 pg (27.9-34.1); MEAN CELL HEMOGLOBIN CONCENTR. 34.6 g/dL (32.4-36.7); MEAN CELL VOLUME 99.2 fL (81.5-99.8); MEAN PLATELET VOLUME 11.8 fL (8.7-11.7); PLATELET CLUMPS FLAG 0 (0-99); RED BLOOD CELL COUNT 2.48 10^6/uL (4.18-5.33)
[2017-10-29 06:15] LABS: RED CELL DISTRIBUTION WIDTH 21.5 % (11.5-15.2)
[2017-10-29 06:17] LABS: ALANINE AMINOTRANSFERASE 97 IU/L (9-52); ALBUMIN 3.1 g/dL (3.5-5.0); ALKALINE PHOSPHATASE 79 IU/L (38-126); ANION GAP 10 mEq/L (8-16); ASPARTATE AMINOTRANSFERASE 28 IU/L (14-46); BILIRUBIN,TOTAL 0.6 mg/dL (0.1-1.4); CALCIUM 9.1 mg/dL (8.5-10.4); CARBON DIOXIDE 22 mEq/l (22-31); CHLORIDE 106 mEq/L (97-110); CREATININE 0.8 mg/dL (0.6-1.0); GLOMERULAR FILTRATION RATE > 60; GLUCOSE 98 mg/dL (70-100); PLATELET COUNT 10 10^3/uL (150-400); SODIUM 138 mEq/L (134-144); TOTAL PROTEIN 6.1 g/dL (6.3-8.2)
[2017-10-29 06:50] LABS: MACROCYTES 2+; MICROCYTES 1+; PLATELET ESTIMATE DECREASED (ADEQ); POLYCHROMASIA 1+
[2017-10-29] MEDS: cycloSPORINE 25 MG CAP PO SCH (07:53)
[2017-10-29] MEDS: cycloSPORINE 100 MG CAP PO SCH (07:53)
[2017-10-29] MEDS: HYDROCORTISONE 2.5% 30 GM CRTUBE TP SCH (07:58)
--- NOTE | 2017-10-29 10:47 | SOAPPROG ---
SOAP Progress Note Assessment/Plan: Assessment: 1.) Aplastic Anemia - ATG/Cyclosporine/Promacta- to start as outpt later this week. Pt to receive transfusion of platelets today. 2.) Anal Carcinoma, Tx with Nivolumab. Stable by sx. 3.) Pancytopenia- see above. Bleeding risk and sepsis risk recognized. 4.) Elevation of AST/ALT. To follow . This could be medication related changes. Plan: Monitor for bleeding/sepsis/infectious complications of condition/tx. Discharge this afternoon. Pt has housing at [facility] this evening. Has appt. with [facility] for early this week. Has transportation for discharge today and for first appt. at [facility] office this week also. 10/29/17 10:48 Subjective: Had quiet night and has no new sx. No GI sx. and no fever/bleeding. Objective: VSS, afebrile HEENT- anicteric, no oral lesions Neck- supple Chest- clear CVS- RSR, no extra HS ABD- soft, NT no mass or HSM EXT- thin, no ecchymoses or petechiae. Labs as noted here: PLT 10, WBC 2.52, Hgb 8.5 Vital Signs Temp Pulse Resp BP Pulse Ox 36.6 C 71 16 136/84 H 97 10/29/17 08:50 10/29/17 08:50 10/29/17 08:50 10/29/17 08:50 10/29/17 08:50 Laboratory Results 10/29/17 05:55 10/29/17 05:55 10/28/17 10/29/17 10/30/17 05:59 05:59 05:59 Intake Total 100 950 Balance 100 950 ICD10 Worksheet Patient Problems: Problems Problem Status Onset Anemia Acute Chest pain Acute Fever Acute Palliative care encounter Acute Thrombocytopenia Acute Vomiting Acute Anal squamous cell carcinoma Chronic 12/10/14 Poor dentition Chronic
[2017-10-29 11:36] VITALS: BP 140/86; PULSE 8; RESP 18; TEMP 97.7; O2SAT 98
[2017-10-29] MEDS: predniSONE 20 MG TAB PO SCH (13:12)
--- NOTE | 2017-10-29 14:40 | PDDCSUM ---
Discharge Summary Discharge Summary: Dates of service 10/22-10/29/17 Consultations: oncology Procedures: antithymocyte globulin infusion Hospital course by problem: 62 yo F with hx of anal cancer and aplastic anemia admitted for management including antithymocyte globulin therapy # aplastic anemia: has been transfusion dependent, transfused plts and prbcs, thought to be 2/2 treatment for her anal cancer--nivolumab versus radiation. Plan is for continued ATG, cyclosporine, prednisone and promacta. Counts have been stable overnight. # metastatic anal cancer: appears to have had a good response to treatment, has been intermittently lost to f/u as an OP, oncology will continue to follow # chronic labial wound: continue wound care, stable # hx of DVT: high risk for recurrent DVT however given ongoing low plts/anemia, not safe for AC. Ambulation. # moderate protein calorie malnutrition: dietary consultation # DNR DC home f/u with oncology as scheduled > 35 min spent with patient, more than half in coordination of care
--- NOTE | 2017-10-30 16:10 | ASDISCHSUM ---
Discharge Information Plan Status:Home with No Needs Medically Cleared to Leave:10/28/2017 Discharge Date:10/29/2017 04:55 PM CM D/C Disposition:Home, Routine, Self-Care ADT D/C Disposition:Home, Routine, Self-Care Projected Discharge Date:10/29/2017 03:00 PM Transportation at D/C: Discharge Delay Reason: Follow-Up Date:10/29/2017 03:00 PM Discharge Slot: Final Diagnosis:Anemia, Met Anal CA, Chronic labial wound Placement Information Patient Contact Information Contact Name:MARTHA Relationship:Friend Address: Work Phone: City: [facility] Phone: State/[place] Code: Email: Financial Information Financial Class: Primary Plan Desc:[employer] [place] Primary Plan Number:[id number] Secondary Plan Desc: Secondary Plan Number: Assessment Information [facility] CM Progress Note CM Note CM Note Notes: Pt admitted with severe thrombocytopenia. PICC placed. Hx met anal CA, homelessness, long term stays, monthly bus pass. Followed by Dr Morin last visit. CM will follow for any d/c needs. Date Signed: 10/23/2017 04:45 PM Electronically Signed By:MITCH Ocampo [facility] CM Progress Note CM Note CM Note Notes: Today is day 3 of 4 for ATG. Met with pt who is under the impression she will need to be at [facility] a week longer. Asked pt's RN Ankush to clear up any confusion. Pt stays at the homeless long term. C/M to follow. Date Signed: 10/25/2017 03:34 PM Electronically Signed By:Deann McCorrison, INFECTIOUS WASTE TECHNICIAN [facility] CM Progress Note CM Note CM Note Notes: Pt will be ready for DC tomorrow. The cyclosporin she will need at DC is not available through [employer] or any in the entire . Naomi Rider approved the $120 it would cost to be paid by the [employer] program. Date Signed: 10/26/2017 04:38 PM Electronically Signed By:Deann Mon LCSW [facility] CM Progress Note CM Note CM Note Notes: Chart reviewed. Patient likely to discharge tomorrow. Med to be mapped tomorrow. Authorized by Naomi Rider. She will discharge to the long term where she has a reserved bed. She will need a bus token at discharge. CM to follow. Date Signed: 10/28/2017 03:38 PM Electronically Signed By:Maryanne Chaudhari RN Case Management Discharge Plan Note Case Management Discharge Discharge Order Complete? Answers: Yes Patient to Obtain Answers: Independently Medications Transportation Arranged Answers: Bus Tokens Transport will Pick (Date 10/29/2017 03:00 PM & Time) Discharge Comments Notes: Patient discharged, [facility] and bus token given to patient for transport. Date Signed: 10/30/2017 04:10 PM Electronically Signed By:Cecile Calle LCSW Intervention Information
== END 2017-10-29 16:55 | disposition home or self-care (01) | DRG 809 ==
LOC: F1NOP 11:47 → F1N 12:05
PROVIDERS: ADMIT Internal Medicine; ATTEND Internal Medicine
PROC: 30243K1 Transfusion of Nonautologous Frozen Plasma into Central Vein, Percutaneous Approach (ICD-10-PCS; principal; 2017-10-22)
PROC: 02HV33Z Insertion of Infusion Device into Superior Vena Cava, Percutaneous Approach (ICD-10-PCS; principal; 2017-10-22)
PROC: 30243R1 Transfusion of Nonautologous Platelets into Central Vein, Percutaneous Approach (ICD-10-PCS; 2017-10-22)
PROC: 30243S1 Transfusion of Nonautologous Globulin into Central Vein, Percutaneous Approach (ICD-10-PCS; 2017-10-22)
PROC: 30243N1 Transfusion of Nonautologous Red Blood Cells into Central Vein, Percutaneous Approach (ICD-10-PCS; 2017-10-25)
DX: D61.1 Drug-induced aplastic anemia (principal); T45.1X5A Adverse effect of antineoplastic and immunosuppressive drugs, initial encounter; D69.6 Thrombocytopenia, unspecified; C79.82 Secondary malignant neoplasm of genital organs; Z85.048 Personal history of other malignant neoplasm of rectum, rectosigmoid junction, and anus; E44.0 Moderate protein-calorie malnutrition; I10 Essential (primary) hypertension; Z86.718 Personal history of other venous thrombosis and embolism; Z59.0 Homelessness
CPT/HCPCS: C1751; C1769; J1200; J2405; J7502; J7504; P9016; P9035; P9037; Q9988

== ENCOUNTER → 2017-11-06 | Outpatient (CLI) | payer MEDICAID ==
[~2017-11-06] MED LIST: ACETAMINOPHEN 325 MG TAB PO ONE; diphenhydrAMINE 25 MG CAP PO ONE
== END ==
LOC: FOBOP 16:10
PROVIDERS: ATTEND Nurse Practitioner
PROC: 30233R1 Transfusion of Nonautologous Platelets into Peripheral Vein, Percutaneous Approach (ICD-10-PCS; principal; 2017-11-06)
DX: D61.9 Aplastic anemia, unspecified (principal); D69.6 Thrombocytopenia, unspecified
CPT/HCPCS: P9035

== ENCOUNTER → 2017-11-09 | Outpatient (CLI) | payer MEDICAID ==
[2017-11-09 16:07] VITALS: BP 135/77; PULSE 68; RESP 20; TEMP 98.3; O2SAT 97
== END ==
LOC: FOBOP 14:53
PROVIDERS: ATTEND Internal Medicine Hematology & Oncology
PROC: 30233N1 Transfusion of Nonautologous Red Blood Cells into Peripheral Vein, Percutaneous Approach (ICD-10-PCS; principal; 2017-11-09)
PROC: 30233R1 Transfusion of Nonautologous Platelets into Peripheral Vein, Percutaneous Approach (ICD-10-PCS; principal; 2017-11-09)
DX: D61.9 Aplastic anemia, unspecified (principal)
CPT/HCPCS: 36430; P9016; P9035

== ENCOUNTER 2017-11-10 07:56 | Inpatient (IN) | payer MEDICAID ==
--- NOTE | 2017-11-10 08:01 | EDPHY ---
H & P Time Seen by Provider: 11/10/17 08:01 HPI/ROS: CHIEF COMPLAINT: Nausea and vomiting for the last 12 hr, and coughing HISTORY OF PRESENT ILLNESS: Patient has metastatic anal cancer get transfused regularly. She is homeless and got transfused yesterday red blood cells and platelets. She has some chest congestion since Sunday and then days ago she started coughing and has paroxysmal intermittent coughing fits which resolved with nausea and vomiting. Coughing she states is associated with severe fatigue and nausea and vomiting but not with bright red blood in the vomit or melena or hemoptysis. No leg swelling. She told as that she wants to be admitted because she "can not stand the cold anymore. " REVIEW OF SYSTEMS: Eye: no change in vision ENT: no sore throat Cardiac: no chest pain or syncope Pulmonary: HPI Abdomen: No abdominal pain but chronic rectal bleeding from her metastatic anal cancer. Musculoskeletal: no back pain Skin: no rash Neuro: Mild headache Constitutional: no fever : no urinary symptoms A comprehensive 10 point review of systems is otherwise negative aside from elements mentioned in the history of present illness. PAST MEDICAL HISTORY: Metastatic anal cancer with anemia, upper extremity DVT, migraines, hypertension Social history: Cigarette smoker, homeless General Appearance: Alert and conversant, cooperative. Eyes: No scleral icterus. ENT, Mouth: Normal mucous membranes. Left lower lip sore scab on it, otherwise fix is normal. Respiratory: Patient bilateral wheezing but speaks in full sentences. Diffuse rhonchi. Cardiovascular: Regular rate and rhythm. Gastrointestinal: Abdomen is soft and non tender. Neurological: Alert, face symmetric, normal motor and sensory in extremities. Skin: Warm and dry, no rashes. Musculoskeletal: No peripheral edema. No calf tenderness. Psychiatric: Not agitated. Emergency Department course/MDM: Vital signs reviewed. DuoNeb and albuterol nebulizer. Chest x-ray and CBC and chemistries. Low suspicion for CHF or pneumothorax or acute coronary syndrome or pulmonary embolism, on abdominal exam, vomiting seems likely by history and clinical picture due to paroxysmal coughing fits. 827: WBC 1.05 with 46.7% neutrophils, gives ANC of 469. 835: Lingular infiltrate on Chest Xray, personally interpreted and reviewed with Dr. Rosario from Radiology Admission with broad-spectrum antibiotics for homeless cancer patient with pneumonia and neutropenia. She says she has a penicillin allergy but is received cephalosporins before, will treat IV meropenem for pulmonary infection in an immunocompromised patient. 912: Fluid positive, Tamiflu 75 mg orally ordered Smoking Status: Current every day smoker Constitutional: Initial Vital Signs Temperature (C) 36.8 C 11/10/17 07:56 Heart Rate 97 11/10/17 07:56 Respiratory Rate 20 11/10/17 07:56 Blood Pressure 138/90 H 11/10/17 07:56 O2 Sat (%) 91 L 11/10/17 07:56 O2 Delivery Mode Room Air Allergies/Adverse Reactions: Penicillins Allergy (Severe, Verified 11/10/17 08:11) Hives adhesive tape Allergy (Verified 11/10/17 08:11) aspirin Allergy (Verified 11/10/17 08:11) codeine Allergy (Verified 11/10/17 08:11) Other-Enter Comments ibuprofen Allergy (Verified 11/10/17 08:11) adhesive Allergy (Uncoded 10/22/17 15:35) Home Medications: Medication Instructions Recorded Acetaminophen [Tylenol ES 500 mg 1,000 mg PO BID 11/17/16 (*)] Herbals/Supplements -Info Only 1 ea PO DAILY 09/03/17 Hydrocortisone 1% [Hydrocortisone 1 radha TP DAILY PRN #30 cream 10/04/17 1% cream (*)] Caffeine [Stay Awake] 200 mg PO BID 10/22/17 Calcium Carbonate [Tums 500MG (*)] 500 mg PO DAILY PRN 10/22/17 Acetaminophen [Tylenol 325mg (*)] 650 mg PO Q4HRS PRN tab 10/29/17 cycloSPORINE [sandIMMUNE] 50 mg PO BID #60 cap 10/29/17 cycloSPORINE [sandIMMUNE] 200 mg PO BID #60 cap 10/29/17 diphenhydrAMINE [Benadryl 25 MG 25 mg PO Q6 PRN cap 10/29/17 (*)] predniSONE 60 mg PO DAILY@1300 #90 tablet 10/29/17 Medical Decision Making - Diagnostics Imaging Results: Imaging Impressions Chest X-Ray 11/10/17 08:09 Impression: Suspect airways disease with possible superimposed left upper lobe pneumonia. Results called and discussed with DINO CASH M.D. on 11/10/2017 at 8:38 Differential Diagnosis: Differential considered including but not limited to CHF, ACS, pulmonary embolism, pneumonia, pneumothorax, bronchitis. Consult/Admit Bed Type: [place] [id number] - Data Points Laboratory Results: Laboratory Results 11/10/17 08:05 11/10/17 08:05 11/10/17 11/10/17 11/10/17 08:20 08:08 08:08 WBC RBC Hgb Hct MCV MCH MCHC RDW Plt Count MPV Neut % (Auto) Lymph % (Auto) [place] % (Auto) Eos % (Auto) Baso % (Auto) Nucleat RBC Rel Count Absolute Neuts (auto) Absolute Lymphs (auto) Absolute Monos (auto) Absolute Eos (auto) Absolute Basos (auto) Absolute Nucleated RBC Immature Gran % Immature Gran # Platelet Estimate Polychromasia Microcytic Cells Oval Macrocytes Smear Review By PT 13.5 SEC SEC (12.0-15.0) INR 1.01 (0.83-1.16) APTT 26.2 SEC SEC (23.0-38.0) Sodium Potassium Chloride Carbon Dioxide Anion Gap BUN Creatinine Estimated GFR Glucose Calcium Total Bilirubin 1.4 mg/dL D mg/dL (0.1-1.4) Nasal Influenza A PCR FLU A DETECTED (NEGATIVE) Nasal Influenza B PCR NEGATIVE FOR FLU B (NEGATIVE) 11/10/17 11/10/17 08:05 08:05 WBC 1.05 10^3/uL L 10^3/uL (3.80-9.50) RBC 2.81 10^6/uL L 10^6/uL (4.18-5.33) Hgb 9.5 g/dL L g/dL (12.6-16.3) Hct 26.7 % L % (38.0-47.0) MCV 95.0 fL fL (81.5-99.8) MCH 33.8 pg pg (27.9-34.1) MCHC 35.6 g/dL g/dL (32.4-36.7) RDW 24.7 % H % (11.5-15.2) Plt Count 22 10^3/uL L* 10^3/uL (150-400) MPV 12.9 fL H fL (8.7-11.7) Neut % (Auto) 46.7 % % (39.3-74.2) Lymph % (Auto) 45.7 % H % (15.0-45.0) [place] % (Auto) 7.6 % % (4.5-13.0) Eos % (Auto) 0.0 % L % (0.6-7.6) Baso % (Auto) 0.0 % L % (0.3-1.7) Nucleat RBC Rel Count 0.0 % % (0.0-0.2) Absolute Neuts (auto) 0.49 10^3/uL L 10^3/uL (1.70-6.50) Absolute Lymphs (auto) 0.48 10^3/uL L 10^3/uL (1.00-3.00) Absolute Monos (auto) 0.08 10^3/uL L 10^3/uL (0.30-0.80) Absolute Eos (auto) 0.00 10^3/uL L 10^3/uL (0.03-0.40) Absolute Basos (auto) 0.00 10^3/uL L 10^3/uL (0.02-0.10) Absolute Nucleated RBC 0.00 10^3/uL 10^3/uL (0-0.01) Immature Gran % 0.0 % % (0.0-1.1) Immature Gran # 0.00 10^3/uL 10^3/uL (0.00-0.10) Platelet Estimate DECREASED L (ADEQ) Polychromasia 1+ H Microcytic Cells 1+ H Oval Macrocytes 2+ H Smear Review By Pending PT INR APTT Sodium 134 mEq/L mEq/L (134-144) Potassium 4.2 mEq/L mEq/L (3.5-5.2) Chloride 100 mEq/L mEq/L (97-110) Carbon Dioxide 22 mEq/l mEq/l (22-31) Anion Gap 12 mEq/L mEq/L (8-16) BUN 34 mg/dL H mg/dL (7-23) Creatinine 1.2 mg/dL H mg/dL (0.6-1.0) Estimated GFR 45 Glucose 88 mg/dL mg/dL (70-100) Calcium 9.0 mg/dL mg/dL (8.5-10.4) Total Bilirubin Nasal Influenza A PCR Nasal Influenza B PCR Medications Given: Cyclosporine (Sandimmune) 50 mg PO BID LAURO Stop: 07/05/18 09:29 Last Admin: 11/10/17 10:45 Dose: 50 mg Cyclosporine (Sandimmune) 200 mg PO BID LAURO Stop: 05/09/18 09:29 Last Admin: 11/10/17 10:45 Dose: 200 mg Dextrose/Sodium Chloride (D5w 1/2 Ns) 1,000 mls @ 150 mls/hr IV CONT LAURO Stop: 05/09/18 09:29 Last Admin: 11/10/17 10:25 Dose: 1,000 mls Discontinued Medications Albuterol (Proventil Neb) 3 ml IH EDNOW ONE Stop: 11/10/17 08:10 Last Admin: 11/10/17 08:21 Dose: 3 ml Albuterol/Ipratropium (Duoneb) 3 ml IH EDNOW ONE Stop: 11/10/17 08:10 Last Admin: 11/10/17 08:20 Dose: 3 ml Meropenem 1 gm/ Sodium (Chloride) 120 mls @ 120 mls/hr IV EDNOW ONE PRN Reason: Protocol Stop: 11/10/17 09:44 Last Admin: 11/10/17 10:25 Dose: 120 mls Sodium Chloride (Ns) 1,600 mls @ 3,200 mls/hr 30 ml/kg infuse over 30 min ( 1600 ml) IV EDNOW ONE PRN Reason: Protocol Stop: 11/10/17 09:14 Last Admin: 11/10/17 09:13 Dose: 1,600 mls Oseltamivir Phosphate (Tamiflu) 75 mg PO EDNOW ONE Stop: 11/10/17 09:13 Last Admin: 11/10/17 09:26 Dose: 75 mg Departure - Departure Disposition: [facility] Acute Clinical Impression: Influenza A Pneumonia Qualifiers: Pneumonia type: due to unspecified organism Laterality: left Lung location: lower lobe of lung Qualified Code(s): J18.1 - Lobar pneumonia, unspecified organism Neutropenia Qualifiers: Neutropenia type: unspecified Qualified Code(s): D70.9 - Neutropenia, unspecified Reactive airway disease Qualifiers: Asthma severity: moderate Asthma persistence: persistent Asthma complication type: with acute exacerbation Qualified Code(s): J45.41 - Moderate persistent asthma with (acute) exacerbation Condition: Fair
[2017-11-10] MEDS ORDERED: ALBUTEROL 3 ML DEYVIAL IH ONE (08:09)
[2017-11-10] MEDS ORDERED: IPRATROPIUM/ALBUTEROL 3 ML DEYVIAL IH ONE (08:09)
[2017-11-10 08:22] LABS: PLATELET COUNT 22 10^3/uL (150-400)
[2017-11-10] MEDS ORDERED: NS 1,600 ML IV ONE (08:45)
[2017-11-10] MEDS ORDERED: MEROPENEM 1 GM in NS 100 ML IV ONE (08:45)
[2017-11-10 08:58] LABS: INR 1.01 (0.83-1.16); PROTIME(PATIENT) 13.5 SEC (12.0-15.0)
[2017-11-10] MEDS ORDERED: OSELTAMIVIR PHOSPHATE 75 MG CAP PO ONE (09:12)
[2017-11-10] MEDS ORDERED: PROMETHAZINE HCL 25 MG TAB PO PRN (09:25)
[2017-11-10] MEDS ORDERED: ONDANSETRON DISINTEGRATING 4 MG TAB PO PRN (09:25)
[2017-11-10] MEDS ORDERED: PROMETHAZINE HCL 25 MG/ML INJ IVP PRN (09:25)
[2017-11-10] MEDS ORDERED: ONDANSETRON 4 MG/2 ML VIAL IVP PRN (09:25)
[2017-11-10] MEDS ORDERED: HYDROCORTISONE 1% CREAM TP PRN (09:29)
[2017-11-10] MEDS ORDERED: CALCIUM CARBONATE 500 MG CHEWABLE TAB PO PRN (09:29)
[2017-11-10] MEDS ORDERED: CAFFEINE 200 MG PO SCH (09:30)
[2017-11-10] MEDS ORDERED: D5W 1/2 NS 1,000 ML IV SCH (09:30)
[2017-11-10] MEDS: cycloSPORINE 100 MG CAP PO SCH ×2 (10:45→23:50)
[2017-11-10] MEDS: cycloSPORINE 25 MG CAP PO SCH ×2 (10:45→23:51)
[2017-11-10] MEDS: predniSONE 20 MG TAB PO SCH (12:10)
[2017-11-10] MEDS: ACETAMINOPHEN 325 MG TAB PO PRN (12:10)
[2017-11-10] MEDS ORDERED: guaiFENesin/CODEINE PHOS 10 ML UDCUP PO PRN (13:26)
--- NOTE | 2017-11-10 13:28 | PDGENHP ---
History and Physical - Chief Complaint Acute cough - History of Present Illness Primary oncologist: Dr. Nito Morin HPI: 62-year-old female presenting with acute cough characterized as productive with associated chest congestion, nausea, nonbloody emesis as well as generalized fatigue. Patient reports that the onset of her symptoms was approximately 5 days prior, and over that duration, has worsened over that time. The patient has not been taking any particular medication as needed for her symptoms, but she has been presenting regularly to [facility] for lab draws and blood transfusions. Most recent transfusion was last night. She does not report any acute symptoms occurring in concussion with the transfusion. She reports that her cough was somewhat alleviated by the DuoNeb treatment in the emergency department. At the time of this encounter, the patient reports that she feels awful. History Information - Allergies/Home Medication List Allergies/Adverse Reactions: Penicillins Allergy (Severe, Verified 11/10/17 08:11) Hives adhesive tape Allergy (Verified 11/10/17 08:11) aspirin Allergy (Verified 11/10/17 08:11) codeine Allergy (Verified 11/10/17 08:11) Other-Enter Comments ibuprofen Allergy (Verified 11/10/17 08:11) adhesive Allergy (Uncoded 10/22/17 15:35) Home Medications: Acetaminophen [Tylenol ES 500 mg (*)] 1,000 mg PO BID 11/17/16 [Last Taken 11/10] Herbals/Supplements -Info Only 1 ea PO DAILY 09/03/17 [Last Taken Unknown] Caffeine [Stay Awake] 200 mg PO BID 10/22/17 [Last Taken 11/10/17] Calcium Carbonate [Tums 500MG (*)] 500 mg PO DAILY PRN 10/22/17 [Last Taken Unknown] I have personally reviewed and updated: family history, medical history, social history, surgical history - Past Medical History cancer Additional medical history: metastatic anal cancer, PUD, migraines, htn, ue dvt , 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 - Social History Smoking Status: Current every day smoker Alcohol Use: None Drug Use: None Additional social history: Homeless, living in the care home Review of Systems Review of Systems: ROS: 10pt was reviewed & negative except for what was stated in HPI & below Constitutional: Reports: malaise, weakness Respiratory: Reports: cough Gastrointestinal: Reports: vomitting, nausea Physical Exam Physical Exam: Temp Pulse Resp BP Pulse Ox 37.1 C 108 H 20 120/61 91 L 11/10/17 09:45 11/10/17 09:45 11/10/17 09:45 11/10/17 09:45 11/10/17 09:45 Constitutional: not in pain, chronically ill appearing, uncomfortable, No no apparent distress (Mild) Eyes: PERRL, anicteric sclera, EOMI Ears, Nose, Mouth, Throat: other (chielosis on the left, some mucosal scabbing on the lips) Cardiovascular: tachycardia, No systolic murmur, No irregularly irregular, No edema Respiratory: expiratory wheeze, bronchial breath sounds (In left lung), respiratory distress (Cough frequently triggered), rhonchi (Left mid posterior segment) Gastrointestinal: normoactive bowel sounds, soft, non-tender abdomen, no palpable masses, No guarding, No distension Skin: warm, No rash Neurologic: AAOx3, sensation intact bilaterally, No weakness Psychiatric: interacting appropriately, not anxious, not encephalopathic, thought process linear Lab Data & Imaging Review 11/10/17 08:05 11/10/17 08:05 WBC 1.05 10^3/uL (3.80-9.50) L 11/10/17 08:05 RBC 2.81 10^6/uL (4.18-5.33) L 11/10/17 08:05 Hgb 9.5 g/dL (12.6-16.3) L 11/10/17 08:05 Hct 26.7 % (38.0-47.0) L 11/10/17 08:05 MCV 95.0 fL (81.5-99.8) 11/10/17 08:05 MCH 33.8 pg (27.9-34.1) 11/10/17 08:05 MCHC 35.6 g/dL (32.4-36.7) 11/10/17 08:05 RDW 24.7 % (11.5-15.2) H 11/10/17 08:05 Plt Count 22 10^3/uL (150-400) L* 11/10/17 08:05 MPV 12.9 fL (8.7-11.7) H 11/10/17 08:05 Neut % (Auto) 46.7 % (39.3-74.2) 11/10/17 08:05 Lymph % (Auto) 45.7 % (15.0-45.0) H 11/10/17 08:05 [place] % (Auto) 7.6 % (4.5-13.0) 11/10/17 08:05 Eos % (Auto) 0.0 % (0.6-7.6) L 11/10/17 08:05 Baso % (Auto) 0.0 % (0.3-1.7) L 11/10/17 08:05 Nucleat RBC Rel Count 0.0 % (0.0-0.2) 11/10/17 08:05 Absolute Neuts (auto) 0.49 10^3/uL (1.70-6.50) L 11/10/17 08:05 Absolute Lymphs (auto) 0.48 10^3/uL (1.00-3.00) L 11/10/17 08:05 Absolute Monos (auto) 0.08 10^3/uL (0.30-0.80) L 11/10/17 08:05 Absolute Eos (auto) 0.00 10^3/uL (0.03-0.40) L 11/10/17 08:05 Absolute Basos (auto) 0.00 10^3/uL (0.02-0.10) L 11/10/17 08:05 Absolute Nucleated RBC 0.00 10^3/uL (0-0.01) 11/10/17 08:05 Immature Gran % 0.0 % (0.0-1.1) 11/10/17 08:05 Immature Gran # 0.00 10^3/uL (0.00-0.10) 11/10/17 08:05 Platelet Estimate DECREASED (ADEQ) L 11/10/17 08:05 Polychromasia 1+ H 11/10/17 08:05 Microcytic Cells 1+ H 11/10/17 08:05 Oval Macrocytes 2+ H 11/10/17 08:05 PT 13.5 SEC (12.0-15.0) 11/10/17 08:08 INR 1.01 (0.83-1.16) 11/10/17 08:08 APTT 26.2 SEC (23.0-38.0) 11/10/17 08:08 VBG Lactic Acid 1.4 mmol/L (0.7-2.1) 11/10/17 08:45 Sodium 134 mEq/L (134-144) 11/10/17 08:05 Potassium 4.2 mEq/L (3.5-5.2) 11/10/17 08:05 Chloride 100 mEq/L (97-110) 11/10/17 08:05 Carbon Dioxide 22 mEq/l (22-31) 11/10/17 08:05 Anion Gap 12 mEq/L (8-16) 11/10/17 08:05 BUN 34 mg/dL (7-23) H 11/10/17 08:05 Creatinine 1.2 mg/dL (0.6-1.0) H 11/10/17 08:05 Estimated GFR 45 11/10/17 08:05 Glucose 88 mg/dL (70-100) 11/10/17 08:05 Calcium 9.0 mg/dL (8.5-10.4) 11/10/17 08:05 Total Bilirubin 1.4 mg/dL (0.1-1.4) D 11/10/17 08:08 Nasal Influenza A PCR FLU A DETECTED (NEGATIVE) 11/10/17 08:20 Nasal Influenza B PCR NEGATIVE FOR FLU B (NEGATIVE) 11/10/17 08:20 Visualized and Interpreted Chest x-ray results: Yes Chest X-Ray results: other (Possible left-sided infiltrate) Visualized and Interpreted imaging results: Yes Interpretation: Chest CT demonstrating left lingular partial consolidation, otherwise clear Assessment & Plan Assessment: 62-year-old female presents with acute nausea vomiting and cough in the setting of influenza a infection, possible concomitant bacterial pneumonia in the setting of neutropenia Plan: 1. Influenza A viral syndrome. Evidenced by positive flu a test, with multi- system involvement including GI, respiratory, general fatigue -supportive care with IV fluids, antiemetics, antitussives -continue Tamiflu 75 mg twice daily 2. Possible left lingular pneumonia. Acute, new problem this provider, further workup indicated. Present on chest CT, patient is immunocompromised and warrants empiric IV antibiotics -status post meropenem in the emergency department, continue given patient's potential for gram-negative rods and Pseudomonas -send sputum culture -urine strep -monitor blood cultures 3. Pancytopenia with aplastic anemia. Reviewed outside records including 10/[address] Katerina Church, characterizing patient's aplastic anemia as transfusion dependent, secondary to treatment for anal cancer , either from radiation therapy or Nivolumab, receiving ATG, Promacta, Cyclosporine, Prednisone -status post transfusion last night, monitor CBC -hold on platelet transfusion unless active bleeding -oncology consultation appreciated -continue prednisone, cyclosporin 4. Chronic immunosuppression. Patient with neutropenia and absolute neutrophil count of approximately 500, treating with empiric IV antibiotics as above for possible pneumonia as well as concomitant influenza a 5. Hypertension. Holding home medications. 6. Chronic labial wound. Get wound care consultation, if appears infected will add vancomycin 7. Acute COPD exacerbation. Patient with expiratory wheezes and bronchial breath sounds on physical exam, most likely triggered by either pneumonia or viral syndrome -continue home dosage of prednisone -continue scheduled duo nebs -continue antitussives supportive care Diet. Regular Prophylaxis. High risk patient given previous DVT, holding pharm given thrombocytopenia, SCDs Code. DNR Disposition. Anticipated discharge uncertain this time, anticipated length stay is greater than 48 hr warranting inpatient admission status reasonable medical necessity including viral syndrome with possible pneumonia in the setting of pancytopenia with aplastic anemia and severely immunocompromised patient. Discussed patient with Dr. Duarte Richardson, he has signed out the patient to me for evaluation.
[2017-11-10] MEDS ORDERED: D5W NS 1,000 ML IV SCH (13:45)
[2017-11-10] MEDS: IPRATROPIUM/ALBUTEROL 3 ML DEYVIAL IH SCH ×3 (14:04→21:49)
[2017-11-10] MEDS: guaiFENesin 600 MG TAB.ER PO SCH ×2 (14:16→20:53)
[2017-11-10] MEDS: BENZONATATE 100 MG CAP PO PRN (14:16)
--- NOTE | 2017-11-10 14:29 | PDMN ---
Medical Necessity Medical necessity: C/M review: est. > 2 MN LOS for eval and TX of acute and persistent iinfluenza A syndrome, possible left lingular pneumonia, pancytopenia with plastic anemia, acute COPD exacerbation, acute kidney injury nausea, vomiting, cough planned Wound Care consult, Oncology consult, requiring ongoing IV Meropenem, IV fluids, Duonebs, acute inpt PT, comorbid chronic immunosuppression, hypertension, chronic labial wound present on admission, severely immunocompromised patient per H/P.
[2017-11-10] MEDS: OSELTAMIVIR 6 MG/ML UDSYR PO SCH ×2 (17:27→20:51)
[2017-11-10] MEDS ORDERED: OSELTAMIVIR PHOSPHATE 75 MG CAP PO SCH (18:00)
[2017-11-10] MEDS: ACETAMINOPHEN 500 MG TAB PO SCH (20:52)
[2017-11-10] MEDS: CETIRIZINE 10 MG TAB PO SCH (20:53)
[2017-11-10] MEDS: MEROPENEM 1 GM in NS 100 ML IV SCH (20:53)
--- NOTE | 2017-11-10 22:28 | GCON ---
[f rep st] CONSULTATION HEMATOLOGY/ONCOLOGY INITIAL VISIT DATE OF CONSULTATION: 11/10/2017 REASON FOR VISIT: Evaluation and management of aplastic anemia. 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 She presented with disease in the groin, as well as a possible lung lesion. She was initially treated with 5-FU and cisplatin, then 5-FU and mitomycin C with concurrent radiation. More recently, she was on nivolumab with an excellent response, up until spring 2016, and then was lost to followup. More recently, she came to the attention of Dr. Morin because of pancytopenia. Bone marrow biopsy showed aplastic anemia with 1% cellularity. The etiology was unclear. She was admitted to the hospital on the and receive ATG and was started on cyclosporine. She was to start on Promacta, but has not received the medication yet. She has been followed closely since her discharged on October 29 in the outpatient clinic. Yesterday, she required a transfusion with 2 units of blood and a unit of packed platelets. She stated that she tolerated that well without any difficulty. She states that she started not feeling well on Sunday. She had a transfusion on Sunday that went well. Most of the symptoms were vague. On and Sunday, she started developing a dry cough, with only just a low- grade temperature. Vital signs yesterday: Temperature was 97.5, saturating 91 % on room air. Overnight, though, cough got much worse until this morning she coughed so bad that she had some vomiting, so therefore she went to the emergency room. While there, a CT scan showed a left lingular partial consolidation, concerning for pneumonia, and she also was evaluated for flu and positive on the results. She was admitted to the hospital for treatment. She is feeling a little more relaxed since admission. ALLERGIES: She is allergic to aspirin, penicillins, Tegaderm, orange juice and marycruz. She also has codeine and ibuprofen listed. MEDICATIONS: Home medications include prednisone 60 mg daily, hydrocortisone cream, diphenhydramine as needed, cyclosporine 250 mg twice daily, calcium carbonate, caffeine, and acetaminophen. PAST MEDICAL HISTORY: Chronic illnesses: 1. Anal cancer, as per HPI. 2. Aplastic anemia, as per HPI. 3. Peptic ulcer disease. 4. History of migraines. 5. Hypertension. 6. History of upper extremity DVT. 7. Chronic labial wound. SURGICAL HISTORY: Includes a right hernia repair and tonsillectomy. FAMILY HISTORY: Remarkable for rheumatoid arthritis in her mother and sister. SOCIAL HISTORY: She is initially from [place]. Does not drink. She does have problems at times of being homeless, living in a half-way. REVIEW OF SYSTEMS: A 10-point review of systems was performed. Pertinent positives are per HPI; otherwise negative. PHYSICAL EXAM: VITAL SIGNS: When she arrived, temperature is 36.9, saturating 91% on room air, pulse is 97, blood pressure is 108/90, currently at 87% on room air, and pulse 102. GENERAL: She is ill-appearing, but in no distress. HEENT: Sclerae nonicteric. Oral mucosa shows a lesion on the left associated with cheilosis and some scabbing on the lips, but no mucositis. CARDIOVASCULAR : Tachycardic, but no edema or murmur. RESPIRATORY: I did not appreciate wheezing, but she had rhonchi in the left lung field. GI: Soft, nontender. Positive bowel sounds. SKIN: Some mild petechiae in the lower extremities. No purpura. NEUROLOGICAL: Grossly intact neuro. LYMPHATICS: [place] exam reveals no peripheral lymphadenopathy. LABORATORY DATA: White count is 1100, ANC is 500, hemoglobin is 9.5 g/dL (up from 6.8 yesterday), platelet count is 22,000 (up from 3000 yesterday). Her white count has been progressively dropping over the week. Creatinine yesterday was 1.3; today it is 1.2. Her other chemistries are unremarkable. LFTs yesterday were normal. Lactic acid was normal. Coagulation studies were unremarkable. Influenza A was detected. Cultures are pending. IMAGING: Chest CT shows lingular segment alveolar opacity which could reflect pneumonia or atelectasis. Upper abdomen is unremarkable. This was done without contrast. IMPRESSION: 1. Acute influenza. 2. Possible secondary bacterial pneumonia. 3. Aplastic anemia with pancytopenia. 4. History of metastatic anal cancer. Disease, I believe, is currently well controlled. Technically, she does not have febrile neutropenia, but I agree with treating her aggressively because she is at high risk, and both the CT scan and lung exam are worrisome for pneumonia. She is at high risk, so treating her with Tamiflu is reasonable. She was also put on intravenous antibiotics and cultures are pending. There is no need for transfusions today, but we will transfuse her as clinically indicated. I would like to check a cyclosporine level while she is in the hospital, especially since her creatinine has risen a little bit, but we will get her stabilized over the next couple of days and check it early Sunday morning. The prednisone is to continue until day #30 of antithymocyte globulin and then be tapered off, so I believe she still has a couple more weeks of the drug. However, this also puts her at increased risk of opportunistic infections. If she does not improve from a respiratory standpoint over the next of couple days, then we may need to consider ID input, as well as a look as to whether not she might benefit from a bronchoscopy. We will follow along with you while she is in the hospital. /[id number]/MODL MTDD
[2017-11-10] MEDS: CAFFEINE 200 MG PO SCH (23:46)
[2017-11-11] MEDS: CAFFEINE 200 MG PO SCH ×2 (04:41→20:59)
[2017-11-11] MEDS: ACETAMINOPHEN 325 MG TAB PO PRN (04:43)
[2017-11-11 04:46] LABS: PLATELET COUNT 15 10^3/uL (150-400)
[2017-11-11] MEDS: IPRATROPIUM/ALBUTEROL 3 ML DEYVIAL IH SCH ×3 (05:59→16:01)
[2017-11-11] MEDS: MEROPENEM 1 GM in NS 100 ML IV SCH ×2 (08:25→20:45)
[2017-11-11] MEDS: ACETAMINOPHEN 500 MG TAB PO SCH ×2 (08:26→20:58)
[2017-11-11] MEDS: guaiFENesin 600 MG TAB.ER PO SCH ×2 (08:27→20:58)
[2017-11-11] MEDS: cycloSPORINE 25 MG CAP PO SCH ×2 (08:27→20:55)
[2017-11-11] MEDS: cycloSPORINE 100 MG CAP PO SCH ×2 (08:27→20:57)
[2017-11-11] MEDS: BENZONATATE 100 MG CAP PO PRN ×2 (08:27→20:55)
[2017-11-11] MEDS: OSELTAMIVIR 6 MG/ML UDSYR PO SCH ×2 (08:28→17:36)
[2017-11-11] MEDS ORDERED: Herbals/Supplements -Info Only PO SCH (09:00)
--- NOTE | 2017-11-11 12:22 | SOAPPROG ---
SOAP Progress Note Assessment/Plan: E&M for aplastic anemia * Aplastic anemia: day 21 of ATG + cyclosporin + prednisone + Promacta (not started yet). Day 30 is when to tape prednisone to off. Once Promacta approved by insurance, she is to start. * Pancytopenia: transfusion dependent; no need today. * URI due to acute influenza + probable bacterial pneumonia: getting better on tamiflu and iv abx. * H/O anal cancer: under control off therapy Subjective: Breathing easier and feeling a little better. No acute complaints. Objective: Vital Signs Temp Pulse Resp BP Pulse Ox 36.8 C 110 H 18 121/59 H 91 L 11/11/17 12:04 11/11/17 12:04 11/11/17 12:04 11/11/17 12:04 11/11/17 12:04 Laboratory Results 11/11/17 04:25 11/11/17 04:25 11/10/17 11/11/17 11/12/17 05:59 05:59 05:59 Intake Total 4771 Balance 4771 PT 13.5 SEC (12.0-15.0) 11/10/17 08:08 INR 1.01 (0.83-1.16) 11/10/17 08:08 Physical Exam - Physical Exam General Appearance: no apparent distress EENT: pharynx normal, other (healing lesion left lower lip) Respiratory: rhonchi Cardiac/Chest: tachycardia Abdomen: normal bowel sounds, non-tender, soft ICD10 Worksheet Patient Problems: Problems Problem Status Onset Aplastic anemia Acute ~10/2017 Influenza A Acute Neutropenia Acute Pneumonia Acute Reactive airway disease Acute Anemia Acute Chest pain Acute Fever Acute Palliative care encounter Acute Thrombocytopenia Acute Vomiting Acute Anal squamous cell carcinoma Chronic 12/10/14 Poor dentition Chronic
[2017-11-11] MEDS: predniSONE 20 MG TAB PO SCH (13:41)
--- NOTE | 2017-11-11 15:05 | ASMTCMCOM ---
CM Note CM Note Notes: Patient chart reviewed. Patient known to this hospital. DX of anal cancer. She is homeless. No local family. Prior Palliative care meeting in August. Admitted with influenza and cough. She has been following up at [facility] for transfusions. She was just discharged 10/30/17. Question need for alf placement for her. Refused therapy today as she is weak. NTBD CM to follow. Date Signed: 11/11/2017 03:06 PM Electronically Signed By:Maryanne Chaudhari RN
--- NOTE | 2017-11-11 16:33 | HOSPPROG ---
Hospitalist Progress Note Assessment/Plan: Assessment: 62-year-old female presents with acute nausea vomiting and cough in the setting of influenza a infection, possible concomitant bacterial pneumonia in the setting of neutropenia and aplastic anemia Plan: 1. Influenza A viral syndrome. Evidenced by positive flu a test, with multi- system involvement including GI, respiratory, general fatigue -supportive care with IV fluids, antiemetics, antitussives -continue Tamiflu 75 mg twice daily -symptomatically feeling improved 2. Possible left lingular pneumonia. Acute, present on chest CT, patient is immunocompromised and warrants empiric IV antibiotics -D#2 meropenem given neutropenic status -urine strep pending -monitor blood cultures 3. Pancytopenia with aplastic anemia. S/p ATG and on Cyclosporine, Prednisone, to get promacta when authorized -continue prednisone, cyclosporin (checking level) -monitor CBC, no transfusion today -has some wet purpura, but no other signs of bleeding 4. Chronic immunosuppression. Patient with neutropenia and absolute neutrophil count of approximately 400, treating with empiric IV antibiotics as above for possible pneumonia as well as concomitant influenza a -d/w Dr. Rosario regarding whether ppx abx indicated s/p resolution of above, while patient is on prednisone and other immunosupp therapy 5. Hypertension. Holding home medications. 6. Chronic labial wound. Get wound care consultation 7. Acute COPD exacerbation. Patient with expiratory wheezes and bronchial breath sounds on physical exam, most likely triggered by either pneumonia or viral syndrome -continue home dosage of prednisone -given restlessness and clinical improvement, make nebs PRN -continue antitussives supportive care 8. Mucositis. Multiple lesions, chelosis vs. purpura, tender, starting salt/ soda rinse/magic mouthwash 9. CHRIS. 2/2 hypovolemia, resolving w/ IVF Diet. Regular Prophylaxis. High risk patient given previous DVT, holding pharm given thrombocytopenia, SCDs Code. DNR Disposition. Anticipated discharge uncertain this time, remains high level of medical complexity, high risk of worsening morbidity/mortality 2/2 above. Subjective: ongoing mouth discomfort, lethargy improving Objective: Vital Signs Temp Pulse Resp BP Pulse Ox 36.4 C 96 16 117/67 92 11/11/17 15:37 11/11/17 16:05 11/11/17 16:05 11/11/17 15:37 11/11/17 16:05 Laboratory Results 11/11/17 04:25 11/11/17 04:25 11/10/17 11/11/17 11/12/17 05:59 05:59 05:59 Intake Total 4771 Balance 4771 PT 13.5 SEC (12.0-15.0) 11/10/17 08:08 INR 1.01 (0.83-1.16) 11/10/17 08:08 - Physical Exam Constitutional: no apparent distress, not in pain, chronically ill appearing, uncomfortable Ears, Nose, Mouth, Throat: other (multiple mucsal lesions, some dried blood, chelosis left mouth corner, no thrush) Cardiovascular: regular rate and rhythym, no murmur, rub, or gallop, No tachycardia, No edema Respiratory: expiratory wheeze (left), rhonchi (left post seg), No reduced air movement, No bronchial breath sounds, No respiratory distress Gastrointestinal: normoactive bowel sounds, soft, non-tender abdomen, no palpable masses, No distension Skin: other (scattered ecchymoses over legs) Neurologic: AAOx3, sensation intact bilaterally, No weakness ICD10 Worksheet Patient Problems: Problems Problem Status Onset Aplastic anemia Acute ~10/2017 Anal squamous cell carcinoma Chronic 12/10/14 Fever Acute Poor dentition Chronic Chest pain Acute Anemia Acute Thrombocytopenia Acute Palliative care encounter Acute Vomiting Acute Pneumonia Acute Neutropenia Acute Reactive airway disease Acute Influenza A Acute
[2017-11-11] MEDS ORDERED: IPRATROPIUM/ALBUTEROL 3 ML DEYVIAL IH PRN (16:35)
[2017-11-11] MEDS ORDERED: MBX SOLN 30 ML BOTTLE PO PRN (16:35)
--- NOTE | 2017-11-11 20:34 | GCON ---
[f rep st] CONSULTATION INFECTIOUS DISEASE CONSULTATION DATE OF CONSULTATION: 11/11/2017 REFERRING PHYSICIAN: Fan Dobson MD REQUESTING PHYSICIAN: Dr. Fan Dobson. REASON FOR CONSULTATION: Influenza with pneumonia in an immunosuppressed host. HISTORY OF PRESENT ILLNESS: The patient is a 62-year-old female with a past medical history above ap lastic anemia, currently on treatment with ATG, cyclosporine, and prednisone, whom I am asked to see in consultation for influenza A and possible lingular pneumonia. The patient currently is homeless a nd has been staying in the prison where multiple residents have been coughing. The patient develope d a dry cough last week without significant fever or chills. Her cough was significant enough that s he described having associated nausea and vomiting. She also complains of significant pain in her ne ck musculature and lower back. When the coughing was associated with vomiting, she decided to come t o the emergency department for further evaluation. Evaluation in the emergency department revealed o ngoing pancytopenia. Her ANC yesterday was approximately 500. Review of her white blood cell counts does not show prolonged periods of profound neutropenia. Further evaluation revealed positive testi ng for influenza A by PCR. CT scan of the chest was also performed, which showed a lingular segmenta l alveolar opacity concerning for either pneumonia or atelectasis. Peribronchial thickening was also noted. Based on the above findings, the patient was started on Tamiflu and meropenem. Overall she feels significantly improved with some ongoing cough, but no further vomiting. Her muscular pain is decreased, but not resolved. She has not experienced any active fever or chills. No recent travel. The patient notes that she had tuberculosis screening last year prior to admission to the prison, w [facility] was negative. Given the above findings, I am now asked to assist in her ongoing management. PAST MEDICAL HISTORY: Aplastic anemia as outlined above, history of anal cancer, peptic ulcer diseas e, migraines, hypertension, and history of DVT. PAST SURGICAL HISTORY: Tonsillectomy and inguinal hernia repair. CURRENT MEDICATIONS: Meropenem 1 g intravenously q.12 hours, Tamiflu 30 mg p.o. twice daily, cyclosp orine 250 mg p.o. twice daily, Zyrtec 10 mg p.o. at bedtime, Tums 500 mg p.o. daily as needed, Tessal on Perles as needed, DuoNeb 4 times daily as needed, Mucinex 600 mg p.o. twice daily, Magic mouthwash , caffeine 200 mg p.o. twice daily, prednisone 60 mg p.o. daily. ALLERGIES: Penicillin associated with throat closure and cefazolin associated with walking backwards . SOCIAL HISTORY: The patient smokes 3-4 cigarettes daily. No alcohol use. Occasional marijuana use. Currently living in the homeless prison. FAMILY HISTORY: Rheumatoid arthritis. REVIEW OF SYSTEMS: Outside that noted in the HPI, the remainder of a 10-system review is unremarkabl e except for the patient complains of cracking with ulceration at the angles of both sides of her danyell th, left greater than right, since starting treatment for aplastic anemia. PHYSICAL EXAMINATION: VITAL SIGNS: Temperature 36.7, heart rate 92, respiratory rate 20, blood pres sure 126/82, oxygen saturation 92% on room air. GENERAL: The patient is well-nourished, well-develo ped in no acute distress. She appears nontoxic. HEENT: There is no scleral icterus, conjunctival i njection, or conjunctival petechiae. Oropharynx shows moist mucous membranes. There is angular chei litis present on the left side greater than right with ulceration present. There is no nasal dischar ge. NECK: Supple without palpable lymphadenopathy or thyromegaly. CHEST: Clear to auscultation bi laterally without adventitious sounds, other than expiratory wheezes. There is an occasional dry cou gh. Respiratory effort is normal. CARDIOVASCULAR: Regular rate and rhythm without murmurs, gallops , or rubs. ABDOMEN: Soft, nontender, nondistended. There is no palpable organomegaly. Bowel sound s are present. MUSCULOSKELETAL: No cyanosis, clubbing, or edema. SKIN: See HEENT exam. No other rashes noted. No stigmata of endocarditis. Skin is warm and dry to touch. LYMPHATICS: No cervical or supraclavicular nodes. NEUROLOGIC: The patient is alert and interacts appropriately with examin er. Cranial nerves 2-12 are grossly intact. Muscle tone and bulk are normal. Sensation is grossly intact. LABORATORY DATA: White blood cell count 1.49, hematocrit 24.2, platelets 15, neutrophils 26%, bands 38%, lymphocytes 32%. Absolute neutrophil count is 960. Creatinine 1.1. Creatinine clearance is ca lculated at 44. AST 18, ALT 31, bilirubin 0.5, alkaline phosphatase 46, albumin 2.7. Flu swab by PC R is positive for influenza A. Urine Streptococcus pneumoniae antigen is pending. Blood cultures x2 sets are pending. CT scan is as outlined in the history of present illness which was reviewed and interpreted by me елена echevarria. IMPRESSION: 1. Influenza A with possible lingular pneumonia: Infiltrate on chest CT is relatively limited. Unc lear if this represents atelectasis versus pneumonia. Clinical appearance is not suggestive of prima ry influenza pneumonia. May represent secondary bacterial pneumonia, particularly in light of the pa tient's immunosuppression. Etiologic considerations would include Streptococcus pneumoniae, other ty pical pathogens of community-acquired pneumonia, or potentially Staphylococcus aureus in the setting of influenza, although infiltrate and clinical presentation argue against this entity, which is usual ly more severe. RECOMMENDATIONS: 1. Agree with Tamiflu dose-adjusted for creatinine clearance less than 50. 2. We will change meropenem to levofloxacin dosed for creatinine clearance less than 50. 3. Follow up blood cultures as available. 4. Follow up urine Streptococcus pneumoniae antigen, as available. 5. Follow clinical response to above measures. 6. Would not favor prophylactic antibiotic suppression for her aplastic anemia, given that her ANC h as most commonly been greater than 500. Thank you for this consultation. We will continue to follow the patient with you. /[id number]/MODL
[2017-11-11] MEDS: CETIRIZINE 10 MG TAB PO SCH (20:58)
[2017-11-12] MEDS: ACETAMINOPHEN 325 MG TAB PO PRN ×2 (04:40→16:46)
[2017-11-12] MEDS: CAFFEINE 200 MG PO SCH ×2 (04:41→16:47)
[2017-11-12] MEDS: guaiFENesin 600 MG TAB.ER PO SCH ×2 (08:05→20:32)
[2017-11-12] MEDS: OSELTAMIVIR 6 MG/ML UDSYR PO SCH ×2 (08:05→17:48)
[2017-11-12] MEDS: ACETAMINOPHEN 500 MG TAB PO SCH ×2 (08:06→20:32)
[2017-11-12 08:12] LABS: PLATELET COUNT 8 10^3/uL (150-400)
[2017-11-12] MEDS: cycloSPORINE 25 MG CAP PO SCH ×2 (10:08→20:33)
[2017-11-12] MEDS: cycloSPORINE 100 MG CAP PO SCH ×2 (10:08→20:32)
--- NOTE | 2017-11-12 11:46 | SOAPPROG ---
SOAP Progress Note Assessment/Plan: Assessment: 1.) Aplastic Anemia- on ATG and Cyclosporine and Prednisone. Day # 22, For Prednisone taper on Day # 30. Promacta not yet available. 2.) Influenza A 3.) Suspected RLL Pneumonia- to switch from Meropenem to Levaquin today. Appreciate ID evaluation and mgmt. 4.) Pre-renal #'s 5.) Social Situation: No permanent home address. 6.) Hx. of Anal Carcinoma Plan: Transfusion of SDPlatelets today. Continue IV antibiotics Continue AA therapy. 11/12/17 11:46 Subjective: Stable by symptoms with no new respiratory/hematologic or infectious sx. Still with quite a bit of oral discomfort as before. Objective: Afebrile, VSS as noted here HEENT- pale, Left lower lip with healing viral type lesions. Shallow mucositis noted more diffusely Neck- supple Chest- rhonchi and diminished Breath sounds at R lung base CVS- RSR, no extra HS, ABD- soft, Nontender, BS are +, no mass or HSM, no ascites. EXT- ecchymoses at heel noted. Labs as noted here: PLT 8 K today Vital Signs Temp Pulse Resp BP Pulse Ox 36.5 C 66 16 160/84 H 95 11/12/17 07:37 11/12/17 07:37 11/12/17 07:37 11/12/17 09:48 11/12/17 07:37 Laboratory Results 11/12/17 07:54 11/12/17 04:30 11/11/17 11/12/17 11/13/17 05:59 05:59 05:59 Intake Total 7160 6667 Output Total 3 Balance 8537 1670 PT 13.5 SEC (12.0-15.0) 11/10/17 08:08 INR 1.01 (0.83-1.16) 11/10/17 08:08 ICD10 Worksheet Patient Problems: Problems Problem Status Onset Influenza A Acute Neutropenia Acute Pneumonia Acute Reactive airway disease Acute Anemia Acute Aplastic anemia Acute ~10/2017 Chest pain Acute Fever Acute Palliative care encounter Acute Thrombocytopenia Acute Vomiting Acute Anal squamous cell carcinoma Chronic 12/10/14 Poor dentition Chronic
[2017-11-12] MEDS: predniSONE 20 MG TAB PO SCH (12:09)
[2017-11-12] MEDS ORDERED: FUROSEMIDE 20 MG/2 ML VIAL IVP ONE (15:37)
[2017-11-12] MEDS: IPRATROPIUM/ALBUTEROL 3 ML DEYVIAL IH SCH ×2 (15:49→20:39)
--- NOTE | 2017-11-12 18:00 | HOSPPROG ---
Hospitalist Progress Note Assessment/Plan: Assessment: 62-year-old female presents with acute nausea vomiting and cough in the setting of influenza A infection, possible concomitant bacterial pneumonia in the setting of neutropenia, aplastic anemia, and chronic immunosuppression Plan: 1. Influenza A viral syndrome. Evidenced by positive flu a test, with multi- system involvement including GI, respiratory, general fatigue -supportive care with IV fluids, antiemetics, antitussives -continue Tamiflu 30 mg twice daily (renally dosed) -symptomatically feeling improved 2. Possible left lingular pneumonia. Acute, present on chest CT, patient is immunocompromised and warrants empiric antibiotics -D#3 Abx -urine strep pending -d/w Dr. Rosario, he recommends adjusting from meropenem to renally dosed levofloxacin today, given that patient is no longer neutropenic 3. Pancytopenia with aplastic anemia. S/p ATG and on Cyclosporine, Prednisone D #22 w/ plan to taper at D#30, to get promacta when authorized -continue prednisone, cyclosporin -has some wet purpura, chronic lower GI bleed, nothing massive -transfuse 1u platelets today, likely blood tomorrow 4. Chronic immunosuppression. Patient with neutropenia on presentation, but per chart review, patient is not usually neutropenic -d/w Dr. Rosario, patient should receive ppx dosing of bactrim (MWF) after 30 days of prednisone, should be prescribed through [facility] after discharge 5. Hypertension. Not on any anti-HTN rx at home, SBP 180s today s/p volume resuscitation and appears hypervolemic on exam -give lasix 20mg IV now, gauge response -risk of spontaneous bleed w/ Plts < 20k -hold on long-acting Rx given that SBP previously was 110-140 6. Chronic labial wound. Wound care consultation 7. Acute COPD exacerbation. Patient with expiratory wheezes and bronchial breath sounds on physical exam, most likely triggered by either pneumonia or viral syndrome -continue home dosage of prednisone -given ongoing exp wheeze and prolonged exp phase on exam, as well as cough resulting in chest wall discomfort, restart scheduled duonebs -continue antitussives supportive care 8. Mucositis. Multiple lesions, chelosis vs. purpura, tender, cont salt/soda rinse/magic mouthwash 9. CHRIS. 2/2 hypovolemia, resolved w/ IVF, now gentle diuresis Diet. Regular Prophylaxis. High risk patient given previous DVT, holding pharm given thrombocytopenia, SCDs Code. DNR Disposition. Anticipated discharge uncertain this time, remains high level of medical complexity, high risk of worsening morbidity/mortality 2/2 above. Subjective: chest wall discomfort, small amount of rectal blood Objective: Vital Signs Temp Pulse Resp BP Pulse Ox 36.5 C 71 14 182/100 H 94 11/12/17 15:06 11/12/17 15:52 11/12/17 15:52 11/12/17 15:06 11/12/17 15:52 Laboratory Results 11/12/17 07:54 11/12/17 04:30 11/11/17 11/12/17 11/13/17 05:59 05:59 05:59 Intake Total 4712 2372 Output Total 3 Balance 4725 1809 PT 13.5 SEC (12.0-15.0) 11/10/17 08:08 INR 1.01 (0.83-1.16) 11/10/17 08:08 - Physical Exam Constitutional: no apparent distress, not in pain, chronically ill appearing, uncomfortable Ears, Nose, Mouth, Throat: moist mucous membranes, hearing normal, other (left mouth chelosis, left cheek mucositis, less purpura today) Cardiovascular: systolic murmur (II/ at apex), edema (trace bilat LE), No irregularly irregular, No tachycardia Respiratory: reduced air movement (prolonged exp phase), expiratory wheeze, No inspiratory crackles, No bronchial breath sounds, No respiratory distress Gastrointestinal: normoactive bowel sounds, soft, non-tender abdomen, no palpable masses, No distension Skin: other (scattered ecchymoses bilat LE) Neurologic: AAOx3, No weakness, No facial droop Psychiatric: interacting appropriately, not anxious, not encephalopathic, thought process linear ICD10 Worksheet Patient Problems: Problems Problem Status Onset Aplastic anemia Acute ~10/2017 Anal squamous cell carcinoma Chronic 12/10/14 Fever Acute Poor dentition Chronic Chest pain Acute Anemia Acute Thrombocytopenia Acute Palliative care encounter Acute Vomiting Acute Pneumonia Acute Neutropenia Acute Reactive airway disease Acute Influenza A Acute
[2017-11-12] MEDS: CETIRIZINE 10 MG TAB PO SCH (20:32)
[2017-11-13] MEDS: CAFFEINE 200 MG PO SCH ×2 (04:58→21:41)
[2017-11-13] MEDS: ACETAMINOPHEN 325 MG TAB PO PRN (04:58)
[2017-11-13] MEDS: IPRATROPIUM/ALBUTEROL 3 ML DEYVIAL IH SCH ×4 (05:33→19:53)
[2017-11-13 05:43] LABS: PLATELET COUNT 35 10^3/uL (150-400)
[2017-11-13] MEDS: guaiFENesin 600 MG TAB.ER PO SCH ×2 (08:05→21:40)
[2017-11-13] MEDS: OSELTAMIVIR 6 MG/ML UDSYR PO SCH ×2 (08:05→17:22)
[2017-11-13] MEDS: cycloSPORINE 100 MG CAP PO SCH ×2 (08:05→21:40)
[2017-11-13] MEDS: cycloSPORINE 25 MG CAP PO SCH ×2 (08:05→21:40)
[2017-11-13] MEDS: ACETAMINOPHEN 500 MG TAB PO SCH ×2 (08:08→21:39)
--- NOTE | 2017-11-13 09:27 | HOSPPROG ---
Hospitalist Progress Note Assessment/Plan: DIAGNOSES: -acute influenza a -COPD exacerbation -severe pancytopenia from aplastic anemia and cancer -aplastic anemia, on antithymocyte globulin cyclosporin and steroid -metastatic anal carcinoma -chronic labial lesion, metastatic with ongoing wound care issues She is improving as expected at this time. Still a bit widely on feet and very weak and not likely able to safely discharge given her homeless state at this time but potentially in 1-2 day PLANS: Continue current management of flu and respiratory issues Add incentive spirometer Encourage more ambulation Will review with Oncology as they arrive today. 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 There was also some density at the left lingular area Objective: Vital Signs Temp Pulse Resp BP Pulse Ox 36.7 C 97 17 142/94 H 93 11/13/17 08:00 11/13/17 08:00 11/13/17 08:00 11/13/17 08:00 11/13/17 08:00 Laboratory Results 11/13/17 04:48 11/13/17 04:48 11/12/17 11/13/17 11/14/17 06:59 06:59 06:59 Intake Total 2372 100 Output Total 3 400 Balance 2369 -300 PT 13.5 SEC (12.0-15.0) 11/10/17 08:08 INR 1.01 (0.83-1.16) 11/10/17 08:08 ICD10 Worksheet Patient Problems: Problems Problem Status Onset Influenza A Acute Neutropenia Acute Pneumonia Acute Reactive airway disease Acute Anemia Acute Aplastic anemia Acute ~10/2017 Chest pain Acute Fever Acute Palliative care encounter Acute Thrombocytopenia Acute Vomiting Acute Anal squamous cell carcinoma Chronic 12/10/14 Poor dentition Chronic
[2017-11-13] MEDS: predniSONE 20 MG TAB PO SCH (12:33)
--- NOTE | 2017-11-13 12:46 | SOAPPROG ---
SOAP Progress Note Assessment/Plan: Assessment: 1.) Aplastic Anemia- on ATG and Cyclosporine and Prednisone. Day # 23, For Prednisone taper on Day # 30. Promacta not yet available. 2.) Influenza A 3.) Suspected RLL Pneumonia- on Levaquin today. Appreciate ID evaluation and mgmt. So far, stable off IV antibiotic regimen with change to po ABx. yesterday 4.) Pre-renal #'s 5.) Social Situation: No permanent home address. 6.) Hx. of Anal Carcinoma Plan:. Continue po antibiotics Continue AA therapy. Follow labs + Sx. + VS + caloric intake. 11/13/17 12:46 Subjective: Still with mouth pain and pain from sore on Left upper lip. No emesis Poor appetite. Objective: VSS, afebrile as noted here: HEENT- Left lip lesion appears a bit better today. Oral cavity shows healing, daniel. at frontal maxillary region Neck- supple Chest- clear CVS- RSR, no extra HS ABD- soft, BS+, NT no mass or ascites EXT- skin intact, no edema. Scattered ecchymoses are present. Labs as noted here: Hgb 8.2 PLT 35, WBC 2.23 BUN/Cr 41/1.3 Vital Signs Temp Pulse Resp BP Pulse Ox 36.7 C 99 18 142/90 H 91 L 11/13/17 11:42 11/13/17 11:42 11/13/17 11:42 11/13/17 11:42 11/13/17 11:42 Laboratory Results 11/13/17 04:48 11/13/17 04:48 11/12/17 11/13/17 11/14/17 05:59 05:59 05:59 Intake Total 2372 100 Output Total 3 400 800 Balance 2369 -300 -800 PT 13.5 SEC (12.0-15.0) 11/10/17 08:08 INR 1.01 (0.83-1.16) 11/10/17 08:08 ICD10 Worksheet Patient Problems: Problems Problem Status Onset Influenza A Acute Neutropenia Acute Pneumonia Acute Reactive airway disease Acute Anemia Acute Aplastic anemia Acute ~10/2017 Chest pain Acute Fever Acute Palliative care encounter Acute Thrombocytopenia Acute Vomiting Acute Anal squamous cell carcinoma Chronic 12/10/14 Poor dentition Chronic
--- NOTE | 2017-11-13 14:34 | PCMIDPN ---
Assessment/Plan: Assessment/Plan: 1. INfluenza A with left lingular infiltrate vs atelectasis:- - On tamiflu and levaquin at present - On day #3/5 so far - droplet precautions - wbc improving -creatinine at 1.3, trending up 2. Mucosits with ulcers: - x 1 week so far. has lidocaine mouth rinse -check HSV/vzv PCR -drug interaction present with cyclosporin and acyclovir/valtrex. - creatinie up and cyclosporin level pending still - will hold off on adding acyclovir or valtrex today but get studies in progress. -once labs are back tomorrow will be able to figure out dosing if needed. - care coordinated with her RN and pharmacy regarding this. Meds tamiflu levaquin Subjective: afebrile. breathing is better. she feels the nebulizers are making her jittery. denies coughing or sputum production. denies abd pain or diarrhea. c/o mouth pain Objective: Vital Signs Temp Pulse Resp BP Pulse Ox 36.7 C 99 18 142/90 H 91 L 11/13/17 11:42 11/13/17 11:42 11/13/17 11:42 11/13/17 11:42 11/13/17 11:42 Laboratory Results 11/13/17 04:48 11/13/17 04:48 11/12/17 11/13/17 11/14/17 05:59 05:59 05:59 Intake Total 2372 100 Output Total 3 400 800 Balance 2369 -300 -800 - Physical Exam General Appearance: alert, no apparent distress EENT: other (cheilitis with ulceration at left corner of mouth. Also with oral ulcers invoving buccal mucosa and posterior pharynx.) Respiratory: coarse breath sounds (mild ) Cardiac/Chest: regular rate, rhythm Extremities: No swelling Abdomen: normal bowel sounds, non-tender, soft, No distended Skin: No erythema - Time Spent With Patient Time Spent with Patient: greater than 35 minutes Time Spent with Patient: Greater than 35 minutes spent on this patients care, greater than 50% of time spent counseling, educating, and coordinating care regarding the above mentioned plan. ICD10 Worksheet Patient Problems: Problems Problem Status Onset Influenza A Acute Neutropenia Acute Pneumonia Acute Reactive airway disease Acute Anemia Acute Aplastic anemia Acute ~10/2017 Chest pain Acute Fever Acute Palliative care encounter Acute Thrombocytopenia Acute Vomiting Acute Anal squamous cell carcinoma Chronic 12/10/14 Poor dentition Chronic
[2017-11-13] MEDS: diphenhydrAMINE 25 MG CAP PO PRN (21:38)
[2017-11-13] MEDS: BENZONATATE 100 MG CAP PO PRN (21:40)
[2017-11-13] MEDS: CETIRIZINE 10 MG TAB PO SCH (21:41)
[2017-11-14] MEDS: ACETAMINOPHEN 325 MG TAB PO PRN ×2 (04:08→16:02)
[2017-11-14] MEDS: IPRATROPIUM/ALBUTEROL 3 ML DEYVIAL IH SCH ×4 (05:13→19:26)
[2017-11-14] MEDS ORDERED: LR 1,000 ML IV ONE (10:30)
[2017-11-14] MEDS: ACETAMINOPHEN 500 MG TAB PO SCH ×2 (10:38→21:23)
[2017-11-14] MEDS: guaiFENesin 600 MG TAB.ER PO SCH ×2 (10:38→21:26)
[2017-11-14] MEDS: cycloSPORINE 100 MG CAP PO SCH ×2 (10:39→21:24)
[2017-11-14] MEDS: cycloSPORINE 25 MG CAP PO SCH ×2 (10:39→21:25)
[2017-11-14] MEDS: CAFFEINE 200 MG PO SCH ×2 (10:40→16:02)
[2017-11-14] MEDS: OSELTAMIVIR 6 MG/ML UDSYR PO SCH ×2 (10:52→22:05)
--- NOTE | 2017-11-14 11:53 | SOAPPROG ---
SOAP Progress Note Assessment/Plan: Assessment: 1.) Aplastic Anemia- on ATG and Cyclosporine and Prednisone. Day # 24, For Prednisone taper on Day # 30. Prednisone is now 60 mg/Day. Promacta not yet available. 2.) Influenza A- on Tamiflu. 3.) Suspected RLL Pneumonia- on Levaquin today. Appreciate ID evaluation and mgmt. So far, stable off IV antibiotic regimen with change to po ABx. yesterday 4.) Pre-renal #'s: IV Hydration today. Will follow BUN/Cr 11/15. Encouraged increased PO intake also. 5.) Social Situation: No permanent home address. 6.) Hx. of Anal Carcinoma Plan:. Continue po antibiotics Continue AA therapy (Cyclosporine + Prednisone + {promacta- not yet available}) Follow labs + Sx. + VS + caloric intake. 11/14/17 11:53 Subjective: Feeling somewhat better, with improvement in lip and oral lesions. No new sx. No diarrhea/N/V Objective: Afebrile, VSS as noted here: HEENT- anicteric, lower lip lesion on Left healing, oral mucositis improved Neck- supple Chest- clear CVS- RSR, no extra HS ABD- soft, NT, BS+, nondistended EXT- skin intact, scattered ecchymoses noted. No petechiae Labs: 11/13- PLT 35, Hgb 8.2 BUN/Cr 45/1.3 today- noted here: Vital Signs Temp Pulse Resp BP Pulse Ox 36.8 C 69 18 172/98 H 94 11/14/17 07:36 11/14/17 07:36 11/14/17 07:36 11/14/17 07:36 11/14/17 07:36 Laboratory Results 11/13/17 04:48 11/14/17 03:56 11/13/17 11/14/17 11/15/17 05:59 05:59 05:59 Intake Total 100 550 Output Total 400 800 Balance -300 -250 PT 13.5 SEC (12.0-15.0) 11/10/17 08:08 INR 1.01 (0.83-1.16) 11/10/17 08:08 ICD10 Worksheet Patient Problems: Problems Problem Status Onset Influenza A Acute Neutropenia Acute Pneumonia Acute Reactive airway disease Acute Anemia Acute Aplastic anemia Acute ~10/2017 Chest pain Acute Fever Acute Palliative care encounter Acute Thrombocytopenia Acute Vomiting Acute Anal squamous cell carcinoma Chronic 12/10/14 Poor dentition Chronic
[2017-11-14] MEDS: LR 1,000 ML IV SCH (12:02)
[2017-11-14] MEDS: predniSONE 20 MG TAB PO SCH (16:06)
--- NOTE | 2017-11-14 16:33 | HOSPPROG ---
Hospitalist Progress Note Assessment/Plan: DIAGNOSES: -acute influenza a -COPD exacerbation -severe pancytopenia from aplastic anemia and cancer -aplastic anemia, on antithymocyte globulin cyclosporin and steroid -metastatic anal carcinoma -chronic labial lesion, metastatic with ongoing wound care issues Continues to improve and doing better on her feet. No shortness of breath at this time. She has developed some significant pre renal azotemia as well as still slight worsening creatinine despite telling me that she is drinking plenty of fluid. However when I reviewed the chart the nurses are recording very small fluid intake and her weight is decreased by our scale. 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: Exam: alert oriented skin warm dry color ok resps not labored lungs diminished BSs with some rhonchi but no wheeze today heart regular abd soft nondistended nontender, bowel sounds present limbs warm, no edema iv site ok Objective: Vital Signs Temp Pulse Resp BP Pulse Ox 36.5 C 112 H 16 162/88 H 91 L 11/14/17 15:20 11/14/17 15:20 11/14/17 15:20 11/14/17 15:20 11/14/17 15:20 Laboratory Results 11/13/17 04:48 11/14/17 12:45 11/13/17 11/14/17 11/15/17 06:59 06:59 06:59 Intake Total 057 621 5588 Output Total 400 800 Balance -300 -250 1000 PT 13.5 SEC (12.0-15.0) 11/10/17 08:08 INR 1.01 (0.83-1.16) 11/10/17 08:08 ICD10 Worksheet Patient Problems: Problems Problem Status Onset Influenza A Acute Neutropenia Acute Pneumonia Acute Reactive airway disease Acute Anemia Acute Aplastic anemia Acute ~10/2017 Chest pain Acute Fever Acute Palliative care encounter Acute Thrombocytopenia Acute Vomiting Acute Anal squamous cell carcinoma Chronic 12/10/14 Poor dentition Chronic
[2017-11-14] MEDS: BENZONATATE 100 MG CAP PO PRN (21:24)
[2017-11-14] MEDS: diphenhydrAMINE 25 MG CAP PO PRN (21:25)
[2017-11-15] MEDS: CETIRIZINE 10 MG TAB PO SCH (01:27)
[2017-11-15] MEDS: LR 1,000 ML IV SCH (02:33)
[2017-11-15] MEDS: ACETAMINOPHEN 325 MG TAB PO PRN (04:42)
[2017-11-15] MEDS: CAFFEINE 200 MG PO SCH (04:42)
[2017-11-15] MEDS: IPRATROPIUM/ALBUTEROL 3 ML DEYVIAL IH SCH ×2 (04:59→08:26)
[2017-11-15 05:31] LABS: PLATELET COUNT 14 10^3/uL (150-400)
[2017-11-15 08:03] VITALS: RESP 18
[2017-11-15] MEDS: cycloSPORINE 100 MG CAP PO SCH (08:36)
[2017-11-15] MEDS: cycloSPORINE 25 MG CAP PO SCH (08:36)
[2017-11-15] MEDS: guaiFENesin 600 MG TAB.ER PO SCH (08:36)
[2017-11-15] MEDS: ACETAMINOPHEN 500 MG TAB PO SCH (08:39)
--- NOTE | 2017-11-15 10:42 | SOAPPROG ---
SOAP Progress Note Assessment/Plan: Assessment: 1.) Aplastic Anemia- on ATG and Cyclosporine and Prednisone. Day # 25, For Prednisone taper on Day # 30. Prednisone is now 60 mg/Day. Promacta not yet available. [facility] outpt. office is pursuing insurance authorization for Promacta. 2.) Influenza A- on Tamiflu. 3.) Suspected RLL Pneumonia- on Levaquin . Appreciate ID evaluation and mgmt. So far, stable off IV antibiotic regimen with change to po ABx. 4.) Pre-renal #'s: IV Hydration today. Will follow BUN/Cr 11/15. Encouraged increased PO intake also. 5.) Social Situation: No permanent home address. 6.) Hx. of Anal Carcinoma Plan:. Continue po antibiotics Continue AA therapy (Cyclosporine + Prednisone + {promacta- not yet available}) Follow labs + Sx. + VS + caloric intake. Will transfuse PLTs and will repeat CXR 11/15/17 10:42 Subjective: Lip and oral sores somewhat better on soft /liquid diet. Resp symptoms improved. No diarrhea, and no new sx. Objective: Afebrile, VSS as noted here in NAD, looks comfortable and conversant HEENT- anicteric, pale, oral mucositis improved, L lip viral lesion improved , mild oozing of blood at corner of mouth on R side Neck- supple Chest- Clear CVS- RSR, No change ABD- soft, BS+, no mass or HSM EXT- no change in scattered ecchymoses, no petechiae LABS as noted here: PLT down to 14,000. BUN/Cr 44/1.2 HSV I DNA, (+) Vital Signs Temp Pulse Resp BP Pulse Ox 36.6 C 65 18 142/98 H 94 11/15/17 08:00 11/15/17 08:00 11/15/17 08:00 11/15/17 08:00 11/15/17 08:00 Laboratory Results 11/15/17 04:16 11/15/17 04:16 11/14/17 11/15/17 11/16/17 05:59 05:59 05:59 Intake Total 550 3250 Output Total 800 Balance -250 3250 PT 13.5 SEC (12.0-15.0) 11/10/17 08:08 INR 1.01 (0.83-1.16) 11/10/17 08:08 ICD10 Worksheet Patient Problems: Problems Problem Status Onset Influenza A Acute Neutropenia Acute Pneumonia Acute Reactive airway disease Acute Anemia Acute Aplastic anemia Acute ~10/2017 Chest pain Acute Fever Acute Palliative care encounter Acute Thrombocytopenia Acute Vomiting Acute Anal squamous cell carcinoma Chronic 12/10/14 Poor dentition Chronic
--- NOTE | 2017-11-15 11:12 | PDDCSUM ---
Discharge Summary Discharge Summary: DISCHARGE DIAGNOSES: -acute influenza a infection -acute hypoxemic respiratory failure -COPD exacerbation -pancytopenia from aplastic anemia and ongoing metastatic cancer CONSULTANTS: Dr. Rambo Calle PROCEDURES: Transfusion of 1 U of platelets HOSPITAL COURSE SUMMARY: This patient who has a ongoing stage IV renal carcinoma with metastases to the labia and a chronic wound there has recently developed aplastic anemia and is on therapy that for that. At this time she presents the hospital with fever symptoms, myalgias, cough shortness of breath is found have positive test for influenza a. She had a COPD exacerbation induced by this. She did have ongoing pancytopenia due to her aplastic anemia and did require 1 U of platelet transfusion here but did not have any concerning bleeding. Her cell counts have remained low but stable since then. Patient was treated with Tamiflu hydration and supportive care. She has done nicely and recovered well from her influenza. Her respirations are now back to baseline, she is ambulating in the [place] without difficulty, not requiring oxygen and feels ready to go home. Her lungs have a diminished but clear breath sounds. She has no ongoing fever or any vital sign abnormalities PENDING TEST RESULTS: None MEDICATION CHANGES: None FOLLOW-UP PLAN: She has an appointment at [facility] tomorrow for ongoing monitoring management of her aplastic anemia and cancer. She has ongoing wound care arranged for her labial wound. Greater than 35 minutes bedside and care coordination time today
[2017-11-15 11:48] VITALS: BP 149/97; PULSE 96; TEMP 98; O2SAT 91
[2017-11-15] MEDS: predniSONE 20 MG TAB PO SCH (12:07)
--- NOTE | 2017-11-15 12:14 | ASMTCMCOM ---
CM Note CM Note Notes: Pt is ready for DC today. Dr Thomas cleared pt to go back to the [facility]. Pt given a bus pass and some masks. Pt denied other needs. Date Signed: 11/15/2017 12:13 PM Electronically Signed By:Deann Mon LCSW
--- NOTE | 2017-11-15 12:14 | ASDISCHSUM ---
Discharge Information Plan Status:Homeless/Fdc Medically Cleared to Leave: Discharge Date: CM D/C Disposition:Home, Routine, Self-Care ADT D/C Disposition:Home, Routine, Self-Care Projected Discharge Date: Transportation at D/C: Discharge Delay Reason: Follow-Up Date: Discharge Slot: Final Diagnosis: Placement Information Patient Contact Information Contact Name:MARTHA Relationship:Friend Address: Work Phone: City: [facility] Phone: State/Zip Code: Email: Financial Information Financial Class: Primary Plan Desc:MEDICAID HEALTH [facility] Primary Plan Number:[id number] Secondary Plan Desc: Secondary Plan Number: Assessment Information LACE LACE Acuity / Level of Care Answers: Was the patient admitted to hospital via the emergency department? Yes: Comorbidities - select Answers: Any tumor (including all that apply lymphoma or leukemia) Emergency dept visits in Answers: 2 last 6 months Score: 7 Date Signed: 11/11/2017 02:59 PM Electronically Signed By:Maryanne Chaudhari RN [facility] CM Progress Note CM Note CM Note Notes: Patient chart reviewed. Patient known to this hospital. DX of anal cancer. She is homeless. No local family. Prior Palliative care meeting in August. Admitted with influenza and cough. She has been following up at [facility] for transfusions. She was just discharged 10/30/17. Question need for attic fans mechanic placement for her. Refused therapy today as she is weak. [facility] to follow. Date Signed: 11/11/2017 03:06 PM Electronically Signed By:Maryanne Chaudhari RN [facility] CM Progress Note CM Note CM Note Notes: Pt is ready for DC today. Dr Thomas cleared pt to go back to the [facility]way. Pt given a bus pass and some masks. Pt denied other needs. Date Signed: 11/15/2017 12:13 PM Electronically Signed By:Deann Mon LCSW Intervention Information
== END 2017-11-15 13:16 | disposition home or self-care (01) | DRG 193 ==
LOC: EDBD → EDUNIT# → F1N 09:40
PROVIDERS: ADMIT Internal Medicine Pulmonary Disease; ATTEND Internal Medicine Pulmonary Disease
PROC: 30233R1 Transfusion of Nonautologous Platelets into Peripheral Vein, Percutaneous Approach (ICD-10-PCS; principal; 2017-11-12)
DX: J10.1 Influenza due to other identified influenza virus with other respiratory manifestations (principal); J96.01 Acute respiratory failure with hypoxia; D61.810 Antineoplastic chemotherapy induced pancytopenia; J44.1 Chronic obstructive pulmonary disease with (acute) exacerbation; C79.82 Secondary malignant neoplasm of genital organs; T45.1X5A Adverse effect of antineoplastic and immunosuppressive drugs, initial encounter; I10 Essential (primary) hypertension; Z86.718 Personal history of other venous thrombosis and embolism; Z85.048 Personal history of other malignant neoplasm of rectum, rectosigmoid junction, and anus; Z72.0 Tobacco use; Z59.0 Homelessness; Z66 Do not resuscitate; Z88.0 Allergy status to penicillin; K12.30 Oral mucositis (ulcerative), unspecified
CPT/HCPCS: 80158-90; 87529-90; 97161-GP; J1940; J2185; J7502; J7512; J7613; P9035

== ENCOUNTER 2017-11-16 13:27 | Outpatient (CLI) | payer MEDICAID | END 2017-11-16 15:55 | disposition home or self-care (01) | LOC: FOBOP 13:27 | PROVIDERS: ATTEND Internal Medicine Hematology & Oncology | PROC: 30233R1 Transfusion of Nonautologous Platelets into Peripheral Vein, Percutaneous Approach (ICD-10-PCS; principal; 2017-11-16) | DX: D61.9 Aplastic anemia, unspecified (principal) | CPT/HCPCS: 36430; P9035 ==

== ENCOUNTER 2017-11-20 12:41 | Outpatient (CLI) | payer MEDICAID | END 2017-11-20 14:34 | disposition home or self-care (01) | LOC: FOBOP 12:41 | PROVIDERS: ATTEND Internal Medicine Hematology & Oncology | PROC: 30233R1 Transfusion of Nonautologous Platelets into Peripheral Vein, Percutaneous Approach (ICD-10-PCS; principal; 2017-11-20) | DX: D53.9 Nutritional anemia, unspecified (principal); C21.0 Malignant neoplasm of anus, unspecified; D51.9 Vitamin B12 deficiency anemia, unspecified; I82.409 Acute embolism and thrombosis of unspecified deep veins of unspecified lower extremity; E86.0 Dehydration | CPT/HCPCS: 36430; P9035 ==

== ENCOUNTER 2017-11-23 12:34 | Outpatient (CLI) | payer MEDICAID ==
[2017-11-23] MEDS ORDERED: ACETAMINOPHEN 325 MG TAB PO ONE (13:30)
== END 2017-11-23 18:25 | disposition home or self-care (01) ==
LOC: FOBOP 12:34
PROVIDERS: ATTEND Internal Medicine Hematology & Oncology
PROC: 30233N1 Transfusion of Nonautologous Red Blood Cells into Peripheral Vein, Percutaneous Approach (ICD-10-PCS; principal; 2017-11-23)
DX: D61.9 Aplastic anemia, unspecified (principal); C21.0 Malignant neoplasm of anus, unspecified; D51.9 Vitamin B12 deficiency anemia, unspecified; I82.409 Acute embolism and thrombosis of unspecified deep veins of unspecified lower extremity; E86.0 Dehydration
CPT/HCPCS: 36430; P9016

== ENCOUNTER 2017-11-27 12:06 | Outpatient (CLI) | payer MEDICAID | END 2017-11-27 15:30 | disposition home or self-care (01) | LOC: FOBOP 12:06 | PROVIDERS: ATTEND Internal Medicine Hematology & Oncology | PROC: 30233R1 Transfusion of Nonautologous Platelets into Peripheral Vein, Percutaneous Approach (ICD-10-PCS; principal; 2017-11-27) | DX: D61.9 Aplastic anemia, unspecified (principal) | CPT/HCPCS: 36430; P9037 ==

== ENCOUNTER 2017-12-04 13:43 | Outpatient (CLI) | payer MEDICAID ==
[2017-12-04 16:59] VITALS: BP 137/69; PULSE 87; RESP 20; TEMP 97.5
== END 2017-12-04 17:01 | disposition home or self-care (01) ==
LOC: FOBOP 13:43
PROVIDERS: ATTEND Internal Medicine Hematology & Oncology
PROC: 30243R1 Transfusion of Nonautologous Platelets into Central Vein, Percutaneous Approach (ICD-10-PCS; principal; 2017-12-04)
DX: D61.9 Aplastic anemia, unspecified (principal)
CPT/HCPCS: 36430; P9037

== ENCOUNTER 2017-12-11 13:08 | Outpatient (CLI) | payer MEDICAID ==
[2017-12-11 16:26] VITALS: BP 121/56; PULSE 82; RESP 16; TEMP 99.7; O2SAT 96
== END 2017-12-11 16:40 | disposition home or self-care (01) ==
LOC: FOBOP 13:08
PROVIDERS: ATTEND Internal Medicine Hematology & Oncology
PROC: 30233R1 Transfusion of Nonautologous Platelets into Peripheral Vein, Percutaneous Approach (ICD-10-PCS; principal; 2017-12-11)
DX: D61.9 Aplastic anemia, unspecified (principal)
CPT/HCPCS: 36430; P9037

== ENCOUNTER 2018-01-09 07:14 | Inpatient (IN) | payer MEDICAID ==
--- NOTE | 2018-01-09 07:20 | EDPHY ---
H & P Time Seen by Provider: 01/09/18 07:18 HPI/ROS: CHIEF COMPLAINT: Fever, vomiting HISTORY OF PRESENT ILLNESS: 62-year-old female with stage IV renal cell carcinoma and aplastic anemia presents with fever and vomiting. Onset of a productive cough 2 days ago. This morning she awoke with shaking chills, followed by 1 episode of vomiting. Associated with generalized weakness and fatigue. She also had transient left upper quadrant pain, which has now resolved. No shortness of breath or chest pain. Similar to prior episode of influenza/pneumonia in November 2017. She is currently on prednisone 30 mg daily , Cyclosporin and Promacta. She did not take her morning medications this morning. REVIEW OF SYSTEMS: Eyes: No visual changes ENT: No sore throat Respiratory: no shortness of breath Cardiac: No chest pain Gastrointestinal: No diarrhea Genitourinary: No hematuria, no dysuria Musculoskeletal: No myalgias Skin: No rash Neurological: No headache Psychiatric: No anxiety Past Medical/Surgical History: Aplastic anemia Stage IV renal cell carcinoma COPD Social History: Oncologist: Dr. Morin Lives in a halfway Smoking Status: Current every day smoker Physical Exam: General Appearance: Alert, pleasant, nontoxic-appearing Eyes: Pupils equal and round, no conjunctival pallor or injection ENT, Mouth: Mucous membranes dry Neck: Normal inspection Respiratory: Rhonchi at the left lung base Cardiovascular: Regular tachycardia Gastrointestinal: Abdomen is soft, mild epigastric tenderness Neurological: A&O, nonfocal exam Skin: Warm and dry, no rash Extremities: Nontender, no pedal edema Psychiatric: Mood and affect normal Constitutional: Initial Vital Signs Temperature (C) 37.7 C 01/09/18 07:14 Heart Rate 140 H 01/09/18 07:14 Respiratory Rate 20 01/09/18 07:14 Blood Pressure 152/93 H 01/09/18 07:14 O2 Sat (%) 94 01/09/18 07:14 O2 Delivery Mode Room Air Allergies/Adverse Reactions: adhesive tape Allergy (Verified 11/27/17 14:46) Itching aspirin Allergy (Verified 11/27/17 14:49) Abdominal Pain ibuprofen Allergy (Verified 01/09/18 07:32) Penicillins Allergy (Verified 11/27/17 14:45) Anaphylaxis Home Medications: Medication Instructions Recorded Acetaminophen [Tylenol ES 500 mg 1,000 mg PO BID 11/17/16 (*)] Herbals/Supplements -Info Only 1 ea PO DAILY 09/03/17 Hydrocortisone 1% [Hydrocortisone 1 radha TP DAILY PRN #30 cream 10/04/17 1% cream (*)] Caffeine [Stay Awake] 200 mg PO BID 10/22/17 Calcium Carbonate [Tums 500MG (*)] 500 mg PO DAILY PRN 10/22/17 diphenhydrAMINE [Benadryl 25 MG 25 mg PO Q6 PRN cap 10/29/17 (*)] Eltrombopag Olamine [PROMACTA] 75 mg PO DAILY 11/27/17 cycloSPORINE, MODIFIED [Neoral 25 75 mg PO BID 01/09/18 MG (*)] predniSONE [predniSONE] 30 mg PO DAILY 01/09/18 Medical Decision Making - Diagnostics Imaging Results: CXR: LLL infiltrate Imaging: I viewed and interpreted images myself ED Course/Re-evaluation: This patient presents with fever, vomiting and cough, concerning for pneumonia. Stat chest x-ray reveals a left lower lobe infiltrate and physical exam supports this dx with rhonchi at the left base. She does not meet SIRS criteria ; she has a suspected infection and is tachycardiac, but other criteria are negative. IV normal saline 1 L given for tachycardia and dehydration. Blood cultures drawn. Levaquin 750 mg IV given. She has a history of anaphylaxis to penicillins, and for this reason cephalosporins were not given. She has been on prednisone since October 2017 and was unable to tolerate her usual dose of prednisone this morning b/c of vomiting. Solu-Medrol 125 mg IV given. She has coarse breath sounds throughout, and I suggested a DuoNeb. However she refuses , as nebulized breathing treatments make her feel anxious and tremulous. Platelets 22 and no active bleeding; plt transfusion not indicated. Pt clinically stable through her ED stay. The Hospitalist service was consulted for admission. Differential Diagnosis: Differential diagnosis includes pyelonephritis, cholecystitis, influenza, cellulitis, pneumonia, abscess, meningitis. - Data Points Laboratory Results: Laboratory Results 01/09/18 07:23 01/09/18 07:23 01/09/18 01/09/18 07:23 07:23 Smear Review By Jose GRANADO MD Procalcitonin 0.17 ng/mL H ng/mL (0.02-0.10) Microbiology Results: MICROBIOLOGY 01/09/18 07:45 Blood Blood Culture - Preliminary Gram Positive Cocci Chains Medications Given: Acetaminophen (Tylenol) 650 mg PO Q4HRS PRN PRN Reason: Pain, Mild/Fever, Can Take PO Stop: 07/08/18 08:28 Last Admin: 01/09/18 10:41 Dose: 650 mg Cyclosporine (Neoral) 75 mg PO BID [facility] Stop: 07/08/18 20:59 Last Admin: 01/09/18 20:14 Dose: 75 mg Sodium Chloride (Ns) 1,000 mls @ 75 mls/hr IV CONT LAURO Stop: 07/08/18 08:29 Last Admin: 01/09/18 11:40 Dose: 1,000 mls Methylprednisolone Sodium Succinate (Solu-Medrol) 60 mg IVP BID LAURO Stop: 07/08/18 20:59 Last Admin: 01/09/18 20:14 Dose: 60 mg Miscellaneous Medication (Caffeine [Stay Awake]) 200 mg PO BID LAURO Stop: 07/08/18 20:59 Last Admin: 01/09/18 20:29 Dose: Not Given Discontinued Medications Sodium Chloride (Ns) 1,000 mls @ 0 mls/hr IV ONCE ONE; Wide Open PRN Reason: Protocol Stop: 01/09/18 07:25 Last Admin: 01/09/18 07:37 Dose: 1,000 mls Levofloxacin/Dextrose (Levaquin 750 Mg (Premix)) 150 mls @ 100 mls/hr IV EDNOW ONE PRN Reason: Protocol Stop: 01/09/18 09:41 Last Admin: 01/09/18 08:54 Dose: 150 mls Methylprednisolone Sodium Succinate (Solu-Medrol) 125 mg IVP EDNOW ONE Stop: 01/09/18 08:00 Last Admin: 01/09/18 08:08 Dose: 125 mg Ondansetron HCl (Zofran) 4 mg IVP EDNOW ONE Stop: 01/09/18 07:34 Last Admin: 01/09/18 07:37 Dose: 4 mg Departure - Departure Disposition: [facility] Acute Clinical Impression: Aplastic anemia Pneumonia Qualifiers: Pneumonia type: due to unspecified organism Laterality: left Lung location: lower lobe of lung Qualified Code(s): J18.1 - Lobar pneumonia, unspecified organism Condition: Fair
[2018-01-09] MEDS ORDERED: NS 1,000 ML IV ONE (07:24)
[2018-01-09] MEDS ORDERED: ONDANSETRON 4 MG/2 ML VIAL ONE (07:30)
[2018-01-09] MEDS ORDERED: ONDANSETRON 4 MG/2 ML VIAL IVP ONE (07:33)
[2018-01-09 07:42] LABS: INR 0.9 (0.83-1.16); PROTIME(PATIENT) 12.4 SEC (12.0-15.0)
[2018-01-09 07:46] LABS: PLATELET COUNT 22 10^3/uL (150-400)
[2018-01-09] MEDS ORDERED: methylPREDNISolone SOD SUCC 125 MG/2 ML VIAL IVP ONE (07:59)
--- NOTE | 2018-01-09 08:04 | CPEKG ---
Heart Rate: 114 RR Interval: 526 P-R Interval: 156 QRSD Interval: 76 QT Interval: 328 QTC Interval: 452 P [place]: -64 QRS [place]: -34 T Wave [place]: 81 EKG Severity - ABNORMAL ECG - EKG Impression: ECTOPIC ATRIAL TACHYCARDIA EKG Impression: LEFT AXIS DEVIATION EKG Impression: BORDERLINE T WAVE ABNORMALITIES Electronically Signed By: Rosette Cunningham 09-Jan-2018 15:46:12
[2018-01-09] MEDS ORDERED: ONDANSETRON 4 MG/2 ML VIAL IVP PRN (08:29)
[2018-01-09] MEDS ORDERED: ONDANSETRON DISINTEGRATING 4 MG TAB PO PRN (08:29)
[2018-01-09] MEDS ORDERED: NS 1,000 ML IV SCH (08:30)
[2018-01-09] MEDS: ACETAMINOPHEN 325 MG TAB PO PRN (10:41)
[2018-01-09] MEDS ORDERED: CALCIUM CARBONATE 500 MG CHEWABLE TAB PO PRN (15:34)
[2018-01-09] MEDS ORDERED: HYDROCORTISONE 1% CREAM TP PRN (15:34)
[2018-01-09] MEDS ORDERED: diphenhydrAMINE 25 MG CAP PO PRN (15:34)
--- NOTE | 2018-01-09 16:36 | PDGENHP ---
History and Physical - Chief Complaint SOB - History of Present Illness 62-year-old female with stage IV renal cell carcinoma and aplastic anemia presents with fever and vomiting. Onset of a productive cough 2 days ago. This morning she awoke with shaking chills, followed by 1 episode of vomiting. Associated with generalized weakness and fatigue. She also had transient left upper quadrant pain, which has now resolved. No shortness of breath or chest pain. Similar to prior episode of influenza/pneumonia in November 2017. She is currently on prednisone 30 mg daily, Cyclosporin and Promacta. She did not take her morning medications this morning. In the E.D, found to have a left sided patchy consolidation. She was started on Levaquin and given solumedrol. Past Medical/Surgical History: Aplastic anemia Stage IV renal cell carcinoma COPD Social History: Oncologist: Dr. Morin Lives in a custodial no ETOH Smoking Status: Current every day smoker FmHx: ME History Information - Allergies/Home Medication List Allergies/Adverse Reactions: adhesive tape Allergy (Verified 11/27/17 14:46) Itching aspirin Allergy (Verified 11/27/17 14:49) Abdominal Pain ibuprofen Allergy (Verified 01/09/18 07:32) Penicillins Allergy (Verified 11/27/17 14:45) Anaphylaxis Home Medications: Acetaminophen [Tylenol ES 500 mg (*)] 1,000 mg PO BID 11/17/16 [Last Taken 01/09 05:30] Herbals/Supplements -Info Only 1 ea PO DAILY 09/03/17 [Last Taken Unknown] Caffeine [Stay Awake] 200 mg PO BID 10/22/17 [Last Taken 01/09/18 05:30] Calcium Carbonate [Tums 500MG (*)] 500 mg PO DAILY PRN 10/22/17 [Last Taken Unknown] Eltrombopag Olamine [PROMACTA] 75 mg PO DAILY 11/27/17 [Last Taken 01/09/18] cycloSPORINE, MODIFIED [Neoral 25 MG (*)] 75 mg PO BID 01/09/18 [Last Taken 04/22 21:00] predniSONE [predniSONE] 30 mg PO DAILY 01/09/18 [Last Taken 01/09/18] I have personally reviewed and updated: medical history, social history - Past Medical History cancer Additional medical history: metastatic anal cancer, PUD, migraines, htn, ue dvt , 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 - Social History Smoking Status: Current every day smoker Additional social history: Homeless, living in the snf Review of Systems Review of Systems: ROS: 10pt was reviewed & negative except for what was stated in HPI & below Physical Exam Physical Exam: Temp Pulse Resp BP Pulse Ox 36.8 C 88 14 91/48 L 91 L 01/09/18 16:00 01/09/18 16:00 01/09/18 16:00 01/09/18 16:00 01/09/18 16:00 Constitutional: no apparent distress Eyes: PERRL, EOMI Ears, Nose, Mouth, Throat: moist mucous membranes, hearing normal Cardiovascular: regular rate and rhythym, No edema Respiratory: reduced air movement, expiratory wheeze Gastrointestinal: normoactive bowel sounds, soft, non-tender abdomen Genitourinary: no bladder fullness Skin: warm Musculoskeletal: full muscle strength Neurologic: AAOx3 Psychiatric: interacting appropriately, not anxious, not encephalopathic Lymph, Heme, Immunologic: No petechiae Lab Data & Imaging Review 01/09/18 07:23 01/09/18 07:23 WBC 4.19 10^3/uL (3.80-9.50) 01/09/18 07:23 RBC 2.40 10^6/uL (4.18-5.33) L 01/09/18 07:23 Hgb 9.4 g/dL (12.6-16.3) L 01/09/18 07:23 Hct 28.8 % (38.0-47.0) L 01/09/18 07:23 MCV 120.0 fL (81.5-99.8) H 01/09/18 07:23 MCH 39.2 pg (27.9-34.1) H 01/09/18 07:23 MCHC 32.6 g/dL (32.4-36.7) 01/09/18 07:23 RDW Not Reported 01/09/18 07:23 Plt Count 22 10^3/uL (150-400) L* 01/09/18 07:23 MPV TNP 01/09/18 07:23 Neut % (Auto) 63.1 % (39.3-74.2) 01/09/18 07:23 Lymph % (Auto) 31.7 % (15.0-45.0) 01/09/18 07:23 Bailey % (Auto) 3.6 % (4.5-13.0) L 01/09/18 07:23 Eos % (Auto) 0.2 % (0.6-7.6) L 01/09/18 07:23 Baso % (Auto) 0.2 % (0.3-1.7) L 01/09/18 07:23 Nucleat RBC Rel Count 1.2 % (0.0-0.2) H 01/09/18 07:23 Absolute Neuts (auto) 2.64 10^3/uL (1.70-6.50) 01/09/18 07:23 Absolute Lymphs (auto) 1.33 10^3/uL (1.00-3.00) 01/09/18 07:23 Absolute Monos (auto) 0.15 10^3/uL (0.30-0.80) L 01/09/18 07:23 Absolute Eos (auto) 0.01 10^3/uL (0.03-0.40) L 01/09/18 07:23 Absolute Basos (auto) 0.01 10^3/uL (0.02-0.10) L 01/09/18 07:23 Absolute Nucleated RBC 0.05 10^3/uL (0-0.01) H 01/09/18 07:23 Immature Gran % 1.2 % (0.0-1.1) H 01/09/18 07:23 Immature Gran # 0.05 10^3/uL (0.00-0.10) 01/09/18 07:23 Platelet Estimate DECREASED (ADEQ) L 01/09/18 07:23 PT 12.4 SEC (12.0-15.0) 01/09/18 07:23 INR 0.90 (0.83-1.16) 01/09/18 07:23 APTT 22.9 SEC (23.0-38.0) L 01/09/18 07:23 VBG Lactic Acid 2.0 mmol/L (0.7-2.1) 01/09/18 10:55 Sodium 138 mEq/L (135-145) 01/09/18 07:23 Potassium 4.4 mEq/L (3.5-5.2) 01/09/18 07:23 Chloride 106 mEq/L (97-110) 01/09/18 07:23 Carbon Dioxide 20 mEq/l (22-31) L D 01/09/18 07:23 Anion Gap 12 mEq/L (8-16) 01/09/18 07:23 BUN 21 mg/dL (7-23) 01/09/18 07:23 Creatinine 0.9 mg/dL (0.6-1.0) 01/09/18 07:23 Estimated GFR > 60 01/09/18 07:23 Glucose 99 mg/dL (70-100) 01/09/18 07:23 Calcium 9.4 mg/dL (8.5-10.4) 01/09/18 07:23 Total Bilirubin 0.8 mg/dL (0.1-1.4) 01/09/18 07:23 Procalcitonin 0.17 ng/mL (0.02-0.10) H 01/09/18 07:23 Urine Color PALE YELLOW 01/09/18 08:45 Urine Appearance CLEAR 01/09/18 08:45 Urine pH 6.0 (5.0-7.5) 01/09/18 08:45 Ur Specific [place] 1.011 (1.002-1.030) 01/09/18 08:45 Urine Protein NEGATIVE (NEGATIVE) 01/09/18 08:45 Urine Ketones NEGATIVE (NEGATIVE) 01/09/18 08:45 Urine Blood 2+ (NEGATIVE) H 01/09/18 08:45 Urine Nitrate NEGATIVE (NEGATIVE) 01/09/18 08:45 Urine Bilirubin NEGATIVE (NEGATIVE) 01/09/18 08:45 Urine Urobilinogen NEGATIVE EU (0.2-1.0) 01/09/18 08:45 Ur Leukocyte Esterase NEGATIVE (NEGATIVE) 01/09/18 08:45 Urine RBC 1-3 /hpf (0-3) 01/09/18 08:45 Urine WBC 1-3 /hpf (0-3) 01/09/18 08:45 Ur Epithelial Cells NONE SEEN /lpf (NONE-1+) 01/09/18 08:45 Urine Glucose NEGATIVE (NEGATIVE) 01/09/18 08:45 Assessment & Plan Assessment: #Left sided pneumonia, CAP #COPD with exacerbation #N/V #Dehydration #Aplastic anemia, thrombocytopenia, macrocytosis #Stage IV renal cell carcinoma, sees Dr. Morin #Immunocompromised #Daily Prednisone use Plan: Admit Cont Levaquin Start Solumedrol check pc, viral studies she does not want nebulizers IVF f/u blood cultures PT/OT DNR
[2018-01-09] MEDS: methylPREDNISolone SOD SUCC 40 MG/ML VIAL IVP SCH (20:14)
[2018-01-09] MEDS: CYCLOSPORINE, MODIFIED 25 MG CAP (NEORAL) PO SCH (20:14)
[2018-01-09] MEDS: NO DOZ PO SCH (20:29)
[2018-01-09] MEDS ORDERED: methylPREDNISolone SOD SUCC 125 MG/2 ML VIAL IVP SCH (21:00)
[2018-01-10] MEDS: ELTROMBOPAG OLAMINE 75 MG PO SCH ×5 (05:24→15:06)
[2018-01-10] MEDS: NO DOZ PO SCH (05:25)
[2018-01-10] MEDS: ACETAMINOPHEN 325 MG TAB PO PRN ×2 (05:28→15:35)
[2018-01-10] MEDS: CAFFEINE 200 MG PO SCH ×4 (05:34→20:39)
[2018-01-10 06:22] LABS: PLATELET COUNT 20 10^3/uL (150-400)
[2018-01-10] MEDS ORDERED: Herbals/Supplements -Info Only PO SCH (09:00)
[2018-01-10] MEDS: CYCLOSPORINE, MODIFIED 25 MG CAP (NEORAL) PO SCH ×2 (09:22→20:04)
[2018-01-10] MEDS: methylPREDNISolone SOD SUCC 40 MG/ML VIAL IVP SCH (09:25)
--- NOTE | 2018-01-10 15:09 | HOSPPROG ---
Hospitalist Progress Note Assessment/Plan: #Left sided pneumonia, CAP #Strep Pneumo Bacteremia #COPD with exacerbation #N/V #Dehydration #Aplastic anemia, thrombocytopenia, macrocytosis #Stage IV renal cell carcinoma, sees Dr. Morin #Immunocompromised #Daily Prednisone use Plan: Inpatient Cont Levaquin change Solumedrol to Prednisone she does not want nebulizers Stop IVF PT/OT DNR anticipate discharge tomorrow or the next day. Subjective: feels better. less cough. afebrile Objective: Vital Signs Temp Pulse Resp BP Pulse Ox 37.2 C 91 18 125/79 H 87 L 01/10/18 11:22 01/10/18 11:22 01/10/18 11:22 01/10/18 11:22 01/10/18 11:22 Microbiology 01/09/18 09:15 Respiratory Panel (PCR) - Final Nasal, Sinus - Swab No Organism Detected Laboratory Results 01/10/18 05:18 01/10/18 05:18 01/09/18 01/10/18 01/11/18 05:59 05:59 05:59 Intake Total 1100 Balance 1100 PT 12.4 SEC (12.0-15.0) 01/09/18 07:23 INR 0.90 (0.83-1.16) 01/09/18 07:23 - Physical Exam Constitutional: no apparent distress, appears nourished Eyes: PERRL, EOMI Ears, Nose, Mouth, Throat: moist mucous membranes, hearing normal Cardiovascular: regular rate and rhythym, No edema Respiratory: reduced air movement, expiratory wheeze Gastrointestinal: normoactive bowel sounds, soft, non-tender abdomen Skin: warm Musculoskeletal: full muscle strength Neurologic: AAOx3 Psychiatric: interacting appropriately, not anxious, not encephalopathic Lymph, Heme, Immunologic: No petechiae ICD10 Worksheet Patient Problems: Problems Problem Status Onset Aplastic anemia Acute ~10/2017 Pneumonia Acute Anemia Acute Chest pain Acute Fever Acute Influenza A Acute Neutropenia Acute Palliative care encounter Acute Reactive airway disease Acute Thrombocytopenia Acute Vomiting Acute Anal squamous cell carcinoma Chronic 12/10/14 Poor dentition Chronic
--- NOTE | 2018-01-10 17:08 | PDMN ---
Medical Necessity Medical necessity: Change to IP, as of 01/10/18, per MD; los >2 mn for ongoing management of pneumonia, strep pneumo bacteremia, COPD exacerbation, N/V & dehydration; admit for further monitoring, supportive care, IV abx & therapies; hx stage IV renal cell carcinoma, immunocompromised & aplastic anemia; per progress note & order 01/10/18
--- NOTE | 2018-01-10 17:29 | ASMTCMCOM ---
CM Note CM Note Notes: Met w/pt, she has a reserved bed at the [facility] and will dc there when medically stable. Asked CM if we could get her some pants. Cleared by PT/OT DC Plan: [facility] Date Signed: 01/10/2018 05:29 PM Electronically Signed By:Shanta Owen RN
[2018-01-11] MEDS: ACETAMINOPHEN 325 MG TAB PO PRN ×2 (05:15→15:16)
[2018-01-11] MEDS: CAFFEINE 200 MG PO SCH ×3 (05:37→19:21)
[2018-01-11] MEDS ORDERED: ELTROMBOPAG OLAMINE 75 MG PO SCH (06:00)
[2018-01-11 06:13] LABS: PLATELET COUNT 25 10^3/uL (150-400)
[2018-01-11] MEDS: predniSONE 20 MG TAB PO SCH (09:12)
[2018-01-11] MEDS: CYCLOSPORINE, MODIFIED 25 MG CAP (NEORAL) PO SCH ×2 (09:13→20:01)
--- NOTE | 2018-01-11 14:34 | HOSPPROG ---
Hospitalist Progress Note Assessment/Plan: #Left sided pneumonia, CAP #Strep Pneumo Bacteremia #COPD with exacerbation #N/V #Dehydration #Aplastic anemia, thrombocytopenia, macrocytosis #Stage IV renal cell carcinoma, sees Dr. Morin #Immunocompromised #Daily Prednisone use Plan: Inpatient Cont Levaquin, change to oral Cont Prednisone Likely ready for discharge tomorrow to a [facility] in [place] PT/OT: they have cleared her DNR Subjective: Now on RA but feels better but still weak and symptomatic. Some dyspnea on exertion. afebrile. Objective: Vital Signs Temp Pulse Resp BP Pulse Ox 36.8 C 70 18 138/85 H 94 01/11/18 11:08 01/11/18 11:08 01/11/18 11:08 01/11/18 11:08 01/11/18 11:08 Laboratory Results 01/11/18 05:13 01/11/18 05:13 01/10/18 01/11/18 01/12/18 05:59 05:59 05:59 Intake Total 300 Balance 300 PT 12.4 SEC (12.0-15.0) 01/09/18 07:23 INR 0.90 (0.83-1.16) 01/09/18 07:23 - Physical Exam Constitutional: no apparent distress Eyes: PERRL Ears, Nose, Mouth, Throat: moist mucous membranes Cardiovascular: regular rate and rhythym Respiratory: no respiratory distress, reduced air movement Gastrointestinal: normoactive bowel sounds, soft, non-tender abdomen Skin: warm Musculoskeletal: full muscle strength Neurologic: AAOx3 Psychiatric: interacting appropriately, not anxious, not encephalopathic, thought process linear Lymph, Heme, Immunologic: No petechiae ICD10 Worksheet Patient Problems: Problems Problem Status Onset Aplastic anemia Acute ~10/2017 Pneumonia Acute Anemia Acute Chest pain Acute Fever Acute Influenza A Acute Neutropenia Acute Palliative care encounter Acute Reactive airway disease Acute Thrombocytopenia Acute Vomiting Acute Anal squamous cell carcinoma Chronic 12/10/14 Poor dentition Chronic
[2018-01-12] MEDS: CAFFEINE 200 MG PO SCH ×2 (06:11→13:41)
[2018-01-12] MEDS: ELTROMBOPAG OLAMINE 75 MG PO SCH (06:11)
[2018-01-12] MEDS: ACETAMINOPHEN 325 MG TAB PO PRN ×2 (06:14→13:40)
[2018-01-12 06:36] LABS: PLATELET COUNT 23 10^3/uL (150-400)
[2018-01-12] MEDS: CYCLOSPORINE, MODIFIED 25 MG CAP (NEORAL) PO SCH ×2 (09:15→20:18)
[2018-01-12] MEDS: predniSONE 20 MG TAB PO SCH (09:15)
--- NOTE | 2018-01-12 11:04 | HOSPPROG ---
Hospitalist Progress Note Assessment/Plan: Patient is a 62-year-old female with stage IV renal cell carcinoma and plastic anemia. She presented the emergency room fever and vomiting with associated cough. She also complained of generalized weakness and fatigue. She had the influenza pneumonia in November 2017. Today is my 1st encounter with the patient. Chart reviewed. #Left sided pneumonia, CAP -on Levaquin #Strep Pneumo Bacteremia -will get a second set of blood cultures to assure resolution #COPD with exacerbation -steroids #N/V -resolved #Dehydration -resolved #Aplastic anemia, thrombocytopenia, macrocytosis -will recheck labs in the morning, will hold transfusing at this time #Stage IV renal cell carcinoma, sees Dr. Morin #Immunocompromised Plan. Will evaluate blood cultures and labs in the morning. If these are all stable will aim to discharge tomorrow. The patient lives in the group home and they are willing to reserve a bed for her Subjective: patient is feeling much better today. Objective: Vital Signs Temp Pulse Resp BP Pulse Ox 36.8 C 71 18 148/95 H 93 01/12/18 07:07 01/12/18 07:07 01/12/18 07:07 01/12/18 07:07 01/12/18 07:07 Laboratory Results 01/12/18 05:24 01/11/18 05:13 01/11/18 01/12/18 01/13/18 05:59 05:59 06:59 Intake Total 300 1050 Output Total 1400 Balance 300 -350 PT 12.4 SEC (12.0-15.0) 01/09/18 07:23 INR 0.90 (0.83-1.16) 01/09/18 07:23 - Physical Exam Constitutional: chronically ill appearing, other (thin) Eyes: PERRL Ears, Nose, Mouth, Throat: poor dentition Cardiovascular: regular rate and rhythym Respiratory: no respiratory distress Gastrointestinal: normoactive bowel sounds Skin: warm Musculoskeletal: full muscle strength Neurologic: AAOx3 Psychiatric: interacting appropriately ICD10 Worksheet Patient Problems: Problems Problem Status Onset Aplastic anemia Acute ~10/2017 Pneumonia Acute Anemia Acute Chest pain Acute Fever Acute Influenza A Acute Neutropenia Acute Palliative care encounter Acute Reactive airway disease Acute Thrombocytopenia Acute Vomiting Acute Anal squamous cell carcinoma Chronic 12/10/14 Poor dentition Chronic
[2018-01-13 05:30] LABS: PLATELET COUNT 19 10^3/uL (150-400)
[2018-01-13] MEDS: ELTROMBOPAG OLAMINE 75 MG PO SCH (05:57)
[2018-01-13] MEDS: CAFFEINE 200 MG PO SCH (05:57)
[2018-01-13] MEDS: ACETAMINOPHEN 325 MG TAB PO PRN (06:00)
[2018-01-13] MEDS: CYCLOSPORINE, MODIFIED 25 MG CAP (NEORAL) PO SCH (08:44)
[2018-01-13] MEDS: predniSONE 20 MG TAB PO SCH (08:44)
--- NOTE | 2018-01-13 10:49 | HOSPPROG ---
Hospitalist Progress Note Assessment/Plan: Patient is a 62-year-old female with stage IV renal cell carcinoma and plastic anemia. She presented the emergency room fever and vomiting with associated cough. She also complained of generalized weakness and fatigue. She had the influenza pneumonia in November 2017. #Left sided pneumonia, CAP -on Levaquin -will give 13 more days due to being bacteremic #Strep Pneumo Bacteremia -second set shows no growth x 24 hours #COPD with exacerbation -steroids #N/V -resolved #Dehydration -resolved #Aplastic anemia, thrombocytopenia, macrocytosis -reviewed w oncology, no transfusion now; she has an appt w Evangelina Morin this Sunday #Stage IV renal cell carcinoma, sees Dr. Morin #Immunocompromised #homelessness -has a bed at the senior care, has a bus pass Plan. dc home, she gets her scripts filled here at [facility] to fill before she leaves Subjective: Judi is feeling well, no complaints. Objective: Vital Signs Temp Pulse Resp BP Pulse Ox 36.7 C 73 20 170/96 H 92 01/13/18 07:22 01/13/18 07:22 01/13/18 07:22 01/13/18 07:22 01/13/18 07:22 Laboratory Results 01/13/18 05:00 01/11/18 05:13 01/12/18 01/13/18 01/14/18 04:59 05:59 05:59 Intake Total Output Total Balance PT 12.4 SEC (12.0-15.0) 01/09/18 07:23 INR 0.90 (0.83-1.16) 01/09/18 07:23 - Physical Exam Constitutional: other (thin) Eyes: PERRL Ears, Nose, Mouth, Throat: poor dentition Cardiovascular: regular rate and rhythym Respiratory: no respiratory distress Gastrointestinal: normoactive bowel sounds Skin: warm Musculoskeletal: full muscle strength Neurologic: AAOx3 Psychiatric: interacting appropriately, not anxious ICD10 Worksheet Patient Problems: Problems Problem Status Onset Aplastic anemia Acute ~10/2017 Pneumonia Acute Anemia Acute Chest pain Acute Fever Acute Influenza A Acute Neutropenia Acute Palliative care encounter Acute Reactive airway disease Acute Thrombocytopenia Acute Vomiting Acute Anal squamous cell carcinoma Chronic 12/10/14 Poor dentition Chronic
[2018-01-13 12:15] VITALS: BP 174/103; PULSE 82; RESP 18; TEMP 98.7; O2SAT 94
--- NOTE | 2018-01-13 12:24 | GDS ---
[f rep st] DISCHARGE SUMMARY DISCHARGE DIAGNOSES: 1. Left-sided pneumonia, community-acquired. 2. Strep pneumonia bacteremia. 3. Chronic obstructive pulmonary disease with exacerbation. 4. Nausea and vomiting. 5. Dehydration. 6. Aplastic anemia, thrombocytopenia, and macrocytosis. 7. Stage IV renal cell carcinoma. 8. Immunocompromised. Briefly, the patient is a 62-year-old female with stage IV renal cell carcinoma and aplastic anemia. She presented to the emergency room with fever, vomiting and associated cough. She also had general ized weakness. Of note, she had the flu, pneumonia in November 2017. She was treated with IV Levaqui n. Today, she will be discharged on Levaquin. She will follow up with Dr. Morin this . HOSPITAL COURSE PER PROBLEM: 1. Left-sided pneumonia, community-acquired pneumonia. She will be on Levaquin, she will need 13 mo re days, being bacteremic, her blood culture was noted to be clear yesterday. 2. Strep pneumo bacteremia. No growth for 24 hours in second set of blood cultures. 3. Chronic obstructive pulmonary disease with exacerbation, resolved. 4. Nausea and vomiting, resolved. 5. Dehydration, resolved. 6. Aplastic anemia, thrombocytopenia. I reviewed with Oncology. They are recommending no transfusi on. She has an appointment with Dr. Morin this Sunday, and he can evaluate her. I suspect she wi ll need platelets. 7. Stage IV renal cell carcinoma. Follow up with Dr. Morin. 8. Immunocompromised. She is on prednisone. 9. Homelessness. She has a bed at the [facility] and a bus pass. DISCHARGE CONDITION: Stable. Blood pressure is 165/87, heart rate is 71, respiratory rate is 18, O2 sat is on room air 94%, temperature 36.7 Celsius. MEDICATIONS AT DISCHARGE: Please see the EMR. DISCHARGE INSTRUCTIONS: 1. Her prescription for Levaquin will be filled here, since she gets all of her medications filled a t the [facility] downstairs and they are closed. 2. To follow up with Dr. Morin as scheduled. 3. To be aware of Levaquin and the effect on the tendons. 4. If she develops fever, chills, or shortness of breath, return to the ER. Greater than 30 minutes on discharging and coordinating her care. /[id number]/MODL
--- NOTE | 2018-01-13 18:01 | ASMTLACE ---
LACE Length of stay for Answers: 3 days current admission Acuity / Level of Answers: Yes Care: Did the patient have an inpatient admission? Comorbidities - select Answers: Any tumor (including all that apply lymphoma or leukemia) # of Emergency department Answers: 1-2 visits in the last 6 months Social determinants Answers: Homelessness (street, [facility]) Score: 12 Date Signed: 01/13/2018 10:54 AM Electronically Signed By:Maryanne Chaudhari RN
== END 2018-01-13 15:39 | disposition home or self-care (01) | DRG 194 ==
LOC: EDUNIT# → INTOOBSV 08:10 → F3E 12:16 → OBSVTOIN 01-10 15:09
PROVIDERS: ADMIT Family Medicine; ATTEND Internal Medicine
DX: J18.9 Pneumonia, unspecified organism (principal); R78.81 Bacteremia; B95.3 Streptococcus pneumoniae as the cause of diseases classified elsewhere; J44.0 Chronic obstructive pulmonary disease with (acute) lower respiratory infection; J44.1 Chronic obstructive pulmonary disease with (acute) exacerbation; D61.9 Aplastic anemia, unspecified; C64.9 Malignant neoplasm of unspecified kidney, except renal pelvis; D69.6 Thrombocytopenia, unspecified; D75.89 Other specified diseases of blood and blood-forming organs; R11.2 Nausea with vomiting, unspecified; E86.0 Dehydration; I10 Essential (primary) hypertension; G43.909 Migraine, unspecified, not intractable, without status migrainosus; Z72.0 Tobacco use; Z79.52 Long term (current) use of systemic steroids; Z85.048 Personal history of other malignant neoplasm of rectum, rectosigmoid junction, and anus; Z86.718 Personal history of other venous thrombosis and embolism; Z59.0 Homelessness; Z88.0 Allergy status to penicillin; Z66 Do not resuscitate
CPT/HCPCS: 96374; 97161-GP; 97165-GO; G0378; J1956; J2405; J2920; J2930; J7512; J7515

== ENCOUNTER 2018-05-15 10:57 | Emergency (ER) | payer MEDICAID ==
[2018-05-15] MEDS ORDERED: NS 1,000 ML IV ONE ×2 (11:01→12:34)
--- NOTE | 2018-05-15 11:06 | EDPHY ---
H & P Time Seen by Provider: 05/15/18 11:05 HPI/ROS: CHIEF COMPLAINT: Lightheadedness, presyncope HISTORY OF PRESENT ILLNESS: The patient has a history of metastatic renal cell carcinoma. She also has aplastic anemia. She presents to the ED today by paramedics after she experienced lightheadedness and presyncope while at the library. The patient denies any complaints of acute pain, fever, vomiting or diarrhea. The patient does have a history of aplastic anemia requiring transfusion of platelets and red blood cells and February. She denies any acute melena. She has sporadic intermittent hematochezia. The patient denies any asymmetric calf pain or swelling. She denies history of fall or trauma. The patient denies acute headache or neurologic symptoms. REVIEW OF SYSTEMS: A comprehensive 10 point review of systems is otherwise negative aside from elements mentioned in the history of present illness. Source: Patient Exam Limitations: No limitations - Personal History Tetanus Vaccine Date: 2014 - Medical/Surgical History Hx Asthma: No Hx Chronic Respiratory Disease: No Hx Diabetes: No Hx Cardiac Disease: No Hx Renal Disease: No Hx Cirrhosis: No Hx Alcoholism: No Hx HIV/AIDS: No Hx Splenectomy or Spleen Trauma: No Other PMH: Stage IV renal cell carcinoma, right inguinal hernia repair, peptic ulcer disease, RUE DVT, hypertension, aplastic anemia, osteoarthritis - Social History Smoking Status: Current every day smoker - Physical Exam Exam: General Appearance: Alert, no distress Eyes: Pupils equal and round no pallor or injection ENT, Mouth: Dry mucous membranes, poor dentition Respiratory: There are no retractions, lungs are clear to auscultation Cardiovascular: Regular rate and rhythm Gastrointestinal: Abdomen is soft and nontender, no masses, bowel sounds normal Neurological: 5/5 strength all 4 extremities Skin: Warm and dry, no rashes Musculoskeletal: Neck is supple nontender Extremities: symmetrical, full range of motion Constitutional: Initial Vital Signs Temperature (C) 36.8 C 05/15/18 11:03 Heart Rate 58 L 05/15/18 11:03 Respiratory Rate 16 05/15/18 11:03 Blood Pressure 90/58 L 05/15/18 11:03 O2 Sat (%) 97 05/15/18 11:03 O2 Delivery Mode Room Air Allergies/Adverse Reactions: adhesive tape Allergy (Verified 05/15/18 11:08) Itching aspirin Allergy (Verified 05/15/18 11:08) Abdominal Pain cephalexin [From Keflex] Allergy (Verified 05/15/18 11:08) Hives codeine Allergy (Verified 05/15/18 11:08) ibuprofen Allergy (Verified 05/15/18 11:08) Penicillins Allergy (Verified 05/15/18 11:08) Anaphylaxis Home Medications: Medication Instructions Recorded Acetaminophen [Tylenol ES 500 mg 1,000 mg PO BID 11/17/16 (*)] Herbals/Supplements -Info Only 1 ea PO DAILY 09/03/17 Hydrocortisone 1% [Hydrocortisone 1 radha TP DAILY PRN #30 cream 10/04/17 1% cream (*)] Caffeine [Stay Awake] 200 mg PO BID 10/22/17 Calcium Carbonate [Tums 500MG (*)] 500 mg PO DAILY PRN 10/22/17 diphenhydrAMINE [Benadryl 25 MG 25 mg PO Q6 PRN cap 10/29/17 (*)] Eltrombopag Olamine [PROMACTA] 75 mg PO DAILY 11/27/17 cycloSPORINE, MODIFIED [Neoral 25 75 mg PO BID 01/09/18 MG (*)] predniSONE 30 mg PO DAILY 01/09/18 levOFLOXACIN [levAQUIN (*)] 750 mg PO DAILY10 #13 tab 01/13/18 Medical Decision Making - Diagnostics EKG Interpretation: EKG: Complete interpretation has been separately recorded in the [facility] archive. Summary impression: Sinus rhythm, rate 51, nonspecific ST T wave changes noted ED Course/Re-evaluation: The patient presents to the ED after a vasovagal episode. The patient clinically appeared dehydrated. She endorsed no symptoms of gastrointestinal bleeding. She does have a history of aplastic anemia. Workup in the emergency department did demonstrate [place] [address]. It was 20,000 several weeks ago. The patient received IV fluids in the emergency department with marked improvement of her symptoms. Her EKG demonstrates no evidence of ischemia. I did brady Morin informing him of her workup in the emergency department. He has an appointment to see her this week. The patient is comfortable being discharged home at this point time. She understands return to the emergency department for recurrent symptoms of presyncope, bleeding or other concerns. Differential Diagnosis: Differential diagnosis considered includes arrhythmia, dehydration, anemia, thrombocytopenia, renal failure, metabolic abnormality, vasovagal episode - Data Points Laboratory Results: Laboratory Results 05/15/18 11:10 05/15/18 11:10 05/15/18 05/15/18 05/15/18 11:10 11:10 11:10 WBC 3.63 10^3/uL L 10^3/uL (3.80-9.50) RBC 2.80 10^6/uL L 10^6/uL (4.18-5.33) Hgb 10.3 g/dL L g/dL (12.6-16.3) Hct 31.4 % L % (38.0-47.0) MCV 112.1 fL H fL (81.5-99.8) MCH 36.8 pg H pg (27.9-34.1) MCHC 32.8 g/dL g/dL (32.4-36.7) RDW 17.4 % H % (11.5-15.2) Plt Count 15 10^3/uL L* 10^3/uL (150-400) MPV TNP Neut % (Auto) Pending Lymph % (Auto) Pending Ida % (Auto) Pending Eos % (Auto) Pending Baso % (Auto) Pending Nucleat RBC Rel Count Pending Absolute Neuts (auto) Pending Absolute Lymphs (auto) Pending Absolute Monos (auto) Pending Absolute Eos (auto) Pending Absolute Basos (auto) Pending Absolute Nucleated RBC 0.00 10^3/uL 10^3/uL (0-0.01) Immature Gran % Pending Immature Gran # Pending Platelet Estimate DECREASED L (ADEQ) Smear Review By Pending PT 13.4 SEC SEC (12.0-15.0) INR 1.00 (0.83-1.16) APTT 26.1 SEC SEC (23.0-38.0) Sodium 138 mEq/L mEq/L (135-145) Potassium 4.6 mEq/L mEq/L (3.3-5.0) Chloride 111 mEq/L H mEq/L (97-110) Carbon Dioxide 20 mEq/l L mEq/l (22-31) Anion Gap 7 mEq/L L mEq/L (8-16) BUN 24 mg/dL H mg/dL (7-23) Creatinine 1.0 mg/dL mg/dL (0.6-1.0) Estimated GFR 56 Glucose 112 mg/dL H mg/dL (70-100) Calcium 9.3 mg/dL mg/dL (8.5-10.4) Total Bilirubin 0.6 mg/dL mg/dL (0.1-1.4) Conjugated Bilirubin 0.3 mg/dL mg/dL (0.0-0.5) Unconjugated Bilirubin 0.3 mg/dL mg/dL (0.0-1.1) AST 16 IU/L IU/L (14-46) ALT 16 IU/L IU/L (9-52) Alkaline Phosphatase 71 IU/L IU/L (38-126) Total Protein 6.9 g/dL g/dL (6.3-8.2) Albumin 3.5 g/dL g/dL (3.5-5.0) Lipase 32 IU/L IU/L (23-300) Medications Given: Discontinued Medications Sodium Chloride (Ns) 1,000 mls @ 0 mls/hr IV EDNOW ONE; Wide Open PRN Reason: Protocol Stop: 05/15/18 11:02 Last Admin: 05/15/18 11:10 Dose: 1,000 mls Sodium Chloride (Ns) 1,000 mls @ 0 mls/hr IV ONCE ONE PRN Reason: Wide Open Stop: 05/15/18 12:35 Last Admin: 05/15/18 12:35 Dose: 1,000 mls Departure - Departure Disposition: Home, Routine, Self-Care Clinical Impression: Vasovagal episode, Aplastic anemia, Thrombocytopenia Condition: Good Instructions: Hypotension (ED) Additional Instructions: 1. Please increase your fluid intake as dehydration likely contributed to your symptoms today. 2. Follow up as scheduled with Dr. Morin this week. 3. Return to the ED if you experience recurrent lightheadedness, GI bleeding, fever, pain or other concerns. Referrals: Nito Morin MD [Medical Doctor] - As per Instructions
--- NOTE | 2018-05-15 11:10 | CPEKG ---
Heart Rate: 51 RR Interval: 1176 P-R Interval: 156 QRSD Interval: 78 QT Interval: 428 QTC Interval: 395 P Altheimer: 53 QRS Altheimer: -23 T Wave Altheimer: 21 EKG Severity - BORDERLINE ECG - EKG Impression: SINUS RHYTHM Electronically Signed By: Ej Dyson 15-May-2018 14:06:43
[2018-05-15 11:30] LABS: PROTIME(PATIENT) 13.4 SEC (12.0-15.0)
[2018-05-15 11:31] LABS: PLATELET COUNT 15 10^3/uL (150-400)
[2018-05-15 13:48] VITALS: BP 143/87
== END 2018-05-15 13:48 | disposition home or self-care (01) ==
LOC: EDUNIT#
DX: R55 Syncope and collapse (principal); D61.9 Aplastic anemia, unspecified; D69.6 Thrombocytopenia, unspecified; E86.9 Volume depletion, unspecified; I10 Essential (primary) hypertension; F17.200 Nicotine dependence, unspecified, uncomplicated; Z85.528 Personal history of other malignant neoplasm of kidney

== ENCOUNTER 2018-11-13 11:24 | Inpatient (IN) | payer MEDICAID ==
[2018-11-13] MEDS ORDERED: LIDOCAINE 2% JELLY 5 ML TUBE TP PRN (12:58)
[2018-11-13] MEDS ORDERED: ONDANSETRON 4 MG/2 ML VIAL IVP PRN (13:41)
[2018-11-13] MEDS ORDERED: NS 1,000 ML IV SCH (13:45)
[2018-11-13] MEDS ORDERED: LIDOCAINE 4% 15 GM CREAM TP PRN (13:56)
--- NOTE | 2018-11-13 15:07 | ASMTCMCOM ---
CM Note CM Note Notes: Chart reviewed for discharge planning purposes. Patient a direct admit for pancytopenia. History of stage IV renal cancer. CM to follow for needs. plan. TBD Date Signed: 11/13/2018 03:06 PM Electronically Signed By:Maryanne Chaudhari RN
[2018-11-13] MEDS ORDERED: diphenhydrAMINE 25 MG CAP PO PRN (16:00)
[2018-11-13] MEDS ORDERED: ACETAMINOPHEN 500 MG TAB PO PRN (16:00)
[2018-11-13] MEDS ORDERED: PROCHLORPERAZINE MALEATE 10 MG TAB PO PRN (16:00)
[2018-11-13] MEDS ORDERED: HYDROmorphONE/DILAUDID 1 MG/ML INJ IVP PRN (16:09)
[2018-11-13] MEDS ORDERED: PROMETHAZINE HCL 25 MG/ML INJ IVP PRN (16:09)
[2018-11-13] MEDS ORDERED: oxyCODONE IR 5 MG TAB PO PRN (16:09)
--- NOTE | 2018-11-13 16:55 | GHP ---
DATE OF ADMISSION: 11/13/2018 CHIEF COMPLAINT: Fatigue and pelvic pain. 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 She presented to Dr. Val samano's office today for routine followup and blood work revealed severe anemia and severe thrombocytope darby. So she was directly admitted to the hospital. She has chronic rectal bleeding from her anal ca ncer but that has actually been not that bad recently. For the last 2 months however her labial woun d has dramatically worsened and has constant drainage. The pain is 24/7, 7/10. She has difficulty wa lking and difficulty sitting. She has increased odor, increased drainage, she has lethargy and fatig ue but no fever. The labial wound has increased in size. She has nausea but no vomiting. She has p reviously had radiation therapy to the area. PAST MEDICAL HISTORY: 1. 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 2. 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 3. Aplastic anemia. 4. COPD. 5. DVT. 6. Hypertension. PAST SURGICAL HISTORY: Hernia repair. Tonsillectomy. MEDICATIONS: Please see computer record for full detailed list. ALLERGIES: Penicillin, cephalosporins, aspirin. SOCIAL HISTORY: She smokes 5 cigarettes per day. She also smokes medical marijuana. No alcohol. S he lives alone in an apartment. She was previously homeless, she is originally from [place]. CODE STATUS: DNR. REVIEW OF SYSTEMS: Complete review of systems obtained. Review of systems negative regarding consti tutional, HEENT, GI, pulmonary, cardiovascular, , hematology, skin, muscle, endocrine, psych except for positives as in HPI. FAMILY HISTORY: Reviewed, noncontributory to presenting complaint. PHYSICAL EXAMINATION: GENERAL: Well-developed, well-nourished female, in no acute distress. VITAL SIGNS: Temperature is 36.4, pulse 65, blood pressure 162/48, saturating 97% room air. HEENT: Examina tion normal conjunctivae, pupils react to light. ENT normal ears, nose. Hearing intact. Very poor dentition. Oropharynx moist. NECK: Trachea midline. No thyromegaly. CHEST: Normal respiratory effo rt, lungs clear to auscultation bilaterally. CARDIOVASCULAR: Regular rate and rhythm, no murmur. No lower extremity edema. ABDOMEN: Soft, nontender. No hepatosplenomegaly. SKIN: Her labia has exten sive wounds with purulent drainage. Very odiferous, extremely tender to palpation. Firmness to the skin. MUSCULOSKELETAL: No cyanosis or clubbing. Strength 5/5 upper and lower extremities. NEUROLOG IC: Cranial nerves intact, normal sensation to light touch. PSYCH: Alert and oriented x3. Normal mo od and affect. Normal judgment and insight, normal memory. LABORATORY DATA: White count 2.98, hematocrit 24.1, platelets Sodium 137, potassium 3.6, chloride 109, bicarb 16, BUN 30, creatinine 1.3, glucose 124, LFTs are negative. Medical records review, she has been hospitalized here many times before, although last hospitalizati on was January 2018, so almost a year ago, at that time for pneumonia with strep pneumo bacteremia. ASSESSMENT/PLAN: 1. Aplastic anemia with decreased hemoglobin and hematocrit and thrombocytopenia. Oncology has order ed transfusions of packed red blood cells and platelets. Will continue her cyclosporine and Promacta . 2. Metastatic squamous cell carcinoma of the anal canal with labial and lung metastasis. She is on 4th line treatment with everolimus. 3. Open labial wounds with increased drainage. These wounds are likely due to a combination of papa gnancy and previous radiation therapy. She has severe uncontrolled pelvic pain as well as increased drainage. We will check a CT scan of the pelvis for further evaluation. Will also consult [facility] for inpatient symptom management. 4. Code status. She is an established DNR and feels very strongly about this. ADMISSION STATUS: 1. Will admit to inpatient as she is medically complex. Anticipate greater than 2 midnights. 2. DVT prophylaxis. No pharmacologic prophylaxis due to her severe thrombocytopenia. /[id number]/MODL
[2018-11-13] MEDS: traMADol 50 MG TAB PO PRN (16:57)
[2018-11-13] MEDS ORDERED: IOPAMIDOL (ISOVUE 370) 100 ML BTL IV ONE (17:49)
--- NOTE | 2018-11-13 19:56 | GCON ---
This is a 63-year-old female, who was diagnosed with metastatic squamous cell carcinoma of the anus i n December 2014. She had disease in her groin, as well as her lungs and received 5-FU/cisplatin and then 5-FU/mitomycin and radiation therapy. She also received nivolumab with good response until the spring. About a year or so ago, she presented with pancytopenia. A bone marrow biopsy showe d aplastic anemia. She received ATG, cyclosporine, and Promacta with a reasonable response. Recentl y, however, her disease has been progressing, and she was started on everolimus. Her cyclosporine do se was decreased because of a drug interaction. Today, she became somewhat faint and was noted to macdonald ve a decrease in her blood counts with a hemoglobin of 7.5, hematocrit of 24.1, and a platelet count of 7000. White count remains 2.98 with 50% neutrophils. She is admitted for transfusion of blood an d platelets. PAST MEDICAL HISTORY: Significant for anal cancer, aplastic anemia, peptic ulcer disease, migraines, hypertension, history of DVT, and a chronic labial wound. SURGERIES: Include a right hernia repair and tonsillectomy. She is initially from [place]. She has been homeless at times but currently has housing. PHYSICAL EXAM: GENERAL: She is alert. VITAL SIGNS: Blood pressure 162/48, heart rate 65. She is afebrile. HEENT: Dentition is poor. LUNGS: Clear. CARDIAC: Unremarkable. ABDOMEN: Benign. Th ere are couple of crater-like, raised lesions over her lower pelvis, consistent with recurrence of he r disease, and there is some chronic labial swelling and edema. There is radiation change in her lef t groin. A PET-CT scan from July 2018, showed worsening adenopathy in the lower pelvis and abdomen and FD G-avid cutaneous nodules, consistent with recurrence. IMPRESSION: Patient presenting with somewhat declining blood counts and near syncope. She has a com plicated history of anal carcinoma and subsequent aplastic anemia, presumably treatment related. She has recently been started on everolimus. The question is whether everolimus could be contributing t o the anemia or whether this is related to a decrease in her cyclosporine with a flare of her aplasti c anemia. PLAN: At this time is to transfuse 2 units of packed RBCs and 1 unit of platelets. She tells me she responds better to irradiated platelets. Plan is hopefully for discharge and followup with consider ation of a bone marrow biopsy as an outpatient. I discussed the case with the patient and her primar y oncologist, Dr. Morin. Certainly, there are very few options available except for the everolimus for her anal carcinoma, and if the aplastic anemia is flaring up, this would imply a very poor progn osis for this patient. Our service will follow with you. /[id number]/MODL
[2018-11-14] MEDS: PROCHLORPERAZINE MALEATE 10 MG TAB PO SCH (05:26)
[2018-11-14] MEDS: ACETAMINOPHEN 500 MG TAB PO SCH (05:26)
[2018-11-14 05:53] LABS: PLATELET COUNT 32 10^3/uL (150-400)
[2018-11-14] MEDS: CAFFEINE 200 MG PO SCH (09:53)
[2018-11-14] MEDS: CYCLOSPORINE, MODIFIED 25 MG CAP (NEORAL) PO SCH (09:53)
[2018-11-14] MEDS: Everolimus [Afinitor] 10 MG PO SCH (09:54)
[2018-11-14] MEDS: traMADol 50 MG TAB PO PRN ×2 (09:58→19:18)
[2018-11-14] MEDS: LIDOCAINE 5% TP PRN (11:56)
--- NOTE | 2018-11-14 11:57 | SOAPPROG ---
SOAP Progress Note Assessment/Plan: Assessment: 1. Recurrent anal ca 2. aplastic anemia Plan:S/p txn with improvement in counts, overall situation is grim and discussed with pt, recommend director of social work and hospice consult 11/14/18 11:55 Subjective: Weak Objective: Vital Signs Temp Pulse Resp BP Pulse Ox 97.9 F 65 16 136/82 H 96 11/14/18 09:41 11/14/18 09:41 11/14/18 09:41 11/14/18 09:41 11/14/18 09:41 Microbiology 11/13/18 17:39 Gram Stain - Final Groin - Swab Laboratory Results 11/14/18 04:35 11/14/18 04:35 11/13/18 11/14/18 11/15/18 05:59 05:59 05:59 Intake Total 1000 Balance 1000 Physical Exam - Physical Exam Skin: other (local recurrence anal ca skin and pubis) ICD10 Worksheet Patient Problems: Problems Problem Status Onset Anemia Acute Chest pain Acute Fever Acute Influenza A Acute Neutropenia Acute Palliative care encounter Acute Pneumonia Acute Reactive airway disease Acute Thrombocytopenia Acute Vomiting Acute Anal squamous cell carcinoma Chronic 12/10/14 Poor dentition Chronic
[2018-11-14] MEDS: ELTROMBOPAG OLAMINE 75 MG PO SCH (12:32)
--- NOTE | 2018-11-14 14:24 | PDMN ---
Medical Necessity Medical necessity: Pt meets INPT criteria per MD as of 11/13/18 and [facility] Hematology [facility] (est. LOS >2 MN for eval/mgmt of aplastic anemia requiring transfusions, metastatic squamous cell carcinoma, chronic labial wound).
--- NOTE | 2018-11-14 15:47 | ASMTCMCOM ---
CM Note CM Note Notes: Pt lives alone independently and has a patient case coordinator Yareli ([phone]) through [facility]. Pt has new hospice order and was current in the past with [facility] (see lubricating engineer note). Per [facility] palliative team, they have contacted [facility] for an eval with pt while inpatient. Per hospitalist, pt wants to continue chemo treatment and will therefore be ineligible for hospice. PT and OT are recommending pt discharge independently. COLETTE Dowsn has been contacted to coordinate care. Email also sent to [facility] to evaluate pt for home based community services such as shopping and house cleaning as pt has decreased stamina from anemia. Pt informed that should she need jail care in the future she may be eligible for intermediate care medicaid, however pt prefers to stay in her home as long as she can and states she has friends who can be supportive. Pt refused Meals on Wheels. Referral sent to [facility]. CM to follow. D/C Plan: [facility], [facility] home based services Date Signed: 11/14/2018 03:46 PM Electronically Signed By:Anabel Carmichael
[2018-11-14] MEDS: ACETAMINOPHEN 325 MG TAB PO PRN (16:01)
[2018-11-14] MEDS: CAFFEINE 200 MG PO PRN (16:04)
--- NOTE | 2018-11-14 16:51 | HOSPPROG ---
Hospitalist Progress Note Assessment/Plan: * Aplastic anemia -s/p transfuse PRBC and platelet transfusion -recheck counts in am * Metastatic squamous cell cancer of anal canal -4th line chemo * Labial wounds due to cutaneous mets -large amount of drainage but doubt infection -wound care Discussion with patient regarding goals of care. She wishes to continue chemo and transfusions. She wishes to have palliative care follow, but she is not ready for hospice. He labia is much less painful with proper wound care. She is very open to hospice when the time comes, but feels like her quality of life is still excellent and she still has some living to do. Appointment with [facility] to re-establish care. Subjective: feels much better. happy with new wound care plan as less drainage , less pain with new dressing Objective: Vital Signs Temp Pulse Resp BP Pulse Ox 36.7 C 71 18 144/82 H 94 11/14/18 16:25 11/14/18 16:25 11/14/18 16:25 11/14/18 16:25 11/14/18 16:25 Microbiology 11/13/18 17:39 Gram Stain - Final Groin - Swab Laboratory Results 11/14/18 04:35 11/14/18 04:35 11/13/18 11/14/18 11/15/18 05:59 05:59 05:59 Intake Total [address] pelvis - malignant wound, but no deep abscess - Time Spent With Patient Time Spent with Patient: greater than 35 minutes Time Spent with Patient: Greater than 35 minutes spent on this patients care, greater than 50% of time spent counseling, educating, and coordinating care regarding the above mentioned plan. - Physical Exam Constitutional: no apparent distress, appears nourished, not in pain Cardiovascular: regular rate and rhythym, no murmur, rub, or gallop Respiratory: no respiratory distress, no rales or rhonchi, clear to auscultation Gastrointestinal: normoactive bowel sounds, soft, non-tender abdomen, no palpable masses Skin: other (ulcerations with drainage, very odiforous, no surrounding cellulitis) Neurologic: AAOx3, sensation intact bilaterally Psychiatric: interacting appropriately, not anxious, not encephalopathic, thought process linear ICD10 Worksheet Patient Problems: Problems Problem Status Onset Anemia Acute Chest pain Acute Fever Acute Influenza A Acute Neutropenia Acute Palliative care encounter Acute Pneumonia Acute Reactive airway disease Acute Thrombocytopenia Acute Vomiting Acute Anal squamous cell carcinoma Chronic 12/10/14 Poor dentition Chronic
--- NOTE | 2018-11-14 18:12 | WOCRNPDOC ---
AYLIN Advanced Assessment Note - Skin Integrity Problem, Advanced Assess Sacrum Dressing Type: Open to Air Closure Description: Approximated Exudate Amount: None Deepti Wound Tissue: Blanching (sluggish) Deepti Wound Swelling: None Wound Bed Color: [place] Site Measurement - Head-to-Toe Length X Width X Depth (cm): [id number] Skin Integrity Problem Comment: Patient rolled to her right side independently. Skin over sacrum is pink, blanching (though sluggish), and intact at this time. Discussed with patient the need to get off of her back to relieve pressure to this area. She is in agreement and understands but has difficulty finding a comfortable position with all of her other medical issues. Will cover the area with mepilex sacral, upgrade her mattress to add a pump, and provide her with an air cushion for her chair. Please inform wound care if this area worsens or opens, otherwise wound care will not continue to follow. Bilateral Labia Dressing Type: Open to Air Closure Description: Not Approximated Exudate Amount: Moderate (per patient description) Integumentary Issue Intervention: Dressing Applied Deepti Wound Tissue: Erythema, Hot, Raw, Swollen, Weeping, Painful/Tender Deepti Wound Swelling: Severe Wound Bed Color: Red, Yellow Wound Bed Constitution: Red/[place] - Non Granular Tissue, Adhered Slough Wound Edges: Well Defined Skin Integrity Problem Comment: Patient known to wound care and with history of cancer and lesions to groin. Currently, the patient has cancerous lesions to her labias and the area is red, swollen and very painful. Of note, on the left labia there is an open area filled with yellow slough. The patient reports that she has difficulty finding a position she can get comfortable in as her labias are so swollen that sitting for any length of time is difficult. She is interested in some sort of dressing that will soothe the area and allow her to perform her ADLs with minimal interference. Her current treatment for comfort is lidocaine jelly which she reports gives her some comfort but notes that it is temporary and "brasher" when applied. It also doesn't give her the ability to put on clothing without making a mess. Presented patient with RadiaGel sheets and she is hopeful that they will work. Patient cleaned her labias with bath wipes. A cut was made down the center of the RadiaGel sheet so that the sheet could be laid over the pubis and down both labias as a single gel sheet. Patien expresses immediate relief. Wound care will check back tomorrow to answer any questions. 3 additional RadiaGel sheets left in patients room. Lower Abdomen Dressing Type: Open to Air Deepti Wound Tissue: Intact Deepti Wound Swelling: Mild Wound Bed Color: Yellow Wound Bed Constitution: Adhered Slough Wound Edges: Attached, Well Defined Site Measurement - Head-to-Toe Length X Width X Depth (cm): 2 wounds: [id number], [id number] Skin Integrity Problem Comment: Patient states that these are also cancerous lesions. Will provide honey as an autolytic debrider. Wound care will round again next week.
[2018-11-15] MEDS: CAFFEINE 200 MG PO PRN ×2 (02:42→12:02)
[2018-11-15] MEDS: ACETAMINOPHEN 325 MG TAB PO PRN (02:43)
[2018-11-15] MEDS: ELTROMBOPAG OLAMINE 75 MG PO SCH (04:57)
[2018-11-15 06:09] LABS: PLATELET COUNT 21 10^3/uL (150-400)
[2018-11-15] MEDS: LIDOCAINE 5% TP PRN (07:58)
[2018-11-15] MEDS: CYCLOSPORINE, MODIFIED 25 MG CAP (NEORAL) PO SCH (08:03)
[2018-11-15] MEDS: Everolimus [Afinitor] 10 MG PO SCH (08:06)
[2018-11-15] MEDS: traMADol 50 MG TAB PO PRN (08:11)
[2018-11-15 09:44] VITALS: BP 155/82
[2018-11-15] MEDS: PROCHLORPERAZINE MALEATE 10 MG TAB PO SCH (09:51)
[2018-11-15] MEDS: CAFFEINE 200 MG PO SCH (09:58)
[2018-11-15] MEDS: ACETAMINOPHEN 500 MG TAB PO SCH ×2 (09:58→12:03)
--- NOTE | 2018-11-15 10:58 | PDIAF ---
- Diagnosis Diagnosis: metastatic anal cancer Code Status: Do Not Resuscitate - Medication Management Discharge Medications: electronically signed and located in the Home Medication List. - Orders Services needed: Home Care, Registered Nurse, Certified Recycling Crew Supervisor, Master Pet Care Technician, Physical Therapy, Occupational Therapy Home Care Face to Face: I certify that this patient was under my care and that I had the required [id number] encounter meeting the encounter requirements on the discharge day. My findings support the fact that the patient is homebound as defined in Home Care Face to Face Continued: CMS Chapter 7 Medicare Benefits Manual 30.1.1 , The condition of the patient is such that there exists a normal inability to leave home and consequently, leaving home would require a considerable and taxing effort. Isolation Type: None Diet Recommendation: no restrictions on diet Wound Care Instructions: Change dressings to lower abdominal wounds every 2 days and PRN. 1. Clean with NS and gauze. 2. Skin prep isidro wound. 3. Therahoney gel to wound beds. 4. Cover with Allevyn Life. Change Radia Gel dressings to labias every 3 days and PRN. 1. Clean area as tolerated (shower, wipes, NS and gauze) and pat dry or. allow to air dry. 2. Cut a wedge ( triangle) out of center of RadiaGel sheet to allow for an. opening for urination (patient educated to this process). 3. Place RadiaGel per package instructions to skin. Change dressings to sacrum every 2 days and PRN. 1. Clean with NS and gauze. 2. Skin prep isidro wound. 3. Cover with Mepilex sacral dressing. Brianna Villanueva RN, Wound Care Team Additional Instructions: Palliative care - Labs/Radiology CBC w/diff Date: 11/18/18 (weekly, every Sunday) - Follow Up Care Current Providers and Referrals: Patient,NotPresent [Primary Care Provider] - Nito Morin MD [Medical Doctor] -
--- NOTE | 2018-11-15 11:36 | WOCRNPDOC ---
AYLIN Advanced Assessment Note - Skin Integrity Problem, Advanced Assess Bilateral Labia Dressing Type: Open to Air Skin Integrity Problem Comment: Checked in with patient about how the RadiaGel dressing worked for her. She states "that it's the best thing so far". Discussed with COLETTE Little how to get the patient a supply so she can use at home. Answered questions about cleaning the area and how to apply dressing at home as patient reported to her RN this AM that she needed a reminder. Patient expected to DC today. Will place for f/u next week but anticipate that she'll be home by then.
--- NOTE | 2018-11-15 12:16 | ASMTDCNOTE ---
Case Management Discharge Discharge Order Complete? Answers: Yes Patient to Obtain Answers: Other Notes: no new meds Medications Transportation Arranged Answers: Other Notes: [facility] will Pick (Date 11/15/2018 01:30 PM & Time) Family Notified Answers: No Notes: no family Discharge Comments Notes: Pt to discharge home with support from [facility], [facility] RN/PT/OT and possibly HBCS from [facility]. Referrals have been sent and agencies informed of dishcharge. Pt's RN given [facility] number for RN report. ULTC-100 form faxed for evaluation for HBCS. Earnest at [facility] contacted via phone and notified. [employer] notified to begin application for care home medicaid. WCRN at [facility] notified of name and info on special wound care dressing needed by patient. Pt to discharge with WC supplies enough until RN arrives on Sunday. No further CM needs noted at this time. CM available should needs change. Date Signed: 11/15/2018 12:15 PM Electronically Signed By:Anabel Carmichael
--- NOTE | 2018-11-15 12:18 | ASDISCHSUM ---
Discharge Information Plan Status:Home with Home Health Medically Cleared to Leave:11/14/2018 Discharge Date:11/14/2018 CM D/C Disposition:Home Health Service ADT D/C Disposition:Home Health Service Projected Discharge Date:11/14/2018 11:00 AM Transportation at D/C:Medicaid Transportation Discharge Delay Reason: Follow-Up Date:11/14/2018 11:00 AM Discharge Slot: Final Diagnosis:Anal Cancer Placement Information Referral Type:Palliative Care Referral ID:[id number] Provider Name:[facility] Address 1:[address] [place] Address 2: City:[place] Selection Factors: State:[place] Referral Type:*Hospice Referral ID:[id number] Provider Name: Address 1: Phone Number: Address 2: Fax Number: City: Selection Factors: State: Referral Type:*Home Health Care Services Referral ID:[id number] Provider Name:[facility] Address 1:[address] Address 2: City:[place] Selection Factors: State:[place] Patient Contact Information Contact Name:MARTHA Relationship:Marcie Address: Work Phone: City: [facility] Phone: [facility] Code: Email: Financial Information Financial Class:Medicaid Primary Plan Desc:[facility] Primary Plan Number:[id number] Secondary Plan Desc: Secondary Plan Number: Assessment Information LACE LACE Length of stay for Answers: 2 days current admission Acuity / Level of Answers: Yes Care: Did the patient have an inpatient admission? Comorbidities - select Answers: Any tumor (including all that apply lymphoma or leukemia) # of Emergency department Answers: 1-2 visits in the last 6 months Score: 8 Date Signed: 11/15/2018 12:17 PM Electronically Signed By:Anabel Carmichael [facility] Progress Note CM Note CM Note Notes: Chart reviewed for discharge planning purposes. Patient a direct admit for pancytopenia. History of stage IV renal cancer. CM to follow for needs. plan. TBD Date Signed: 11/13/2018 03:06 PM Electronically Signed By:Maryanne Chaudhari RN [facility] Progress Note CM Note CM Note Notes: Pt lives alone independently and has a case management rn Yareli ([phone]) through [facility] homeless. Pt has new hospice order and was current in the past with [facility] (see trademark paralegal note). Per [facility] palliative team, they have contacted [facility] for an eval with pt while inpatient. Per hospitalist, pt wants to continue chemo treatment and will therefore be ineligible for hospice. PT and OT are recommending pt discharge independently. COLETTE Downs has been contacted to coordinate care. Email also sent to [facility] to evaluate pt for home based community services such as shopping and house cleaning as pt has decreased stamina from anemia. Pt informed that should she need [place] [facility] care in the future she may be eligible for remote computer terminal operator care medicaid, however pt prefers to stay in her home as long as she can and states she has friends who can be supportive. Pt refused Meals on Wheels. Referral sent to [facility]. CM to follow. D/C Plan: [facility] palliative, [facility] home based services Date Signed: 11/14/2018 03:46 PM Electronically Signed By:Anabel Carmichael Case Management Discharge Plan Note Case Management Discharge Discharge Order Complete? Answers: Yes Patient to Obtain Answers: Other Notes: no new meds Medications Transportation Arranged Answers: Other Notes: [facility] will Pick (Date 11/15/2018 01:30 PM & Time) Family Notified Answers: No Notes: no family Discharge Comments Notes: Pt to discharge home with support from [facility] Palliative Care, [facility] RN/PT/OT and possibly HBCS from [facility]. Referrals have been sent and agencies informed of dishcharge. Pt's RN given [facility] number for RN report. ULTC-100 form faxed for evaluation for HBCS. Earnest at [facility] contacted via phone and notified. [employer] notified to begin application for half-way medicaid. WCRN at [facility] notified of name and info on special wound care dressing needed by patient. Pt to discharge with WC supplies enough until RN arrives on Sunday. No further CM needs noted at this time. CM available should needs change. Date Signed: 11/15/2018 12:15 PM Electronically Signed By:Anabel Carmichael Intervention Information
--- NOTE | 2018-11-15 17:30 | GDS ---
DISCHARGE DIAGNOSES: 1. Aplastic anemia, status post packed red blood cells and platelet transfusion. 2. 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 3. 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 HISTORY: This is a 63-year-old female with a history of aplastic anemia, likely treatment related as a consequence of her chemotherapy for her metastatic squamous cell cancer of her anal canal. She wa s seen in Dr. Morin's office and labs showed a severe anemia and platelets of 7, and she has also b een having failure to thrive at home. So she was sent to the hospital for admission. She got packed red blood cells and platelets and transfusion. Her main complaint was 7/10 pelvic kathleen n due to her cutaneous metastases causing severe labial wounds. This had a lot of drainage, she was not doing well with wound care. She had uncontrolled pain and symptoms related to this labial spread . She was seen by our wound care nurse and with proper wound care she was much more comfortable and was able to tolerate these wounds. I will arrange for home health to continue more assistance with woun d care in her home. We will consult outpatient palliative care. DISCHARGE MEDICATIONS: Please see computerized record for full detailed list. There are no new medi cations given at time of hospital discharge. ADDITIONAL DISCHARGE INSTRUCTIONS: 1. Outpatient palliative care. 2. Weekly CBCs to assess for further transfusion needs. 3. Follow up with Dr. Morin. 4. Please refer to chart for home health wound care instructions. 5. Greater than 30 minutes' time was spent arranging this discharge. Patient seen and examined by me on the day of discharge. /[id number]/MODL
== END 2018-11-15 13:30 | disposition home health service (06) | DRG 660 ==
LOC: F1N 11:39
PROVIDERS: ADMIT Internal Medicine; ATTEND Internal Medicine
PROC: 30233N1 Transfusion of Nonautologous Red Blood Cells into Peripheral Vein, Percutaneous Approach (ICD-10-PCS; principal; 2018-11-13)
PROC: 30233R1 Transfusion of Nonautologous Platelets into Peripheral Vein, Percutaneous Approach (ICD-10-PCS; principal; 2018-11-13)
DX: D61.1 Drug-induced aplastic anemia (principal); C78.00 Secondary malignant neoplasm of unspecified lung; C79.82 Secondary malignant neoplasm of genital organs; C44.520 Squamous cell carcinoma of anal skin; J44.9 Chronic obstructive pulmonary disease, unspecified; I10 Essential (primary) hypertension; Z66 Do not resuscitate; Z72.0 Tobacco use; F12.90 Cannabis use, unspecified, uncomplicated; Z86.718 Personal history of other venous thrombosis and embolism
CPT/HCPCS: 97116-GP; 97161-GP; 97165-GO; J1200; J2550; J7515; P9016; P9037; P9040; Q9967

== ENCOUNTER → 2018-11-19 | Outpatient (CLI) | payer MEDICAID ==
[2018-11-19 17:22] VITALS: BP 162/92
== END ==
LOC: F1NOP 09:42
PROVIDERS: ATTEND Internal Medicine
PROC: 30233R1 Transfusion of Nonautologous Platelets into Peripheral Vein, Percutaneous Approach (ICD-10-PCS; principal; 2018-11-19)
DX: C44.520 Squamous cell carcinoma of anal skin (principal); D61.1 Drug-induced aplastic anemia
CPT/HCPCS: 36430; P9037

== ENCOUNTER 2018-11-27 16:06 | Outpatient (CLI) | payer MEDICAID ==
[2018-11-27] MEDS ORDERED: ACETAMINOPHEN 325 MG TAB PO ONE (16:30)
[2018-11-27] MEDS ORDERED: diphenhydrAMINE 25 MG CAP PO ONE (16:45)
== END 2018-11-27 17:40 | disposition home or self-care (01) ==
LOC: FOBOP 16:06
PROVIDERS: ATTEND Internal Medicine Hematology & Oncology
PROC: 30233R1 Transfusion of Nonautologous Platelets into Peripheral Vein, Percutaneous Approach (ICD-10-PCS; principal; 2018-11-27)
DX: D53.9 Nutritional anemia, unspecified (principal); D61.9 Aplastic anemia, unspecified; D69.6 Thrombocytopenia, unspecified
CPT/HCPCS: 36430; P9073

== ENCOUNTER 2018-12-16 11:25 | Inpatient (IN) | payer MEDICAID ==
[2018-12-16] MEDS ORDERED: HYDROmorphONE/DILAUDID 2 MG/ML INJ IVP ONE (13:13)
[2018-12-16] MEDS ORDERED: NS 1,000 ML IV ONE (13:13)
[2018-12-16 13:23] LABS: PLATELET COUNT 9 10^3/uL (150-400)
--- NOTE | 2018-12-16 13:35 | EDPHY ---
H & P Stated Complaint: weakness, lethargy, pale, CA patient Time Seen by Provider: 12/16/18 13:05 HPI/ROS: CHIEF COMPLAINT: Weakness, lethargy HISTORY OF PRESENT ILLNESS: The patient has a history of metastatic rectal cancer presents to the ED with weakness and lethargy. She reportedly has missed several appointments at the cancer center. She has a history of requiring both platelet blood transfusions. She denies any symptoms of melena. She does have chronic pain from her cancer. She has not been on her trazodone for the past several days. Patient denies acute fever or cough. She complains of global weakness. She denies acute chest pain. REVIEW OF SYSTEMS: A comprehensive 10 point review of systems is otherwise negative aside from elements mentioned in the history of present illness. Source: Patient Exam Limitations: No limitations - Personal History Current Tetanus/Diphtheria Vaccine: Yes Current Tetanus Diphtheria and Acellular Pertussis (TDAP): Yes Tetanus Vaccine Date: 2014 - Medical/Surgical History Hx Asthma: No Hx Chronic Respiratory Disease: No Hx Diabetes: No Hx Cardiac Disease: No Hx Renal Disease: No Hx Cirrhosis: No Hx Alcoholism: No Hx HIV/AIDS: No Hx Splenectomy or Spleen Trauma: No Other PMH: Stage IV anal canal carcinoma, right inguinal hernia repair, peptic ulcer disease, RUE DVT, hypertension, aplastic anemia, osteoarthritis - Social History Smoking Status: Current every day smoker - Physical Exam Exam: General Appearance: Thin female, cachectic Eyes: Pupils equal and round no pallor or injection ENT, Mouth: Dry mucous membranes Respiratory: There are no retractions, lungs are clear to auscultation Cardiovascular: Regular rate and rhythm Gastrointestinal: Minimal suprapubic tenderness, skin changes noted in the perineum consistent with her known cancer Neurological: 5/5 strength all 4 extremities Skin: Warm and dry, no rashes Musculoskeletal: Neck is supple nontender Extremities: symmetrical, full range of motion Psychiatric: Patient is oriented X 3, there is no agitation Constitutional: Initial Vital Signs Temperature (C) 36.7 C 12/16/18 11:37 Heart Rate 103 H 12/16/18 11:37 Respiratory Rate 16 12/16/18 11:37 Blood Pressure 141/84 H 12/16/18 11:37 O2 Sat (%) 93 12/16/18 11:37 O2 Delivery Mode Room Air Allergies/Adverse Reactions: adhesive tape Allergy (Verified 05/15/18 11:08) Itching aspirin Allergy (Verified 05/15/18 11:08) Abdominal Pain cephalexin [From Keflex] Allergy (Verified 05/15/18 11:08) Hives codeine Allergy (Verified 05/15/18 11:08) ibuprofen Allergy (Verified 05/15/18 11:08) Penicillins Allergy (Verified 05/15/18 11:08) Anaphylaxis Home Medications: Medication Instructions Recorded Acetaminophen [Tylenol ES 500 mg 1,000 mg PO DAILY 11/17/16 (*)] Caffeine [Stay Awake] 200 mg PO DAILY 10/22/17 diphenhydrAMINE [Benadryl 25 MG 25 mg PO Q6 PRN cap 10/29/17 (*)] Eltrombopag Olamine [PROMACTA] 75 mg PO DAILY 11/27/17 cycloSPORINE, MODIFIED [Neoral 25 75 mg PO DAILY 01/09/18 MG (*)] Acetaminophen [Tylenol ES 500 mg 1,000 mg PO Q24H PRN 11/13/18 (*)] Caffeine [Stay Awake] 200 mg PO Q24H PRN 11/13/18 Everolimus [AFINITOR] 10 mg PO DAILY 11/13/18 Lidocaine 2% Jelly [Lidocaine 2% 1 radha TP Q4H PRN 11/13/18 Jelly (*)] Lidocaine 5% [Lidocaine 5% Oint] 1 radha TP AD 11/13/18 Prochlorperazine Maleate 10 mg PO DAILY 11/13/18 [Compazine 10mg (*)] Prochlorperazine Maleate 10 mg PO TID PRN 11/13/18 [Compazine 10mg (*)] traMADol [Ultram 50 mg (*)] 100 mg PO Q6H PRN 11/13/18 Calcium Carbonate [Tums 500MG (*)] 500 mg PO DAILY PRN 12/16/18 Herbals/Supplements -Info Only 1 ea PO DAILY 12/16/18 Medical Decision Making ED Course/Re-evaluation: Patient is clinically dehydrated. She had an IV established. She is noted to be anemic and thrombocytopenic. Patient has been typed and crossed for 2 units of blood. She received IV Dilaudid for pain control. Received half a mg of IV Dilaudid. Patient's hematocrit is 15. 2 units of blood have been ordered in the emergency department. Consultation was made with the hospitalist service. The patient will be admitted by Dr. Angelique Mayes. Differential Diagnosis: Differential diagnosis considered includes neutropenia, anemia, thrombocytopenia , upper GI bleed, lower GI bleed - Data Points Laboratory Results: Laboratory Results 12/16/18 12:50 12/16/18 12:50 12/16/18 12/16/18 12/16/18 12:50 12:50 12:50 WBC 3.22 10^3/uL L 10^3/uL (3.80-9.50) RBC 1.50 10^6/uL L 10^6/uL (4.18-5.33) Hgb 5.0 g/dL L* g/dL (12.6-16.3) Hct 15.7 % L* % (38.0-47.0) MCV 104.7 fL H fL (81.5-99.8) MCH 33.3 pg pg (27.9-34.1) MCHC 31.8 g/dL L g/dL (32.4-36.7) RDW 19.9 % H % (11.5-15.2) Plt Count 9 10^3/uL L* 10^3/uL (150-400) MPV TNP Neut % (Auto) 58.1 % % (39.3-74.2) Lymph % (Auto) 31.7 % % (15.0-45.0) [place] % (Auto) 9.0 % % (4.5-13.0) Eos % (Auto) 0.3 % L % (0.6-7.6) Baso % (Auto) 0.0 % L % (0.3-1.7) Nucleat RBC Rel Count 0.0 % % (0.0-0.2) Absolute Neuts (auto) 1.87 10^3/uL 10^3/uL (1.70-6.50) Absolute Lymphs (auto) 1.02 10^3/uL 10^3/uL (1.00-3.00) Absolute Monos (auto) 0.29 10^3/uL L 10^3/uL (0.30-0.80) Absolute Eos (auto) 0.01 10^3/uL L 10^3/uL (0.03-0.40) Absolute Basos (auto) 0.00 10^3/uL L 10^3/uL (0.02-0.10) Absolute Nucleated RBC 0.00 10^3/uL 10^3/uL (0-0.01) Immature Gran % 0.9 % % (0.0-1.1) Immature Gran # 0.03 10^3/uL 10^3/uL (0.00-0.10) Platelet Estimate Pending Smear Review By Pending Sodium 138 mEq/L mEq/L (135-145) Potassium 4.0 mEq/L mEq/L (3.5-5.2) Chloride 112 mEq/L H mEq/L (97-110) Carbon Dioxide 20 mEq/l L mEq/l (22-31) Anion Gap 6 mEq/L mEq/L (6-14) BUN 26 mg/dL H mg/dL (7-23) Creatinine 1.6 mg/dL H mg/dL (0.6-1.0) Estimated GFR 32 Glucose 115 mg/dL H mg/dL (70-100) Calcium 8.1 mg/dL L mg/dL (8.5-10.4) Patient ABO/Rh O NEGATIVE Antibody Screen NEGATIVE Crossmatch IS Only See Detail Medications Given: Discontinued Medications Hydromorphone HCl (Dilaudid) 0.5 mg IVP EDNOW ONE Stop: 12/16/18 13:14 Last Admin: 12/16/18 13:22 Dose: 0.5 mg Sodium Chloride (Ns) 1,000 mls @ 0 mls/hr IV EDNOW ONE; Wide Open PRN Reason: Protocol Stop: 12/16/18 13:14 Last Admin: 12/16/18 13:21 Dose: 1,000 mls Departure - Departure Disposition: [facility] Inpatient Acute Clinical Impression: Anemia, Pancytopenia, Dehydration, Anal squamous cell carcinoma Condition: Fair
--- NOTE | 2018-12-16 14:07 | ASMTCMCOM ---
CM Note CM Note Notes: Chart reviewed and met with patient in the ED prior to admission. Patient is current with [facility] and Cynthia is her HH RN. I have LM with Cynthia and spoke with Kisha #[id number] regading plans for admission CM to follow and anticipate discharge home with HH Date Signed: 12/16/2018 02:07 PM Electronically Signed By:Laurel Mcconnell RN
[2018-12-16] MEDS ORDERED: CALCIUM CARBONATE 500 MG CHEWABLE TAB PO PRN (15:21)
[2018-12-16] MEDS ORDERED: PROCHLORPERAZINE MALEATE 10 MG TAB PO PRN (15:21)
[2018-12-16] MEDS ORDERED: diphenhydrAMINE 25 MG CAP PO PRN (15:21)
[2018-12-16] MEDS ORDERED: LIDOCAINE 2% JELLY 5 ML TUBE TP PRN (15:21)
[2018-12-16] MEDS ORDERED: oxyCODONE IR 5 MG TAB PO PRN (15:26)
[2018-12-16] MEDS ORDERED: ONDANSETRON 4 MG/2 ML VIAL IVP PRN (15:26)
[2018-12-16] MEDS ORDERED: LIDOCAINE 5% TP SCH (15:30)
--- NOTE | 2018-12-16 16:23 | GHP ---
[f rep st] HISTORY AND PHYSICAL DATE OF ADMISSION: 12/16/2018 CHIEF COMPLAINT: Weakness. HISTORY: Judi is a 63-year-old female with metastatic squamous cell carcinoma of the anal canal with extensive cutaneous mets to her labia with a chronic pelvic wound. 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 She was last discharged from our hospital on November 15, with plans for outpatient transfusions, however, she failed to follow up as an outpatient. Her reasons for not following up are that one day there was a snowstorm, another day she was having too much nausea and vomiting. She describes becoming so weak she can no longer ta ke the bus and walk to appointments. She also has conflicting feelings about whether or not she want s to continue treatment and do the whole outpatient transfusion protocol, and discusses a possibility of just stopping transfusions. She has developed new nausea and vomiting with constant dry heaves f or the last few weeks. She has lost weight. She has daily bleeding from her rectum and labial wound s. She does otherwise claim normal bowel movements. She has chronic abdominal pain due to her cance r, which is unchanged. She takes tramadol chronically and she recently ran out and went through tram adol withdrawal, but feels better after a dose of IV Dilaudid in the emergency room. PAST MEDICAL HISTORY: 1. 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 2. 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 3. Treatment-related aplastic anemia. 4. COPD. 5. DVT. 6. Hypertension. MEDICATIONS: Please see computer record for full detailed list. ALLERGIES: Penicillin, cephalexin, aspirin. SOCIAL HISTORY: She smokes 5 cigarettes per day. She also uses medical marijuana. No alcohol. She lives independently in an apartment. CODE STATUS: DNR. She is still wearing her purple DNR bracelet from her last hospitalization. REVIEW OF SYSTEMS: Complete review of systems obtained. Review of systems negative regarding consti tutional, HEENT, GI, pulmonary, vascular, , hematology, skin, muscular, endocrine, psych, except fo r positives as in HPI. FAMILY HISTORY: Reviewed, noncontributory to presenting complaint. PHYSICAL EXAMINATION: GENERAL: Well-developed, well-nourished female, in no distress. VITAL SIGNS: Temperature 36.7, pulse 106, blood pressure 186/105, saturating 99% on room air. EYES: Normal con junctivae. Pupils equal and reactive to light. ENT: Normal ears and nose. Hearing intact. Poor d entition. Oropharynx moist. NECK: Trachea midline. No thyromegaly. CHEST: Normal respiratory ef fort. LUNGS: Clear to auscultation and percussion bilaterally. CARDIOVASCULAR: Regular rate and rh ythm. No murmur. No lower extremity edema. ABDOMEN: Soft, nontender. No hepatosplenomegaly. SKI N: Her labial wounds continue to be extensive, extending up into her lower abdomen. They are extrem russel odiferous with drainage, but do not look any different from the last time I examined them. They are not felt to be secondarily infected. MUSCULOSKELETAL: No cyanosis or clubbing. Strength 5/5 up per and lower extremities. NEURO: Cranial nerves 2-12 intact. Normal sensation to light touch. PSY CH: Alert and oriented x3. Normal affect. Normal judgment and insight. Normal memory. LABORATORY DATA: White count 3.22, hematocrit 15.7, platelets are 9. Sodium 138, potassium 4.0, chl oride 112, bicarb 20, BUN 26, creatinine 1.6, glucose 175. MEDICAL RECORDS REVIEW: Her last hospitalization resulted in discharge on November 15, with plan for outpatient transfusions. ASSESSMENT/PLAN: 1. Aplastic anemia. Transfusion-dependent. Patient has failed to follow up as an outpatient. Some of it due to logistics, some of it due to her conflicted feelings about continuing with treatment si nce the treatment regimen for aplastic anemia has failed to improve her bone marrow status, and she d iscusses possible discontinuation of transfusions. For now we will give her 2 units of blood. Will consult Palliative Care. I have also spoken to Dr. Montalvo on-call for Dr. Morin, and he will see her in the morning. 2. Thrombocytopenia. She does have bleeding from her pelvic wound and rectum. Will therefore go ah ead and transfuse a pack platelets. 3. 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 This is known to be metastatic to the lung and the labia. 4. 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 Will continue wound care. She seems pleased wi th the wound care regimen that was prescribed at her last hospitalization. 5. Acute on chronic renal failure. I think she is dehydrated. We will hydrate with IV fluids. 6. Nausea and vomiting. I will check an abdominal x-ray to rule out obstruction. ADMISSION STATUS: 1. Will admit to observation. Reevaluate tomorrow regarding ongoing need for hospitalization. 2. Deep vein thrombosis prophylaxis. Given her ongoing bleeding, we will avoid subcu Lovenox and pr escribe SCDs. /[id number]/MODL
[2018-12-16] MEDS: traMADol 50 MG TAB PO PRN (18:02)
[2018-12-16] MEDS ORDERED: LOPERAMIDE HCL 2 MG CAP PO PRN (19:32)
[2018-12-16] MEDS: hydrALAZINE 20 MG/ML VIAL IVP PRN (19:43)
[2018-12-16] MEDS: HYDROmorphONE/DILAUDID 1 MG/ML INJ IVP PRN (20:19)
[2018-12-16] MEDS: PROMETHAZINE HCL 25 MG/ML INJ IVP PRN (21:18)
[2018-12-17] MEDS: PROMETHAZINE HCL 25 MG/ML INJ IVP PRN (03:31)
[2018-12-17] MEDS: ELTROMBOPAG OLAMINE 75 MG PO SCH (03:45)
[2018-12-17] MEDS: hydrALAZINE 20 MG/ML VIAL IVP PRN (04:53)
[2018-12-17 06:17] LABS: PLATELET COUNT 22 10^3/uL (150-400)
[2018-12-17] MEDS ORDERED: Everolimus [Afinitor] 10 MG PO SCH (09:00)
[2018-12-17] MEDS: CAFFEINE 200 MG PO SCH (09:27)
[2018-12-17] MEDS: ACETAMINOPHEN 500 MG TAB PO SCH (09:27)
[2018-12-17] MEDS ORDERED: PROCHLORPERAZINE MALEATE 10 MG TAB PO SCH (10:00)
[2018-12-17] MEDS: CYCLOSPORINE, MODIFIED 25 MG CAP (NEORAL) PO SCH (10:43)
[2018-12-17] MEDS: traMADol 50 MG TAB PO PRN (12:20)
--- NOTE | 2018-12-17 12:43 | WOCRNPDOC ---
[facility] Advanced Assessment Note - Skin Integrity Problem, Advanced Assess Labia Dressing Type: Open to Air Exudate Amount: Minimal Exudate Color: Red, Reddish/Yellow Exudate Characteristic(s): Bloody, Serosanguinous Deepti Wound Tissue: Swollen, Weeping, Denuded, Painful/Tender Skin Integrity Problem Comment: Patient with malignant lesions to labias. Wound care familiar with this patient's care. Stopped in to see patient and discuss how the RadiaGel sheets have been working for her. She states that "they are the best thing" and that she generally gets 2 days use out of a single sheet. Lower abdominal lesions have healed considerably since my last encounter with them and patient prefers to not have to cover them at this time. Left 4 RadiaGel sheets with patient. As this is a comfort measure, and we don't need to follow-up on progression of the lesions, wound care will not continue to round. Please contact us if patient requires more supply.
--- NOTE | 2018-12-17 14:46 | GCON ---
[f rep st] CONSULTATION DATE OF CONSULTATION: 12/17/2018 REASON FOR CONSULTATION: 1. Metastatic anal squamous cell carcinoma. 2. 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 3. Refractory nausea and vomiting. 4. Pain refractory to outpatient management. HISTORY OF PRESENT ILLNESS: Mrs. Vela is a pleasant 63-year-old female, who is followed by my partner, Dr. Nito Morin. She was diagnosed with metastatic squamous cell carcinoma of the anus in December of 2014. At the time of diagnosis, she had metastatic subcutaneous implants in the groin, as well as pulmonary metastasis. She received initial therapy with 5-FU, cisplatin , then 5-FU, mitomycin, and concurrent radiation therapy. She was transitioned to immunotherapy at the time of progression and was treated with single agent nivolumab until the spring. She, unfortunately, developed pancytopenia , was found to have aplastic anemia possibly related to her immunotherapy. This was treated with ATG, cyclosporine, and Promacta. Recent scans revealed disease progression and she was started on everolimus based on the presence of a P-10 mutation identified on foundation testing of her tumor. Thus far, she has not had a clinical response to everolimus, and has experienced increasing fatigue and nausea related to this medication. She remains on Promacta and cyclosporine chronically for her aplastic anemia, and has required multiple transfusions, and has essentially been transfusion dependent. Prior to this hospital stay, her last transfusion was 3 weeks ago. She was scheduled for weekly followup in the office to assess for transfusion needs, but did not keep recent appointments. She presented to [facility] yesterday with worsening nausea, vomiting, and severe fatigue. Her hemoglobin was 5 upon presentation with a platelet count of 9000. She has received transfusion of both packed red blood cells and platelets. Her hemoglobin today is 8.1 with a platelet count of 22,000. When seen, she is still having intermittent nausea. PAST MEDICAL HISTORY: 1. History of migraine headaches. 2. Osteoarthritis. FAMILY HISTORY: Noncontributory. REVIEW OF SYSTEMS: As outlined above. Additionally, denies chest pain, cough, exertional dyspnea. Denies extremity pain or swelling. Denies recent fevers or chills. Denies skin rash. PHYSICAL EXAM: GENERAL: Weak and cachectic female, who is in mild distress. HEENT: There is no evidence of scleral icterus. Mucous membranes are dry. ABDOMEN: Soft. There is diffuse tenderness with no guarding. No rebound. No distention. No palpable mass. Bowel sounds are normoactive. SKIN: No visible skin rash. NEURO: Patient alert, oriented, and appropriate. LABORATORY: CBC as outlined above. Sodium 138, potassium 3.7, chloride 111, bicarb 21, BUN 23, creatinine 1.3. IMAGING: Abdominal x-ray done in the emergency department shows a nonspecific bowel gas pattern with no evidence of obstruction. IMPRESSION: 1. Metastatic anal squamous cell carcinoma. 2. Pelvic and abdominal pain secondary to number 1. 3. Nausea, vomiting, likely secondary to everolimus therapy. 4. Aplastic anemia related to prior immunotherapy (patient currently on cyclosporine and Promacta). 5. Volume depletion. 6. Fatigue, likely secondary to combination of anemia and ongoing everolimus therapy. Mrs. Vela is a pleasant 63-year-old female with metastatic anal squamous cell carcinoma, who presents with multiple issues. I believe her nausea is likely being exacerbated by everolimus, which I have recommended stopping. She is in agreement and I have discontinued this medication currently. She has been seen in palliative care consultation by Dr. Fan Dominguez, and her pain medication, and anti nausea medications are being adjusted, which will hopefully result in improvement in her symptoms over the next 24 hours. She will be given IV fluid hydration. For now, we will continue her cyclosporine and Promacta. I will check a cyclosporine level. The patient indicates that she is not sure that she wants to receive any further therapy. I did attempt to discuss this further with her, but she reports she simply does not feel well enough to have an in-depth discussion about this, this evening, but is willing to discuss this in more detail over the next few days. She has responded well to transfusion of both packed red cells and platelets, and does not require further transfusion therapy currently. I discussed her case with Dr. Dominguez in detail. Her questions were answered. Total time for today's visit was approximately 40 minutes, of which greater than 50% was spent in counseling, care, and coordination. /[id number]/MODL MTDD
--- NOTE | 2018-12-17 14:51 | ASMTCMCOM ---
CM Note CM Note Notes: Patient plan of care reviewed this am. 63 year old female with metastatic disease admitted with dehydration and anemia. [facility] asked to see patient for Palliative Care. She is a DNR. Lives alone in apartment. Current with [facility]. CM to follow for needs. Plan: Home with [facility] and palliative support. Date Signed: 12/17/2018 02:50 PM Electronically Signed By:Maryanne Chaudhari RN
[2018-12-17] MEDS: HALOPERIDOL 1 MG TAB PO PRN ×2 (14:55→20:49)
[2018-12-17] MEDS: NS 1,000 ML IV SCH (14:56)
--- NOTE | 2018-12-17 15:26 | GCON ---
[f rep st] CONSULTATION PALLIATIVE CARE CONSULT DATE OF CONSULTATION: 12/17/2018 REFERRING PHYSICIAN: Tiera Hernandez MD REASON FOR CONSULTATION: Palliative Care support and symptom management. HISTORY OF PRESENT ILLNESS: The patient is a 63-year-old female with metastatic squamous cell carcinoma of the anal canal with extensive cutaneous metastases involving her labia and a chronic pelvic wound. Patient is currently on immunotherapy with Dr. Morin. The patient has been seen by our service before with a consult performed by in August, and followup with our licensed clinical director of social services a few weeks ago. She had declined further followup at that time, but reports that today her symptoms have been progressing and is now more amenable to Palliative Care support. The patient has developed a treatment-related anaplastic anemia and is transfusion dependent. She was quite anemic at presentation and has been transfused and feels that she gets some benefit from this, although it is not dramatic. She has become progressively weak over the last few weeks; this is to a point that it is very difficult for her to get to a bus or even to get into a friend's car to make her medical appointments. Nausea and vomiting have been protracted and resistant to interventions at home for roughly the last month. She denies hematemesis and is experiencing mostly dry heaves. Pain has been primarily in her "lap," can be severe at times, but generally has been responding to p.o. tramadol. She describes response as tramadol "taking the edge off," but not really truly relieving her pain. She was given p.r.n. Dilaudid last night and describes this as "wonderful" given her good relief of pain. For nausea, she has been taking Compazine at home. This has only been partially effective. She has been given 2 doses of Phenergan overnight and she feels that this has not been effective at controlling her nausea whatsoever. She experiences daily bleeding from her rectum and labial wounds. Appetite has declined dramatically in the last few weeks to a point where she has little interest in eating anything at all. She has lost another 10 pounds in the last 1-2 months. The patient is notably nauseated and dry heaving during my visit today so today' s visit was brief. She mentioned early on in my visit that she is considering stopping all treatment including her current immunotherapy, but has not discussed this with Dr. Morin as of yet. She has known Dr. Morin for several years and has great aaron in his clinical opinion, and is interested in discussing it with him further when he is available. Of note, the patient has recently been using medical marijuana, which she feels "helps everything." Use appears to be very moderate. We did discuss possible hyperemesis. She has not noted an increase in her nausea and vomiting associated with an increased use of marijuana at this time. PAST MEDICAL HISTORY: 1. 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 2. Aplastic anemia believed to be treatment related and transfusion dependent. 3. COPD. 4. History of deep vein thrombosis. 5. History of hypertension. ALLERGIES: Penicillin, cephalexin, and aspirin. CURRENT MEDICATIONS: 1. Tylenol 650 mg q.4 hours p.r.n. pain or mild fever, and 1000 mg p.o. daily scheduled. 2. Calcium carbonate 500 mg p.o. daily p.r.n. indigestion. 3. Cyclosporin 75 mg p.o. daily scheduled. 4. Benadryl 25 mg p.o. q.6 hours p.r.n. allergic reaction. 5. Hydralazine 10 mg IV q.6 hours p.r.n. 6. Dilaudid 0.2 to 0.4 mg IV q.2 hours p.r.n. severe pain unresponsive to other interventions. 7. Lidocaine jelly 1 radha topical q.4 hours p.r.n. 8. Loperamide 2 mg p.o. q.i.d. p.r.n. diarrhea or loose stool. 9. Zofran 4 mg IV q.4 hours p.r.n. nausea and vomiting. 10. Oxycodone 5-10 mg p.o. q.3 hours p.r.n. severe pain. 11. Compazine 10 mg p.o. t.i.d. p.r.n. nausea and vomiting and 10 mg p.o. daily scheduled at 10 o'clock. 12. Phenergan 6.25 mg IV q.6 hours p.r.n. nausea and vomiting. 13. Sodium chloride 100 mL per hour continuous. 14. Tramadol 100 mg p.o. q.6 hours p.r.n. moderate pain. SOCIAL HISTORY: Patient lives alone. She is an active smoker. No alcohol use. 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 REVIEW OF SYSTEMS: I was unable to obtain a cursory review of systems given the patient's nausea and retching; however, no findings contributory beyond HPI. PHYSICAL EXAMINATION: GENERAL: Patient looks her stated age. She is cachectic and obviously uncomfortable with intermittent nausea and retching. She is alert and oriented x4. Tracks the conversation well although has some moderate hearing impairment. VITALS: Most recently recorded show a blood pressure 146/92 with a heart rate of 95, respiratory rate of 16, room air sats of 96%, temp 36.8. HEENT: Pupils are equal, round and reactive to light and accommodation. Oral mucosa showed no ulcerations, no exudates. She does have numerous missing teeth. CHEST: Distant breath sounds, clear to auscultation, no accessory muscle use or indrawing. CARDIOVASCULAR: Regular rate and rhythm. No murmurs, rubs or gallops. ABDOMEN: Bowel sounds are present. She is soft, nontender, non-distended without palpable or pulsatile masses. : Labial wounds were not examined. EXTREMITIES: No clubbing, cyanosis or edema. NEURO: Cranial nerves 2-12 are grossly intact. No focal motor findings. PSYCHIATRIC: Normal affect. LABORATORY DATA: CBC this morning: White blood cell count of 2.37, hemoglobin 8.1 (up from 5.0 at presentation), hematocrit 23.2, platelets 22, monocytes 13.1 , eosinophils 0.8, basophils 0.4, neutrophils 1.23, lymphs 0.78. Chemistry today showed sodium 138, potassium 3.7, chloride 111, CO2 of 21, anion gap 6, BUN 22, creatinine 1.3. GFR 44. Glucose 92. Calcium 8.0. Phosphorus 3.4. Magnesium 1.9. ASSESSMENT AND PLAN: 1. Metastatic squamous cell carcinoma of the anus. The patient has recently been on everolimus therapy and I discussed the case today with Dr. Montalvo, who was present on the floor at the time of my visit and recommending this be discontinued. Patient is unsure if she wants to continue any further therapy whatsoever, but again is too fatigued and too uncomfortable to continue this discussion at this time. 2. Nausea. The everolimus may certainly be contributing here. The cyclosporin level is being checked by Dr. Montalvo. It is unclear if the patient 's marijuana use is enough to lead to hyperemesis, although I do not suspect this based on her reported usage to date. She has had very poor response to Phenergan and feels like Compazine is no longer working nor does she feel that Zofran is working. I think we could trial Haldol 1-3 mg q.4 hours would be reasonable. I have talked to the patient about cardiac risk and sedation which she verbalizes good understanding. 3. Anorexia. Doubtful at this time that artificial nutrition would be of benefit. I did not discuss this with the patient as today's visit was truncated due to her symptoms; however, I would suggest that this be reassessed once her nausea and vomiting are under better control. 4. Disposition. At this point, we were not able to have a goals of care discussion that was comfortable for the patient. I would like to visit with her again to continue the conversation. Should she decide to stop all active treatment of her carcinoma, she would be very appropriate for hospice services. Her current level of decline suggests a prognosis which could be along the lines of weeks, although this will be dependent on her clinical response to measures above. She has established herself as a Do Not Resuscitate and confirms that she does not want any extraordinary measures taken, citing her spirituality giving her support and alleviating her fear of end of life. Her primary concern at this point is going to be comfort and quality of life from this point forward. We will attempt to follow tomorrow when the patient is in the hospital. Thank you for this consultation allowing us to continue in the care of this patient. Time spent was 45 minutes. Greater than 50% of this time was spent in patient counseling and coordination of care. /[id number]/MODL MTDD
--- NOTE | 2018-12-17 16:54 | HOSPPROG ---
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 Montalvo -appreciate symptom management consult with Dr. Esparza -Riana for N/V -PO dilaudid for pain -check cyclosporine level -consider reducing THC use -severe vomiting overnight - try to advance diet * ARF due to dehydration -continue IVF Subjective: bad night N/V all night Objective: Vital Signs Temp Pulse Resp BP Pulse Ox 36.8 C 95 16 146/92 H 96 12/17/18 11:31 12/17/18 11:31 12/17/18 11:31 12/17/18 11:31 12/17/18 11:31 Laboratory Results 12/17/18 04:15 12/17/18 04:00 12/16/18 12/17/18 12/18/18 05:59 05:59 05:59 Intake Total 100 Balance 100 d/w Dr. Esparza regarding palliative care plan AXR - negative - Physical Exam Constitutional: no apparent distress, appears nourished, not in pain Cardiovascular: regular rate and rhythym, no murmur, rub, or gallop Respiratory: no respiratory distress, no rales or rhonchi, clear to auscultation Gastrointestinal: normoactive bowel sounds, soft, non-tender abdomen, no palpable masses Skin: no rashes or abrasions, no fluctuance, no induration Neurologic: AAOx3, sensation intact bilaterally Psychiatric: interacting appropriately, not anxious, not encephalopathic, thought process linear ICD10 Worksheet Patient Problems: Problems Problem Status Onset Pancytopenia Acute Dehydration Acute Anal squamous cell carcinoma Chronic 12/10/14 Fever Acute Poor dentition Chronic Chest pain Acute Anemia Acute Thrombocytopenia Acute Palliative care encounter Acute Vomiting Acute Pneumonia Acute Neutropenia Acute Reactive airway disease Acute Influenza A Acute
--- NOTE | 2018-12-17 17:43 | PDMN ---
Medical Necessity Medical necessity: MCG M370 Vomiting, A-1 day: 63 yo w/ weakness, N/V in setting of metastatic squamous cell carcinoma of anal canal and chronic labial wound secondary to cutaneous mets. Pt w/ immunotherapy tx related aplastic anemia, transfusion dependent. Workup shows pt w/ thrombocytopenia and acute on chronic renal fx. Initially OBS but pt cont w/ severe vomiting overnight and remains on IVF. Pt considering stopping immunotherapy. Oncology and palliative care consults. Considering Hospice. Pt requires additional MN for management of s/sx above. Hx as above and COPD, DVT, HTN. Change to IP status 12/17/18@6020 per MD order
[2018-12-17] MEDS: CAFFEINE 200 MG PO PRN (19:13)
[2018-12-17] MEDS: HYDROmorphONE/DILAUDID 1 MG/ML INJ IVP PRN (19:16)
[2018-12-18] MEDS: HALOPERIDOL 1 MG TAB PO PRN ×3 (05:03→21:02)
[2018-12-18] MEDS: ELTROMBOPAG OLAMINE 75 MG PO SCH (05:03)
[2018-12-18 05:33] LABS: PLATELET COUNT 13 10^3/uL (150-400)
[2018-12-18] MEDS: CYCLOSPORINE, MODIFIED 25 MG CAP (NEORAL) PO SCH (07:01)
[2018-12-18] MEDS: ACETAMINOPHEN 500 MG TAB PO SCH (08:04)
[2018-12-18] MEDS: HYDROmorphONE/DILAUDID 2 MG TAB PO PRN ×2 (08:05→15:43)
[2018-12-18] MEDS: CAFFEINE 200 MG PO SCH ×2 (09:13→09:14)
[2018-12-18] MEDS: hydrALAZINE 20 MG/ML VIAL IVP PRN ×2 (09:21→21:02)
[2018-12-18] MEDS: HYDROmorphONE/DILAUDID 1 MG/ML INJ IVP PRN ×2 (09:22→21:02)
--- NOTE | 2018-12-18 09:45 | SOAPPROG ---
SOAP Progress Note Assessment/Plan: Assessment: 1) Metastatic anal SCC 2) Pelvic pain secondary to #1 3) Therapy related nausea 4) Therapy related Aplastic Anemia (transfusion dependent) Plan: She feels much better today. Her pain and nausea are under much better control. Her platelets remain low. She received platelets yesterday. She has no bleeding today. Will hold of on further platelets today given the chronicity of her thrombocytopenia. Continue CSA and Promacta. CSA level has been sent and is pending. We discussed goals of care. She is not sure that she wants any further treatment for her metastatic anal SCC. She is very realistic about her disease. She is understanding and accepting of the terminal nature of her illness, and wants to primarily focus on quality of life. Per this discussion, we will continue to hold Everolimus as thus far there has not been a significant response, and the side effects have grown worse. She does not feel ready for hospice. She would like to continue to receive transfusion support as needed. She may reconsider this at some point, but feels that with transfusion support she has a good quality of life currently. Continue current pain regimen and anti nausea medications. Appreciate support and recommendations of Dr. Dominguez. Will plan to keep inpatient today, with possible d/c tomorrow if she continues to do well. She will follow up with Dr. Morin at discharge. 12/18/18 09:35 12/18/18 09:45 Subjective: Feels better today. Pain and nausea are both better Objective: Vital Signs Temp Pulse Resp BP Pulse Ox 36.6 C 103 H 14 170/100 H 96 12/18/18 07:49 12/18/18 07:49 12/18/18 07:49 12/18/18 09:21 12/18/18 07:49 Laboratory Results 12/18/18 04:42 12/18/18 04:42 12/17/18 12/18/18 12/19/18 05:59 05:59 05:59 Intake Total 1358 Balance 1358 - Time Spent With Patient Time Spent With Patient: 30 minutes Physical Exam - Physical Exam General Appearance: alert, no apparent distress, other (1 [facility] nursing staff ( [place]) present for entire exam) EENT: PERRL/EOMI Abdomen: non-tender, soft Pelvic Exam: other (Multiple cutaneous tumor nodules present primarily over Mons pubis. No evidence of infection or bleeding) Neuro/Psych: alert, oriented x 3 ICD10 Worksheet Patient Problems: Problems Problem Status Onset Anemia Acute Dehydration Acute Pancytopenia Acute Anal squamous cell carcinoma Chronic 12/10/14 Chest pain Acute Fever Acute Influenza A Acute Neutropenia Acute Palliative care encounter Acute Pneumonia Acute Reactive airway disease Acute Thrombocytopenia Acute Vomiting Acute Poor dentition Chronic
--- NOTE | 2018-12-18 13:39 | HOSPPROG ---
Hospitalist Progress Note Assessment/Plan: Aplastic anemia - presumed to be due to previous immunotherapy. Known transfusion dependent aplastic anemia. has been non compliant with follow up. Received platelets on 12/16 for bleeding from chronic wound. Recieved PRBCs as well. -continue to monitor CBC -patient not sure she wants to continue transfusions Metastatic SCC of anus- wtih continuous oozing from site. Continue CSA and promacta. Onc following. 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 Dr. Esparza consulted for assistance with symptom management. seems to have resolved today. -PRN haldol and dilaudid for pain. -Cyclosporine level pending. -tolerating PO very well today. ARF due to dehydration -continue IVF, creatinine down to 1.3 from 1.6 on admission. May have some element of CKD. will continue to monitor Prophy- no heparin, scds Fluids- NS Lytes- WNL today Nutrition- advanced diet and tolerating well Cor- DNR Dispo- if counts remain stable and still feeling well possible dc in am, refusing SNF. Subjective: feeling much better today, eating multiple plates of food with no nv. Objective: Vital Signs Temp Pulse Resp BP Pulse Ox 37.1 C 114 H 16 156/88 H 95 12/18/18 11:46 12/18/18 11:46 12/18/18 11:46 12/18/18 11:46 12/18/18 11:46 Laboratory Results 12/18/18 04:42 12/18/18 04:42 12/17/18 12/18/18 12/19/18 05:59 05:59 05:59 Intake Total 1358 Balance 1358 - Physical Exam Constitutional: no apparent distress, appears nourished, not in pain Eyes: PERRL, anicteric sclera, EOMI Ears, Nose, Mouth, Throat: moist mucous membranes, hearing normal, ears appear normal, no oral mucosal ulcers Cardiovascular: regular rate and rhythym, no murmur, rub, or gallop Respiratory: no respiratory distress, no rales or rhonchi, clear to auscultation Gastrointestinal: soft, non-tender abdomen Genitourinary: perirectal lesion Skin: no rashes or abrasions, no fluctuance, no induration Musculoskeletal: generalized weakness Neurologic: AAOx3, sensation intact bilaterally Psychiatric: interacting appropriately, not anxious, not encephalopathic, thought process linear Lymph, Heme, Immunologic: no cervical LAD, no supraclavicular LAD ICD10 Worksheet Patient Problems: Problems Problem Status Onset Anemia Acute Dehydration Acute Pancytopenia Acute Anal squamous cell carcinoma Chronic 12/10/14 Chest pain Acute Fever Acute Influenza A Acute Neutropenia Acute Palliative care encounter Acute Pneumonia Acute Reactive airway disease Acute Thrombocytopenia Acute Vomiting Acute Poor dentition Chronic
--- NOTE | 2018-12-18 14:20 | PDPCPN ---
Palliative Care Progress Note Assessment/Plan: Assessment: 1) Pain - improved pain control with dilaudid. Would recommend DC home with PO Dilaudid at current dosing, and stopping Tramadol. 2) Nausea - marked improvement with PRN Haldol. Recommend DC home with PO Haldol , 1-2mg Q6H PRN nausea. 3) Palliative Care Follow Up - Patient had declined Palliative Care follow up in the home previously, but now feels this would be welcomed, both in terms of symptoms and emotional support. Our office will contact patient prior to DC to arrange home follow up, I requested a provider visit in approximately 1 week. 4) Goals of Care - Dr. Montalvo's discussion with patient noted. Will continue in the home setting. Plan: Per above 12/18/18 14:12 Subjective: Doing much better today - felt good relief of nausea with Haldol IV, and used a total of 3 doses, 2mg each, overnight. [place] so much better she ate three plates of food today. Although current nausea is better overall, she vomited during our visit and attributes this to overeating. Pain responding better to Dilaudid and would be interested in having this medication available at home for pain as it is proving much more effective than Tramadol. All in all slept much better last night and feels more energetic today. Myllwhri discussed discontinuation of further chemotherapy agents with Dr. Montalvo, yet told him she was not ready for hospice at this time. This being said, she has had canopy stringer with hospice services and doesn't know what to expect. We agreed that at her next visit, these services can be reviewed in more detail. All in all her goals are to focus on comfort and hopefully avoid further hospitalization. Objective: Vital Signs Temp Pulse Resp BP Pulse Ox 37.1 C 114 H 16 156/88 H 95 12/18/18 11:46 12/18/18 11:46 12/18/18 11:46 12/18/18 11:46 12/18/18 11:46 Laboratory Results 12/18/18 04:42 12/18/18 04:42 12/17/18 12/18/18 12/19/18 05:59 05:59 05:59 Intake Total 1358 Balance 1358 PE Color improved, much more alert and interactive. HEENT - PERRLA, no mucosal lesions CHEST - CTA bilaterally CVS - RRR, no MRG ABD - bowel sounds present, soft, NT, ND, no palpable masses - labial lesions not examined EXTS - no CCE NEURO - CN's II-XII grossly intact, no focal motor findings - Time Spent With Patient Time Spent With Patient: TIME SPENT - 20 minutes, with greater than 50% of this time spent in patient counseling. ICD10 Worksheet Patient Problems: Problems Problem Status Onset Anemia Acute Dehydration Acute Pancytopenia Acute Anal squamous cell carcinoma Chronic 12/10/14 Chest pain Acute Fever Acute Influenza A Acute Neutropenia Acute Palliative care encounter Acute Pneumonia Acute Reactive airway disease Acute Thrombocytopenia Acute Vomiting Acute Poor dentition Chronic
[2018-12-18] MEDS ORDERED: CALAMINE 180 ML BOTTLE TP PRN (14:46)
[2018-12-19] MEDS ORDERED: HALOPERIDOL LACT 5 MG/ML INJ IVP ONE ×2 (01:25→06:44)
[2018-12-19] MEDS ORDERED: HALOPERIDOL LACT 5 MG/ML INJ ONE (01:26)
[2018-12-19] MEDS: HYDROmorphONE/DILAUDID 1 MG/ML INJ IVP PRN ×3 (01:31→11:50)
[2018-12-19 05:36] LABS: PLATELET COUNT 8 10^3/uL (150-400)
[2018-12-19] MEDS: HALOPERIDOL 1 MG TAB PO PRN (06:25)
[2018-12-19] MEDS: ELTROMBOPAG OLAMINE 75 MG PO SCH ×2 (06:25→12:17)
--- NOTE | 2018-12-19 11:51 | ASMTCMCOM ---
CM Note CM Note Notes: Patients housing CM from the [facility], Yareli, came to see patient today. I informed her that patient does indeed qualify for palliative care and that DANIELA palliative MD is following her here. I offered more home care - PT, OT - but per Yareli, patient not interested. She is willing to continue seeing her home improvement installer. Yareli will contact [facility] to have them assess for HCBS. Everyone is working to keep patient in her apartment with the necessary services. Current CM Discharge plan: home w DANIELA gill and [facility] RN Current CM dischare plan Date Signed: 12/19/2018 11:50 AM Electronically Signed By:Treva Castaneda RN
[2018-12-19] MEDS: ACETAMINOPHEN 500 MG TAB PO SCH (12:17)
[2018-12-19] MEDS: CAFFEINE 200 MG PO SCH (12:17)
[2018-12-19] MEDS: CYCLOSPORINE, MODIFIED 25 MG CAP (NEORAL) PO SCH (12:17)
[2018-12-19] MEDS ORDERED: LORazepam 0.5 MG TAB PO ONE (13:30)
--- NOTE | 2018-12-19 13:32 | PDPCPN ---
Palliative Care Progress Note Assessment/Plan: Assessment: 1) Pain - improved pain control with dilaudid. Would recommend DC home with PO Dilaudid at current dosing, and stopping Tramadol. Headache appears to be tension. Has Tylenol and caffeine ordered - uses these regularly at home, so withdrawal could be a component. 2) Nausea - marked improvement with PRN Haldol initially, but nausea and vomiting started again late yesterday afternoon. Patient ate frequently yesterday, which may have precipitated today's vomiting, but reports no PO intake for approx 24 hours. Trial of Lorazepam 0.5mg PO X1 now. 3) Palliative Care Follow Up - Patient had declined Palliative Care follow up in the home previously, but now feels this would be welcomed, both in terms of symptoms and emotional support. Our office will contact patient prior to DC to arrange home follow up, I requested a provider visit in approximately 1 week - will time after day of discharge. 4) Goals of Care - Dr. Montalvo's discussion with patient noted. Discussed a bit with patient again today - she is unclear of choices from this point forward, and would like to discuss further with Oncology before making further decisions. Plan: Per above 12/18/18 14:12 12/19/18 13:25 Subjective: Vomiting again today - started yesterday around 16:30 after eating frequently throughout the day. Haldol not as effective this morning and vomited during my visit. Moving bowels, denies abdominal pain. Pelvic pain better controlled with Dilaudid. C/O headache today which goes away completely with PO Dilaudid, but comes back with vomiting. Focused in left trapezius/ back of left ear, does not radiate to other regions. No visual changes. Of note, patient takes daily Tylenol and Caffeine tabs at home - I note these have been ordered and available. Objective: Vital Signs Temp Pulse Resp BP Pulse Ox 36.7 C 118 H 14 140/90 H 96 12/19/18 11:30 12/19/18 11:30 12/19/18 11:30 12/19/18 11:30 12/19/18 11:30 Laboratory Results 12/19/18 04:42 12/19/18 04:42 12/18/18 12/19/18 12/20/18 05:59 05:59 05:59 Intake Total 1358 340 Balance 1358 340 A&OX4, vomited X1 during my visit, looks uncomfortable HEENT - PERRLA, no mucosal lesions CHEST - CTA bilaterally CVS - RRR, no MRG ABD - bowel sounds present, soft, NT,ND, no palpable masses EXTS - no CCE, no nail signs NEURO - CN's II-XII intact, no focal motor findings - Time Spent With Patient Time Spent With Patient: 15 minutes ICD10 Worksheet Patient Problems: Problems Problem Status Onset Anemia Acute Dehydration Acute Pancytopenia Acute Anal squamous cell carcinoma Chronic 12/10/14 Chest pain Acute Fever Acute Influenza A Acute Neutropenia Acute Palliative care encounter Acute Pneumonia Acute Reactive airway disease Acute Thrombocytopenia Acute Vomiting Acute Poor dentition Chronic
[2018-12-19] MEDS ORDERED: LORazepam 2 MG/ML INJ IVP ONE (14:00)
--- NOTE | 2018-12-19 14:05 | SOAPPROG ---
SOAP Progress Note Assessment/Plan: Assessment: 1) Metastatic anal SCC 2) Pelvic pain secondary to #1 3) Therapy related nausea 4) Therapy related Aplastic Anemia (transfusion dependent) Plan: She has had more nausea over the past 12 hours. No evidence of obstruction. I think CT would be of low yield in this setting. Will add Dexamethasone to help palliate this symptom. Her platelets remain low. She received platelets again this morning. Continue CSA and Promacta. CSA level has been sent and is still pending. We discussed goals of care yesterday at length. She is not sure that she wants any further treatment for her metastatic anal SCC. She is very realistic about her disease. She is understanding and accepting of the terminal nature of her illness, and wants to primarily focus on quality of life. Per this discussion, we will continue to hold Everolimus as thus far there has not been a significant response, and the side effects have grown worse. She does not feel ready for hospice. She would like to continue to receive transfusion support as needed. She may reconsider this at some point, but feels that with transfusion support she has a good quality of life currently. Continue current pain regimen and anti nausea medications. Appreciate support and recommendations of Dr. Dominguez. Not yet ready for discharge She will follow up with Dr. Morin at discharge. Case d/w palliative care/ hospitalist services 12/18/18 09:35 12/18/18 09:45 12/19/18 14:02 Subjective: Had more nausea over last 12 hours. Denies associated abdominal pain. Reports small amount of rectal bleeding which is chronic. Objective: Vital Signs Temp Pulse Resp BP Pulse Ox 36.7 C 118 H 14 140/90 H 96 12/19/18 11:30 12/19/18 11:30 12/19/18 11:30 12/19/18 11:30 12/19/18 11:30 Laboratory Results 12/19/18 04:42 12/19/18 04:42 12/18/18 12/19/18 12/20/18 05:59 05:59 05:59 Intake Total 1358 340 Balance 1358 340 - Time Spent With Patient Time Spent With Patient: 20 minutes Physical Exam - Physical Exam General Appearance: alert, no apparent distress EENT: PERRL/EOMI Abdomen: non-tender, soft, No distended, No rebound, No hepatomegaly, No splenomegaly, No ascites Neuro/Psych: alert, oriented x 3 ICD10 Worksheet Patient Problems: Problems Problem Status Onset Anemia Acute Dehydration Acute Pancytopenia Acute Anal squamous cell carcinoma Chronic 12/10/14 Chest pain Acute Fever Acute Influenza A Acute Neutropenia Acute Palliative care encounter Acute Pneumonia Acute Reactive airway disease Acute Thrombocytopenia Acute Vomiting Acute Poor dentition Chronic
--- NOTE | 2018-12-19 14:56 | HOSPPROG ---
Hospitalist Progress Note Assessment/Plan: Aplastic anemia - presumed to be due to previous immunotherapy. Known transfusion dependent aplastic anemia. has been non compliant with follow up. Received platelets on 12/16 for bleeding from chronic wound. Recieved PRBCs as well. Platelets down to 8 today, and with some oozing of blood from wounds -transfuse 2 pack of platelets today -continue to monitor CBC -patient now thinks that she would want to continue transfusions. Metastatic SCC of anus- wtih continuous oozing from site. Continue CSA and promacta. Onc following. Case discussed with Oncology today. 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 Dr. Esparza consulted for assistance with symptom management. Initially responded very well to Haldol but then again very nauseous today. Discussed case with palliative care who recommended trial of Ativan. -p.r.n. Ativan -trial of dexamethasone per Oncology -PRN haldol and dilaudid for pain. -Cyclosporine level pending. ARF due to dehydration -continue IVF, creatinine down to 1.2 from 1.6 on admission. May have some element of CKD. will continue to monitor Prophy- no heparin, scds Fluids- NS Lytes- WNL today Nutrition- advanced diet and tolerating well Cor- DNR Dispo- if counts remain stable and still feeling well possible dc in am, refusing SNF. Subjective: Nausea worse today. Has a headache Objective: Vital Signs Temp Pulse Resp BP Pulse Ox 36.7 C 118 H 14 140/90 H 96 12/19/18 11:30 12/19/18 11:30 12/19/18 11:30 12/19/18 11:30 12/19/18 11:30 Laboratory Results 12/19/18 04:42 12/19/18 04:42 12/18/18 12/19/18 12/20/18 05:59 05:59 05:59 Intake Total 1358 340 Balance 1358 340 - Physical Exam Constitutional: no apparent distress, appears nourished, not in pain Eyes: PERRL, anicteric sclera, EOMI Ears, Nose, Mouth, Throat: moist mucous membranes, hearing normal, ears appear normal, no oral mucosal ulcers Cardiovascular: regular rate and rhythym, no murmur, rub, or gallop Respiratory: no respiratory distress, no rales or rhonchi, clear to auscultation Gastrointestinal: normoactive bowel sounds, soft, non-tender abdomen, no palpable masses Genitourinary: other (Ulcerated necrotic wounds with oozing of blood.) Skin: warm, normal color Musculoskeletal: generalized weakness Neurologic: AAOx3 Psychiatric: interacting appropriately Lymph, Heme, Immunologic: no cervical LAD ICD10 Worksheet Patient Problems: Problems Problem Status Onset Anemia Acute Dehydration Acute Pancytopenia Acute Anal squamous cell carcinoma Chronic 12/10/14 Chest pain Acute Fever Acute Influenza A Acute Neutropenia Acute Palliative care encounter Acute Pneumonia Acute Reactive airway disease Acute Thrombocytopenia Acute Vomiting Acute Poor dentition Chronic
[2018-12-19] MEDS: DEXAMETHASONE 4 MG/ML VIAL IV SCH ×2 (17:55→21:15)
[2018-12-19] MEDS: POTASSIUM Cl (KCl) 100 ML IV SCH ×4 (18:32→22:46)
[2018-12-20] MEDS: ELTROMBOPAG OLAMINE 75 MG PO SCH (04:56)
[2018-12-20] MEDS: ACETAMINOPHEN 325 MG TAB PO PRN (04:56)
[2018-12-20] MEDS: CAFFEINE 200 MG PO PRN (04:57)
[2018-12-20 06:04] LABS: PLATELET COUNT 99 10^3/uL (150-400)
[2018-12-20] MEDS: ACETAMINOPHEN 500 MG TAB PO SCH (08:33)
[2018-12-20] MEDS: DEXAMETHASONE 4 MG/ML VIAL IV SCH ×2 (08:33→21:01)
[2018-12-20] MEDS: CAFFEINE 200 MG PO SCH (08:34)
[2018-12-20] MEDS: CYCLOSPORINE, MODIFIED 25 MG CAP (NEORAL) PO SCH (08:36)
[2018-12-20] MEDS: HYDROmorphONE/DILAUDID 2 MG TAB PO PRN ×3 (09:40→23:13)
[2018-12-20] MEDS: NS 1,000 ML IV SCH ×2 (12:02→21:23)
[2018-12-20] MEDS: hydrALAZINE 20 MG/ML VIAL IVP PRN (12:03)
--- NOTE | 2018-12-20 12:53 | HOSPPROG ---
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 Aplastic anemia - presumed to be due to previous immunotherapy. Known transfusion dependent aplastic anemia. has been non compliant with follow up. Received platelets on 12/16 for bleeding from chronic wound. Recieved PRBCs as well. Platelets down to 8 yesterday, and with some oozing of blood from wounds -transfused 2 pack of platelets on December 19, today platelets 99 -continue to monitor CBC -patient now thinks that she would want to continue transfusions. Metastatic SCC of anus- wtih continuous oozing from site. Continue CSA and promacta. Onc following. Case discussed with Oncology today. 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 Dr. Esparza consulted for assistance with symptom management. Started on dexamethasone yesterday per Oncology and today patient feels really good. Able to tolerate p. O. With no problems. -continue dexamethasone per Oncology -PRN haldol and dilaudid for pain. -Cyclosporine level pending. ARF due to dehydration -continue IVF, creatinine down to 1.2 from 1.6 on admission. May have some element of CKD. will continue to monitor. creatinine has stabilized at 1.2 which is likely her new baseline. Prophy- no heparin, scds Fluids- NS Lytes- WNL today Nutrition- advanced diet and tolerating well Cor- DNR Dispo- needs to be able to tolerate p. O. For 24 hr on a stable regimen. Doing well today, if continues to feel well possible discharge in morning. Refusing SNF so will go home with home care Subjective: Feels great tolerating p.o. With no problems pain manageable Objective: Vital Signs Temp Pulse Resp BP Pulse Ox 36.6 C 113 H 19 178/94 H 95 12/20/18 11:22 12/20/18 11:22 12/20/18 11:22 12/20/18 11:22 12/20/18 11:22 Laboratory Results 12/20/18 05:29 12/20/18 05:28 12/19/18 12/20/18 12/21/18 05:59 05:59 05:59 Intake Total 340 1500 Balance 340 1500 - Physical Exam Constitutional: no apparent distress, appears nourished, not in pain Eyes: PERRL, anicteric sclera, EOMI Ears, Nose, Mouth, Throat: moist mucous membranes, hearing normal, ears appear normal, no oral mucosal ulcers Cardiovascular: regular rate and rhythym, no murmur, rub, or gallop Respiratory: no respiratory distress, no rales or rhonchi, clear to auscultation Gastrointestinal: normoactive bowel sounds, soft, non-tender abdomen, no palpable masses Genitourinary: no bladder fullness, no bladder tenderness, no renal bruits Skin: no rashes or abrasions, no fluctuance, no induration Musculoskeletal: full muscle strength, no muscle tenderness, normal joint ROM Neurologic: AAOx3, sensation intact bilaterally Psychiatric: interacting appropriately, not anxious, not encephalopathic, thought process linear Lymph, Heme, Immunologic: no cervical LAD, no supraclavicular LAD ICD10 Worksheet Patient Problems: Problems Problem Status Onset Anemia Acute Dehydration Acute Pancytopenia Acute Anal squamous cell carcinoma Chronic 12/10/14 Chest pain Acute Fever Acute Influenza A Acute Neutropenia Acute Palliative care encounter Acute Pneumonia Acute Reactive airway disease Acute Thrombocytopenia Acute Vomiting Acute Poor dentition Chronic
[2018-12-20] MEDS ORDERED: amLODIPine BESYLATE 5 MG TAB PO SCH (13:00)
[2018-12-20] MEDS: METOPROLOL TARTRATE 25 MG TAB PO SCH ×2 (15:42→21:01)
--- NOTE | 2018-12-20 16:56 | SOAPPROG ---
SOAP Progress Note Assessment/Plan: Assessment: 1) Metastatic anal SCC 2) Pelvic pain secondary to #1 3) Therapy related nausea 4) Therapy related Aplastic Anemia (transfusion dependent) Plan: Nausea essentially resolved after Dexamethasone. This can be continued as an outpatient. Good response to platelets yesterday. Continue CSA and Promacta. CSA level has been sent and is still pending. We discussed goals of care this hospital stay. She is not sure that she wants any further treatment for her metastatic anal SCC. She is very realistic about her disease. She is understanding and accepting of the terminal nature of her illness, and wants to primarily focus on quality of life. Per this discussion, we will continue to hold Everolimus as thus far there has not been a significant response, and the side effects have grown worse. She does not feel ready for hospice. She would like to continue to receive transfusion support as needed. She may reconsider this at some point, but feels that with transfusion support she has a good quality of life currently. Continue current pain regimen. She will likely be discharged tomorrow. She will follow up with Dr. Morin at discharge. Subjective: Feels good. Pain well controlled. Nausea resolved. Objective: Vital Signs Temp Pulse Resp BP Pulse Ox 36.6 C 110 H 17 158/94 H 96 12/20/18 15:23 12/20/18 15:42 12/20/18 15:23 12/20/18 15:42 12/20/18 15:23 Laboratory Results 12/20/18 05:29 12/20/18 05:28 12/19/18 12/20/18 12/21/18 05:59 05:59 05:59 Intake Total 340 1500 Balance 340 1500 - Time Spent With Patient Time Spent With Patient: 16 minutes Physical Exam - Physical Exam General Appearance: alert, no apparent distress Neuro/Psych: alert, oriented x 3 ICD10 Worksheet Patient Problems: Problems Problem Status Onset Anemia Acute Dehydration Acute Pancytopenia Acute Anal squamous cell carcinoma Chronic 12/10/14 Chest pain Acute Fever Acute Influenza A Acute Neutropenia Acute Palliative care encounter Acute Pneumonia Acute Reactive airway disease Acute Thrombocytopenia Acute Vomiting Acute Poor dentition Chronic
[2018-12-21 04:47] LABS: PLATELET COUNT 55 10^3/uL (150-400)
[2018-12-21] MEDS: hydrALAZINE 20 MG/ML VIAL IVP PRN (05:14)
[2018-12-21] MEDS: ACETAMINOPHEN 325 MG TAB PO PRN (05:14)
[2018-12-21] MEDS: CAFFEINE 200 MG PO PRN (05:15)
[2018-12-21] MEDS: ELTROMBOPAG OLAMINE 75 MG PO SCH (05:25)
[2018-12-21] MEDS: NS 1,000 ML IV SCH (06:49)
--- NOTE | 2018-12-21 08:41 | HOSPPROG ---
Hospitalist Progress Note Assessment/Plan: #Metastatic anal SCC Everolimus discontinued. Will be discharged home with home care and [facility] #Transfusion-dependent aplastic anemia: 2x RBC, 1 unit platelets -Cyclosporine, Promacta #CHRIS: improved with hydration #Pelvic pain #Cutaneous mets to labia with non-healing ulcers #Chemo-related nausea: improved with Dex #Diet: regular Disp: plan on DC tomorrow if labs stable # Subjective: nausea improved, no pain Objective: Vital Signs Temp Pulse Resp BP Pulse Ox 36.8 C 97 16 162/76 H 95 12/21/18 08:25 12/21/18 08:25 12/21/18 08:25 12/21/18 08:25 12/21/18 08:25 Laboratory Results 12/21/18 04:25 12/21/18 04:25 12/20/18 12/21/18 12/22/18 05:59 05:59 05:59 Intake Total 1500 4104 Balance 1500 4104 - Time Spent With Patient Time Spent with Patient: greater than 35 minutes Time Spent with Patient: Greater than 35 minutes spent on this patients care, greater than 50% of time spent counseling, educating, and coordinating care regarding the above mentioned plan. - Physical Exam Constitutional: chronically ill appearing, other (appears older than stated age) Ears, Nose, Mouth, Throat: moist mucous membranes Cardiovascular: regular rate and rhythym Respiratory: no respiratory distress Gastrointestinal: normoactive bowel sounds Genitourinary: no bladder fullness Skin: warm Musculoskeletal: full muscle strength Neurologic: AAOx3, CN II-XII Intact Psychiatric: interacting appropriately ICD10 Worksheet Patient Problems: Problems Problem Status Onset Anemia Acute Dehydration Acute Pancytopenia Acute Anal squamous cell carcinoma Chronic 12/10/14 Chest pain Acute Fever Acute Influenza A Acute Neutropenia Acute Palliative care encounter Acute Pneumonia Acute Reactive airway disease Acute Thrombocytopenia Acute Vomiting Acute Poor dentition Chronic
[2018-12-21] MEDS: CYCLOSPORINE, MODIFIED 25 MG CAP (NEORAL) PO SCH (08:45)
[2018-12-21] MEDS: METOPROLOL TARTRATE 25 MG TAB PO SCH ×2 (08:45→21:00)
[2018-12-21] MEDS: DEXAMETHASONE 4 MG/ML VIAL IV SCH ×2 (08:45→21:00)
[2018-12-21] MEDS: HYDROmorphONE/DILAUDID 2 MG TAB PO PRN ×2 (08:47→19:41)
[2018-12-21] MEDS: ACETAMINOPHEN 500 MG TAB PO SCH (08:48)
[2018-12-21] MEDS: CAFFEINE 200 MG PO SCH (08:48)
--- NOTE | 2018-12-21 11:18 | ASMTCMCOM ---
CM Note CM Note Notes: Per hospitalist, pt will be required to tolerate P.O. medications for 24 hours in order to be d/cedric. She did report feeling well yesterday and could go home later today if she feels well and medication requirement is met. D/ Plan: Home with [facility] and [facility] RN. Date Signed: 12/21/2018 11:18 AM Electronically Signed By:Minoo Hand
--- NOTE | 2018-12-21 13:33 | SOAPPROG ---
SOAP Progress Note Assessment/Plan: Assessment: 1) Metastatic anal SCC - Risk benefit analysis of further therapy vs. best supportive care favors best supportive care. Everolimus is now discontinued. Upon discharge (tentatively planned for 22 DEC 2018) she will go back to her apartment with [facility]care and [facility] palliative care 2) Pelvic pain secondary to #1 - currently controlled with intermittent oral Dilaudid 3) Therapy related nausea - resolved x 2 days 4) Therapy related Aplastic Anemia (transfusion dependent) - no transfusions needed today Plan: Nausea essentially resolved after Dexamethasone. This can be continued as an outpatient. Good response to platelets 2 days ago. No txn needed today. Continue CSA and Promacta. CSA level has been sent and is still pending. Her main goal is to stay in her apartment if at all possible. I suggested that she have a cane/walker at home in case she gets dizzy again. Subjective: Pain is controlled. Nausea is controlled. Objective: Vital Signs Temp Pulse Resp BP Pulse Ox 36.8 C 72 16 156/82 H 95 12/21/18 11:49 12/21/18 11:49 12/21/18 11:49 12/21/18 11:49 12/21/18 11:49 Laboratory Results 12/21/18 04:25 12/21/18 04:25 12/19/18 12/20/18 12/21/18 23:59 23:59 23:59 Intake Total 490 4210 1144 Balance 490 4210 1144 Physical Exam - Physical Exam General Appearance: alert, no apparent distress Respiratory: lungs clear Cardiac/Chest: regular rate, rhythm Abdomen: normal bowel sounds Skin: pallor Neuro/Psych: normal mood/affect, oriented x 3 ICD10 Worksheet Patient Problems: Problems Problem Status Onset Anemia Acute Dehydration Acute Pancytopenia Acute Anal squamous cell carcinoma Chronic 12/10/14 Chest pain Acute Fever Acute Influenza A Acute Neutropenia Acute Palliative care encounter Acute Pneumonia Acute Reactive airway disease Acute Thrombocytopenia Acute Vomiting Acute Poor dentition Chronic
[2018-12-22] MEDS ORDERED: HYDROmorphONE/DILAUDID 2 MG TAB PO SCH
[2018-12-22] MEDS ORDERED: DEXAMETHASONE 4 MG TAB PO SCH
[2018-12-22] MEDS: hydrALAZINE 20 MG/ML VIAL IVP PRN (04:21)
[2018-12-22] MEDS: ACETAMINOPHEN 500 MG TAB PO SCH (04:21)
[2018-12-22] MEDS: ELTROMBOPAG OLAMINE 75 MG PO SCH (04:22)
[2018-12-22] MEDS: CAFFEINE 200 MG PO PRN (04:22)
[2018-12-22] MEDS: CAFFEINE 200 MG PO SCH (04:24)
[2018-12-22 05:03] LABS: PLATELET COUNT 37 10^3/uL (150-400)
[2018-12-22] MEDS: CYCLOSPORINE, MODIFIED 25 MG CAP (NEORAL) PO SCH (08:51)
[2018-12-22] MEDS: METOPROLOL TARTRATE 25 MG TAB PO SCH (08:53)
[2018-12-22] MEDS: DEXAMETHASONE 4 MG/ML VIAL IV SCH (08:55)
[2018-12-22 09:08] VITALS: BP 164/80
[2018-12-22] MEDS ORDERED: amLODIPine BESYLATE 5 MG TAB PO SCH (10:00)
[2018-12-22] MEDS: HYDROmorphONE/DILAUDID 2 MG TAB PO PRN (12:59)
--- NOTE | 2018-12-22 13:21 | SOAPPROG ---
SOAP Progress Note Assessment/Plan: Assessment: 1) Metastatic anal SCC - Risk benefit analysis of further therapy vs. best supportive care favors best supportive care. Everolimus is now discontinued. Upon discharge she will go back to her apartment with [facility] homecare and [facility] palliative care. She is to be discharged today 2) Pelvic pain secondary to #1 - currently controlled with intermittent oral Dilaudid 3) Therapy related nausea - resolved x 3 days. Her appetite is good today 4) Therapy related Aplastic Anemia (transfusion dependent) - no transfusions needed today. Plts 37k, hgb 7.3. Plan: Nausea essentially resolved after Dexamethasone. This can be continued as an outpatient. Good response to platelets 3 days ago. No txn needed today. Continue CSA and Promacta. CSA level has been sent and is still pending. Her main goal is to stay in her apartment if at all possible. I suggested that she have a cane/walker at home in case she gets dizzy again. She should follow up with me on 27 DEC 2018. We will recheck her labs then. Subjective: Very hungry today. She especially likes the cauliflower lasagne from the cafeteria. Her pain is under control with Dilaudid Objective: Vital Signs Temp Pulse Resp BP Pulse Ox 36.5 C 70 16 164/80 H 96 12/22/18 09:03 12/22/18 09:03 12/22/18 09:03 12/22/18 10:17 12/22/18 09:03 Laboratory Results 12/22/18 03:50 12/21/18 04:25 12/20/18 12/21/18 12/22/18 23:59 23:59 23:59 Intake Total 4210 2874 100 Output Total 300 Balance 4210 2574 100 Physical Exam - Physical Exam General Appearance: alert, no apparent distress Respiratory: lungs clear Cardiac/Chest: regular rate, rhythm Abdomen: normal bowel sounds Skin: pallor, No rash Extremities: non-tender, No swelling Neuro/Psych: alert, normal mood/affect, oriented x 3 ICD10 Worksheet Patient Problems: Problems Problem Status Onset Anemia Acute Dehydration Acute Pancytopenia Acute Anal squamous cell carcinoma Chronic 12/10/14 Chest pain Acute Fever Acute Influenza A Acute Neutropenia Acute Palliative care encounter Acute Pneumonia Acute Reactive airway disease Acute Thrombocytopenia Acute Vomiting Acute Poor dentition Chronic
--- NOTE | 2018-12-22 14:07 | PDIAF ---
- Diagnosis Diagnosis: Anal SCC Code Status: Do Not Resuscitate - Medication Management Discharge Medications: electronically signed and located in the Home Medication List. - Orders Services needed: Home Care, Registered Nurse Home Care Face to Face: I certify that this patient was under my care and that I had the required [id number] encounter meeting the encounter requirements on the discharge day. My findings support the fact that the patient is homebound as defined in Home Care Face to Face Continued: CMS Chapter 7 Medicare Benefits Manual 30.1.1 , The condition of the patient is such that there exists a normal inability to leave home and consequently, leaving home would require a considerable and taxing effort. Isolation Type: Chemotherapy Isolation Diet Recommendation: no restrictions on diet Diet Texture: Regular Texture Diet - Follow Up Care Current Providers and Referrals: Yomaira Christy MD [Primary Care Provider] - As per Instructions Nito Morin MD [Medical Doctor] -
--- NOTE | 2018-12-22 14:12 | ASMTLACE ---
LACE Length of stay for Answers: 4-6 days current admission Comorbidities - select Answers: Any tumor (including all that apply lymphoma or leukemia) Opioid dependence / Chronic pain # of Emergency department Answers: 1-2 visits in the last 6 months Score: 11 Date Signed: 12/22/2018 02:11 PM Electronically Signed By:Maryanne Chaudhari RN
--- NOTE | 2018-12-22 14:45 | ASDISCHSUM ---
Discharge Information Plan Status:Home with Home Health Medically Cleared to Leave:12/21/2018 Discharge Date:12/22/2018 02:16 PM D/C Disposition:Home Health Service [facility] D/C Disposition:Home, Routine, Self-Care Projected Discharge Date:12/21/2018 11:00 AM Transportation at D/C: Discharge Delay Reason: Follow-Up Date:12/21/2018 11:00 AM Discharge Slot: Final Diagnosis: Placement Information Referral Type:Palliative Care Referral ID:[id number] Provider Name:[facility] Address 1:[address] [place] Address 2: City:[place] Selection Factors: State:[place] Referral Type:*Home Health Care Services Referral ID:[id number] Provider Name:[facility] Address 1:[address] Address 2: City:[place] Selection Factors: State:[place] Patient Contact Information Contact Name:MARTHA Relationship:Marcie Address: Work Phone: City: [facility] Phone: [facility] Code: Email: Financial Information Financial Class:Medicaid Primary Plan Desc:[facility] Primary Plan Number:[id number] Secondary Plan Desc: Secondary Plan Number: Assessment Information LACE LACE Length of stay for Answers: 4-6 days current admission Comorbidities - select Answers: Any tumor (including all that apply lymphoma or leukemia) Opioid dependence / Chronic pain # of Emergency department Answers: 1-2 visits in the last 6 months Score: 11 Date Signed: 12/22/2018 02:11 PM Electronically Signed By:Maryanne Chaudhari RN [facility] CM Progress Note CM Note CM Note Notes: Chart reviewed and met with patient in the ED prior to admission. Patient is current with [facility] and Cynthia is her RN. I have LM with Cynthia and spoke with Kisha #[id number] regading plans for admission CM to follow and anticipate discharge home with Date Signed: 12/16/2018 02:07 PM Electronically Signed By:Laurel Mcconnell RN [facility] CM Progress Note CM Note CM Note Notes: Patient plan of care reviewed this am. 63 year old female with metastatic disease admitted with dehydration and anemia. [facility] asked to see patient for Palliative Care. She is a DNR. Lives alone in apartment. Current with [facility]. CM to follow for needs. Plan: Home with [facility] and palliative support. Date Signed: 12/17/2018 02:50 PM Electronically Signed By:Maryanne Chaudhari RN [facility] CM Progress Note CM Note CM Note Notes: Patients housing CM from the [facility], Yareli, came to see patient today. I informed her that patient does indeed qualify for palliative care and that [facility] palliative MD is following her here. I offered more home care - PT, OT - but per Yareli, patient not interested. 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 Yareli will contact [facility] to have them assess for HCBS. Everyone is working to keep patient in her apartment with the necessary services. Current CM Discharge plan: home w [facility] gill and [facility] RN Current CM dischare plan Date Signed: 12/19/2018 11:50 AM Electronically Signed By:Treva Castaneda RN [facility] CM Progress Note CM Note CM Note Notes: Per hospitalist, pt will be required to tolerate P.O. medications for 24 hours in order to be d/cedric. She did report feeling well yesterday and could go home later today if she feels well and medication requirement is met. D/ Plan: Home with [facility] Trammell and [facility] RN. Date Signed: 12/21/2018 11:18 AM Electronically Signed By:Minoo Hand Intervention Information Intervention Type:*Incorrect Registration Date of Service:12/16/2018 05:10 PM Patient Type:Inpatient Staff Member:Leidy Eastman Hours: Discipline: Severity: Comment:
--- NOTE | 2018-12-22 17:57 | GDS ---
[f rep st] DISCHARGE SUMMARY DISCHARGE DIAGNOSES: 1. Metastatic anal squamous cell carcinoma. 2. Pelvic pain secondary to malignancy. 3. Therapy-related nausea. 4. Aplastic anemia, transfusion dependent. 5. Hypertensive urgency. 6. Acute kidney injury. HISTORY OF PRESENT ILLNESS: A 63-year-old female with metastatic anal squamous cell carcinoma with a cute extensive cutaneous metastases, presents with weakness. She was discharged from [facility] November with plans for outpatient transfusion, but did not follow up. Endorsed significant nausea and vomi ting. She has had weight loss. Has daily bleeding from her rectum and labial wounds. HOSPITAL COURSE BY PROBLEM: 1. Metastatic anal squamous cell carcinoma: Everolimus now gets discontinued. She will be discharg ed home with [facility] Home Care as well as [facility] palliative care. She will follow up with Dr. Morin on December 27. 2. Chronic pelvic pain: Secondary to #1. Has had better pain control with p.r.n. Dilaudid. Will d ischarge with a prescription. 3. Therapy-related nausea, resolved with dexamethasone. 4. Transfusion-dependent aplastic anemia: Was transfused here, not needed today. She will follow u p as an outpatient. Continue cyclosporine and Promacta. 5. CHRIS: This has resolved with fluids. 6. Hypertensive urgency: Has been off blood pressure medications for several years. Was initially started on a beta-poncho, but switched this over to Norvasc. She may need additional medication as an outpatient. DISPOSITION: Patient is stable for discharge. NEW MEDICATIONS: See medication reconciliation. FOLLOWUP: 1. Dr. Morin on December 27. 2. Followup outpatient blood pressure. May need additional medication. PHYSICAL EXAMINATION: VITAL SIGNS: Today, temperature 36.5, blood pressure 164/80, heart rate in th e 70s, respirations 16, 96% on room air. GENERAL: She is pale, but no acute distress. Smiling. HE ENT: PERRLA. Moist mucous membranes. CV: Regular rate and rhythm. LUNGS: Clear. ABDOMEN: Soft , nontender, nondistended. Positive bowel sounds. : No Peña. MUSCULOSKELETAL: 5/5 upper and l ower extremity strength. NEURO: 2 through 12 intact. PSYCH: Alert and oriented x3. TIME SPENT ON DISCHARGE: Greater than 30 minutes, coordinating medications with Pharmacy. Case disc ussed with Dr. Morin. /[id number]/MODL
== END 2018-12-22 14:16 | disposition home health service (06) | DRG 660 ==
LOC: INTOOBSV 13:43 → F1N 14:55 → OBSVTOIN 12-17 16:49
PROVIDERS: ADMIT Internal Medicine; ATTEND Internal Medicine
PROC: 30233R1 Transfusion of Nonautologous Platelets into Peripheral Vein, Percutaneous Approach (ICD-10-PCS; principal; 2018-12-16)
PROC: 30233N1 Transfusion of Nonautologous Red Blood Cells into Peripheral Vein, Percutaneous Approach (ICD-10-PCS; 2018-12-16)
DX: D61.1 Drug-induced aplastic anemia (principal); N17.9 Acute kidney failure, unspecified; C78.00 Secondary malignant neoplasm of unspecified lung; C79.2 Secondary malignant neoplasm of skin; E86.0 Dehydration; C44.520 Squamous cell carcinoma of anal skin; F12.90 Cannabis use, unspecified, uncomplicated; G89.29 Other chronic pain; G89.3 Neoplasm related pain (acute) (chronic); I16.0 Hypertensive urgency; N76.6 Ulceration of vulva; R63.0 Anorexia; R11.0 Nausea; Z72.0 Tobacco use; J44.9 Chronic obstructive pulmonary disease, unspecified; Z86.718 Personal history of other venous thrombosis and embolism; Z66 Do not resuscitate
CPT/HCPCS: 80158-90; 96374; 97161-GP; 97165-GO; 99001-90; G0378; J0360; J1170; J1630; J2405; J2550; J3480; J7515; P9016; P9037; P9040

== ENCOUNTER → 2019-04-28 | Outpatient (CLI) | payer OTHER | LOC: FIMAGING 12:43 ==